=== PATIENT | female | born 1940 | race Caucasian/White ===

== ENCOUNTER → 2017-02-26 | Day surgery (SDC) | payer BC ==
[2017-02-19 16:16] VITALS: Ht 165.1 cm; Wt 90.9 kg
[~2017-02-26] VITALS: Ht 165.1 cm; Wt 90.9 kg
[~2017-02-26] MED LIST: 500ML BSS 0.3ML EPI 1:1000PF IRRIG ONE; ACETAMINOPHEN 325 MG TAB PO PRN; AMVISC PLUS 0.8ML SYRINGE INT OCU ONE; ASPEC81 PO; ATEN-173 PO; ATOR-24 PO; BSS FLUSH ONE; CYAN10005 PO; DEXL60CA4 PO; ENDOCOAT 0.85ML SYRINGE INT OCU ONE; EpHEDrine SULFATE INJ 50 MG/ML AMP IV PRN; EpINEphrine INJ 1MG/ML AMP 1 MG/ML AMP ONE; FENTANYL CITRATE INJ 50 MCG/1 ML 2 ML VIAL ONE; INSDGI SC; LACTATED RINGER'S 1000ML 500 ML IV SCH; LIDOCAINE 4% OP SOLN DROP CHARGE ONE; LIDOCAINE 4% OP SOLN DROP CHARGE OPR SCH; LIDOCAINE HCL 1% MPF 2 ML VIAL ONE; MIDAZOLAM HCL 1 MG/ML 2ML VIAL ONE; MIX: 4ML BSS 1ML EPI 1:1000 PF TOP ONE; MOXIFLOXACIN OPH SOLN PER DROP CHARGE ONE; MULT-1092 PO; NVLG SQ; ONDANSETRON INJ 2 MG/ML 2 ML VIAL IV PRN; POVIDONE-IODINE OP SOLN 30 ML BTL ONE; PROPARACAINE 0.5% OP SOLN PER DROP CHARGE OPR SCH; TOBRAMYCIN/DEXAMETHASONE OPH OINT PER APPLN CHARGE ONE; TROPICAMIDE 1% OP SOLN PER DROP CHARGE OPR SCH; ZNTT/150 PO
--- NOTE | 2017-02-26 06:40 | History & Physical Bridge - [place] ---
H&P Re-Evaluation Bridge Note: I have examined the patient, reviewed the History & Physical and in the interval since the performance of the History & Physical I have noted the following changes of clinical significance: No changes noted
[2017-02-26] MEDS: PHENYLEPHRINE HCL 2.5% OP SOLN PER DROP CHARGE OPR SCH ×3 (06:47→06:54)
[2017-02-26] MEDS: TROPICAMIDE 1% OP SOLN PER DROP CHARGE OPR SCH ×3 (06:47→06:54)
[2017-02-26] MEDS: CYCLOPENTOLATE HCL 1% OP SOLN PER DROP CHARGE OPR SCH ×3 (06:48→06:54)
[2017-02-26] MEDS: MOXIFLOXACIN OPH SOLN PER DROP CHARGE OPR SCH ×3 (06:49→06:55)
--- NOTE | 2017-02-26 07:27 | [facility] Post Operative Brief Note ---
Immediate Operative Summary Operative Date Feb 26, 2017. Pre-Operative Diagnosis Right Eye Cataract Post-Operative Diagnosis same Procedure(s) Performed Right Cataract Phacoemulsification With Intraocular Lens Implant Surgeon Dr. Kathryn Roper Clinical Cytogeneticist Surgeon(s) 0 Estimated Blood Loss 0 Findings right cataract Specimens none Complication(s) None Disposition
[2017-02-26 07:28] VITALS: TEMP 36.2
--- NOTE | 2017-02-26 07:28 | [facility] Operative Report ---
Operative Report Date of Service Feb 26, 2017. Operative Report DATE OF OPERATION: 02/26/17 PREOPERATIVE DIAGNOSIS: Senile nuclear cataract, right eye POSTOPERATIVE DIAGNOSIS: Senile nuclear cataract, right eye PROCEDURE PERFORMED: Phacoemulsification with intraocular lens implantation, right eye SURGEON: Dr. Bryan Roper ANESTHESIA: Topical with 1% intracameral lidocaine and monitored anesthesia care COMPLICATIONS: None DESCRIPTION OF PROCEDURE: After positively identifying the patient both verbally and by wristband in the preoperative area, the right eye was marked as the operative eye. The patient was then brought back to the operating room by the anesthesia and nursing staff where they were given a drop of Lidocaine and betadine into the operative eye. They were then sterilely prepped and draped in the standard fashion typical for ophthalmic surgery. Steri-strips were placed along the upper eyelids to keep the lashes back, and a lid speculum was placed into the operative eye. At this point, a documented time out was performed with members of the ophthalmology, nursing, and anesthesia staffs all agreeing upon the correct patient, correct location for surgery, correct procedure, and correct type and power of intraocular lens to be implanted. The microscope was then swung into position. First, a paracentesis wound was made using a sideport blade. Then, in sequence, 1% preservative-free lidocaine followed by Endocoat viscoelastic was injected into the anterior chamber. Next , the main incision was made with a keratome blade in triplanar fashion. A Malyugin ring was inserted due to poor dilation. A sharp cystotome was introduced into the eye and used to create a tear in the anterior capsule, which was directed into a continuous curvilinear capsulorrhexis using Utrata forceps. Hydrodissection was then performed with BSS on a flat-tip cannula. Next, the phacoemulsification handpiece was introduced into the eye and used to remove the nucleus in a [id number] fashion. This was done without complication and then the irrigation-aspiration handpiece was introduced into the eye and used to remove all remaining cortical and epinuclear material. Amvisc was then injected into the anterior chamber as well as into the capsular bag and using the lens injector system, an MX60 21.5 D lens, serial number [id number], and expiration date 07/2019 was injected into the capsular bag and rotated into the correct position. The Malyugin ring was removed. Next, the irrigation-aspiration handpiece was used to remove all remaining Amvisc. BSS was used to hydrate the main wound, and then BSS was injected into the paracentesis site to reach physiologic pressure and then the main wound was checked and found to be watertight. The patient was given drops of Vigamox and Tobradex ointment into the operative eye, and then the surrounding area was cleaned and dried. A clear plastic shield was placed over the eye and the patient was then sat up and taken from the operating room by the anesthesia staff having tolerated the procedure well and suffering no complications. DISPOSITION: The patient was returned to the recovery room in stable condition. I attest to the content of the Intraoperative Record and any orders documented therein. Any exceptions are noted below.
--- NOTE | 2017-02-26 07:29 | Discharge Instructions-SurgCtr ---
Discharge Instructions Date of Service Feb 26, 2017. Visit Reason for Visit: Cataract Right Eye Discharge Discharge Diagnosis / Problem: right cataract Discharge Goals Goal(s): Decrease discomfort, Improve function Activity Recommendations Activity Limitations: as noted below Anesthesia . Post Anesthesia Instructions: If you have had General Anesthesia or IV Sedation: * Do not drive today. * Resume driving when surgeon permits. * Do not make important decisions or sign legal documents today. * Call surgeon for: 1. Temperature elevations greater than 101 degrees F. 2. Uncontrollable pain. 3. Excessive bleeding. 4. Persistent nausea and vomiting. 5. Medication intolerance (nausea, vomiting or rash). * For nausea and vomiting use only clear liquids such as: tea, soda, bouillon until nausea subsides, then gradually increase diet as tolerated. * If you have any concerns or questions, call your surgeon's office. If physician is unavailable and it is an emergency, call 911 or go to the nearest emergency room. . Instructions / Follow-Up Instructions / Follow-Up ACTIVITY RECOMMENDATIONS: * Light activities. * You may walk outside, read, watch television. * You may notice redness on the white part of the eye and some blurry vision - this is normal. MEDICATIONS: Resume previous medications unless instructed otherwise by your surgeon. Start all eye drops at 9:30 am today: * Eye drops (today): Prednisone - one drop in operative eye every 2 hours while awake Ofloxacin - one drop in operative eye every 2 hours while awake Bromfenac - one drop in operative eye daily SPECIAL CARE INSTRUCTIONS: * Tape plastic shield over eye to sleep at night. Call your doctor at with any concerns or problems. FOLLOW UP VISIT: Follow-up with Dr Roper at [facility] as scheduled. Diet Recommendations Home Diet: no limitations Procedures Procedures Performed: Right Cataract Phacoemulsification With Intraocular Lens Implant Pending Studies Studies pending at discharge: no Medical Emergencies . Who to Call and When: Medical Emergencies: If at any time you feel your situation is an emergency, please call 911 immediately. . Non-Emergent Contact Non-Emergency issues call your: Surgeon . . "Provider Documentation" section prepared by Bryan Roper. .
--- NOTE | 2017-02-26 07:39 | Anesthesia Progress Nt - [facility] ---
Anesthesia Post Op Note Date & Time Feb 26, 2017 at 07:39 Vital Signs Pain Intensity: 0 Vital Signs Past 12 Hours Date Time Temp Pulse Resp B/P (MAP) Pulse Ox O2 Delivery O2 Flow Rate FiO2 02/26/17 07:28 36.2 67 16 138/56 (83) 96 Room Air 02/26/17 06:29 36.4 66 151/73 (99) 94 Room Air Notes Mental Status: alert / awake / arousable, participated in evaluation Pt Amnestic to Procedure: Yes Nausea / Vomiting: adequately controlled Pain: adequately controlled Airway Patency, RR, SpO2: stable & adequate BP & HR: stable & adequate Hydration State: stable & adequate Anesthetic Complications: no major complications apparent
[2017-02-26 07:53] VITALS: BP 146/70; PULSE 62; O2SAT 95
== END | disposition home or self-care (01) ==
LOC: X.SURG 06:07
PROVIDERS: ATTEND Ophthalmology
DX: H25.11 Age-related nuclear cataract, right eye (principal); E78.00 Pure hypercholesterolemia, unspecified; I10 Essential (primary) hypertension; E11.39 Type 2 diabetes mellitus with other diabetic ophthalmic complication; Z87.891 Personal history of nicotine dependence; Z79.4 Long term (current) use of insulin; K21.9 Gastro-esophageal reflux disease without esophagitis; G47.33 Obstructive sleep apnea (adult) (pediatric); E78.5 Hyperlipidemia, unspecified; Z86.711 Personal history of pulmonary embolism

== ENCOUNTER → 2017-03-19 | Day surgery (SDC) | payer BC ==
[2017-03-06 15:24] VITALS: Ht 165.1 cm; Wt 90.9 kg
[~2017-03-19] VITALS: Ht 165.1 cm; Wt 90.9 kg
[~2017-03-19] MED LIST changes: +ATROPINE SULFATE 0.1 MG/ML 5ML SYR IV PRN; +LIDOCAINE 4% OP SOLN DROP CHARGE OPL SCH; -LIDOCAINE 4% OP SOLN DROP CHARGE OPR SCH; -ONDANSETRON INJ 2 MG/ML 2 ML VIAL IV PRN; +PROPARACAINE 0.5% OP SOLN PER DROP CHARGE OPL SCH; -PROPARACAINE 0.5% OP SOLN PER DROP CHARGE OPR SCH; -TROPICAMIDE 1% OP SOLN PER DROP CHARGE OPR SCH
[2017-03-19] MEDS: PHENYLEPHRINE HCL 2.5% OP SOLN PER DROP CHARGE OPL SCH ×3 (06:39→06:49)
[2017-03-19] MEDS: TROPICAMIDE 1% OP SOLN PER DROP CHARGE OPL SCH ×3 (06:40→06:50)
[2017-03-19] MEDS: CYCLOPENTOLATE HCL 1% OP SOLN PER DROP CHARGE OPL SCH ×3 (06:41→06:51)
[2017-03-19] MEDS: MOXIFLOXACIN OPH SOLN PER DROP CHARGE OPL SCH ×3 (06:42→06:52)
--- NOTE | 2017-03-19 07:35 | [facility] Post Operative Brief Note ---
Immediate Operative Summary Operative Date Mar 19, 2017. Pre-Operative Diagnosis Left Eye Cataract Post-Operative Diagnosis Same Procedure(s) Performed Left Cataract Phacoemulsification With Intraocular Lens Implant Surgeon Dr. Roper [facility] Companion Surgeon(s) None Estimated Blood Loss None Findings left cataract Specimens None Complication(s) None Disposition
--- NOTE | 2017-03-19 07:36 | [facility] Operative Report ---
Operative Report Date of Service Mar 19, 2017. Operative Report Phaco with monofocal IOL DATE OF OPERATION: 03/19/17 PREOPERATIVE DIAGNOSIS: Senile nuclear cataract, left eye POSTOPERATIVE DIAGNOSIS: Senile nuclear cataract, left eye PROCEDURE PERFORMED: Phacoemulsification with intraocular lens implantation, left eye SURGEON: Dr. Bryan Roper ANESTHESIA: Topical with 1% intracameral lidocaine and monitored anesthesia care COMPLICATIONS: None DESCRIPTION OF PROCEDURE: After positively identifying the patient both verbally and by wristband in the preoperative area, the left eye was marked as the operative eye. The patient was then brought back to the operating room by the anesthesia and nursing staff where they were given a drop of Lidocaine and betadine into the operative eye. They were then sterilely prepped and draped in the standard fashion typical for ophthalmic surgery. Steri-strips were placed along the upper eyelids to keep the lashes back, and a lid speculum was placed into the operative eye. At this point, a documented time out was performed with members of the ophthalmology, nursing, and anesthesia staffs all agreeing upon the correct patient, correct location for surgery, correct procedure, and correct type and power of intraocular lens to be implanted. The microscope was then swung into position. First, a paracentesis wound was made using a sideport blade. Then, in sequence, 1% preservative-free lidocaine followed by Endocoat viscoelastic was injected into the anterior chamber. Next , the main incision was made with a keratome blade in triplanar fashion. A Malyugin ring was inserted due to poor pupil dilation. A sharp cystotome was introduced into the eye and used to create a tear in the anterior capsule, which was directed into a continuous curvilinear capsulorrhexis using Utrata forceps. Hydrodissection was then performed with BSS on a flat-tip cannula. Next, the phacoemulsification handpiece was introduced into the eye and used to remove the nucleus in a kyntek-hmm-dohuyel fashion. This was done without complication and then the irrigation-aspiration handpiece was introduced into the eye and used to remove all remaining cortical and epinuclear material. Amvisc was then injected into the anterior chamber as well as into the capsular bag and using the lens injector system, an MX60 21.5 D lens, serial number [id number], and expiration date 08/2019 was injected into the capsular bag and rotated into the correct position. The Malyugin ring was removed. Next, the irrigation-aspiration handpiece was used to remove all remaining Amvisc. BSS was used to hydrate the main wound, and then BSS was injected into the paracentesis site to reach physiologic pressure and then the main wound was checked and found to be watertight. The patient was given drops of Vigamox and Tobradex ointment into the operative eye, and then the surrounding area was cleaned and dried. A clear plastic shield was placed over the eye and the patient was then sat up and taken from the operating room by the anesthesia staff having tolerated the procedure well and suffering no complications. DISPOSITION: The patient was returned to the recovery room in stable condition. I attest to the content of the Intraoperative Record and any orders documented therein. Any exceptions are noted below.
[2017-03-19 07:37] VITALS: TEMP 36.6
--- NOTE | 2017-03-19 07:37 | Discharge Instructions-SurgCtr ---
Discharge Instructions Date of Service Mar 19, 2017. Visit Reason for Visit: Cataract Left Eye Discharge Discharge Diagnosis / Problem: left cataract Discharge Goals Goal(s): Decrease discomfort, Improve function Activity Recommendations Activity Limitations: as noted below Anesthesia . Post Anesthesia Instructions: If you have had General Anesthesia or IV Sedation: * Do not drive today. * Resume driving when surgeon permits. * Do not make important decisions or sign legal documents today. * Call surgeon for: 1. Temperature elevations greater than 101 degrees F. 2. Uncontrollable pain. 3. Excessive bleeding. 4. Persistent nausea and vomiting. 5. Medication intolerance (nausea, vomiting or rash). * For nausea and vomiting use only clear liquids such as: tea, soda, bouillon until nausea subsides, then gradually increase diet as tolerated. * If you have any concerns or questions, call your surgeon's office. If physician is unavailable and it is an emergency, call 911 or go to the nearest emergency room. . Instructions / Follow-Up Instructions / Follow-Up ACTIVITY RECOMMENDATIONS: * Light activities. * You may walk outside, read, watch television. * You may notice redness on the white part of the eye and some blurry vision - this is normal. MEDICATIONS: Resume previous medications unless instructed otherwise by your surgeon. Start all eye drops at 9:30 am today: * Eye drops (today): Prednisone - one drop in operative eye every 2 hours while awake Ofloxacin - one drop in operative eye every 2 hours while awake Bromfenac - one drop in operative eye daily SPECIAL CARE INSTRUCTIONS: * Tape plastic shield over eye to sleep at night. Call your doctor at with any concerns or problems. FOLLOW UP VISIT: Follow-up with Dr Roper at [facility] as scheduled. Diet Recommendations Home Diet: no limitations Procedures Procedures Performed: Left Cataract Phacoemulsification With Intraocular Lens Implant Pending Studies Studies pending at discharge: no Medical Emergencies . Who to Call and When: Medical Emergencies: If at any time you feel your situation is an emergency, please call 911 immediately. . Non-Emergent Contact Non-Emergency issues call your: Surgeon . . "Provider Documentation" section prepared by Bryan Roper. .
--- NOTE | 2017-03-19 08:00 | Anesthesia Progress Nt - [facility] ---
Anesthesia Post Op Note Date & Time Mar 19, 2017 at 08:00 Vital Signs Pain Intensity: 0 Vital Signs Past 12 Hours Date Time Temp Pulse Resp B/P (MAP) Pulse Ox O2 Delivery O2 Flow Rate FiO2 03/19/17 07:37 36.6 66 16 137/83 (101) 95 Room Air 03/19/17 06:34 36.3 77 18 140/68 (92) 94 Room Air Notes Mental Status: alert / awake / arousable, participated in evaluation Pt Amnestic to Procedure: Yes Nausea / Vomiting: adequately controlled Pain: adequately controlled Airway Patency, RR, SpO2: stable & adequate BP & HR: stable & adequate Hydration State: stable & adequate Anesthetic Complications: no major complications apparent
[2017-03-19 08:01] VITALS: BP 126/72; PULSE 63; O2SAT 95
== END | disposition home or self-care (01) ==
LOC: X.SURG 06:06
PROVIDERS: ATTEND Ophthalmology
DX: H25.12 Age-related nuclear cataract, left eye (principal); I10 Essential (primary) hypertension; E78.00 Pure hypercholesterolemia, unspecified; E11.3213 Type 2 diabetes mellitus with mild nonproliferative diabetic retinopathy with macular edema, bilateral; Z87.891 Personal history of nicotine dependence; Z79.4 Long term (current) use of insulin; Z79.82 Long term (current) use of aspirin; Z79.899 Other long term (current) drug therapy

== ENCOUNTER 2021-05-24 16:51 | Inpatient (IN) ==
[2021-05-24] MEDS ORDERED: ONDANSETRON INJ 2 MG/ML 2 ML VIAL IV STA ×2 (17:07→19:46)
[2021-05-24] MEDS ORDERED: ALBUTEROL HFA 8 GM INHALER INH ONE (17:07)
[2021-05-24] MEDS ORDERED: BENZONATATE 100 MG CAPSULE PO ONE (17:07)
--- NOTE | 2021-05-24 17:07 | Emergency Department Note ---
Impression & Plan Hypoxia, SOB (shortness of breath), Weakness, Pneumonia, COVID-19 ED Provider Note NAME: BELA HAYES AGE: 80 SEX: F : 1940 ARRIVES VIA: Ambulance INFORMANT: [Patient][ems] ED PROVIDER(S): [Hermes Mojica MD] CHIEF COMPLAINT: Cough, weakness HISTORY OF PRESENT ILLNESS: The patient is an 80-year-old female presents to the ED with cough and weakness. She has no appetite. The patient has felt sick for about 9 days now. She did test positive for COVID-19. Her is also positive. She has been vaccinated against COVID-19. Patient complains mostly of cough, some occasional shortness of breath with exertion. She has no appetite. She has lost her taste and smell. She has some body aches. She has had some nausea and diarrhea. No vomiting. She denies any fever. She was concerned because she is diabetic and she has not been eating, she wanted to make sure she was okay. She presents by ambulance. She does believe her sugars have been reasonable lately. REVIEW OF SYSTEMS: See HPI for pertinent positives and negatives. A total of ten systems were reviewed and were otherwise negative. PMHx/PSHx: See Below SOCIAL HISTORY: See Below. PHYSICAL EXAM: GENERAL: Patient is in no acute distress. HEENT: No acute trauma, normocephalic atraumatic, mucous membranes moist, no nasal congestion, no scleral icterus. NECK: No stridor, no adenopathy, no meningismus, trachea is midline. LUNGS: Some crackles at the left base, no wheezing, breath sounds do seem equal. No obvious respiratory distress. HEART: Without murmurs gallops or rubs, regular rate and rhythm. ABDOMEN: Soft, nontender, bowel sounds positive, no hernias, no peritonitis. EXTREMITIES: No cyanosis or edema, full range of motion of all the joints without pain or difficulty, no signs for acute trauma. NEUROLOGIC: Oriented x 3, no acute motor or sensory deficits, no focal weakness. SKIN: No rash, no jaundice, no diaphoresis. DIFFERENTIAL DIAGNOSIS: Infection, dehydration, metabolic abnormality, COVID-19, hypo/hyperglycemia, electrolyte disturbance, anemia, hypoxia, cardiac sources, intracerebral event, toxicologic issues, stroke, TIA, as well as other pathologies. EMERGENCY DEPARTMENT COURSE/PROCEDURES: ECG: Indication was shortness of breath, weakness. ECG shows a normal sinus rhythm with a rate of 77. 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 There is no ST elevation, no PVCs. QTC is 473. 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 Continuous Cardiac Monitoring: An order was placed for continuous cardiac monitoring. The monitor shows a rate of 77 with normal sinus rhythm. Critical Care Note: I have personally spent 46 minutes of critical care time in the direct management of this patient. This includes bedside care, interpretation of diagnostic studies, and testing, discussion with consultants, patient, and family members, and other required patient management activities. This 46 minutes is in excess of all separately billable procedures. MEDICAL DECISION MAKING: There is no leukocytosis or concerning anemia. There is a normal platelet count. Creatinine is somewhat elevated at 1.61, this is consistent with some deh ydration. No worrisome electrolyte abnormality in need of emergent correction. Lactic acid level was not elevated making sepsis less likely. No concerning liver enzyme elevation. ECG shows a sinus rhythm, no acute ischemia. Cardiac enzyme testing x1 is not consistent with acute cardiac injury. Chest film does show what appears to be left lower lung pneumonia. Chest CT does not show PE, bilateral groundglass opacities were seen consistent with a viral pneumonia. The patient was given IV saline, 1 L in total. She was given IV Zofran, 8 mg in total. She received IV Decadron, oral Tessalon and albuterol via MDI. The patient was hypoxic in the ED at 88%. She was given nasal cannula O2 supplementation. Given the patient's Covid positive findings, her pneumonia findings, her hypoxia, her diabetes history, her COPD history, I do think a hospital stay is warranted. I did speak with the patient and case sealer. The on-call hospitalist was consulted. Past Med/Surg History Medical History Chest pain Diabetes HTN, goal below 140/80 (06/26/13) Hypomagnesemia Family History (Updated 05/25/19 @ 03:43 by Dwayne De Jesus) Other No significant family history Social History Smoking Status: Former smoker Tobacco Type: Cigarettes Hx Alcohol Use: No Preferred Language: Barbadian Feels Safe at Home: Yes Allergies Allergies Allergy/AdvReac Type Severity Reaction Status Date / Time azithromycin Allergy Intermediate FACIAL Verified 05/24/21 17:59 SWELLING AND ITCHING IN COMBINATION WITH HYCODAN homatropine Allergy Intermediate FACIAL Verified 05/24/21 17:59 SWELLING AND ITCHING IN COMBINATION WITH ZITHROMAX hydrocodone Allergy Intermediate FACIAL Verified 05/24/21 17:59 SWELLING &ITCHING-IN COMBINATION W/ZITHROMAX Penicillins Allergy Mild RASH, ITCHY Verified 05/24/21 17:59 metformin AdvReac Intermediate Diarrhea Verified 05/24/21 17:59 Sulfa (Sulfonamide AdvReac Mild SULFA Verified 05/24/21 17:59 Antibiotics) DRUGS-CHANGE COLORS Home Meds Home Medications Medication Instructions Recorded Confirmed atenolol 25 mg tablet 25 mg PO QPM 02/24/19 05/24/21 atorvastatin 40 mg tablet 40 mg PO PM 02/24/19 05/24/21 cyanocobalamin (vitamin B-12) 1,000 mcg PO QAM 02/24/19 05/24/21 1,000 mcg tablet (Vitamin B-12) insulin aspart U-100 100 unit/mL 1 sliding scale dose SUBCUT ACHS 02/24/19 05/24/21 subcutaneous solution (Novolog U-100 Insulin aspart) aspirin 325 mg tablet,delayed 325 mg PO DAILY 10/07/20 05/24/21 release insulin degludec 100 36 unit SUBCUT QAM 10/07/20 05/24/21 unit-liraglutide 3.6 mg/mL(3 mL) subcutaneous pen (Xultophy 100/3.6) ascorbic acid (vitamin C) 1,000 mg 1 g PO DAILY 05/24/21 05/24/21 tablet (Vitamin C) cholecalciferol (vitamin D3) 125 125 mcg PO DAILY 05/24/21 05/24/21 mcg (5,000 unit) tablet (Vitamin D3) fluticasone furoate 200 1 inh INHALATION DIRECTED 05/24/21 05/24/21 mcg-vilanterol 25 mcg/dose inhalation powder (Breo Ellipta) zinc 50 mg tablet 50 mg PO DAILY 05/24/21 05/24/21 Results & Data (ED) Vital Signs Vital Signs - 24 hr 05/24/21 17:13 05/24/21 19:48 05/24/21 19:56 Pulse Rate 77 Pulse Rate [Apical] 83 Respiratory Rate 21 18 Respiratory Depth Normal Blood Pressure 113/64 Blood Pressure Mean 80 Pulse Oximetry 89 L 88 L 95 Oxygen Delivery Method Room Air Room Air Nasal Cannula Oxygen Flow Rate 2 Sepsis Recent Fever Within 48 Hours No Sepsis New/Unexplained Change in Mental Status No Sepsis Action Taken by Nursing No Action Required Home Medications Current Medication List: was personally reviewed by me Laboratory Data Attestation: I reviewed the patient's lab results. Result diagrams: 05/24/21 17:32 05/24/21 17:32 Lab Results 05/24/21 05/24/21 05/24/21 Range/Units 17:32 17:32 17:32 WBC 6.68 (4.8-10.8) K/uL RBC 4.19 L (4.2-5.4) M/uL Hgb 13.0 (12.0-16.0) g/dL Hct 38.3 (37-47) % MCV 91.4 (80-100) fL MCH 31.0 (25-34) pg MCHC 33.9 (32-36) g/dL RDW Std Deviation 44.5 (36.4-46.3) fL RDW Coeff of Sandy 13.3 (11.5-14.5) % Plt Count 167 (130-400) K/uL MPV 11.8 H (7.4-10.4) fL Immature Gran % (Auto) 0.1 % Neut % (Auto) 53.2 % Lymph % (Auto) 34.7 % Jerauld % (Auto) 10.0 % Eos % (Auto) 1.6 % Baso % (Auto) 0.4 % Neut # (Auto) 3.54 (1.4-6.5) K/uL Lymph # (Auto) 2.32 (1.2-3.4) K/uL Jerauld # (Auto) 0.67 H (0.11-0.59) K/uL Eos # (Auto) 0.11 (0-0.5) K/uL Baso # (Auto) 0.03 (0-0.2) K/uL Immature Gran # (Auto) 0.01 (0.00-0.02) K/uL Sodium 136 (136-145) mmol/L Potassium 3.7 (3.5-5.1) mmol/L Chloride 104 (98-107) mmol/L Carbon Dioxide 22 (21-32) mmol/L Anion Gap 10.0 (3-11) BUN 26 H (7-18) mg/dl Creatinine 1.61 H (0.6-1.2) mg/dl Est Cr Clr Drug Dosing 29.2 ml/min Est GFR ( Amer) 34.2 ml/min Est GFR (Non-Af Amer) 29.5 ml/min BUN/Creatinine Ratio 16.1 (10-20) Glucose 105 H (70-99) mg/dl Lactate 0.7 (0.4-2.0) mmol/L Calcium 8.9 (8.5-10.1) mg/dl Magnesium 2.0 (1.8-2.4) mg/dl Total Bilirubin 0.5 (0.2-1) mg/dl AST 21 (15-37) U/L ALT 22 (12-78) U/L Alkaline Phosphatase 71 (45-117) U/L Troponin I < 0.015 (0-0.045) ng/ml Total Protein 7.9 (6.4-8.2) gm/dl Albumin 2.9 L (3.4-5.0) gm/dl Globulin 5.0 H (2.5-4.0) gm/dl Albumin/Globulin Ratio 0.6 L (0.9-2) Procalcitonin (0-0.5) ng/ml 05/24/21 Range/Units 18:06 WBC (4.8-10.8) K/uL RBC (4.2-5.4) M/uL Hgb (12.0-16.0) g/dL Hct (37-47) % MCV (80-100) fL MCH (25-34) pg MCHC (32-36) g/dL RDW Std Deviation (36.4-46.3) fL RDW Coeff of Sandy (11.5-14.5) % Plt Count (130-400) K/uL MPV (7.4-10.4) fL Immature Gran % (Auto) % Neut % (Auto) % Lymph % (Auto) % Jerauld % (Auto) % Eos % (Auto) % Baso % (Auto) % Neut # (Auto) (1.4-6.5) K/uL Lymph # (Auto) (1.2-3.4) K/uL Jerauld # (Auto) (0.11-0.59) K/uL Eos # (Auto) (0-0.5) K/uL Baso # (Auto) (0-0.2) K/uL Immature Gran # (Auto) (0.00-0.02) K/uL Sodium (136-145) mmol/L Potassium (3.5-5.1) mmol/L Chloride (98-107) mmol/L Carbon Dioxide (21-32) mmol/L Anion Gap (3-11) BUN (7-18) mg/dl Creatinine (0.6-1.2) mg/dl Est Cr Clr Drug Dosing ml/min Est GFR ( Amer) ml/min Est GFR (Non-Af Amer) ml/min BUN/Creatinine Ratio (10-20) Glucose (70-99) mg/dl Lactate (0.4-2.0) mmol/L Calcium (8.5-10.1) mg/dl Magnesium (1.8-2.4) mg/dl Total Bilirubin (0.2-1) mg/dl AST (15-37) U/L ALT (12-78) U/L Alkaline Phosphatase (45-117) U/L Troponin I (0-0.045) ng/ml Total Protein (6.4-8.2) gm/dl Albumin (3.4-5.0) gm/dl Globulin (2.5-4.0) gm/dl Albumin/Globulin Ratio (0.9-2) Procalcitonin < 0.05 (0-0.5) ng/ml Administered Medications Discontinued Medications Albuterol (Albuterol Hfa 8 Gm Inhaler) 3 puffs INH NOW ONE Stop: 05/24/21 17:08 Last Admin: 05/24/21 18:00 Dose: 3 puffs Documented by: [id number] Benzonatate (Benzonatate 100 Mg Capsule) 100 mg PO NOW ONE Stop: 05/24/21 17:08 Last Admin: 05/24/21 18:00 Dose: 100 mg Documented by: [id number] Sodium Chloride (Nss) 500 mls @ 999 mls/hr IV .Q31M ADAL Stop: 05/24/21 17:45 Last Infusion: 05/24/21 18:36 Dose: 0 mls/hr Documented by: [id number] Admin: 05/24/21 18:00 Dose: 999 mls/hr Documented by: [id number] Sodium Chloride (Nss 1000ml) 500 mls @ 999 mls/hr IV .Q31M ONE Stop: 05/24/21 19:49 Last Admin: 05/24/21 19:54 Dose: 999 mls/hr Documented by: [id number] Ioversol (Optiray 320 125ml) 118 ml IV ONCE ONE Stop: 05/24/21 19:38 Last Admin: 05/24/21 19:43 Dose: 118 ml Documented by: [id number] Ondansetron HCl (Ondansetron Inj 2 Mg/Ml 2 Ml Vial) 4 mg IV NOW STA Stop: 05/24/21 17:08 Last Admin: 05/24/21 18:00 Dose: 4 mg Documented by: [id number] Ondansetron HCl (Ondansetron Inj 2 Mg/Ml 2 Ml Vial) 4 mg IV NOW STA Stop: 05/24/21 19:47 Last Admin: 05/24/21 19:54 Dose: 4 mg Documented by: [id number] Imaging Data Radiologist's Impression: Chest X-Ray 05/24/21 17:07 SINGLE VIEW CHEST CLINICAL HISTORY: Generalized weakness. FINDINGS: An AP, portable, upright chest radiograph is compared to study dated 05/25/2019 and correlated with chest CT dated 10/07/2020. The cardiomediastinal silhouette is unremarkable noting atherosclerotic calcification of the thoracic aorta. The mitral annulus is densely calcified. Emphysema and chronic interstitial thickening is similar to previous. Airspace consolidation is seen at the left lung base. Suspect trace left pleural effusion. No pneumothorax is seen. The skeletal structures are osteopenic. The bony thorax is grossly intact. IMPRESSION: 1. Emphysema. 2. Airspace consolidation is seen at the left lung base. Correlate clinically for evidence of pneumonia/aspiration pneumonitis. Radiographic follow-up to resolution is recommended. 3. Suspect trace left pleural effusion. ACT 112: Negative or not required by law. Electronically signed by: Hermes Rosas M.D. 05/24/2021 5:50 PM Chest CTA 05/24/21 18:48 CT ANGIOGRAM OF THE CHEST CLINICAL HISTORY: Generalized weakness. Covid. COMPARISON STUDY: Chest CT dated 10/07/2020. Chest x-ray dated 05/24/2021 TECHNIQUE: Following the IV administration of 118 cc of Optiray 320, CT angiogram of the chest was performed from the upper abdomen to the thoracic inlet utilizing the pulmonary embolus protocol. Images are reviewed in the axial, sagittal, and coronal planes. 3-D MIPS images are created and assessed. IV contrast was administered without complication. A dose lowering technique was utilized adhering to the principles of ALARA. CT DOSE: 626.63 mGy.cm FINDINGS: Thyroid: Imaged portions of the thyroid gland are normal in size and attenuation. Thoracic aorta: There is mild atherosclerotic calcification of the thoracic aort a, which is normal in caliber and demonstrates standard 3-vessel arch anatomy. No dissection is seen. Pulmonary vasculature: The pulmonary trunk is normal in caliber. There are no filling defects identified in main, lobar, or segmental pulmonary branches to suggest pulmonary embolus. Heart: The heart is top normal in size and without pericardial effusion. The coronary arteries and mitral annulus are densely calcified. Lungs and pleural spaces: Emphysema is noted. There is mild multifocal groundglass consolidation seen throughout both lungs, most confluent in the anterior left upper lobe. No pleural effusion is identified. The trachea and central airways are clear. Mediastinum: Mildly enlarged mediastinal lymph nodes measure up to 11 mm in short axis. Briana: Mildly enlarged hilar lymph nodes measure up to 11 mm in short axis. Axillae: There is no axillary lymphadenopathy. Upper abdomen: There is a small hiatal hernia. Partially visualized upper abdominal viscera is otherwise grossly unremarkable. Skeletal structures: The skeletal structures are osteopenic. Mild degenerative change is noted in the thoracic spine. A large hemangioma is noted in the body of T4. No lytic or blastic bony lesions are seen. IMPRESSION: 1. There is no evidence of pulmonary embolus in the main, lobar, or segmental pulmonary arteries. 2. Emphysema. 3. Mild multifocal groundglass consolidation is consistent with the reported history of a viral pneumonia. Precautionary CT follow-up in 3 months time is recommended to document resolution and reassess the underlying the lung parenc hyma. 4. Mildly enlarged mediastinal and hilar nodes are likely reactive. 5. Additional findings as above. ACT 112: Negative or not required by law. Electronically signed by: Hermes Rosas M.D. 05/24/2021 8:04 PM Discharge Plan Visit Data Chief Complaint: Illness Stated Complaint: ILLNESS, COVID + ED Provider: Hermes Mojica Discharge Problem: Hypoxia, SOB (shortness of breath), Weakness, Pneumonia, COVID-19 Patient Disposition: Admitted As Inpatient Condition: Fair Forms Stand Alone Forms: [facility] [place] Prescriptions Prescriptions: No Action atorvastatin 40 mg Tablet 40 mg PO PM RF: 0 atenolol 25 mg Tablet 25 mg PO QPM RF: 0 cyanocobalamin (vitamin B-12) [Vitamin B-12] 1,000 mcg Tablet 1,000 mcg PO QAM RF: 0 insulin aspart U-100 [Novolog U-100 Insulin aspart] 100 unit/mL Solution 1 sliding scale dose SUBCUT ACHS RF: 0 aspirin 325 mg Tablet,Delayed Release (Dr/Ec) 325 mg PO DAILY RF: 0 Xultophy 100/3.6 100 unit-3.6 mg /mL (3 mL) insulin pen 36 unit SUBCUT QAM RF: 0 Breo Ellipta 200-25 mcg/dose blister with device 1 inh INHALATION DIRECTED RF: 0 ascorbic acid (vitamin C) [Vitamin C] 1,000 mg Tablet 1 g PO DAILY RF: 0 zinc 50 mg Tablet 50 mg PO DAILY RF: 0 cholecalciferol (vitamin D3) [Vitamin D3] 125 mcg (5,000 unit) Tablet 125 mcg PO DAILY RF: 0 Referrals Referrals: Lima Mcdonough MD [Physician] - Discharge Problem: Pneumonia Qualifiers: Pneumonia type: due to unspecified organism Laterality: bilateral Lung location: unspecified part of lung Qualified Code(s): J18.9 - Pneumonia, unspecified organism
[2021-05-24] MEDS ORDERED: SODIUM CHLORIDE 0.9% 500 ML IV SCH (17:15)
[2021-05-24 17:46] LABS: Basophils # (auto) 0.03 K/uL (0-0.2); Basophils % (auto) 0.4 %; Eosinophils # (auto) 0.11 K/uL (0-0.5); Eosinophils % (auto) 1.6 %; Hematocrit (blood only) 38.3 % (37-47); Immature Granulocytes # (auto) 0.01 K/uL (0.00-0.02); Immature Granulocytes % (auto) 0.1 %; Lymphocytes # (auto) 2.32 K/uL (1.2-3.4); Lymphocytes % (auto) 34.7 %; Mean Corpuscular Hgb Conc 33.9 g/dL (32-36); Mean Corpuscular Volume 91.4 fL (80-100); Mean Platelet Volume 11.8 fL (7.4-10.4); Monocytes # (auto) 0.67 K/uL (0.11-0.59); Neutrophils # (auto) 3.54 K/uL (1.4-6.5); Neutrophils % (auto) 53.2 %; Platelet Count 167 K/uL (130-400); RDW Coefficient of Variation 13.3 % (11.5-14.5); RDW Standard Deviation 44.5 fL (36.4-46.3); Red Blood Count 4.19 M/uL (4.2-5.4); White Blood Count 6.68 K/uL (4.8-10.8)
--- NOTE | 2021-05-24 17:51 | XRay Report ---
SINGLE VIEW CHEST CLINICAL HISTORY: Generalized weakness. FINDINGS: An AP, portable, upright chest radiograph is compared to study dated 05/25/2019 and correla jeff with chest CT dated 10/07/2020. The cardiomediastinal silhouette is unremarkable noting atheroscle rotic calcification of the thoracic aorta. The mitral annulus is densely calcified. Emphysema and chr onic interstitial thickening is similar to previous. Airspace consolidation is seen at the left lung base. Suspect trace left pleural effusion. No pneumothorax is seen. The skeletal structures are osteo penic. The bony thorax is grossly intact. IMPRESSION: 1. Emphysema. 2. Airspace consolidation is seen at the left lung base. Correlate clinically for evidence of pneumon ia/aspiration pneumonitis. Radiographic follow-up to resolution is recommended. 3. Suspect trace left pleural effusion. ACT 112: Negative or not required by law. Electronically signed by: Hermes Rosas M.D. 05/24/2021 5:50 PM
[2021-05-24 18:04] LABS: Alanine Aminotransferase 22 U/L (12-78); Albumin Level 2.9 gm/dl (3.4-5.0); Aspartate Aminotransferase 21 U/L (15-37); BUN Creatinine Ratio 16.1 (10-20); Blood Urea Nitrogen 26 mg/dl (7-18); Calcium 8.9 mg/dl (8.5-10.1); Carbon Dioxide 22 mmol/L (21-32); Chloride 104 mmol/L (98-107); Creatinine Clr Calc Pharmacy 29.2 ml/min; Est GFR (African American) 34.2 ml/min; Est GFR (Non-African American) 29.5 ml/min; Glucose 105 mg/dl (70-99); Potassium 3.7 mmol/L (3.5-5.1); Sodium 136 mmol/L (136-145)
[2021-05-24 18:09] LABS: Albumin Globulin Ratio 0.6 (0.9-2); Alkaline Phosphatase 71 U/L (45-117); Bilirubin,Total 0.5 mg/dl (0.2-1); Total Protein 7.9 gm/dl (6.4-8.2); Troponin I < 0.015 ng/ml (0-0.045)
[2021-05-24] MEDS ORDERED: SODIUM CHLORIDE 0.9% 1000ML 500 ML IV ONE (19:19)
[2021-05-24] MEDS ORDERED: OPTIRAY 320 125ml IV ONE (19:37)
--- NOTE | 2021-05-24 20:06 | CT Scan Report ---
CT ANGIOGRAM OF THE CHEST CLINICAL HISTORY: Generalized weakness. Covid. COMPARISON STUDY: Chest CT dated 10/07/2020. Chest x-ray dated 05/24/2021 TECHNIQUE: Following the IV administration of 118 cc of Optiray 320, CT angiogram of the chest was pe rformed from the upper abdomen to the thoracic inlet utilizing the pulmonary embolus protocol. Images are reviewed in the axial, sagittal, and coronal planes. 3-D MIPS images are created and assessed. I V contrast was administered without complication. A dose lowering technique was utilized adhering to the principles of ALARA. CT DOSE: 626.63 mGy.cm FINDINGS: Thyroid: Imaged portions of the thyroid gland are normal in size and attenuation. Thoracic aorta: There is mild atherosclerotic calcification of the thoracic aorta, which is normal in caliber and demonstrates standard 3-vessel arch anatomy. No dissection is seen. Pulmonary vasculature: The pulmonary trunk is normal in caliber. There are no filling defects identif ied in main, lobar, or segmental pulmonary branches to suggest pulmonary embolus. Heart: The heart is top normal in size and without pericardial effusion. The coronary arteries and mi tral annulus are densely calcified. Lungs and pleural spaces: Emphysema is noted. There is mild multifocal groundglass consolidation seen throughout both lungs, most confluent in the anterior left upper lobe. No pleural effusion is identi fied. The trachea and central airways are clear. Mediastinum: Mildly enlarged mediastinal lymph nodes measure up to 11 mm in short axis. Briana: Mildly enlarged hilar lymph nodes measure up to 11 mm in short axis. Axillae: There is no axillary lymphadenopathy. Upper abdomen: There is a small hiatal hernia. Partially visualized upper abdominal viscera is otherw ise grossly unremarkable. Skeletal structures: The skeletal structures are osteopenic. Mild degenerative change is noted in the thoracic spine. A large hemangioma is noted in the body of T4. No lytic or blastic bony lesions are seen. IMPRESSION: 1. There is no evidence of pulmonary embolus in the main, lobar, or segmental pulmonary arteries. 2. Emphysema. 3. Mild multifocal groundglass consolidation is consistent with the reported history of a viral pneum onia. Precautionary CT follow-up in 3 months time is recommended to document resolution and reassess the underlying the lung parenchyma. 4. Mildly enlarged mediastinal and hilar nodes are likely reactive. 5. Additional findings as above. ACT 112: Negative or not required by law. Electronically signed by: Hermes Rosas M.D. 05/24/2021 8:04 PM
[2021-05-24] MEDS ORDERED: dexAMETHasone**PF** 10 MG/ML VIAL IV ONE (20:09)
[2021-05-24] MEDS ORDERED: POTASSIUM CHLORIDE CRTAB 20 MEQ TABCR PO STA (20:31)
--- NOTE | 2021-05-24 21:23 | History & Physical Report ---
Date of Service May 24, 2021 Assessment & Plan (1) Acute hypoxemic respiratory failure: Plan: Secondary to severe COVID-19 pneumonia With secondary bacterial infection hx COPD ARF on CRI secondary to illness History of PE status post anticoagulation PVD status post surgery DM2 is requiring, well-controlled as of recent hemoglobin A1c of 01 November 2020 past tobacco abuse. Medical telemetry Supplemental O2 Decadron and Remdesivir for severe COVID-19 pneumonia. (Patient hesitant about Remdesivir Rx for now.) Doxycycline Pulmonary consult if without improvement. Baseline UA, monitor creatinine response to IVF Basal insulin adjusted for clear liquid diet for now given patient poor appetite, ISS BG goal 1 10-1 40, carb count coverage, update hemoglobin A1c DVT prophylaxis Heparin subcu Full code Patient requests for her to be given periodic updates. Mr. Chadwick Bennett, contact #[phone]. Text document was generated using [employer] voice recognition software. It may contain grammatical or spelling errors. Kindly contact undersigned for clarification of any documentation item in question. History of Present Illness Chief Complaint: Worsening shortness breath, COVID-19 Primary Care Provider: Paz Daniels MD History obtained from patient, family, and records. Medical history significant for COPD, history PAT, history TIA, PVD status post surgery, history PE status post anticoagulation, DM2 is requiring, CRI (baseline creatinine 1.4), past tobacco abuse. Last confinement May 2013 for noncardiac chest pain. 9 days ago, patient noted cough symptoms later productive of junky yellow sputum with worsening shortness of breath especially on exertion. No appetite. Loss of taste and smell. Some body aches. Transient nausea, diarrhea symptoms. Sick COVID-19 contact at home. Patient completed COVID-19 vaccination. Outpatient COVID-19 test from last week was positive. O2 sats upon arrival at ER 88 on room air. Patient received Decadron and neb treatment at the ER. 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 Allergies Allergy/AdvReac Type Severity Reaction Status Date / Time azithromycin Allergy Intermediate FACIAL Verified 05/24/21 17:59 SWELLING AND ITCHING IN COMBINATION WITH HYCODAN homatropine Allergy Intermediate FACIAL Verified 05/24/21 17:59 SWELLING AND ITCHING IN COMBINATION WITH ZITHROMAX hydrocodone Allergy Intermediate FACIAL Verified 05/24/21 17:59 SWELLING &ITCHING-IN COMBINATION W/ZITHROMAX Penicillins Allergy Mild RASH, ITCHY Verified 05/24/21 17:59 metformin AdvReac Intermediate Diarrhea Verified 05/24/21 17:59 Sulfa (Sulfonamide AdvReac Mild SULFA Verified 05/24/21 17:59 Antibiotics) DRUGS-CHANGE COLORS Home Medications Medication Instructions Recorded Confirmed Type atenolol 25 mg tablet 25 mg PO QPM 02/24/19 05/24/21 History atorvastatin 40 mg tablet 40 mg PO PM 02/24/19 05/24/21 History cyanocobalamin (vitamin B-12) 1,000 mcg PO QAM 02/24/19 05/24/21 History 1,000 mcg tablet (Vitamin B-12) insulin aspart U-100 100 unit/mL 1 sliding scale dose SUBCUT ACHS 02/24/19 05/24/21 History subcutaneous solution (Novolog U-100 Insulin aspart) aspirin 325 mg tablet,delayed 325 mg PO DAILY 10/07/20 05/24/21 History release insulin degludec 100 36 unit SUBCUT QAM 10/07/20 05/24/21 History unit-liraglutide 3.6 mg/mL(3 mL) subcutaneous pen (Xultophy 100/3.6) ascorbic acid (vitamin C) 1,000 mg 1 g PO DAILY 05/24/21 05/24/21 History tablet (Vitamin C) cholecalciferol (vitamin D3) 125 125 mcg PO DAILY 05/24/21 05/24/21 History mcg (5,000 unit) tablet (Vitamin D3) fluticasone furoate 200 1 inh INHALATION DIRECTED 05/24/21 05/24/21 History mcg-vilanterol 25 mcg/dose inhalation powder (Breo Ellipta) zinc 50 mg tablet 50 mg PO DAILY 05/24/21 05/24/21 History Past Med/Surg History Medical History Chest pain Diabetes HTN, goal below 140/80 (06/26/13) Hypomagnesemia Family History (Updated 05/25/19 @ 03:43 by Dwayne De Jesus) Other No significant family history Social History Smoking Status: Former smoker Tobacco Type: Cigarettes Hx Alcohol Use: No Hx Substance Use: No Preferred Language: [place] Communication Ability: Effective Cinder Snapper Required: No Beliefs That Will Affect Care: None and Yazdanism Current Living Situation: Spouse Current Living Situation Comment: at home with in ranch style home Feels Safe at Home: Yes Safety Concerns: Feels Safe At This Time Assistive Devices: Denture - Upper and Glasses Assistive Devices Comment: partial upper dentures Review of Systems Review of Systems: As per HPI, all 10 systems reviewed, all other ROS negative Physical Exam Physical Exam: GENERAL: Slightly uncomfortable, obese, no respiratory distress SKIN: Normal color, warm HEENT: [place] palpebral conjunctivae, no ptosis, dry buccal mucosa, nasal cannula in place NECK : Supple, short neck, no tenderness CHEST : Decreased breath sounds, no tenderness HEART : RRR, no obvious murmurs ABDOMEN: Some distention, nontender EXTREMITIES : Minimal LE swelling, no LE tenderness, no other conspicuous deformities noted NEUROLOGIC : Coherent, no facial asymmetry, no other gross focality Results & Data Results & Data ([facility]) Vital Signs (Past 12 Hours) Vital Signs Pulse Pulse Resp BP Pulse Ox 05/24/21 19:56 83 18 95 05/24/21 19:48 88 L 05/24/21 17:13 77 21 113/64 89 L Laboratory Results Laboratory Results WBC 6.68 K/uL (4.8-10.8) 05/24/21 17:32 RBC 4.19 M/uL (4.2-5.4) L 05/24/21 17:32 Hgb 13.0 g/dL (12.0-16.0) 05/24/21 17:32 Hct 38.3 % (37-47) 05/24/21 17:32 MCV 91.4 fL (80-100) 05/24/21 17:32 MCH 31.0 pg (25-34) 05/24/21 17:32 MCHC 33.9 g/dL (32-36) 05/24/21 17:32 RDW Std Deviation 44.5 fL (36.4-46.3) 05/24/21 17:32 RDW Coeff of Sandy 13.3 % (11.5-14.5) 05/24/21 17:32 Plt Count 167 K/uL (130-400) 05/24/21 17:32 MPV 11.8 fL (7.4-10.4) H 05/24/21 17:32 Immature Gran % (Auto) 0.1 % 05/24/21 17:32 Neut % (Auto) 53.2 % 05/24/21 17:32 Lymph % (Auto) 34.7 % 05/24/21 17:32 Lee % (Auto) 10.0 % 05/24/21 17:32 Eos % (Auto) 1.6 % 05/24/21 17:32 Baso % (Auto) 0.4 % 05/24/21 17:32 Neut # (Auto) 3.54 K/uL (1.4-6.5) 05/24/21 17:32 Lymph # (Auto) 2.32 K/uL (1.2-3.4) 05/24/21 17:32 Lee # (Auto) 0.67 K/uL (0.11-0.59) H 05/24/21 17:32 Eos # (Auto) 0.11 K/uL (0-0.5) 05/24/21 17:32 Baso # (Auto) 0.03 K/uL (0-0.2) 05/24/21 17:32 Immature Gran # (Auto) 0.01 K/uL (0.00-0.02) 05/24/21 17:32 Sodium 136 mmol/L (136-145) 05/24/21 17:32 Potassium 3.7 mmol/L (3.5-5.1) 05/24/21 17:32 Chloride 104 mmol/L (98-107) 05/24/21 17:32 Carbon Dioxide 22 mmol/L (21-32) 05/24/21 17:32 Anion Gap 10.0 (3-11) 05/24/21 17:32 BUN 26 mg/dl (7-18) H 05/24/21 17:32 Creatinine 1.61 mg/dl (0.6-1.2) H 05/24/21 17:32 Est Cr Clr Drug Dosing 29.2 ml/min 05/24/21 17:32 Est GFR ( Amer) 34.2 ml/min 05/24/21 17:32 Est GFR (Non-Af Amer) 29.5 ml/min 05/24/21 17:32 BUN/Creatinine Ratio 16.1 (10-20) 05/24/21 17:32 Glucose 105 mg/dl (70-99) H 05/24/21 17:32 Lactate 0.7 mmol/L (0.4-2.0) 05/24/21 17:32 Calcium 8.9 mg/dl (8.5-10.1) 05/24/21 17:32 Magnesium 2.0 mg/dl (1.8-2.4) 05/24/21 17:32 Total Bilirubin 0.5 mg/dl (0.2-1) 05/24/21 17:32 AST 21 U/L (15-37) 05/24/21 17:32 ALT 22 U/L (12-78) 05/24/21 17:32 Alkaline Phosphatase 71 U/L (45-117) 05/24/21 17:32 Troponin I < 0.015 ng/ml (0-0.045) 05/24/21 17:32 Total Protein 7.9 gm/dl (6.4-8.2) 05/24/21 17:32 Albumin 2.9 gm/dl (3.4-5.0) L 05/24/21 17:32 Globulin 5.0 gm/dl (2.5-4.0) H 05/24/21 17:32 Albumin/Globulin Ratio 0.6 (0.9-2) L 05/24/21 17:32 Procalcitonin < 0.05 ng/ml (0-0.5) 05/24/21 18:06 COVID-19 Eval Order Covid19 at [facility] 05/24/21 20:53 Impressions Chest X-Ray 05/24/21 17:07 SINGLE VIEW CHEST CLINICAL HISTORY: Generalized weakness. FINDINGS: An AP, portable, upright chest radiograph is compared to study dated 05/25/2019 and correlated with chest CT dated 10/07/2020. The cardiomediastinal silhouette is unremarkable noting atherosclerotic calcification of the thoracic aorta. The mitral annulus is densely calcified. Emphysema and chronic interstitial thickening is similar to previous. Airspace consolidation is seen at the left lung base. Suspect trace left pleural effusion. No pneumothorax is seen. The skeletal structures are osteopenic. The bony thorax is grossly intact. IMPRESSION: 1. Emphysema. 2. Airspace consolidation is seen at the left lung base. Correlate clinically for evidence of pneumonia/aspiration pneumonitis. Radiographic follow-up to resolution is recommended. 3. Suspect trace left pleural effusion. ACT 112: Negative or not required by law. Electronically signed by: Hermes Rosas M.D. 05/24/2021 5:50 PM Chest CTA 05/24/21 18:48 CT ANGIOGRAM OF THE CHEST CLINICAL HISTORY: Generalized weakness. Covid. COMPARISON STUDY: Chest CT dated 10/07/2020. Chest x-ray dated 05/24/2021 TECHNIQUE: Following the IV administration of 118 cc of Optiray 320, CT angiogram of the chest was performed from the upper abdomen to the thoracic inlet utilizing the pulmonary embolus protocol. Images are reviewed in the axial, sagittal, and coronal planes. 3-D MIPS images are created and assessed. IV contrast was administered without complication. A dose lowering technique was utilized adhering to the principles of ALARA. CT DOSE: 626.63 mGy.cm FINDINGS: Thyroid: Imaged portions of the thyroid gland are normal in size and atten uation. Thoracic aorta: There is mild atherosclerotic calcification of the thoracic aorta, which is normal in caliber and demonstrates standard 3-vessel arch anatomy. No dissection is seen. Pulmonary vasculature: The pulmonary trunk is normal in caliber. There are no filling defects identified in main, lobar, or segmental pulmonary branches to suggest pulmonary embolus. Heart: The heart is top normal in size and without pericardial effusion. The coronary arteries and mitral annulus are densely calcified. Lungs and pleural spaces: Emphysema is noted. There is mild multifocal groundglass consolidation seen throughout both lungs, most confluent in the anterior left upper lobe. No pleural effusion is identified. The trachea and central airways are clear. Mediastinum: Mildly enlarged mediastinal lymph nodes measure up to 11 mm in short axis. Briana: Mildly enlarged hilar lymph nodes measure up to 11 mm in short axis. Axillae: There is no axillary lymphadenopathy. Upper abdomen: There is a small hiatal hernia. Partially visualized upper abdominal viscera is otherwise grossly unremarkable. Skeletal structures: The skeletal structures are osteopenic. Mild degenerative change is noted in the thoracic spine. A large hemangioma is noted in the body of T4. No lytic or blastic bony lesions are seen. IMPRESSION: 1. There is no evidence of pulmonary embolus in the main, lobar, or segmental pulmonary arteries. 2. Emphysema. 3. Mild multifocal groundglass consolidation is consistent with the reported history of a viral pneumonia. Precautionary CT follow-up in 3 months time is recommended to document resolution and reassess the underlying the lung parenchyma. 4. Mildly enlarged mediastinal and hilar nodes are likely reactive. 5. Additional findings as above. ACT 112: Negative or not required by law. Electronically signed by: Hermes Rosas M.D. 05/24/2021 8:04 PM Diagnostic Findings EKG as per my interpretation : Rate 75, NSR, normal axis, no ischemia
[2021-05-24] MEDS ORDERED: DOXYCYCLINE HYCLATE 100 MG in DEXTROSE 5% 100 ML IV STA (21:32)
[2021-05-25] MEDS ORDERED: GLUCAGON FOR INJ 1 MG VIAL SQ PRN (00:13)
[2021-05-25] MEDS ORDERED: ACETAMINOPHEN 325 MG TAB PO PRN (00:13)
[2021-05-25] MEDS ORDERED: POTASSIUM CHLORIDE 40 MEQ in SODIUM CHLORIDE 0.9% 1000ML 1,000 ML IV ONE (00:13)
[2021-05-25] MEDS ORDERED: DEXTROSE 50% 50 ML SYRINGE IV PRN (00:13)
[2021-05-25] MEDS ORDERED: GLUCOSE 40% GEL 15 GM TUBE PO PRN (00:13)
[2021-05-25] MEDS ORDERED: GLUCOSE 10 TABS/TUBE PO PRN (00:13)
[2021-05-25] MEDS ORDERED: LEVALBUTEROL 1.25MG/0.5ML NEB INH PRN (00:13)
[2021-05-25] MEDS ORDERED: PROMETHAZINE HCL 12.5 MG in SODIUM CHLORIDE 0.9% 50 ML IV PRN (00:13)
[2021-05-25] MEDS ORDERED: CARBOHYDRATES FOR HYPOGLYCEMIA PO PRN (00:13)
[2021-05-25] MEDS ORDERED: IPRATROPIUM BROMIDE NEB SOLN 0.02% 2.5 ML VIAL INH PRN (00:13)
[2021-05-25] MEDS ORDERED: XOPENEX/ATROVENT 1.25mg/0.5MG NEB COMBO NEB PRN (00:13)
[2021-05-25] MEDS: INSULIN ASPART 100 UNITS/ML 3 ML PEN SC SCH ×5 (01:05→21:20)
[2021-05-25] MEDS: HEPARIN SOD 5,000 UNIT/0.5 ML VIAL SQ SCH ×4 (01:18→22:19)
[2021-05-25 06:51] LABS: Basophils # (auto) 0.01 K/uL (0-0.2); Basophils % (auto) 0.2 %; Hematocrit (blood only) 39.6 % (37-47); Hemoglobin 13.4 g/dL (12.0-16.0); Lymphocytes # (auto) 0.98 K/uL (1.2-3.4); Mean Corpuscular Hemoglobin 30.9 pg (25-34); Mean Corpuscular Hgb Conc 33.8 g/dL (32-36); Mean Corpuscular Volume 91.5 fL (80-100); Mean Platelet Volume 11.6 fL (7.4-10.4); Monocytes # (auto) 0.09 K/uL (0.11-0.59); Monocytes % (auto) 2.2 %; Neutrophils % (auto) 73.6 %; Platelet Count 170 K/uL (130-400); RDW Coefficient of Variation 13.4 % (11.5-14.5); RDW Standard Deviation 44.5 fL (36.4-46.3); Red Blood Count 4.33 M/uL (4.2-5.4); White Blood Count 4.08 K/uL (4.8-10.8)
[2021-05-25 07:20] LABS: Estimated Average Glucose 171 mg/dl; Hemoglobin A1C 7.6 % (4.5-5.6)
[2021-05-25 07:33] LABS: BUN Creatinine Ratio 16.8 (10-20); Calcium 8.7 mg/dl (8.5-10.1); Est GFR (African American) 44.2 ml/min; Est GFR (Non-African American) 38.2 ml/min; Potassium 5.5 mmol/L (3.5-5.1)
[2021-05-25] MEDS: CYANOCOBALAMIN 500 MCG TABLET (VITAMIN B-12) PO SCH (08:40)
[2021-05-25] MEDS: dexAMETHasone 6 MG in SYRINGE 0 ML IV SCH (08:41)
[2021-05-25] MEDS: FLUTICASONE/VILANTEROL 200/25MCG 14 PUFFS/INHALER INH SCH (08:41)
[2021-05-25] MEDS: ASPIRIN 325 MG ECTAB PO SCH (08:42)
[2021-05-25] MEDS: DOXYCYCLINE HYCLATE 100 MG CAP PO SCH ×2 (08:42→20:44)
[2021-05-25] MEDS ORDERED: INSULIN GLARGINE SOLOSTAR 100 UNITS/ML 3 ML PEN SC SCH ×3 (09:00)
--- NOTE | 2021-05-25 09:39 | Electrocardiogram Report ---
Test Reason : Blood Pressure : / mmHG Vent. Rate : 077 BPM Atrial Rate : 077 BPM P-R Int : 174 ms QRS Dur : 078 ms QT Int : 418 ms P-R-T Axes : 042 016 055 degrees QTc Int : 473 ms Normal sinus rhythm Low voltage QRS Possible Anterolateral infarct , age undetermined Abnormal ECG When compared with ECG of 25-MAY-2019 03:06, Borderline criteria for Anterior infarct are now Present Non-specific change in ST segment in Lateral leads Nonspecific T wave abnormality now evident in Anterior leads Confirmed by Baltazar Eldridge ([id number]) on 05/25/2021 9:38:53 AM Referred By: REFERRED SELF Confirmed By:Mauri Eldridge
[2021-05-25] MEDS ORDERED: SODIUM CHLORIDE 0.9% 1000ML 1,000 ML IV SCH (12:00)
--- NOTE | 2021-05-25 12:25 | Internal Med Progress Note ---
Date of Service May 25, 2021 Assessment & Plan (1) Acute hypoxemic respiratory failure: Plan: Secondary to severe COVID-19 pneumonia Continue dexamethasone. Patient had been hesitant about remdesivir on admission per H&P. However, may not be helpful at this point due to timeline. Continue oxygen supplementation. Wean as tolerated Incentive spirometry and flutter Procalcitonin is neg. Currently on doxycycline. Will consider dc NIRAJ on CKD 3, Creatinine improving. Down to 1.3 today from 1.61 on admission. Change IV fluids from IV normal saline plus potassium to IV normal saline due to potassium of 5.5 today. Will give a bit more IVF considering NIRAJ and receiving contrast yesterday Stop IV fluids after 1 L History of PE status post anticoagulation PVD status post surgery DM2 is requiring, well-controlled as of recent hemoglobin A1c of 01 November 2020 Insulin as part and glargine per protocol Monitor glycemic control Diet advanced to heart healthy carbohydrate controlled DVT prophylaxis Heparin subcu Full code Patient requests for her to be given periodic updates. Mr. Genao [place], contact #[phone]. Admission and Anticipated Discharge Date Admission Date: May 24, 2021 Subjective 80-year-old woman with history of COPD, PAD, TIA, PVD status post surgery, PEs status post anticoagulation, DM type II, CKD, past tobacco use, completed COVID- 19 vaccinations who presented with worsening cough and shortness of breath for the past 9 days associated with poor appetite, nausea. Being managed for acute hypoxic respiratory failure due to COVID-19 pneumonia. Patient seen and examined today. Still reports cough and shortness of breath. Reports improvement in fatigue. Still has myalgia. Denies any nausea at this time. Denies abdominal pain, vomiting or diarrhea. Denies any chest pain at this time. Review of Systems Constitutional: + fatigue and + anorexia Respiratory: + cough, + dyspnea and + dyspnea on exertion Cardiovascular: + dyspnea and + dyspnea on exertion; no chest pain and no palpitations Gastrointestinal: no nausea, no vomiting and no diarrhea/loose stools Genitourinary: no dysuria, no difficulty urinating and no urinary frequency Neurologic: no dizziness and no headache(s) Psychiatric: no depression and no anxiety Physical Exam Constitutional: + well hydrated; no acute distress Eyes: PERRL, conjunctivae normal, anicteric sclerae ENMT: external ear and nose normal, oropharynx normal Respiratory: Not in respiratory distress, on nasal cannula at 2 L/min, diminished breath sounds bilaterally, no crackles Cardiovascular: RRR. S1-S2 Gastrointestinal (Abdomen): normal bowel sounds, soft, nontender, no hepatosplenomegaly Musculoskeletal: No pedal edema Neurologic: PERRL, EOMI, accommodation nl, no face palsy, no dysarthria Psychiatric: A+Ox3, euthymic affect Results & Data ([facility]) Vital Signs (Past 12 Hours) Vital Signs Temp Pulse Pulse Resp BP Pulse Ox 05/25/21 11:55 36.3 C L 70 17 139/79 90 05/25/21 07:42 36.4 C L 75 16 156/79 H 96 05/25/21 07:40 70 05/25/21 04:01 36.4 C L 68 17 118/65 92 Laboratory Results Abnormal lab results 05/24/21 05/24/21 05/24/21 Range/Units 17:32 17:32 17:32 WBC (4.8-10.8) K/uL RBC 4.19 L (4.2-5.4) M/uL MPV 11.8 H (7.4-10.4) fL Lymph # (Auto) (1.2-3.4) K/uL Moffat # (Auto) 0.67 H (0.11-0.59) K/uL Potassium (3.5-5.1) mmol/L Chloride (98-107) mmol/L BUN 26 H (7-18) mg/dl Creatinine 1.61 H (0.6-1.2) mg/dl Glucose 105 H (70-99) mg/dl POC Glucose (70-99) mg/dl Hemoglobin A1c 7.6 H (4.5-5.6) % Albumin 2.9 L (3.4-5.0) gm/dl Globulin 5.0 H (2.5-4.0) gm/dl Albumin/Globulin Ratio 0.6 L (0.9-2) SARS-CoV-2 (PCR) (Negative) 05/24/21 05/25/21 05/25/21 Range/Units 20:53 01:00 06:33 WBC 4.08 L (4.8-10.8) K/uL RBC (4.2-5.4) M/uL MPV 11.6 H (7.4-10.4) fL Lymph # (Auto) 0.98 L (1.2-3.4) K/uL Moffat # (Auto) 0.09 L (0.11-0.59) K/uL Potassium (3.5-5.1) mmol/L Chloride (98-107) mmol/L BUN (7-18) mg/dl Creatinine (0.6-1.2) mg/dl Glucose (70-99) mg/dl POC Glucose 193 H (70-99) mg/dl Hemoglobin A1c (4.5-5.6) % Albumin (3.4-5.0) gm/dl Globulin (2.5-4.0) gm/dl Albumin/Globulin Ratio (0.9-2) SARS-CoV-2 (PCR) POSITIVE A* (Negative) 05/25/21 05/25/21 05/25/21 Range/Units 06:33 07:40 11:47 WBC (4.8-10.8) K/uL RBC (4.2-5.4) M/uL MPV (7.4-10.4) fL Lymph # (Auto) (1.2-3.4) K/uL Moffat # (Auto) (0.11-0.59) K/uL Potassium 5.5 H D (3.5-5.1) mmol/L Chloride 111 H (98-107) mmol/L BUN 22 H (7-18) mg/dl Creatinine 1.30 H D (0.6-1.2) mg/dl Glucose 184 H (70-99) mg/dl POC Glucose 202 H 206 H (70-99) mg/dl Hemoglobin A1c (4.5-5.6) % Albumin (3.4-5.0) gm/dl Globulin (2.5-4.0) gm/dl Albumin/Globulin Ratio (0.9-2) SARS-CoV-2 (PCR) (Negative)
[2021-05-25] MEDS: ATENOLOL 25 MG TABLET PO SCH (20:43)
[2021-05-25] MEDS: ATORVASTATIN 40 MG TAB PO SCH (20:44)
[2021-05-25] MEDS: BENZONATATE 100 MG CAPSULE PO SCH ×2 (23:31→23:33)
[2021-05-25] MEDS: guaiFENesin SUGAR FREE 200 MG/10 ML UDC PO PRN (23:32)
[2021-05-26 02:23] LABS: Appearance Urine Clear (Clear); Bilirubin Urine Negative (Negative); Blood Urine Negative (Negative); Color Urine Yellow; Glucose Urine UA Negative (Negative); Ketones Urine Negative (Negative); Leukocyte Esterase Urine Negative (Negative); Nitrite Urine Negative (Negative); Protein Urine Negative (Negative); Specific Gravity Urine 1.006 (1.000-1.030); Urobilinogen Urine Negative (Negative); pH Urine 5.5 (4.5-7.5)
[2021-05-26 06:56] LABS: Hematocrit (blood only) 38.4 % (37-47); Mean Corpuscular Hgb Conc 33.9 g/dL (32-36); Mean Corpuscular Volume 91.4 fL (80-100); Mean Platelet Volume 12.3 fL (7.4-10.4); Platelet Count 200 K/uL (130-400); RDW Coefficient of Variation 13.3 % (11.5-14.5); RDW Standard Deviation 44.4 fL (36.4-46.3); White Blood Count 7.32 K/uL (4.8-10.8)
[2021-05-26 07:25] LABS: BUN Creatinine Ratio 19.5 (10-20); C Reactive Protein 2.34 mg/dl (0-0.29); Calcium 8.9 mg/dl (8.5-10.1); Creatinine Clr Calc Pharmacy 36.4 ml/min; Est GFR (African American) 44.7 ml/min; Est GFR (Non-African American) 38.5 ml/min; Potassium 4.8 mmol/L (3.5-5.1)
[2021-05-26 07:40] LABS: D Dimer 1480 ug/L FEU (0-500)
[2021-05-26] MEDS: guaiFENesin SUGAR FREE 200 MG/10 ML UDC PO PRN (08:18)
[2021-05-26] MEDS: ASPIRIN 325 MG ECTAB PO SCH (08:19)
[2021-05-26] MEDS: CYANOCOBALAMIN 500 MCG TABLET (VITAMIN B-12) PO SCH (08:19)
[2021-05-26] MEDS: BENZONATATE 100 MG CAPSULE PO SCH ×3 (08:20→20:51)
[2021-05-26] MEDS: DOXYCYCLINE HYCLATE 100 MG CAP PO SCH (08:20)
[2021-05-26] MEDS: FLUTICASONE/VILANTEROL 200/25MCG 14 PUFFS/INHALER INH SCH (08:20)
[2021-05-26] MEDS: HEPARIN SOD 5,000 UNIT/0.5 ML VIAL SQ SCH ×2 (08:25→17:31)
[2021-05-26] MEDS ORDERED: INSULIN GLARGINE SOLOSTAR 100 UNITS/ML 3 ML PEN SC SCH (09:00)
[2021-05-26] MEDS: INSULIN ASPART 100 UNITS/ML 3 ML PEN SC SCH ×4 (09:36→21:05)
[2021-05-26] MEDS: dexAMETHasone 6 MG in SYRINGE 0 ML IV SCH (09:46)
--- NOTE | 2021-05-26 11:45 | Hospitalist Progress Note ---
Date of Service May 26, 2021 Assessment & Plan (1) Acute hypoxemic respiratory failure: Plan: Secondary to severe COVID-19 pneumonia Continue dexamethasone. Patient had been hesitant about remdesivir on admission per H&P. However, may not be helpful at this point due to timeline. Weaned off oxygen this AM Continue incentive spirometry and flutter Procalcitonin is neg. DC doxycycline NIRAJ on CKD 3, Creatinine improving. Down to 1.29 today from 1.61 on admission. Baseline appears to be 1.1-1.2 based on past labs History of PE status post anticoagulation PVD status post surgery DM2, well-controlled as of recent hemoglobin A1c of 01 November 2020 Insulin aspart and glargine per protocol Poor glycemic control due to dexamethasone. Gave insulin glargine 30U this AM Patient reports she takes 36U daily. Resume home dose. Continue sliding scale DVT prophylaxis Heparin subcu Full code Mr. Chadwick Bennett, contact #[phone]. Admission and Anticipated Discharge Date Admission Date: May 24, 2021 Subjective 80-year-old woman with history of COPD, PAD, TIA, PVD status post surgery, PEs s tatus post anticoagulation, DM type II, CKD, past tobacco use, completed COVID- 19 vaccinations who presented with worsening cough and shortness of breath for the past 9 days associated with poor appetite, nausea. Being managed for acute hypoxic respiratory failure due to COVID-19 pneumonia. Patient seen and examined today. Reports cough and shortness of breath are significantly improved No myalgia at this time. Still some fatigue Appetite improving Weaned off oxygen this morning Review of Systems Constitutional: + fatigue Respiratory: + cough, + dyspnea and + dyspnea on exertion Cardiovascular: + dyspnea and + dyspnea on exertion; no chest pain and no palpitations Gastrointestinal: no nausea, no vomiting and no diarrhea/loose stools Genitourinary: no dysuria, no difficulty urinating and no urinary frequency Neurologic: no dizziness and no headache(s) Psychiatric: no depression and no anxiety Physical Exam Constitutional: + well hydrated; no acute distress Eyes: PERRL, conjunctivae normal, anicteric sclerae ENMT: external ear and nose normal, oropharynx normal Respiratory: Not in respiratory distress, Diminished breath sounds lung bases Cardiovascular: RRR S1 S2 Gastrointestinal (Abdomen): normal bowel sounds, soft, nontender, no hepatosplenomegaly Musculoskeletal: No pedal edema Neurologic: PERRL, EOMI, accommodation nl, no face palsy, no dysarthria Psychiatric: A+Ox3, euthymic affect Results & Data Results & Data ([facility]) Vital Signs (Past 12 Hours) Vital Signs Temp Pulse Pulse Resp BP BP Pulse Ox 05/26/21 07:59 36.4 C L 61 20 148/76 H 96 05/26/21 07:04 58 L 05/26/21 04:09 94 05/26/21 03:38 36.6 C 59 L 20 150/72 H 95 05/26/21 00:07 67 Laboratory Results Abnormal lab results 05/25/21 05/25/21 05/26/21 Range/Units 15:49 20:14 06:08 MPV 12.3 H (7.4-10.4) fL D-Dimer (0-500) ug/L FEU BUN (7-18) mg/dl Creatinine (0.6-1.2) mg/dl Glucose (70-99) mg/dl POC Glucose 276 H 212 H (70-99) mg/dl C-Reactive Protein (0-0.29) mg/dl 05/26/21 05/26/21 05/26/21 Range/Units 06:08 06:08 07:44 MPV (7.4-10.4) fL D-Dimer 1480 H* (0-500) ug/L FEU BUN 25 H (7-18) mg/dl Creatinine 1.29 H (0.6-1.2) mg/dl Glucose 227 H (70-99) mg/dl POC Glucose 212 H (70-99) mg/dl C-Reactive Protein 2.34 H (0-0.29) mg/dl 05/26/21 Range/Units 11:57 MPV (7.4-10.4) fL D-Dimer (0-500) ug/L FEU BUN (7-18) mg/dl Creatinine (0.6-1.2) mg/dl Glucose (70-99) mg/dl POC Glucose 200 H (70-99) mg/dl C-Reactive Protein (0-0.29) mg/dl
[2021-05-26] MEDS: ATORVASTATIN 40 MG TAB PO SCH (20:51)
[2021-05-26] MEDS: ATENOLOL 25 MG TABLET PO SCH (20:51)
[2021-05-26] MEDS ORDERED: ZOLPIDEM TARTRATE 5 MG TAB PO PRN (21:10)
[2021-05-27] MEDS: HEPARIN SOD 5,000 UNIT/0.5 ML VIAL SQ SCH ×2 (00:31→08:22)
[2021-05-27 07:51] LABS: Hematocrit (blood only) 38.9 % (37-47); Hemoglobin 13.2 g/dL (12.0-16.0); Mean Corpuscular Hgb Conc 33.9 g/dL (32-36); Mean Corpuscular Volume 91.3 fL (80-100); Mean Platelet Volume 12.3 fL (7.4-10.4); Platelet Count 225 K/uL (130-400); RDW Coefficient of Variation 13.2 % (11.5-14.5); RDW Standard Deviation 43.7 fL (36.4-46.3); Red Blood Count 4.26 M/uL (4.2-5.4); White Blood Count 7.59 K/uL (4.8-10.8)
[2021-05-27 08:13] LABS: BUN Creatinine Ratio 25.3 (10-20); C Reactive Protein 1.21 mg/dl (0-0.29); Calcium 9.2 mg/dl (8.5-10.1); Creatinine Clr Calc Pharmacy 33.3 ml/min; Est GFR (African American) 40.5 ml/min; Est GFR (Non-African American) 34.9 ml/min; Potassium 4.7 mmol/L (3.5-5.1)
[2021-05-27] MEDS: BENZONATATE 100 MG CAPSULE PO SCH ×2 (08:22→13:05)
[2021-05-27] MEDS: CYANOCOBALAMIN 500 MCG TABLET (VITAMIN B-12) PO SCH (08:23)
[2021-05-27] MEDS: ASPIRIN 325 MG ECTAB PO SCH (08:23)
[2021-05-27] MEDS: guaiFENesin SUGAR FREE 200 MG/10 ML UDC PO PRN (08:24)
[2021-05-27] MEDS: dexAMETHasone 6 MG in SYRINGE 0 ML IV SCH (08:24)
[2021-05-27] MEDS: FLUTICASONE/VILANTEROL 200/25MCG 14 PUFFS/INHALER INH SCH (08:24)
[2021-05-27] MEDS: INSULIN ASPART 100 UNITS/ML 3 ML PEN SC SCH ×2 (08:51→12:54)
[2021-05-27] MEDS ORDERED: INSULIN GLARGINE SOLOSTAR 100 UNITS/ML 3 ML PEN SC SCH (09:00)
[2021-05-27 11:50] VITALS: TEMP 97.3; O2SAT 94
[2021-05-27] MEDS ORDERED: INSULIN ASPART 100 UNITS/ML 3 ML PEN SC ONE (12:05)
--- NOTE | 2021-05-27 12:16 | Discharge Summary ---
Date of Service May 27, 2021 Admission HPI Per Admitting Provider History obtained from patient, family, and records. Medical history significant for COPD, history PAT, history TIA, PVD status post surgery, history PE status post anticoagulation, DM2 is requiring, CRI (baseline creatinine 1.4), past tobacco abuse. Last confinement May 2013 for noncardiac chest pain. 9 days ago, patient noted cough symptoms later productive of junky yellow sputum with worsening shortness of breath especially on exertion. No appetite. Loss of taste and smell. Some body aches. Transient nausea, diarrhea symptoms. Sick COVID-19 contact at home. Patient completed COVID-19 vaccination. Outpatient COVID-19 test from last week was positive. O2 sats upon arrival at ER 88 on room air. Patient received Decadron and neb treatment at the ER. 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 Admission Exam Per Admitting Provider GENERAL: Slightly uncomfortable, obese, no respiratory distress SKIN: Normal color, warm HEENT: [place] palpebral conjunctivae, no ptosis, dry buccal mucosa, nasal cannula in place NECK : Supple, short neck, no tenderness CHEST : Decreased breath sounds, no tenderness HEART : RRR, no obvious murmurs ABDOMEN: Some distention, nontender EXTREMITIES : Minimal LE swelling, no LE tenderness, no other conspicuous deformities noted NEUROLOGIC : Coherent, no facial asymmetry, no other gross focality Principal Diagnosis Acute respiratory failure with hypoxia COVID-19 pneumonia Discharge Exam Constitutional + well hydrated; no acute distress Eyes PERRL, conjunctivae normal, anicteric sclerae ENMT external ear and nose normal, oropharynx normal Respiratory Not in respiratory distress, diminished breaths sounds, no crackles Cardiovascular RRR S1 S2 Gastrointestinal (Abdomen) normal bowel sounds, soft, nontender, no hepatosplenomegaly Musculoskeletal No pedal edema Neurologic PERRL, EOMI, accommodation nl, no face palsy, no dysarthria Psychiatric A+Ox3, euthymic affect Discharge Data Allergies Allergy/AdvReac Type Severity Reaction Status Date / Time azithromycin Allergy Intermediate FACIAL Verified 05/24/21 17:59 SWELLING AND ITCHING IN COMBINATION WITH HYCODAN homatropine Allergy Intermediate FACIAL Verified 10/28/21 17:59 SWELLING AND ITCHING IN COMBINATION WITH ZITHROMAX hydrocodone Allergy Intermediate FACIAL Verified 05/24/21 17:59 SWELLING &ITCHING-IN COMBINATION W/ZITHROMAX Penicillins Allergy Mild RASH, ITCHY Verified 05/24/21 17:59 metformin AdvReac Intermediate Diarrhea Verified 05/24/21 17:59 Sulfa (Sulfonamide AdvReac Mild SULFA Verified 05/24/21 17:59 Antibiotics) DRUGS-CHANGE COLORS Consultations 05/24/21 20:22 ED Decision to Admit Stat Ordered Studies 05/24/21 18:48 CT angio chest PE protocol Stat Thyroid: Imaged portions of the thyroid gland are normal in size and atte nuation. Thoracic aorta: There is mild atherosclerotic calcification of the thoracic aorta, which is normal in caliber and demonstrates standard 3-vessel arch anatomy. No dissection is seen. Pulmonary vasculature: The pulmonary trunk is normal in caliber. There are no filling defects identified in main, lobar, or segmental pulmonary branches to suggest pulmonary embolus. Heart: The heart is top normal in size and without pericardial effusion. The coronary arteries and mitral annulus are densely calcified. Lungs and pleural spaces: Emphysema is noted. There is mild multifocal groundglass consolidation seen throughout both lungs, most confluent in the anterior left upper lobe. No pleural effusion is identified. The trachea and central airways are clear. Mediastinum: Mildly enlarged mediastinal lymph nodes measure up to 11 mm in short axis. Briana: Mildly enlarged hilar lymph nodes measure up to 11 mm in short axis. Axillae: There is no axillary lymphadenopathy. Upper abdomen: There is a small hiatal hernia. Partially visualized upper abdominal viscera is otherwise grossly unremarkable. Skeletal structures: The skeletal structures are osteopenic. Mild degenerative change is noted in the thoracic spine. A large hemangioma is noted in the body of T4. No lytic or blastic bony lesions are seen. IMPRESSION: 1. There is no evidence of pulmonary embolus in the main, lobar, or segmental pulmonary arteries. 2. Emphysema. 3. Mild multifocal groundglass consolidation is consistent with the reported history of a viral pneumonia. Precautionary CT follow-up in 3 months time is rec ommended to document resolution and reassess the underlying the lung parenchyma. 4. Mildly enlarged mediastinal and hilar nodes are likely reactive. 5. Additional findings as above. Hospital Course (1) Acute hypoxemic respiratory failure: Secondary to severe COVID-19 pneumonia Patient was started on dexamethasone Patient had been hesitant about remdesivir on admission per H&P. However, may not be helpful at this point due to timeline. Was requiring oxygen on admission With incentive spirometry, flutter and steroid, patient was weaned off oxgyen 2 step today does not show any oxygen requirement both at rest and with activity Patient symptoms remarkably improved NIRAJ on CKD 3, Creatinine improving. Down to 1.4 today from 1.61 on admission. Baseline appears to be 1.1-1.2 based on past labs History of PE status post anticoagulation PVD status post surgery DM2, well-controlled as of recent hemoglobin A1c of 01 November 2020 Continue home insulin Patient discharged home to follow up with PCP Total Time Total Time Spent Total Time Spent (In Minutes): 45 Total Time Includes: Examination of the Patient, Discharge Planning and Med ication Reconciliation Discharge Plan Discharge Items Patient Disposition: Home - Self-Care Reason For Visit: Cough, shortness of breath Discharge Diagnosis: Acute respiratory failure with hypoxia COVID-19 pneumonia Condition on Discharge: Good Activity: Resume your previous activity Non-emergency contact: Primary Care Provider Call non-emergency contact if: you have any medication questions and your symptoms worsen Follow-up/Referrals: Paz Daniels MD [Primary Care Provider] - Diet: Carb Consistent or DM2 and Heart Healthy Addtl Attending Provider Instructions: Mrs. Sanches Came to the Hospital Complaining of shortness of breath and weakness. You were evaluated and found to have COVID-19 pneumonia. You were started on treatment. Your symptoms improved. You are being dischar ged home. Please ensure follow-up with your primary care doctor It was a pleasure taking care of Pending Studies at Discharge: No Stand-Alone Forms: My [facility] [employer], Smoking Cessation Medications and DC Order Prescriptions: Continued atorvastatin 40 mg Tablet 40 mg PO PM RF: 0 atenolol 25 mg Tablet 25 mg PO QPM RF: 0 cyanocobalamin (vitamin B-12) [Vitamin B-12] 1,000 mcg Tablet 1,000 mcg PO QAM RF: 0 insulin aspart U-100 [Novolog U-100 Insulin aspart] 100 unit/mL Solution 1 sliding scale dose SUBCUT ACHS RF: 0 aspirin 325 mg Tablet,Delayed Release (Dr/Ec) 325 mg PO DAILY RF: 0 Xultophy 100/3.6 100 unit-3.6 mg /mL (3 mL) insulin pen 36 unit SUBCUT QAM RF: 0 Breo Ellipta 200-25 mcg/dose blister with device 1 inh INHALATION DIRECTED RF: 0 ascorbic acid (vitamin C) [Vitamin C] 1,000 mg Tablet 1 g PO DAILY RF: 0 zinc 50 mg Tablet 50 mg PO DAILY RF: 0 cholecalciferol (vitamin D3) [Vitamin D3] 125 mcg (5,000 unit) Tablet 125 mcg PO DAILY RF: 0 Discharge Orders: Discharge Order (Routine); Ordered 05/27/21 Ordered By: Krystin Santo/Other Patient Handouts: A1C, Managing Type 2 Diabetes, Special Foot Care for Diabetes Admission Data Admit Date/Time: 05/24/21 21:25 Attending Provider: Krystin Haney I. Admit Provider: Sotero Paredes Primary Care Provider: Paz Daniels Other Providers: Sotero Paredes Other Interventions: Discharge Summary Assessment (RN) Last Done: 05/27/21 15:33
[2021-05-27 15:34] VITALS: BP 134/70; PULSE 83
== END 2021-05-27 16:51 | disposition home or self-care (01) | DRG 177 ==
LOC: ED 16:51 → 2N 21:25

== ENCOUNTER 2022-02-09 10:22 | Inpatient (IN) ==
[2022-02-09] MEDS ORDERED: SODIUM CHLORIDE 0.9% 1000ML 1,000 ML IV STA (10:40)
[2022-02-09] MEDS ORDERED: SODIUM CHLORIDE 0.9% 1000ML 500 ML IV ONE (10:40)
[2022-02-09 11:00] LABS: Basophils # (auto) 0.07 K/uL (0-0.2); Basophils % (auto) 0.6 %; Eosinophils % (auto) 2.8 %; Hemoglobin 14.1 g/dl (12.0-16.0); Immature Granulocytes # (auto) 0.04 K/uL (0.00-0.02); Immature Granulocytes % (auto) 0.4 %; Mean Corpuscular Hemoglobin 30.7 pg (25.0-34.0); Mean Corpuscular Hgb Conc 32.8 g/dL (32.0-36.0); Mean Corpuscular Volume 93.7 fL (80.0-100.0); Mean Platelet Volume 11.3 fL (9.4-12.3); Monocytes % (auto) 9.2 %; Neutrophils # (auto) 6.95 K/uL (1.4-6.5); Platelet Count 246 K/uL (130-400); RDW Coefficient of Variation 13.2 % (11.5-14.5); RDW Standard Deviation 45.1 fL (36.4-46.3); Red Blood Count 4.59 M/uL (3.93-5.22); White Blood Count 10.86 K/ul (4.8-10.8)
--- NOTE | 2022-02-09 11:13 | XRay Report ---
XR chest 1V portable HISTORY: left chest pain, cough, ?PNA COMPARISON: Chest 05/24/2021. FINDINGS: No pneumothorax. No pleural effusions. The collection was top normal in size. Dense mitral anus calcifications are noted. Mild diffuse interstitial thickening remains unchanged. This is likely chronic. Patchy left base airspace opacities are noted. Mild emphysema. IMPRESSION: Patchy left basilar airspace opacities which likely represents a pneumonia and could be due to aspira tion. 1-2 month chest x-ray follow-up recommended to ensure resolution. ACT 112: Negative or not required by law. Electronically signed by: Angel Luis Ruiz M.D. 02/09/2022 11:12 AM
[2022-02-09 11:24] LABS: Troponin I High Sensitivity 3.3 pg/ml (0-14)
[2022-02-09 11:25] LABS: BUN Creatinine Ratio 21.3 (10-20); Bilirubin,Total 0.5 mg/dl (0.2-1.0); Calcium 9.6 mg/dl (8.5-10.1); Creatinine Clr Calc Pharmacy 29.5 ml/min; Est GFR (Non-African American) 31.9 ml/min; Globulin 4.1 gm/dl (2.5-4.0); Potassium 4.7 mmol/L (3.5-5.1); Total Protein 8.1 gm/dl (6.0-8.3)
--- NOTE | 2022-02-09 12:03 | Emergency Department Note ---
Impression & Plan Pneumonia, Acute left-sided back pain ED Provider Note INFORMANT: Patient ED PROVIDER(S): Miguel Angel Alvarenga MD CHIEF COMPLAINT: Left-sided back pain PLAN: Disposition: Admitted Condition: Good Outpatient prescription management: none Referral: None MEDICAL DECISION MAKING: Patient presented to emergency room because of productive cough and back pain. This was concerning for possible pneumonia. X-ray imaging was performed and did reveal pneumonia. Patient had a leukocytosis on CBC. ECG showed a normal sinus rhythm. No acute ischemic change. Patient was given IV cefepime. Patient's blood pressure was somewhat concerning. She was hydrated. He was also given IV doxycycline. Further management in the hospital was deemed appropriate. [facility] Patient was evaluated in the ER admitted for further management. Triage Nursing notes reviewed and agree them. Vital Signs: reviewed and remarkable for mild hypotension Differential diagnosis: Reactive airway disease, pneumonia, pneumothorax, COPD, CHF, infections, cardiac ischemia, pulmonary embolism, musculoskeletal, gastrointestinal, as well as other pathologies. Diagnostics interpreted by me: ECG: Twelve-lead ECG reveals normal sinus rhythm at 90 bpm. Inferior Q waves version. When compared to prior study. There is no significant change. No ST elevation. No PACs or PVCs. Cardiac Monitoring: Cardiac monitoring ordered by me: The patient was placed on continuous cardiac monitoring and observed. It revealed a normal sinus rhythm at 75 beats per minute without ectopy or evidence of dysrhythmia. Imaging studies: X-ray as above HPI: The patient is a 81 year old female who presents to the Emergency Room with complaints of left upper back pain. This started a few weeks ago and is noted to have worsened over the last 3 hours. The patient also notes the following associated symptoms, cough productive of yellow sputum. The patient has found no relieving factors. Current pain is rated as 6/10. Patient has a history of pneumonia. Notes this feels somewhat similar. No recent sick contacts or travel. Patient denies any leg swelling or calf pain. Does note some shortness of breath. Pt denies LOC, headache, fevers, chills, diaphoresis, visual changes, neck pain, chest pain, nausea, vomiting, abdominal pain, melena, hematochezia, urinary symptoms, numbness, weakness, lymphadenopathy, rash, or other complaints. ROS: See above HPI for pertinent positives & negatives. A total of 10 systems reviewed and were otherwise negative. PAST MEDICAL HISTORY:See Below , pneumonia PAST SURGICAL HISTORY:See Below, FAMILY HISTORY:See Below SOCIAL HISTORY:See Below, quit smoking 50 years ago HOME MEDICATIONS:See Below ALLERGIES:See Below VITALS:See Below PHYSICAL EXAMINATION: GENERAL: Awake, alert, mildly uncomfortable-appearing, in no distress HENT: Normocephalic, atraumatic. Oropharynx unremarkable. EYES: Normal conjunctiva. Sclera non-icteric. NECK: Inspection normal. Non-tender. Supple. No nuchal rigidity. FROM. No masses. RESPIRATORY: Clear to auscultation although mildly diminished in the left base. No wheezes. No rales. Normal respiratory effort. CARDIAC: Normal rate. Normal rhythm. No murmurs. No rubs. Extremities warm and well perfused. Pulses equal. No JVD. GI: Soft, non-distended. No tenderness to palpation. No rebound or guarding. No masses. RECTAL: Deferred. MUSCULOSKELETAL: Atraumatic. Chest examination reveals no tenderness. The back is symmetrical on inspection without obvious abnormality. There is no CVA tenderness to palpation. No joint edema. LOWER EXTREMITIES: Calves are equal size bilaterally and non-tender. No edema. No discoloration. NEURO: Normal sensorium. No sensory or motor deficits noted. SKIN: No rash or jaundice noted. Miguel Angel Alvarenga MD Past Med/Surg History Medical History (Updated 02/10/22 @ 17:36 by Miguel Angel Alvarenga MD) Chest pain COPD (chronic obstructive pulmonary disease) DM II (diabetes mellitus, type II), controlled H/O paroxysmal atrial tachycardia HTN, goal below 140/80 (06/26/13) Hx of pulmonary embolus Hypomagnesemia Surgical History (Updated 02/09/22 @ 14:54 by Ml Holcomb PA-C) Hx of tubal ligation S/P carotid endarterectomy S/P cholecystectomy Family History (Updated 02/09/22 @ 14:54 by Ml Holcomb PA-C) Mother COPD (chronic obstructive pulmonary disease) Father COPD (chronic obstructive pulmonary disease) Heart disease Social History Smoking Status: Former smoker Tobacco Type: Cigarettes Hx Alcohol Use: No Hx Substance Use: No Preferred Language: Pashto Communication Ability: Effective Macerator Operator Required: No Beliefs That Will Affect Care: None Current Living Situation: Spouse Current Living Situation Comment: Feels Safe at Home: Yes Safety Concerns: Feels Safe At This Time Assistive Devices: Denture - Upper and Glasses Allergies Allergies Allergy/AdvReac Type Severity Reaction Status Date / Time azithromycin Allergy Intermediate FACIAL Verified 05/24/21 17:59 SWELLING AND ITCHING IN COMBINATION WITH HYCODAN homatropine Allergy Intermediate FACIAL Verified 05/24/21 17:59 SWELLING AND ITCHING IN COMBINATION WITH ZITHROMAX hydrocodone Allergy Intermediate FACIAL Verified 05/24/21 17:59 SWELLING &ITCHING-IN COMBINATION W/ZITHROMAX Penicillins Allergy Mild RASH, ITCHY Verified 05/24/21 17:59 metformin AdvReac Intermediate Diarrhea Verified 05/24/21 17:59 Sulfa (Sulfonamide AdvReac Mild SULFA Verified 05/24/21 17:59 Antibiotics) DRUGS-CHANGE COLORS Home Meds Home Medications Medication Instructions Recorded Confirmed atorvastatin 40 mg tablet 40 mg PO PM 02/24/19 02/09/22 cyanocobalamin (vitamin B-12) 1,000 mcg PO QAM 02/24/19 02/09/22 1,000 mcg tablet (Vitamin B-12) insulin aspart U-100 100 unit/mL 1 sliding scale dose subcut [facility] 02/24/19 02/09/22 subcutaneous solution (Novolog U-100 Insulin aspart) aspirin 325 mg tablet,delayed 325 mg PO DAILY 10/07/20 02/09/22 release insulin degludec 100 36 unit subcut QA 10/07/20 02/09/22 unit-liraglutide 3.6 mg/mL(3 mL) subcutaneous pen (Xultophy 100/3.6) ascorbic acid (vitamin C) 1,000 mg 1 g PO DAILY 05/24/21 02/09/22 tablet (Vitamin C) fluticasone furoate 200 1 inh inhalation DIRECTED 05/24/21 02/09/22 mcg-vilanterol 25 mcg/dose inhalation powder (Breo Ellipta) zinc 50 mg tablet 50 mg PO DAILY 05/24/21 02/09/22 lisinopril 10 mg tablet 0.5 tab PO DAILY 02/09/22 02/09/22 Results & Data (ED) Vital Signs Vital Signs - 24 hr 07/16/22 10:27 02/09/22 10:50 02/09/22 11:04 Temperature 36.8 C Temperature Source Temporal Artery Scan Pulse Rate 92 H Pulse Rate [Left Apical] 83 88 Pulse Rhythm [Left Apical] Regular Regular Pulse Strength [Left Apical] Normal Normal Respiratory Rate 18 16 20 Respiratory Effort / Characteristics Non-Labored Spontaneous Non-Labored Spontaneous Respiratory Depth Normal Normal Respiratory Pattern Regular Regular Blood Pressure 96/65 L Blood Pressure [Left Arm] 130/70 115/95 Blood Pressure Mean 75 Blood Pressure Mean [Left Arm] 90 101 Blood Pressure Position [Left Arm] Lying Pulse Oximetry 94 95 96 Oxygen Delivery Method Room Air Room Air Room Air Sepsis Recent Fever Within 48 Hours No Sepsis New/Unexplained Change in Mental Status No Sepsis Action Taken by Nursing No Action Required Laboratory Data Result diagrams: 02/10/22 05:51 02/10/22 09:27 Lab Results 02/09/22 02/09/22 02/09/22 Range/Units 10:44 10:44 10:44 WBC 10.86 H (4.8-10.8) K/ul RBC 4.59 (3.93-5.22) M/uL Hgb 14.1 (12.0-16.0) g/dl Hct 43.0 (34.1-44.9) % MCV 93.7 (80.0-100.0) fL MCH 30.7 (25.0-34.0) pg MCHC 32.8 (32.0-36.0) g/dL RDW Std Deviation 45.1 (36.4-46.3) fL RDW Coeff of Asndy 13.2 (11.5-14.5) % Plt Count 246 (130-400) K/uL MPV 11.3 (9.4-12.3) fL Immature Gran % (Auto) 0.4 % Neut % (Auto) 64.0 % Lymph % (Auto) 23.0 % Call[place] % (Auto) 9.2 % Eos % (Auto) 2.8 % Baso % (Auto) 0.6 % Neut # (Auto) 6.95 H (1.4-6.5) K/uL Lymph # (Auto) 2.50 (1.2-3.4) K/uL Call[place] # (Auto) 1.00 H (0.24-0.82) K/uL Eos # (Auto) 0.30 (0-0.50) K/uL Baso # (Auto) 0.07 (0-0.2) K/uL Immature Gran # (Auto) 0.04 H (0.00-0.02) K/uL Sodium 134 L (136-145) mmol/L Potassium 4.7 (3.5-5.1) mmol/L Chloride 101 (98-107) mmol/L Carbon Dioxide 24 (21-32) mmol/L Anion Gap 9 (3-11) BUN 32 H (6-23) mg/dl Creatinine 1.50 H (0.6-1.2) mg/dl Est Cr Clr Drug Dosing 29.5 ml/min Est GFR ( Amer) 37.0 ml/min Est GFR (Non-Af Amer) 31.9 ml/min BUN/Creatinine Ratio 21.3 H (10-20) Glucose 133 H (70-99(Fasting)) mg/dl Lactate Calcium 9.6 (8.5-10.1) mg/dl Total Bilirubin 0.5 (0.2-1.0) mg/dl AST 14 (13-39) U/L ALT 13 (7-52) U/L Alkaline Phosphatase 70 (34-104) U/L Troponin I High Sens 3.3 (0-14) pg/ml Total Protein 8.1 (6.0-8.3) gm/dl Albumin 4.0 (3.4-5.0) gm/dl Globulin 4.1 H (2.5-4.0) gm/dl Albumin/Globulin Ratio 1.0 (0.9-2) Procalcitonin 0.06 (0-0.5) ng/ml SARS-CoV-2 (PCR) (Negative) Influenza Type A (PCR) (Neg) Influenza Type B (PCR) (Neg) RSV (RT-PCR) (Neg) 02/09/22 02/09/22 02/09/22 Range/Units 10:44 14:16 15:06 WBC (4.8-10.8) K/ul RBC (3.93-5.22) M/uL Hgb (12.0-16.0) g/dl Hct (34.1-44.9) % MCV (80.0-100.0) fL MCH (25.0-34.0) pg MCHC (32.0-36.0) g/dL RDW Std Deviation (36.4-46.3) fL RDW Coeff of Sandy (11.5-14.5) % Plt Count (130-400) K/uL MPV (9.4-12.3) fL Immature Gran % (Auto) % Neut % (Auto) % Lymph % (Auto) % Callaway % (Auto) % Eos % (Auto) % Baso % (Auto) % Neut # (Auto) (1.4-6.5) K/uL Lymph # (Auto) (1.2-3.4) K/uL [place] # (Auto) (0.24-0.82) K/uL Eos # (Auto) (0-0.50) K/uL Baso # (Auto) (0-0.2) K/uL Immature Gran # (Auto) (0.00-0.02) K/uL Sodium (136-145) mmol/L Potassium (3.5-5.1) mmol/L Chloride (98-107) mmol/L Carbon Dioxide (21-32) mmol/L Anion Gap (3-11) BUN (6-23) mg/dl Creatinine (0.6-1.2) mg/dl Est Cr Clr Drug Dosing ml/min Est GFR ( Amer) ml/min Est GFR (Non-Af Amer) ml/min BUN/Creatinine Ratio (10-20) Glucose (70-99(Fasting)) mg/dl Lactate Cancelled 0.6 Calcium (8.5-10.1) mg/dl Total Bilirubin (0.2-1.0) mg/dl AST (13-39) U/L ALT (7-52) U/L Alkaline Phosphatase (34-104) U/L Troponin I High Sens (0-14) pg/ml Total Protein (6.0-8.3) gm/dl Albumin (3.4-5.0) gm/dl Globulin (2.5-4.0) gm/dl Albumin/Globulin Ratio (0.9-2) Procalcitonin (0-0.5) ng/ml SARS-CoV-2 (PCR) NEGATIVE (Negative) Influenza Type A (PCR) Negative (Neg) Influenza Type B (PCR) Negative (Neg) RSV (RT-PCR) Negative (Neg) Administered Medications Acetaminophen (Acetaminophen 325 Mg Tab) 650 mg PO Q4H PRN PRN Reason: Moderate Pain Stop: 03/11/22 16:43 Last Admin: 02/10/22 00:06 Dose: 650 mg Documented By: SUJEY Aspirin (Aspirin 325 Mg Ectab) 325 mg PO DAILY ADAL Stop: 03/11/22 16:44 Last Admin: 02/10/22 07:50 Dose: 325 mg Documented By: Admin: 02/09/22 17:49 Dose: 325 mg Documented By: CHARLIE Atorvastatin Calcium (Atorvastatin 40 Mg Tab) 40 mg PO PM DAAL Stop: 03/11/22 20:59 Last Admin: 02/09/22 20:34 Dose: 40 mg Documented By: SUJEY Benzonatate (Benzonatate 100 Mg Capsule) 100 mg PO TID ADAL Stop: 03/11/22 20:59 Last Admin: 02/10/22 13:08 Dose: 100 mg Documented By: Admin: 02/10/22 07:51 Dose: 100 mg Documented By: Admin: 02/09/22 20:33 Dose: 100 mg Documented By: SUJEY Fluticasone/Vilanterol (Fluticasone/Vilanterol 200/25mcg 14 Puffs/Inhaler) 1 puffs INH DAILY ADAL Stop: 03/11/22 16:44 Last Admin: 02/10/22 07:51 Dose: 1 puffs Documented By: Admin: 02/09/22 17:49 Dose: 1 puffs Documented By: CHARLIE Guaifenesin (Guaifenesin 600 Mg Tabcr) 600 mg PO Q12 ADAL Stop: 03/11/22 20:59 Last Admin: 02/10/22 07:52 Dose: 600 mg Documented By: Admin: 02/09/22 20:33 Dose: 600 mg Documented By: SUJEY Heparin Sodium (Porcine) (Heparin Sod 5,000 Unit/0.5 Ml Vial) 5,000 units SQ Q8 ADAL Stop: 03/11/22 21:59 Last Admin: 02/10/22 13:09 Dose: 5,000 units Documented By: Admin: 02/10/22 05:56 Dose: 5,000 units Documented By: Admin: 02/09/22 20:35 Dose: 5,000 units Documented By: SUJEY Doxycycline Hyclate 100 mg/ (Dextrose) 110 mls @ 50 mls/hr IV Q12H ADAL Stop: 02/17/22 02:29 Last Infusion: 02/10/22 17:17 Dose: 0 mls/hr Documented By: Admin: 02/10/22 15:07 Dose: 50 mls/hr Documented By: Infusion: 02/10/22 04:51 Dose: 50 mls/hr Documented By: Admin: 02/10/22 02:27 Dose: 50 mls/hr Documented By: SUJEY Ceftriaxone Sodium 2,000 mg/ (Dextrose) 70 mls @ 100 mls/hr IV DAILY ADAL; Protocol Stop: 02/16/22 17:59 Last Infusion: 02/10/22 09:08 Dose: 0 mls/hr Documented By: Admin: 02/10/22 07:51 Dose: 100 mls/hr Documented By: Infusion: 02/09/22 21:55 Dose: 100 mls/hr Documented By: Admin: 02/09/22 18:48 Dose: 100 mls/hr Documented By: CHARLIE Insulin Aspart (Insulin Aspart Per Unit) 0 units SC ACHS ADAL Stop: 03/11/22 16:43 Last Admin: 02/10/22 17:05 Dose: 6 units Documented By: KEELY Co-signed By: Admin: 02/10/22 11:56 Dose: 13 units Documented By: KEELY Co-signed By: MIGUEL ANGEL Admin: 02/10/22 09:56 Dose: Not Given Documented By: Admin: 02/09/22 20:34 Dose: Not Given Documented By: Admin: 02/09/22 18:18 Dose: 9 units Documented By: CHARLIE Co-signed By: CHERYL Lactobacillus Acidophilus (Advanced Probiotic 1250 Mg Capsule) 2 cap PO DAILY ADAL Stop: 03/12/22 08:59 Last Admin: 02/10/22 07:52 Dose: 2 cap Documented By: CHARLIE Levalbuterol HCl (Levalbuterol Hcl 1.25 Mg/3 Ml Neb) 1.25 mg NEB Q6R ADAL; Protocol Stop: 03/12/22 12:59 Last Admin: 02/10/22 12:14 Dose: 1.25 mg Documented By: VENUS Lisinopril (Lisinopril 5 Mg Tab) 5 mg PO DAILY ADAL Stop: 03/12/22 08:59 Last Admin: 02/10/22 07:52 Dose: 5 mg Documented By: CHARLIE Metoprolol Succinate (Metoprolol Succ 25mg Ext Rel Tab) 12.5 mg PO QAM ADAL Stop: 03/12/22 11:59 Last Admin: 02/10/22 12:34 Dose: 12.5 mg Documented By: KEELY Nitroglycerin (Nitroglycerin Sl 0.4 Mg/Tab Tab) 0.4 mg SL PRN PRN PRN Reason: chest pain Stop: 03/12/22 09:11 Last Admin: 02/10/22 09:34 Dose: 0.4 mg Documented By: CHARLIE Nitroglycerin (Nitroglycerin 2% Ointment 30gm Tube) 0.5 inch EXT Q6H ADAL Stop: 03/12/22 11:44 Last Admin: 02/10/22 17:12 Dose: 0.5 inch Documented By: Admin: 02/10/22 12:06 Dose: 0.5 inch Documented By: KEELY Discontinued Medications Aspirin (Aspirin 81 Mg Chew) Confirm Administered Dose 324 mg .ROUTE .STK-MED ONE Stop: 02/10/22 09:14 Last Admin: 02/10/22 09:35 Dose: 324 mg Documented By: CHARLIE Sodium Chloride (Nss 1000ml) 500 mls @ 999 mls/hr IV .Q31M ONE Stop: 02/09/22 11:10 Last Infusion: 02/09/22 12:03 Dose: 0 mls/hr Documented By: Admin: 02/09/22 10:53 Dose: 999 mls/hr Documented By: JORGE Sodium Chloride (Nss 1000ml) 1,000 mls @ 125 mls/hr IV .Q8H STA Stop: 02/09/22 18:39 Last Infusion: 02/09/22 17:14 Dose: 0 mls/hr Documented By: Admin: 02/09/22 12:03 Dose: 125 mls/hr Documented By: JORGE Cefepime HCl (Maxipime) 2,000 mg in 20 mls @ 5 mls/min IV NOW STA; Protocol Stop: 02/09/22 13:12 Last Admin: 02/09/22 13:44 Dose: 5 mls/min Documented By: JORGE Doxycycline Hyclate 100 mg/ (Dextrose) 110 mls @ 50 mls/hr IV NOW STA Stop: 02/09/22 16:22 Last Infusion: 02/09/22 17:09 Dose: 0 mls/hr Documented By: Admin: 02/09/22 14:29 Dose: 50 mls/hr Documented By: JORGE Sodium Chloride (Nss 1000ml) 1,000 mls @ 125 mls/hr IV .Q8H ADAL Stop: 02/10/22 08:43 Last Infusion: 02/10/22 10:29 Dose: 0 mls/hr Documented By: Admin: 02/10/22 02:27 Dose: 125 mls/hr Documented By: Infusion: 02/10/22 01:23 Dose: 125 mls/hr Documented By: Admin: 02/09/22 17:23 Dose: 125 mls/hr Documented By: CHARLIE Cefepime HCl 1,000 mg/ Syringe 11.3 mls @ 5.5 mls/min IV Q8H ADAL; Protocol Stop: 02/16/22 16:43 Last Admin: 02/09/22 18:26 Dose: Not Given Documented By: CHARLIE Magnesium Sulfate/Dextrose (Magnesium Sulfate / D5w) 1 gm in 100 mls @ 50 mls/h r IV Q2H ADAL Stop: 02/10/22 16:44 Last Admin: 02/10/22 14:41 Dose: 50 mls/hr Documented By: Infusion: 02/10/22 14:40 Dose: 0 mls/hr Documented By: Admin: 02/10/22 12:39 Dose: 50 mls/hr Documented By: Infusion: 02/10/22 12:39 Dose: 0 mls/hr Documented By: Admin: 02/10/22 11:05 Dose: 50 mls/hr Documented By: KEELY Insulin Glargine (Lantus Per Unit Charge) 15 units SQ BID ADAL Stop: 03/11/22 20:59 Last Admin: 02/10/22 09:49 Dose: Not Given Documented By: Admin: 02/09/22 20:35 Dose: Not Given Documented By: SUJEY Insulin Glargine (Lantus Per Unit Charge) 25 units SQ NOW ONE Stop: 02/10/22 14:16 Last Admin: 02/10/22 14:11 Dose: 25 units Documented By: KEELY Co-signed By: ANTHONY Ioversol (Optiray 320 125ml) 76 ml IV ONCE ONE Stop: 02/10/22 10:22 Last Admin: 02/10/22 10:21 Dose: 76 ml Documented By: YARIEL Levalbuterol HCl (Levalbuterol 1.25mg/0.5ml Neb) 1.25 mg NEB Q6R ADAL; Protocol Stop: 03/11/22 16:43 Last Admin: 02/10/22 07:30 Dose: Not Given Documented By: Admin: 02/10/22 01:10 Dose: Not Given Documented By: Admin: 02/09/22 23:12 Dose: Not Given Documented By: Admin: 02/09/22 17:34 Dose: Not Given Documented By: VENUS Levalbuterol HCl (Levalbuterol Hcl 1.25 Mg/3 Ml Neb) Confirm Administered Dose 1.25 mg .ROUTE .STK-MED ONE Stop: 02/09/22 17:24 Last Admin: 02/09/22 17:33 Dose: 1.25 mg Documented By: VENUS Levalbuterol HCl (Levalbuterol Hcl 1.25 Mg/3 Ml Neb) Confirm Administered Dose 1.25 mg .ROUTE .STK-MED ONE Stop: 02/10/22 00:59 Last Admin: 02/10/22 09:35 Dose: Not Given Documented By: CHARLIE Levalbuterol HCl (Levalbuterol Hcl 1.25 Mg/3 Ml Neb) Confirm Administered Dose 1.25 mg .ROUTE .STK-MED ONE Stop: 02/10/22 07:29 Last Admin: 02/10/22 07:28 Dose: 1.25 mg Documented By: VENUS Nitroglycerin (Nitroglycerin Sl 0.4 Mg/Tab Tab) Confirm Administered Dose 0.4 mg .ROUTE .STK-MED ONE Stop: 02/10/22 09:14 Last Admin: 02/10/22 09:36 Dose: Not Given Documented By: CHARLIE Imaging Data Radiologist's Impression: Chest X-Ray 02/09/22 10:42 XR chest 1V portable HISTORY: left chest pain, cough, ?PNA COMPARISON: Chest 05/24/2021. FINDINGS: No pneumothorax. No pleural effusions. The collection was top normal in size. Dense mitral anus calcifications are noted. Mild diffuse interstitial thickening remains unchanged. This is likely chronic. Patchy left base airspace opacities are noted. Mild emphysema. IMPRESSION: Patchy left basilar airspace opacities which likely represents a pneumonia and could be due to aspiration. 1-2 month chest x-ray follow-up recommended to ensure resolution. ACT 112: Negative or not required by law. Electronically signed by: Angel Luis Ruiz M.D. 02/09/2022 11:12 AM Discharge Plan Visit Data Chief Complaint: Back Injury/Pain Stated Complaint: RIGHT SIDE BACK PAIN ED Provider: Miguel Angel Alvarenga Discharge Problem: Pneumonia, Acute left-sided back pain Patient Disposition: Admitted As Inpatient Discharge Instructions Interventions: ED Discharge Assessment Last Done: 02/09/22 15:58
[2022-02-09] MEDS ORDERED: CEFEPIME 2,000 MG/20 ML VIAL IV STA (13:09)
[2022-02-09] MEDS ORDERED: DOXYCYCLINE HYCLATE 100 MG in DEXTROSE 5% 100 ML IV STA (14:11)
--- NOTE | 2022-02-09 14:46 | History & Physical Report ---
Date of Service February 09, 2022 Assessment & Plan (1) Pneumonia: Plan: - Admit to med surg on observation - Sputum culture, mucinex, duonebs QID and Q2H prn, tessalon pearls - Wean O2 prn - Influenza/RSV/COVID negative, patient is vaccinated and boosted against COVID, also actively had COVID infection with pneumonia last May where she was hospitalized here - WBC at time of admission = 10.86 - BCx x 2, follow - Afebrile - Lactic acid pending, Procalcitonin 0.06 - CXR reviewed as above - Continue antibiotic therapy with IV cefepime and doxycycline -Consider repeat CXR if worsening symptoms (2) COPD (chronic obstructive pulmonary disease): Plan: -History of such, as above (3) HTN, goal below 140/80: Plan: - BP currently stable, missed todays lisinopril dosing. Had soft BP when she came to the ER, given IVFs, now improved -May continue lisinopril tomorrow (4) HLD (hyperlipidemia): Plan: - Cont statin (5) H/O paroxysmal atrial tachycardia: Plan: -Last echo from outpatient epic reviewed, from 07/15/2019 showing LVEF of 60 to 64%, normal, no wall motion abnormalities, left ventricular diastolic function mildly abnormal (grade 1), normal pulmonary pressure (6) DM II (diabetes mellitus, type II), controlled: Plan: - We will hold Xitulphy inj, continue on ISS with Accu-Cheks ACHS -Consult glycemic pharmacy -Last A1c = 6.8 on 10/11/2021 DVT PPx: - teds, scds, ambulatory, heparin subcu CODE: DNR/DNI Dispo: From home, likely to remain in the hospital x 1 day on observation, lives at home with her History of Present Illness Primary Care Provider: Paz Daniels MD This is a 81 yo F with PMHx of HTN, HLD, history PAT, history TIA,PVD status post surgery, history of pulmonary embolism 09/2007, carotid stenosis s/p left carotid endarterectomy in 2003, DM2 on insulin, CKD with baseline creatinine 1.4, past tobacco abuse and COPD. Patient notes that she has felt ill for about the last week with complaints of runny nose and congestion. She has been using [id number] Tylenol and Sudafed at home but then today noticed worsening left-sided pain with deep breaths in her chest, as well as coughing and bringing up sputum production. She denies any hemoptysis. She denies any fever, chills or sweats. She admits to newfound worsening shortness of breath with minimal ADLs today. She does not wear any O2 at baseline or anything at night, but does use a Breo Ellipta inhaler daily as instructed. She has tried to use her albuterol inhaler a few times in the past few days as well without symptom relief. She lives at home with her does not have any of these similar symptoms. CXR today reveals a left lower lobe opacity suspicious for pneumonia. WBC = 10 K, Pro-Twin 0.06, lactate 0.6. Allergies Allergy/AdvReac Type Severity Reaction Status Date / Time azithromycin Allergy Intermediate FACIAL Verified 05/24/21 17:59 SWELLING AND ITCHING IN COMBINATION WITH HYCODAN homatropine Allergy Intermediate FACIAL Verified 05/24/21 17:59 SWELLING AND ITCHING IN COMBINATION WITH ZITHROMAX hydrocodone Allergy Intermediate FACIAL Verified 05/24/21 17:59 SWELLING &ITCHING-IN COMBINATION W/ZITHROMAX Penicillins Allergy Mild RASH, ITCHY Verified 05/24/21 17:59 metformin AdvReac Intermediate Diarrhea Verified 05/24/21 17:59 Sulfa (Sulfonamide AdvReac Mild SULFA Verified 05/24/21 17:59 Antibiotics) DRUGS-CHANGE COLORS Home Medications Medication Instructions Recorded Confirmed Type atorvastatin 40 mg tablet 40 mg PO PM 02/24/19 02/09/22 History cyanocobalamin (vitamin B-12) 1,000 mcg PO QAM 02/24/19 02/09/22 History 1,000 mcg tablet (Vitamin B-12) insulin aspart U-100 100 unit/mL 1 sliding scale dose subcut ACHS 02/24/19 02/09/22 History subcutaneous solution (Novolog U-100 Insulin aspart) aspirin 325 mg tablet,delayed 325 mg PO DAILY 10/07/20 02/09/22 History release insulin degludec 100 36 unit subcut QAM 10/07/20 02/09/22 History unit-liraglutide 3.6 mg/mL(3 mL) subcutaneous pen (Xultophy 100/3.6) ascorbic acid (vitamin C) 1,000 mg 1 g PO DAILY 05/24/21 02/09/22 History tablet (Vitamin C) fluticasone furoate 200 1 inh inhalation DIRECTED 05/24/21 02/09/22 History mcg-vilanterol 25 mcg/dose inhalation powder (Breo Ellipta) zinc 50 mg tablet 50 mg PO DAILY 05/24/21 02/09/22 History lisinopril 10 mg tablet 0.5 tab PO DAILY 02/09/22 02/09/22 History Past Med/Surg History Medical History (Updated 02/09/22 @ 14:54 by Ml Holcomb PA-C) Chest pain COPD (chronic obstructive pulmonary disease) DM II (diabetes mellitus, type II), controlled H/O paroxysmal atrial tachycardia HTN, goal below 140/80 (06/26/13) Hx of pulmonary embolus Hypomagnesemia Surgical History (Updated 02/09/22 @ 14:54 by Ml Holcomb PA-C) Hx of tubal ligation S/P carotid endarterectomy S/P cholecystectomy Family History (Updated 02/09/22 @ 14:54 by Ml Holcomb PA-C) Mother COPD (chronic obstructive pulmonary disease) Father COPD (chronic obstructive pulmonary disease) Heart disease Social History Smoking Status: Former smoker Tobacco Type: Cigarettes Hx Alcohol Use: No Hx Substance Use: No Preferred Language: Telugu Communication Ability: Effective Bleach Tester Required: No Beliefs That Will Affect Care: None Current Living Situation: Spouse Current Living Situation Comment: Feels Safe at Home: Yes Safety Concerns: Feels Safe At This Time Assistive Devices: Denture - Upper and Glasses Review of Systems Review of Systems: Constitutional: No fever, sweats or chills Eyes: No diplopia, no worsening or blurred vision ENT: normal hearing, no trouble swallowing, + runny nose and sinus congestion Respiratory: + Cough with sputum, no dyspnea at rest but SOB on exertion, pain with taking deep breaths on the left side/left chest wall Cardiovascular: No chest pain, no substernal pain, no tightness or palpitations Abdomen: No pain, nausea, vomiting, + struggles with intermittent constipation and diarrhea, last bowel movement was 4 to 5 days ago and reports this is her normal Musculoskeletal: No joint pain, calf pain, swelling Neurologic: No weakness, numbness/tingling, or balance problems Psychiatric: No anxiety or depression Skin: No rash or itch Physical Exam Physical Exam: General: awake, alert, no apparent distress, obese with BMI of 33.6 Head: Normocephalic, atraumatic ENT: PERRL, EOMI, no pharyngeal exudate, mucous membranes moist Chest: on room air + coarse crackles in LLL, minimal crackles in the RLL, no expiratory wheezing, no work of breathing with accessory muscles, no other adventitious breath sounds Cardiac: Regular rate and rhythm, no murmur, no JVD, normal peripheral pulses, good capillary refill Abdominal: NABS x 4 quadrants, soft, nondistended, nontender to palpation, no rebound or guarding Extremities: Normal inspection, no peripheral edema or erythema, calfs nontender to palpation Psych: Normal mood and affect Neuro: AAO x 3, strength intact bilaterally and rated 5/5, no motor deficits, speech is clear, no peripheral sensory deficits Results & Data Results & Data ([facility]) Vital Signs (Past 12 Hours) Vital Signs Temp Pulse Pulse Resp BP BP Pulse Ox 02/09/22 14:30 85 20 140/100 96 02/09/22 13:43 83 20 100/79 94 02/09/22 12:03 83 20 164/80 H 93 02/09/22 11:04 88 20 115/95 96 02/09/22 10:50 83 16 130/70 95 02/09/22 10:27 36.8 C 92 H 18 96/65 L 94 O2 Del Method 02/09/22 14:30 Room Air 02/09/22 13:43 Room Air 02/09/22 12:03 Room Air 02/09/22 11:04 Room Air 02/09/22 10:50 Room Air 02/09/22 10:27 Room Air Laboratory Results 02/09/22 10:44 Aerobic Blood Culture - Pending Blood Anaerobic Blood Culture - Pending 02/09/22 10:40 Aerobic Blood Culture - Pending Blood Anaerobic Blood Culture - Pending 02/09/22 02/09/22 02/09/22 15:06 14:16 10:44 WBC RBC Hgb Hct MCV MCH MCHC RDW Std Deviation RDW Coeff of Sandy Plt Count MPV Immature Gran % (Auto) Neut % (Auto) Lymph % (Auto) Walsh % (Auto) Eos % (Auto) Baso % (Auto) Neut # (Auto) Lymph # (Auto) Walsh # (Auto) Eos # (Auto) Baso # (Auto) Immature Gran # (Auto) Sodium Potassium Chloride Carbon Dioxide Anion Gap BUN Creatinine Est Cr Clr Drug Dosing Est GFR ( Amer) Est GFR (Non-Af Amer) BUN/Creatinine Ratio Glucose Lactate 0.6 Cancelled Calcium Total Bilirubin AST ALT Alkaline Phosphatase Troponin I High Sens Total Protein Albumin Globulin Albumin/Globulin Ratio Procalcitonin SARS-CoV-2 (PCR) NEGATIVE Influenza Type A (PCR) Negative Influenza Type B (PCR) Negative RSV (RT-PCR) Negative 02/09/22 02/09/22 02/09/22 10:44 10:44 10:44 WBC 10.86 H RBC 4.59 Hgb 14.1 Hct 43.0 MCV 93.7 MCH 30.7 MCHC 32.8 RDW Std Deviation 45.1 RDW Coeff of Sandy 13.2 Plt Count 246 MPV 11.3 Immature Gran % (Auto) 0.4 Neut % (Auto) 64.0 Lymph % (Auto) 23.0 Walsh % (Auto) 9.2 Eos % (Auto) 2.8 Baso % (Auto) 0.6 Neut # (Auto) 6.95 H Lymph # (Auto) 2.50 Walsh # (Auto) 1.00 H Eos # (Auto) 0.30 Baso # (Auto) 0.07 Immature Gran # (Auto) 0.04 H Sodium 134 L Potassium 4.7 Chloride 101 Carbon Dioxide 24 Anion Gap 9 BUN 32 H Creatinine 1.50 H Est Cr Clr Drug Dosing 29.5 Est GFR ( Amer) 37.0 Est GFR (Non-Af Amer) 31.9 BUN/Creatinine Ratio 21.3 H Glucose 133 H Lactate Calcium 9.6 Total Bilirubin 0.5 AST 14 ALT 13 Alkaline Phosphatase 70 Troponin I High Sens 3.3 Total Protein 8.1 Albumin 4.0 Globulin 4.1 H Albumin/Globulin Ratio 1.0 Procalcitonin 0.06 SARS-CoV-2 (PCR) Influenza Type A (PCR) Influenza Type B (PCR) RSV (RT-PCR) Diagnostic Findings Chest X-Ray 02/09/22 10:42 XR chest 1V portable HISTORY: left chest pain, cough, ?PNA COMPARISON: Chest 05/24/2021. FINDINGS: No pneumothorax. No pleural effusions. The collection was top normal in size. Dense mitral anus calcifications are noted. Mild diffuse interstitial thickening remains unchanged. This is likely chronic. Patchy left base airspace opacities are noted. Mild emphysema. IMPRESSION: Patchy left basilar airspace opacities which likely represents a pneumonia and could be due to aspiration. 1-2 month chest x-ray follow-up recommended to ensure resolution. ACT 112: Negative or not required by law. Electronically signed by: Angel Luis Ruiz M.D. 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 Patient reports having cough with yellowish sputum since last 2 weeks. Patient reports having pneumonia in the past with similar chest pain. With this chest pain patient reports having difficulty taking deep breaths which would trigger her chest pain. Patient quit smoking 50 years ago, denies use of alcohol or recreational drugs. DNR/DNI Labs reviewed, WBC minimally elevated, vitals fairly stable, patient on room air, lactate normal. CXR suggestive of LLL pneumonia, x-ray follow-up in 1 to 2 months to document resolution recommended. IV fluids for 2 bags, IV antibiotics, transition to PO as able. Resume home meds. Upon Exam: GENERAL: Alert and oriented x3. NAD, on RA. HEENT: No pallor, no icterus. Pupils equal, round and reactive to light. Oral mucosa moist. NECK: No JVD, no neck masses. HEART: S1 and S2 heard. Regular rate and rhythm. No murmur, no gallop. RESPIRATORY SYSTEM: Normal AP diameter. No accessory muscle use. No wheezing, Crackles mid and basal x left lung, basal x Rt lung. ABDOMEN: Soft, bowel sounds present, nontender, no distention. CENTRAL NERVOUS SYSTEM: No facial droop. Speech is clear. Obeys simple commands. Moves extremities. EXTREMITIES: No edema, no erythema seen. I have seen and examined the patient and have discussed the case with the provider above. I agree with the assessment and plan as stated. (1) Pneumonia Laterality: bilateral Lung location: unspecified part of lung Pneumonia type: due to unspecified organism Qualified Code(s): J18.9 - Pneumonia, unspecified organism
[2022-02-09 15:23] LABS: Influenza A virus by PCR Negative (Neg); Influenza B virus by PCR Negative (Neg); RSV by PCR Negative (Neg); SARS CoV2 RNA(COVID-19) InHosp NEGATIVE (Negative)
[2022-02-09] MEDS ORDERED: ONDANSETRON INJ 2 MG/ML 2 ML VIAL IV PRN (16:44)
[2022-02-09] MEDS ORDERED: GLUCOSE 40% GEL 15 GM TUBE PO PRN (16:44)
[2022-02-09] MEDS ORDERED: PHARMACY GLYCEMIC MGMT CONSULT PRN (16:44)
[2022-02-09] MEDS ORDERED: CARBOHYDRATES FOR HYPOGLYCEMIA PO PRN (16:44)
[2022-02-09] MEDS ORDERED: CEFEPIME 1,000 MG in SYRINGE 0 ML IV SCH (16:44)
[2022-02-09] MEDS ORDERED: GLUCOSE 10 TAB/TUBE PO PRN (16:44)
[2022-02-09] MEDS ORDERED: DEXTROSE 50% 50 ML SYRINGE IV PRN (16:44)
[2022-02-09] MEDS ORDERED: GLUCAGON FOR INJ 1 MG VIAL SQ PRN (16:44)
[2022-02-09] MEDS ORDERED: LEVALBUTEROL 1.25MG/0.5ML NEB NEB PRN (17:03)
[2022-02-09] MEDS ORDERED: LEVALBUTEROL HCL 1.25 MG/3 ML NEB ONE (17:23)
[2022-02-09] MEDS: SODIUM CHLORIDE 0.9% 1000ML 1,000 ML IV SCH (17:23)
[2022-02-09] MEDS: LEVALBUTEROL 1.25MG/0.5ML NEB NEB SCH ×2 (17:34→23:12)
[2022-02-09] MEDS: ASPIRIN 325 MG ECTAB PO SCH (17:49)
[2022-02-09] MEDS: FLUTICASONE/VILANTEROL 200/25MCG 14 PUFFS/INHALER INH SCH (17:49)
[2022-02-09] MEDS: INSULIN ASPART PER UNIT SC SCH ×2 (18:18→20:34)
[2022-02-09] MEDS: cefTRIAXone SODIUM 2,000 MG in DEXTROSE 5% 50 ML IV SCH (18:48)
[2022-02-09] MEDS: BENZONATATE 100 MG CAPSULE PO SCH (20:33)
[2022-02-09] MEDS: guaiFENesin 600 MG TABCR PO SCH (20:33)
[2022-02-09] MEDS: ATORVASTATIN 40 MG TAB PO SCH (20:34)
[2022-02-09] MEDS: LANTUS PER UNIT CHARGE SQ SCH (20:35)
[2022-02-09] MEDS: HEPARIN SOD 5,000 UNIT/0.5 ML VIAL SQ SCH (20:35)
[2022-02-09] MEDS ORDERED: guaiFENesin 600 MG TABCR PO SCH (21:00)
[2022-02-10] MEDS: ACETAMINOPHEN 325 MG TAB PO PRN ×2 (00:06→23:39)
[2022-02-10] MEDS ORDERED: LEVALBUTEROL HCL 1.25 MG/3 ML NEB ONE ×2 (00:58→07:28)
[2022-02-10] MEDS: LEVALBUTEROL 1.25MG/0.5ML NEB NEB SCH ×2 (01:10→07:30)
[2022-02-10] MEDS: SODIUM CHLORIDE 0.9% 1000ML 1,000 ML IV SCH (02:27)
[2022-02-10] MEDS: DOXYCYCLINE HYCLATE 100 MG in DEXTROSE 5% 100 ML IV SCH ×2 (02:27→15:07)
[2022-02-10] MEDS: HEPARIN SOD 5,000 UNIT/0.5 ML VIAL SQ SCH ×3 (05:56→20:15)
[2022-02-10 07:10] LABS: Hematocrit (blood only) 37.9 % (34.1-44.9); Hemoglobin 12.3 g/dl (12.0-16.0); Mean Corpuscular Hemoglobin 30.7 pg (25.0-34.0); Mean Corpuscular Hgb Conc 32.5 g/dL (32.0-36.0); Mean Corpuscular Volume 94.5 fL (80.0-100.0); Mean Platelet Volume 11.9 fL (9.4-12.3); Platelet Count 209 K/uL (130-400); RDW Coefficient of Variation 13.2 % (11.5-14.5); RDW Standard Deviation 45.4 fL (36.4-46.3); Red Blood Count 4.01 M/uL (3.93-5.22); White Blood Count 8.83 K/ul (4.8-10.8)
[2022-02-10 07:31] LABS: BUN Creatinine Ratio 25.2 (10-20); Calcium 8.7 mg/dl (8.5-10.1); Creatinine Clr Calc Pharmacy 35.8 ml/min; Est GFR (Non-African American) 40.5 ml/min; Potassium 5.1 mmol/L (3.5-5.1)
[2022-02-10] MEDS: ASPIRIN 325 MG ECTAB PO SCH (07:50)
[2022-02-10] MEDS: cefTRIAXone SODIUM 2,000 MG in DEXTROSE 5% 50 ML IV SCH (07:51)
[2022-02-10] MEDS: FLUTICASONE/VILANTEROL 200/25MCG 14 PUFFS/INHALER INH SCH (07:51)
[2022-02-10] MEDS: BENZONATATE 100 MG CAPSULE PO SCH ×3 (07:51→20:16)
[2022-02-10] MEDS: ADVANCED PROBIOTIC 1250 MG CAPSULE PO SCH (07:52)
[2022-02-10] MEDS: guaiFENesin 600 MG TABCR PO SCH ×2 (07:52→20:16)
[2022-02-10] MEDS: lisinopril 5 MG TAB PO SCH (07:52)
[2022-02-10] MEDS ORDERED: ASPIRIN CHEW 324 MG PO STA (09:12)
[2022-02-10] MEDS ORDERED: NITROGLYCERIN SL 0.4 MG/TAB TAB SL PRN (09:12)
[2022-02-10] MEDS ORDERED: ASPIRIN 81 MG CHEW ONE (09:13)
[2022-02-10] MEDS ORDERED: NITROGLYCERIN SL 0.4 MG/TAB TAB ONE (09:13)
[2022-02-10] MEDS: LANTUS PER UNIT CHARGE SQ SCH (09:49)
[2022-02-10] MEDS: INSULIN ASPART PER UNIT SC SCH ×4 (09:56→20:18)
[2022-02-10 10:08] LABS: Albumin Level 3.5 gm/dl (3.4-5.0); BUN Creatinine Ratio 21.4 (10-20); Bilirubin,Total 0.3 mg/dl (0.2-1.0); Calcium 8.4 mg/dl (8.5-10.1); Creatinine Clr Calc Pharmacy 33.6 ml/min; Est GFR (African American) 43.5 ml/min; Est GFR (Non-African American) 37.6 ml/min; Globulin 3.4 gm/dl (2.5-4.0); Magnesium 1.5 mg/dl (1.7-2.4); Phosphorus 2.8 mg/dl (2.5-4.9); Potassium 4.3 mmol/L (3.5-5.1); Total Protein 6.9 gm/dl (6.0-8.3)
[2022-02-10 10:13] LABS: Troponin I High Sensitivity 5.2 pg/ml (0-14)
[2022-02-10] MEDS ORDERED: OPTIRAY 320 125ml IV ONE (10:21)
--- NOTE | 2022-02-10 10:38 | CT Scan Report ---
CT ANGIOGRAM OF THE CHEST CLINICAL HISTORY: Atypical chest pain. Tachycardia. Cough. COMPARISON STUDY: Chest x-ray dated 02/09/2022. Chest CT dated 05/24/2021 and 12/27/2009. TECHNIQUE: Following the IV administration of 76 cc of Optiray 320, CT angiogram of the chest was per formed from the upper abdomen to the thoracic inlet utilizing the pulmonary embolus protocol. Images are reviewed in the axial, sagittal, and coronal planes. 3-D MIPS images are created and assessed. IV contrast was administered without complication. A dose lowering technique was utilized adhering to the principles of ALARA. CT DOSE: 704.62 mGy.cm FINDINGS: Thyroid: Imaged portions of the thyroid gland are normal in size and attenuation. Thoracic aorta: There is atherosclerotic calcification of the thoracic aorta, which is normal in nayeli luli and demonstrates bovine variant arch anatomy. No dissection is seen. Pulmonary vasculature: The pulmonary trunk is normal in caliber. There are no filling defects identif ied in main, lobar, or segmental pulmonary branches to suggest pulmonary embolus. Heart: The heart is normal in size and without pericardial effusion. The coronary arteries and mitral annulus are densely calcified. Lungs and pleural spaces: Emphysematous change is seen at the apices. Dependent airspace consolidatio n is seen at both lung bases, left greater than right. There is trace left pleural effusion. The trac hea and central airways are clear. There is diffuse peribronchial thickening. A 7 mm pulmonary nodule in the lingula seen on image #93 has been present dating back to 2009 and is of doubtful significanc e. Mediastinum: An enlarged subcarinal node measures 2.4 cm in short axis. AP window nodes measure up to 1.3 cm in short axis, and a pretracheal node measures 1.1 cm in short axis Briana: There is bilateral hilar adenopathy. Hilar nodes measure up to 1.3 cm in short axis. Axillae: There is no axillary lymphadenopathy. Upper abdomen: There is a tiny hiatal hernia. A punctate nonobstructing calculus is noted in the uppe r pole of the right kidney. There is trace fluid seen around the pancreatic tail. Skeletal structures: The skeletal structures are osteopenic. Degenerative change is seen in the shoul ders and thoracic spine. A large hemangioma is noted in the body of T4. No lytic or blastic bony lesi ons are seen. IMPRESSION: 1. There is no evidence of pulmonary embolus in the main, lobar, or segmental pulmonary arteries. 2. There is dependent airspace consolidation, left greater than right. The appearance is typical for pneumonia/aspiration pneumonitis. Clinical correlation will be required and radiographic follow-up to resolution is recommended. 3. Some of the consolidation demonstrates a nodular appearance, and a precautionary follow-up chest C T is recommended in 3-4 months time to reassess underlying lung parenchyma. 4. Trace left pleural effusion. 5. Emphysema. 6. There is chronic mediastinal and hilar lymphadenopathy. This has modestly increased from previous, likely on a reactive basis. 7. There is trace nonspecific fluid around the pancreatic tail. Correlate with clinical findings and serum lipase levels for evidence of superimposed pancreatitis. 8. Right-sided nephrolithiasis. ACT 112: Negative or not required by law. Electronically signed by: Hermes Rosas M.D. 02/10/2022 10:36 AM
[2022-02-10] MEDS: MAGNESIUM SULFATE / D5W 1 GM/100 ML BAG IV SCH ×3 (11:05→14:41)
--- NOTE | 2022-02-10 11:36 | Cardiology Consultation ---
Date of Consultation February 10, 2022 Assessment & Plan (1) Chest pain: (2) Acute hypoxemic respiratory failure: (3) Pneumonia: (4) Angina pectoris: Plan Patient is an 81-year-old female whose underlying cardiac history is notable for chronic angina pectoris managed medically now admitted with acute hypoxic respiratory failure/pneumonia possible aspiration. Patient initially with pleuritic discomfort on inspiration. This morning developed symptoms suggestive of angina pectoris relieved by sublingual nitroglycerin. Initial EKGs without acute ST segment changes heart rate is elevated with notable history for recent discontinuation of beta-cristofer in the past 5 months Patient currently asymptomatic pulmonary status improving per Impression: Angina pectoris exacerbated by acute stressors of illness, elevated heart rate, blood pressure Plan: Maintain telemetry as already ordered. Troponins ordered will not anticoagulation unless elevated Restart beta-cristofer with metoprolol succinate 12.5 mg daily first today Add topical nitrates 1/2 inch every 6 hours for blood pressure and antianginal effect Treat underlying respiratory concerns as doing History of Present Illness Reason for Consultation: Chest pressure, pain Requesting Physician: Dr. Rodriguez Attending Physician: Zora Rodriguez MD History of Present Illness Patient is an 81-year-old female with ongoing cardiac issues 1. Atherosclerotic carotid disease, status post left carotid [id number]. 2. Presumed atherosclerotic coronary disease, class 2 angina pectoris, managed medically 3. Past history of pericardial effusion. 4. Prior pulmonary embolus. 5. Hypertension. 6. Low HDL dyslipidemia. 7. Diabetes mellitus, insulin-requiring. 8. Stage 3 chronic kidney disease 9. Chart history ofcontraindication(s) toAceI/Arb 10. Emphysema. History of tobacco abuse. 11. Chronic gastroesophageal reflux 12. Recurrent pneumonia, possible aspiration Patient presents this admission noting having had increasing cough and shortness of breath for approximately 5 to 6 days prior to presentation. Symptoms of pleuritic pain and discomfort on deep inspiration, chest x-ray consistent with pneumonia possible aspiration. This morning after breakfast and medications developed sudden onset chest pressure sensation relieved by [address] scan of the chest done urgently revealed no evidence of pulm thromboemboli Patient time examination comfortable notes no complaints. Notes no significant change in chest pressure pain symptoms does have pleuritic discomfort on deep inspiration different than pain that experienced this morning. Review of records notes discontinuation of beta-cristofer in August 2021 EKG since admission demonstrate elevated heart rate but no dynamic ST segment changes or ST elevation Patient currently afebrile. Heart rate slightly elevated. She denies orthopnea or worsening peripheral edema. Notes no bleeding difficulties. Denies headache or visual change Allergies Allergy/AdvReac Type Severity Reaction Status Date / Time azithromycin Allergy Intermediate FACIAL Verified 05/24/21 17:59 SWELLING AND ITCHING IN COMBINATION WITH HYCODAN homatropine Allergy Intermediate FACIAL Verified 05/24/21 17:59 SWELLING AND ITCHING IN COMBINATION WITH ZITHROMAX hydrocodone Allergy Intermediate FACIAL Verified 05/24/21 17:59 SWELLING &ITCHING-IN COMBINATION W/ZITHROMAX Penicillins Allergy Mild RASH, ITCHY Verified 05/24/21 17:59 metformin AdvReac Intermediate Diarrhea Verified 05/24/21 17:59 Sulfa (Sulfonamide AdvReac Mild SULFA Verified 05/24/21 17:59 Antibiotics) DRUGS-CHANGE COLORS Home Medications Medication Instructions Recorded Confirmed Type atorvastatin 40 mg tablet 40 mg PO PM 02/24/19 02/09/22 History cyanocobalamin (vitamin B-12) 1,000 mcg PO QAM 02/24/19 02/09/22 History 1,000 mcg tablet (Vitamin B-12) insulin aspart U-100 100 unit/mL 1 sliding scale dose subcut ACHS 02/24/19 02/09/22 History subcutaneous solution (Novolog U-100 Insulin aspart) aspirin 325 mg tablet,delayed 325 mg PO DAILY 10/07/20 02/09/22 History release insulin degludec 100 36 unit subcut QAM 10/07/20 02/09/22 History unit-liraglutide 3.6 mg/mL(3 mL) subcutaneous pen (Xultophy 100/3.6) ascorbic acid (vitamin C) 1,000 mg 1 g PO DAILY 05/24/21 02/09/22 History tablet (Vitamin C) fluticasone furoate 200 1 inh inhalation DIRECTED 05/24/21 02/09/22 History mcg-vilanterol 25 mcg/dose inhalation powder (Breo Ellipta) zinc 50 mg tablet 50 mg PO DAILY 05/24/21 02/09/22 History lisinopril 10 mg tablet 0.5 tab PO DAILY 02/09/22 02/09/22 History Patient History Medical History (Updated 02/10/22 @ 11:49 by Jp Mathur MD) Chest pain COPD (chronic obstructive pulmonary disease) DM II (diabetes mellitus, type II), controlled H/O paroxysmal atrial tachycardia HTN, goal below 140/80 (06/26/13) Hx of pulmonary embolus Hypomagnesemia Surgical History (Updated 02/09/22 @ 14:54 by Ml Holcomb PA-C) Hx of tubal ligation S/P carotid endarterectomy S/P cholecystectomy Family History (Updated 02/09/22 @ 14:54 by Ml Holcomb PA-C) Mother COPD (chronic obstructive pulmonary disease) Father COPD (chronic obstructive pulmonary disease) Heart disease Social History Smoking Status: Former smoker Tobacco Type: Cigarettes Hx Alcohol Use: No Hx Substance Use: No Preferred Language: Romansh Communication Ability: Effective [employer] Required: No Beliefs That Will Affect Care: None Current Living Situation: Spouse Current Living Situation Comment: Feels Safe at Home: Yes Safety Concerns: Feels Safe At This Time Assistive Devices: Denture - Upper and Glasses Review of Systems Review of Systems: All systems reviewed & are unremarkable except as noted in HPI & below Physical Exam Constitutional: WD/WN, vitals as above + obese; no acute distress Eyes: PERRL, conjunctivae normal, anicteric sclerae ENMT: external ear and nose normal, oropharynx normal Neck: trachea midline, no thyromegaly Respiratory: Auscultation: + diminished lung sounds (Greatest left base) Cardiovascular: Rate/Rhythm: regular rate and regular rhythm Heart Sounds: normal S1 and normal S2; no gallop and no murmur Palpation: normal PMI Vessels: normal carotid upstroke and radial pulses present; no JVD and no carotid bruit Extremities: no edema Gastrointestinal (Abdomen): normal bowel sounds, soft, nontender, no hepatosplenomegaly Musculoskeletal: no cyanosis or clubbing, extremities motor strength 5/5 Skin: no rashes, warm and dry Neurologic: PERRL, EOMI, accommodation nl, no face palsy, no dysarthria Psychiatric: A+Ox3, euthymic affect Results & Data ([facility]) Vital Signs (Past 12 Hours) Vital Signs Temp Pulse Pulse Resp BP Pulse Ox O2 Del Method 02/10/22 11:12 87 02/10/22 10:30 Room Air 02/10/22 10:28 36.5 C 92 H 16 153/85 H 94 Room Air 02/10/22 07:48 Room Air 02/10/22 09:46 91 H 16 131/75 94 Room Air 02/10/22 07:30 73 16 94 Room Air 02/10/22 07:16 37.0 C 75 16 135/76 94 Room Air Laboratory Results Laboratory Results - last 24 hr 02/09/22 02/09/22 02/09/22 10:44 14:16 15:06 WBC RBC Hgb Hct MCV MCH MCHC RDW Std Deviation RDW Coeff of Sandy Plt Count MPV Sodium Potassium Chloride Carbon Dioxide Anion Gap BUN Creatinine Est Cr Clr Drug Dosing Est GFR ( Amer) Est GFR (Non-Af Amer) BUN/Creatinine Ratio Glucose POC Glucose Estimat Average Glucose Hemoglobin A1c Lactate Cancelled 0.6 Calcium Phosphorus Magnesium Total Bilirubin AST ALT Alkaline Phosphatase Troponin I High Sens Total Protein Albumin Globulin Albumin/Globulin Ratio Nasal Screen MRSA (PCR) SARS-CoV-2 (PCR) NEGATIVE Influenza Type A (PCR) Negative Influenza Type B (PCR) Negative RSV (RT-PCR) Negative 02/09/22 02/09/22 02/09/22 17:05 20:30 Unknown WBC RBC Hgb Hct MCV MCH MCHC RDW Std Deviation RDW Coeff of Sandy Plt Count MPV Sodium Potassium Chloride Carbon Dioxide Anion Gap BUN Creatinine Est Cr Clr Drug Dosing Est GFR ( Amer) Est GFR (Non-Af Amer) BUN/Creatinine Ratio Glucose POC Glucose 157 H 83 Estimat Average Glucose Hemoglobin A1c Lactate Calcium Phosphorus Magnesium Total Bilirubin AST ALT Alkaline Phosphatase Troponin I High Sens Total Protein Albumin Globulin Albumin/Globulin Ratio Nasal Screen MRSA (PCR) Negative SARS-CoV-2 (PCR) Influenza Type A (PCR) Influenza Type B (PCR) RSV (RT-PCR) 02/10/22 02/10/22 02/10/22 05:51 05:51 05:51 WBC 8.83 RBC 4.01 Hgb 12.3 Hct 37.9 MCV 94.5 MCH 30.7 MCHC 32.5 RDW Std Deviation 45.4 RDW Coeff of Sandy 13.2 Plt Count 209 MPV 11.9 Sodium 135 L Potassium 5.1 Chloride 106 Carbon Dioxide 23 Anion Gap 6 BUN 31 H Creatinine 1.23 H Est Cr Clr Drug Dosing 35.8 Est GFR ( Amer) 47.0 Est GFR (Non-Af Amer) 40.5 BUN/Creatinine Ratio 25.2 H Glucose 133 H POC Glucose Estimat Average Glucose Pending Hemoglobin A1c Pending Lactate Calcium 8.7 Phosphorus Magnesium Total Bilirubin AST ALT Alkaline Phosphatase Troponin I High Sens Total Protein Albumin Globulin Albumin/Globulin Ratio Nasal Screen MRSA (PCR) SARS-CoV-2 (PCR) Influenza Type A (PCR) Influenza Type B (PCR) RSV (RT-PCR) 02/10/22 02/10/22 02/10/22 08:03 09:27 09:51 WBC RBC Hgb Hct MCV MCH MCHC RDW Std Deviation RDW Coeff of Sandy Plt Count MPV Sodium 135 L Potassium 4.3 Chloride 106 Carbon Dioxide 21 Anion Gap 8 BUN 28 H Creatinine 1.31 H Est Cr Clr Drug Dosing 33.6 Est GFR ( Amer) 43.5 Est GFR (Non-Af Amer) 37.6 BUN/Creatinine Ratio 21.4 H Glucose 266 H POC Glucose 140 H 270 H Estimat Average Glucose Hemoglobin A1c Lactate Calcium 8.4 L Phosphorus 2.8 Magnesium 1.5 L Total Bilirubin 0.3 AST 13 ALT 12 Alkaline Phosphatase 62 Troponin I High Sens 5.2 Total Protein 6.9 Albumin 3.5 Globulin 3.4 Albumin/Globulin Ratio 1.0 Nasal Screen MRSA (PCR) SARS-CoV-2 (PCR) Influenza Type A (PCR) Influenza Type B (PCR) RSV (RT-PCR) 02/10/22 11:08 WBC RBC Hgb Hct MCV MCH MCHC RDW Std Deviation RDW Coeff of Sandy Plt Count MPV Sodium Potassium Chloride Carbon Dioxide Anion Gap BUN Creatinine Est Cr Clr Drug Dosing Est GFR ( Amer) Est GFR (Non-Af Amer) BUN/Creatinine Ratio Glucose POC Glucose 280 H Estimat Average Glucose Hemoglobin A1c Lactate Calcium Phosphorus Magnesium Total Bilirubin AST ALT Alkaline Phosphatase Troponin I High Sens Total Protein Albumin Globulin Albumin/Globulin Ratio Nasal Screen MRSA (PCR) SARS-CoV-2 (PCR) Influenza Type A (PCR) Influenza Type B (PCR) RSV (RT-PCR) (1) Pneumonia Laterality: bilateral Lung location: unspecified part of lung Pneumonia type: due to unspecified organism Qualified Code(s): J18.9 - Pneumonia, unspecified organism
[2022-02-10] MEDS: NITROGLYCERIN 2% OINTMENT 30GM TUBE EXT SCH ×3 (12:06→23:39)
[2022-02-10] MEDS: LEVALBUTEROL HCL 1.25 MG/3 ML NEB NEB SCH ×2 (12:14→19:15)
[2022-02-10] MEDS: METOPROLOL SUCC 25MG EXT REL TAB PO SCH (12:34)
--- NOTE | 2022-02-10 12:58 | Electrocardiogram Report ---
Test Reason : Blood Pressure : / mmHG Vent. Rate : 100 BPM Atrial Rate : 100 BPM P-R Int : 178 ms QRS Dur : 088 ms QT Int : 358 ms P-R-T Axes : 056 002 013 degrees QTc Int : 461 ms Normal sinus rhythm Low voltage QRS Possible Inferior infarct , age undetermined Nonspecific ST abnormality Abnormal ECG When compared with ECG of 10-FEB-2022 09:02, (unconfirmed) No significant change was found Confirmed by Jim Camacho ([id number]) on 02/10/2022 12:58:08 PM Referred By: REFERRED SELF Confirmed By:Jim Camacho
--- NOTE | 2022-02-10 12:58 | Electrocardiogram Report ---
Test Reason : Blood Pressure : / mmHG Vent. Rate : 106 BPM Atrial Rate : 106 BPM P-R Int : 172 ms QRS Dur : 086 ms QT Int : 346 ms P-R-T Axes : 055 022 036 degrees QTc Int : 459 ms Sinus tachycardia Nonspecific ST abnormality Abnormal ECG When compared with ECG of 24-MAY-2021 17:06, Borderline criteria for Anterior infarct are no longer Present Borderline criteria for Anterolateral infarct are no longer Present ST now depressed in Anterolateral leads Nonspecific T wave abnormality now evident in Inferior leads Nonspecific T wave abnormality no longer evident in Anterior leads Confirmed by Jim Camacho ([id number]) on 02/10/2022 12:57:51 PM Referred By: REFERRED SELF Confirmed By:Jim Camacho
--- NOTE | 2022-02-10 12:59 | Electrocardiogram Report ---
Test Reason : Blood Pressure : / mmHG Vent. Rate : 090 BPM Atrial Rate : 090 BPM P-R Int : 180 ms QRS Dur : 082 ms QT Int : 382 ms P-R-T Axes : 074 -06 003 degrees QTc Int : 467 ms Normal sinus rhythm Inferior infarct (cited on or before 10-FEB-2022) Abnormal ECG When compared with ECG of 10-FEB-2022 09:11, (unconfirmed) No significant change was found Confirmed by Jim Camacho ([id number]) on 02/10/2022 12:58:38 PM Referred By: REFERRED SELF Confirmed By:Jim Camacho
[2022-02-10] MEDS ORDERED: LANTUS PER UNIT CHARGE SQ ONE ×2 (14:00→14:15)
--- NOTE | 2022-02-10 14:05 | Pharmacy Report ---
Pharmacy Glycemic Short Note 2 - Date of Service February 10, 2022 - Glycemic Short BSG Results (Last 24 hours): 02/09/22 02/09/22 02/10/22 17:05 20:30 05:51 Glucose 133 H POC Glucose 157 H 83 02/10/22 02/10/22 02/10/22 08:03 09:27 09:51 Glucose 266 H POC Glucose 140 H 270 H 02/10/22 11:08 Glucose POC Glucose 280 H OUTPATIENT ANTIDIABETIC REGIMEN: * Insulin degludec/liraglutide 36 units in the morning * Novolog sliding scale ASSESSMENT: * Ms Bennett is an 81 y/o F admitted for pneumonia. * BSGs yesterday were 133-157-88 mg/dL. * BSGs today are 140-280 mg/dL. After breakfast, patient had episode of chest pain and vomited. Received no Novolog with breakfast. Refused AM Lantus due to misunderstanding. * Will start with Lantus 25 units (30% reduction from home dose) at lunch then continue weight-based stress of 2 Novolog. Will tighten as appropriate PLAN FOR INPATIENT GLYCEMIC CONTROL: * Basal insulin * Lantus 25 units SQ daily * Bolus insulin * NovoLog per scale ACHS or Q6hrs while NPO * Goal Range: Low 110 mg/dL - High 140 mg/dL * Correction Factor: 25 mg/dL/unit * Nutritional / Prandial insulin per carb ratio of 1 unit per 9 grams CHO consumed
--- NOTE | 2022-02-10 16:34 | Hospitalist Progress Note ---
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 Patient reported having cough with yellowish sputum since last 2 weeks [employer]. Patient reported having pneumonia in the past with similar chest pain. With this chest pain patient reported having difficulty taking deep breaths which would trigger her chest pain. She is being managed for the following: LLL pneumonia Patient came in with complaints of cough and yellowish sputum for 2 weeks [employer] followed by left lower chest pain with deep breathing on the day of arrival. Not septic at presentation. Admitting CXR suggestive of LLL pneumonia. 02/10 CTA chest with airspace consolidation left greater than right suggestive of pneumonia. No evidence of PE. Radiographic follow-up to resolution recommended in 1 to 2 months. Follow-up admitting blood culture, continue with 02/09 Rocephin and 02/09 doxycycline. Patient reports improvement in her cough/sputum/LLL chest pain. Chest heaviness: Patient had an episode of nausea/vomiting followed by chest he aviness 02/10 a.m., tightness/heaviness in nature, 8/10 in intensity, relieved with aspirin and nitro at bedside, EKG at that time without any acute ST or T changes. CTA chest with no evidence of PE. Magnesium was low and repleted. Cardiology consult placed, restarted beta cristofer (of note, beta-cristofer was discontinued around 5 months ago), topical nitrates q6hr. Initial troponin negative, trend troponins. EKG as needed with chest pain. Other chronic medical conditions: COPD, HTN, HLD, paroxysmal atrial tachycardia, DM type II Last echo 07/15/2019 with EF of 60 to 65%. Continue with/resume home meds as and when appropriate. DVT prophylaxis: Heparin subcu CODE STATUS: DNR/DNI Disposition: Likely DC in next 1 to 2 days, pending cardiology eval. Admission and Anticipated Discharge Date Admission Date: February 09, 2022 Subjective Patient seen and examined at bedside for follow-up of LLL pneumonia at admission and chest heaviness on a.m. of 02/10. Patient was lying in bed, on room air, complaining of chest heaviness with no radiation, reported pain as heaviness/tightness with intensity of 8/10, relieved with nitro and aspirin at bedside, blood pressure was elevated to 170/80 with heart rate of 101, EKG with sinus tachycardia, patient had vomited and was nauseous just prior to that, patient upgraded to [facility] with telemetry, cardiology consult placed, discussed with cardiology, troponin trend orders placed, initial troponin negative, follow-up trends, electrolytes sent and repleted as appropriate. Patient denies belly pain or heartburn. Patient reports improving left lower chest pain with breathing that she originally came in with. Patient also reports improving cough. Physical Exam Physical Exam: GENERAL: Alert and oriented x3. NAD, on RA. HEENT: No pallor, no icterus. Pupils equal, round and reactive to light. Oral mucosa moist. NECK: No JVD, no neck masses. HEART: S1 and S2 heard. Tachycardia. No murmur, no gallop. RESPIRATORY SYSTEM: Normal AP diameter. No accessory muscle use. No wheezing, Crackles mid and basal x left lung, basal x Rt lung. Crackles improving. ABDOMEN: Soft, bowel sounds present, nontender, no distention. CENTRAL NERVOUS SYSTEM: No facial droop. Speech is clear. Obeys simple commands. Moves extremities. EXTREMITIES: No edema, no erythema seen. Results & Data Results & Data ([facility]) Vital Signs (Past 12 Hours) Vital Signs Temp Pulse Pulse Resp BP Pulse Ox O2 Del Method 02/10/22 15:53 36.6 C 70 16 131/67 94 Room Air 02/10/22 14:57 80 02/10/22 12:15 89 16 97 Room Air 02/10/22 11:12 87 02/10/22 10:30 Room Air 02/10/22 10:28 36.5 C 92 H 16 153/85 H 94 Room Air 02/10/22 07:48 Room Air 02/10/22 09:46 91 H 16 131/75 94 Room Air 02/10/22 07:30 73 16 94 Room Air 02/10/22 07:16 37.0 C 75 16 135/76 94 Room Air
[2022-02-10] MEDS: ATORVASTATIN 40 MG TAB PO SCH (20:16)
[2022-02-11] MEDS: DOXYCYCLINE HYCLATE 100 MG in DEXTROSE 5% 100 ML IV SCH ×2 (02:49→16:24)
[2022-02-11] MEDS ORDERED: MELATONIN 3 MG TAB PO PRN (03:17)
[2022-02-11] MEDS: NITROGLYCERIN 2% OINTMENT 30GM TUBE EXT SCH ×2 (06:31→12:00)
[2022-02-11] MEDS: HEPARIN SOD 5,000 UNIT/0.5 ML VIAL SQ SCH ×3 (06:31→21:20)
[2022-02-11 07:03] LABS: Hematocrit (blood only) 36.7 % (34.1-44.9); Hemoglobin 12.3 g/dl (12.0-16.0); Mean Corpuscular Hemoglobin 30.5 pg (25.0-34.0); Mean Corpuscular Hgb Conc 33.5 g/dL (32.0-36.0); Mean Corpuscular Volume 91.1 fL (80.0-100.0); Mean Platelet Volume 11.7 fL (9.4-12.3); Platelet Count 218 K/uL (130-400); RDW Coefficient of Variation 13.2 % (11.5-14.5); RDW Standard Deviation 44.2 fL (36.4-46.3); Red Blood Count 4.03 M/uL (3.93-5.22); White Blood Count 9.33 K/ul (4.8-10.8)
[2022-02-11 07:24] LABS: Potassium 5.2 mmol/L (3.5-5.1)
[2022-02-11] MEDS: guaiFENesin 600 MG TABCR PO SCH ×2 (07:31→21:20)
[2022-02-11] MEDS: METOPROLOL SUCC 25MG EXT REL TAB PO SCH (07:32)
[2022-02-11] MEDS: lisinopril 5 MG TAB PO SCH (07:32)
[2022-02-11] MEDS: ASPIRIN 325 MG ECTAB PO SCH (07:33)
[2022-02-11] MEDS: ADVANCED PROBIOTIC 1250 MG CAPSULE PO SCH (07:33)
[2022-02-11] MEDS: BENZONATATE 100 MG CAPSULE PO SCH ×3 (07:33→21:37)
[2022-02-11] MEDS: FLUTICASONE/VILANTEROL 200/25MCG 14 PUFFS/INHALER INH SCH (07:34)
[2022-02-11] MEDS: cefTRIAXone SODIUM 2,000 MG in DEXTROSE 5% 50 ML IV SCH (07:34)
[2022-02-11 07:42] LABS: Estimated Average Glucose 143 mg/dl; Hemoglobin A1C 6.6 % (4.5-5.6)
[2022-02-11 08:09] LABS: BUN Creatinine Ratio 23.2 (10-20); Calcium 8.9 mg/dl (8.5-10.1); Creatinine Clr Calc Pharmacy 35.1 ml/min; Est GFR (African American) 46.1 ml/min; Est GFR (Non-African American) 39.7 ml/min; Magnesium 2.1 mg/dl (1.7-2.4); Phosphorus 3.1 mg/dl (2.5-4.9)
[2022-02-11] MEDS: INSULIN ASPART PER UNIT SC SCH ×4 (08:09→21:22)
[2022-02-11] MEDS: LANTUS PER UNIT CHARGE SQ SCH (08:10)
--- NOTE | 2022-02-11 11:22 | Pharmacy Report ---
Pharmacy Glycemic Short Note 2 - Date of Service February 11, 2022 - Glycemic Short BSG Results (Last 24 hours): 02/10/22 02/10/22 02/10/22 14:07 16:24 20:07 Glucose POC Glucose 212 H 150 H 114 H 02/11/22 02/11/22 06:26 07:43 Glucose 141 H POC Glucose 157 H OUTPATIENT ANTIDIABETIC REGIMEN: * Insulin degludec/liraglutide 36 units in the morning * Novolog sliding scale ASSESSMENT: * BSGs yesterday were 028-588-443-114 mg/dL. Patient's fasting today is 157 mg/dL. * Fasting reasonable so continue Lantus 25 units daily. * BSGs stable - elevated lunchtime BSG secondary to chest pain + Lantus given late. Continue Novolog. BACKGROUND * Ms Bennett is an 81 y/o F admitted for pneumonia. * BSGs yesterday were 133-157-88 mg/dL. * BSGs today are 140-280 mg/dL. After breakfast, patient had episode of chest pain and vomited. Received no Novolog with breakfast. Refused AM Lantus due to misunderstanding. * Will start with Lantus 25 units (30% reduction from home dose) at lunch then continue weight-based stress of 2 Novolog. Will tighten as appropriate PLAN FOR INPATIENT GLYCEMIC CONTROL: * Basal insulin * Lantus 25 units SQ daily * Bolus insulin * NovoLog per scale ACHS or Q6hrs while NPO * Goal Range: Low 110 mg/dL - High 140 mg/dL * Correction Factor: 25 mg/dL/unit * Nutritional / Prandial insulin per carb ratio of 1 unit per 9 grams CHO consumed
--- NOTE | 2022-02-11 11:33 | Cardiology Progress Note ---
Date of Service February 11, 2022 Assessment & Plan (1) Chest pain: (2) Acute hypoxemic respiratory failure: (3) Pneumonia: (4) Angina pectoris: Plan Patient is an 81-year-old female whose underlying cardiac history is notable for chronic angina pectoris managed medically now admitted with acute hypoxic respiratory failure/pneumonia possible aspiration. Patient initially with pleuritic discomfort on inspiration. This morning developed symptoms suggestive of angina pectoris relieved by sublingual nitroglycerin. Initial EKGs without acute ST segment changes heart rate is elevated with notable history for recent discontinuation of beta-cristofer in the past 5 months Patient currently asymptomatic pulmonary status improving per Impression: Angina pectoris exacerbated by acute stressors of illness, elevated heart rate, blood pressure Plan: Maintain telemetry as already ordered. Continue beta-cristofer with metoprolol succinate 12.5 mg daily change topical nitrates to isosorbide mononitrate aspirin change dosing to 182 mg p.o. daily enteric-coated EKG a.m. Treat underlying respiratory concerns as doing Admission and Anticipated Discharge Date Admission Date: February 10, 2022 Subjective Patient was seen and examined, chart, medications, telemetry reviewed. No further chest pain or angina. Still with mildly productive cough, wheeze. No dizziness or lightheadedness. No tachypalpitations. Mild headache with nitrates otherwise no complaints. Good oxygenation on room air Review of Systems Review of Systems: All systems reviewed & are unremarkable except as noted in Subjective Physical Exam Constitutional: WD/WN, vitals as above + obese; no acute distress Eyes: PERRL, conjunctivae normal, anicteric sclerae ENMT: external ear and nose normal, oropharynx normal Neck: trachea midline, no thyromegaly Respiratory: Auscultation: + diminished lung sounds (Greatest left base with wheeze and rhonchi with forced cough) Cardiovascular: Rate/Rhythm: regular rate and regular rhythm Heart Sounds: normal S1 and normal S2; no gallop and no murmur Palpation: normal PMI Vessels: normal carotid upstroke and radial pulses present; no JVD and no carotid bruit Extremities: no edema Gastrointestinal (Abdomen): normal bowel sounds, soft, nontender, no hepatosplenomegaly Musculoskeletal: no cyanosis or clubbing, extremities motor strength 5/5 Skin: no rashes, warm and dry Neurologic: PERRL, EOMI, accommodation nl, no face palsy, no dysarthria Psychiatric: A+Ox3, euthymic affect Results & Data ([facility]) Vital Signs (Past 12 Hours) Vital Signs Temp Pulse Pulse Resp BP Pulse Ox O2 Del Method 02/11/22 07:38 36.7 C 72 20 131/65 94 Room Air 02/11/22 07:15 66 02/11/22 06:56 Room Air 02/11/22 03:02 36.8 C 79 20 136/71 91 Room Air 02/11/22 00:13 36.8 C 87 20 147/72 H 95 Room Air Laboratory Results Laboratory Results - last 24 hr 02/10/22 02/10/22 02/10/22 05:51 12:12 14:07 WBC RBC Hgb Hct MCV MCH MCHC RDW Std Deviation RDW Coeff of Sandy Plt Count MPV Sodium Potassium Chloride Carbon Dioxide Anion Gap BUN Creatinine Est Cr Clr Drug Dosing Est GFR ( Amer) Est GFR (Non-Af Amer) BUN/Creatinine Ratio Glucose POC Glucose 212 H Estimat Average Glucose 143 Hemoglobin A1c 6.6 H Calcium Phosphorus Magnesium Troponin I High Sens 18.1 H D 02/10/22 02/10/22 02/10/22 16:24 18:35 20:07 WBC RBC Hgb Hct MCV MCH MCHC RDW Std Deviation RDW Coeff of Sandy Plt Count MPV Sodium Potassium Chloride Carbon Dioxide Anion Gap BUN Creatinine Est Cr Clr Drug Dosing Est GFR ( Amer) Est GFR (Non-Af Amer) BUN/Creatinine Ratio Glucose POC Glucose 150 H 114 H Estimat Average Glucose Hemoglobin A1c Calcium Phosphorus Magnesium Troponin I High Sens 34.2 H D 02/11/22 02/11/22 02/11/22 00:21 06:26 06:26 WBC 9.33 RBC 4.03 Hgb 12.3 Hct 36.7 MCV 91.1 MCH 30.5 MCHC 33.5 RDW Std Deviation 44.2 RDW Coeff of Sandy 13.2 Plt Count 218 MPV 11.7 Sodium 133 L Potassium 5.2 H D Chloride 104 Carbon Dioxide 22 Anion Gap 7 BUN 29 H Creatinine 1.25 H Est Cr Clr Drug Dosing 35.1 Est GFR ( Amer) 46.1 Est GFR (Non-Af Amer) 39.7 BUN/Creatinine Ratio 23.2 H Glucose 141 H POC Glucose Estimat Average Glucose Hemoglobin A1c Calcium 8.9 Phosphorus 3.1 Magnesium 2.1 Troponin I High Sens 22.7 H D 02/11/22 07:43 WBC RBC Hgb Hct MCV MCH MCHC RDW Std Deviation RDW Coeff of Sandy Plt Count MPV Sodium Potassium Chloride Carbon Dioxide Anion Gap BUN Creatinine Est Cr Clr Drug Dosing Est GFR ( Amer) Est GFR (Non-Af Amer) BUN/Creatinine Ratio Glucose POC Glucose 157 H Estimat Average Glucose Hemoglobin A1c Calcium Phosphorus Magnesium Troponin I High Sens
[2022-02-11] MEDS ORDERED: ASPIRIN 81 MG ECTAB PO SCH (11:45)
[2022-02-11] MEDS: ISOSORBIDE MONO EXTENDED REL 30 MG TABCR PO SCH ×2 (12:24→12:44)
--- NOTE | 2022-02-11 17:44 | Hospitalist Progress Note ---
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 Patient reported having pneumonia in the past with similar chest pain. With this chest pain patient reported having difficulty taking deep breaths which would trigger her chest pain. 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 Not septic at presentation. Admitting CXR suggestive of LLL pneumonia. 02/10 CTA chest with airspace consolidation left greater than right suggestive of pneumonia. No evidence of PE. Radiographic follow-up to resolution recommended in 1 to 2 months. Follow-up admitting blood culture, continue with 02/09 Rocephin and 02/09 doxycycline. Patient reports improvement in her cough/sputum/LLL chest pain. Chest heaviness: Patient had an episode of nausea/vomiting followed by chest he aviness 02/10 a.m., tightness/heaviness in nature, 8/10 in intensity, relieved with aspirin and nitro at bedside, EKG at that time without any acute ST or T changes. CTA chest with no evidence of PE. Cardiology on board, metoprolol succinate 12.5 Mg daily, Imdur, aspirin dose decreased to 162 mg daily Patient with no further chest pain. EKG as needed with chest pain. Other chronic medical conditions: COPD, HTN, HLD, paroxysmal atrial tachycardia, DM type II Last echo 07/15/2019 with EF of 60 to 65%. Continue with/resume home meds as and when appropriate. DVT prophylaxis: Heparin subcu CODE STATUS: DNR/DNI Disposition: Likely DC in next 1 day, pending cardiology clearance. Admission and Anticipated Discharge Date Admission Date: February 10, 2022 Subjective Patient seen and examined at bedside for follow-up of LLL pneumonia at admission and chest heaviness that was new on a.m. of 7/17. Patient sitting up in chair, on room air, NAD, denies any further chest pain since yesterday morning, reports improving cough and LLL pleuritic chest pain. Denies fever. Denies headache or dizziness. Reported mild headache with nitrates. Reports eating okay and bowels at baseline. Follow-up EKG with no acute ST or T changes. Physical Exam Physical Exam: GENERAL: Alert and oriented x3. NAD, on RA. HEENT: No pallor, no icterus. Pupils equal, round and reactive to light. Oral mucosa moist. NECK: No JVD, no neck masses. HEART: S1 and S2 heard. Tachycardia. No murmur, no gallop. RESPIRATORY SYSTEM: Normal AP diameter. No accessory muscle use. No wheezing, Crackles mid and basal x left lung, basal x Rt lung. Crackles improving. ABDOMEN: Soft, bowel sounds present, nontender, no distention. CENTRAL NERVOUS SYSTEM: No facial droop. Speech is clear. Obeys simple commands. Moves extremities. EXTREMITIES: No edema, no erythema seen. Results & Data Results & Data ([facility]) Vital Signs (Past 12 Hours) Vital Signs Temp Pulse Pulse Resp BP Pulse Ox O2 Del Method 02/11/22 16:10 36.8 C 78 16 108/61 91 Room Air 02/11/22 15:37 74 02/11/22 15:32 92 02/11/22 12:15 37.1 C 71 16 109/68 93 Room Air 02/11/22 07:38 36.7 C 72 20 131/65 94 Room Air 02/11/22 07:15 66 02/11/22 06:56 Room Air
[2022-02-11] MEDS: ATORVASTATIN 40 MG TAB PO SCH (21:20)
[2022-02-11] MEDS ORDERED: ZOLPIDEM TARTRATE 5 MG TAB PO PRN (21:30)
[2022-02-12] MEDS: DOXYCYCLINE HYCLATE 100 MG in DEXTROSE 5% 100 ML IV SCH ×2 (01:44→14:03)
[2022-02-12] MEDS: HEPARIN SOD 5,000 UNIT/0.5 ML VIAL SQ SCH ×2 (06:01→14:00)
[2022-02-12 08:03] LABS: BUN Creatinine Ratio 27.8 (10-20); Calcium 9.3 mg/dl (8.5-10.1); Creatinine Clr Calc Pharmacy 33.7 ml/min; Est GFR (African American) 42.7 ml/min; Est GFR (Non-African American) 36.9 ml/min; Magnesium 1.9 mg/dl (1.7-2.4); Potassium 5.6 mmol/L (3.5-5.1)
[2022-02-12] MEDS: METOPROLOL SUCC 25MG EXT REL TAB PO SCH (08:39)
[2022-02-12] MEDS: lisinopril 5 MG TAB PO SCH (08:39)
[2022-02-12] MEDS: ADVANCED PROBIOTIC 1250 MG CAPSULE PO SCH (08:39)
[2022-02-12] MEDS: guaiFENesin 600 MG TABCR PO SCH (08:40)
[2022-02-12] MEDS: FLUTICASONE/VILANTEROL 200/25MCG 14 PUFFS/INHALER INH SCH (08:40)
[2022-02-12] MEDS: LANTUS PER UNIT CHARGE SQ SCH (08:47)
[2022-02-12] MEDS: INSULIN ASPART PER UNIT SC SCH ×2 (08:47→12:15)
[2022-02-12] MEDS: BENZONATATE 100 MG CAPSULE PO SCH ×2 (08:47→13:59)
[2022-02-12] MEDS: cefTRIAXone SODIUM 2,000 MG in DEXTROSE 5% 50 ML IV SCH (09:45)
--- NOTE | 2022-02-12 11:33 | Cardiology Progress Note ---
Date of Service February 12, 2022 Assessment & Plan (1) Chest pain: (2) Acute hypoxemic respiratory failure: (3) Pneumonia: (4) Angina pectoris: Plan Patient is an 81-year-old female whose underlying cardiac history is notable for chronic angina pectoris managed medically now admitted with acute hypoxic respiratory failure/pneumonia possible aspiration. Patient initially with pleuritic discomfort on inspiration. This morning developed symptoms suggestive of angina pectoris relieved by sublingual nitroglycerin. Initial EKGs without acute ST segment changes heart rate is elevated with notable history for recent discontinuation of beta-cristofer in the past 5 months Patient currently asymptomatic pulmonary status improving per Impression: Angina pectoris exacerbated by acute stressors of illness, elevated heart rate, blood pressure Plan: Asymptomatic x48 hours on appropriate medical therapies. EKG today essentially normal stable cardiac status no changes, patient on guideline directed optimal medical regimen including beta-cristofer LAUREN inhibitor statin aspirin and nitrates. will need to hold lisinopril given rising potassium Treat underlying respiratory concerns as doing Admission and Anticipated Discharge Date Admission Date: February 10, 2022 Subjective Patient seen and examined, chart, medications, telemetry reviewed. No arrhythmias on telemetry. No further chest pain or discomfort. Still coughing with moderate amount of sputum production Review of Systems 2 Review of Systems: All systems reviewed & are unremarkable except as noted in Subjective Physical Exam Constitutional: WD/WN, vitals as above + obese; no acute distress Eyes: PERRL, conjunctivae normal, anicteric sclerae ENMT: external ear and nose normal, oropharynx normal Neck: trachea midline, no thyromegaly Respiratory: Auscultation: + diminished lung sounds (Greatest left base with wheeze and rhonchi with forced cough) Cardiovascular: Rate/Rhythm: regular rate and regular rhythm Heart Sounds: normal S1 and normal S2; no gallop and no murmur Palpation: normal PMI Vessels: normal carotid upstroke and radial pulses present; no JVD and no carotid bruit Extremities: no edema Gastrointestinal (Abdomen): normal bowel sounds, soft, nontender, no hepatosp lenomegaly Musculoskeletal: no cyanosis or clubbing, extremities motor strength 5/5 Skin: no rashes, warm and dry Neurologic: PERRL, EOMI, accommodation nl, no face palsy, no dysarthria Psychiatric: A+Ox3, euthymic affect Results & Data ([facility]) Vital Signs (Past 12 Hours) Vital Signs Temp Pulse Resp BP BP Pulse Ox O2 Del Method 02/12/22 08:00 Room Air 02/12/22 07:41 36.8 C 70 18 121/55 L 95 Room Air 02/12/22 05:01 36.7 C 72 18 119/68 92 Room Air 02/12/22 02:01 134/67 02/12/22 00:01 36.8 C 78 18 171/77 H 90 Room Air Laboratory Results Laboratory Results - last 24 hr 02/11/22 02/11/22 02/11/22 11:45 16:38 19:59 Sodium Potassium Chloride Carbon Dioxide Anion Gap BUN Creatinine Est Cr Clr Drug Dosing Est GFR ( Amer) Est GFR (Non-Af Amer) BUN/Creatinine Ratio Glucose POC Glucose 108 H 126 H 166 H Calcium Magnesium 02/12/22 02/12/22 02/12/22 07:12 07:32 11:25 Sodium 132 L Potassium 5.6 H Chloride 103 Carbon Dioxide 24 Anion Gap 5 BUN 37 H Creatinine 1.33 H Est Cr Clr Drug Dosing 33.7 Est GFR ( Amer) 42.7 Est GFR (Non-Af Amer) 36.9 BUN/Creatinine Ratio 27.8 H Glucose 141 H POC Glucose 144 H 194 H Calcium 9.3 Magnesium 1.9
[2022-02-12] MEDS ORDERED: PATIROMER CALCIUM SORBITEX 8.4 GM PACK PO ONE (12:03)
--- NOTE | 2022-02-12 14:17 | Discharge Summary ---
Date of Service February 12, 2022 Admission HPI Per Admitting Provider This is a 81 yo F with PMHx of HTN, HLD, history PAT, history TIA,PVD status post surgery, history of pulmonary embolism 09/2007, carotid stenosis s/p left carotid endarterectomy in 2003, DM2 on insulin, CKD with baseline creatinine 1.4, past tobacco abuse and COPD. Patient notes that she has felt ill for about the last week with complaints of runny nose and congestion. She has been using [id number] Tylenol and Sudafed at home but then today noticed worsening left-sided pain with deep breaths in her chest, as well as coughing and bringing up sputum production. She denies any hemoptysis. She denies any fever, chills or sweats. She admits to [facility] worsening shortness of breath with minimal ADLs today. She does not wear any O2 at baseline or anything at night, but does use a Breo Ellipta inhaler daily as instructed. She has tried to use her albuterol inhaler a few times in the past few days as well without symptom relief. She lives at home with her does not have any of these similar symptoms. CXR today reveals a left lower lobe opacity suspicious for pneumonia. WBC = 10 K, Pro-Twin 0.06, lactate 0.6. Admission Exam Per Admitting Provider General: awake, alert, no apparent distress, obese with BMI of 33.6 Head: Normocephalic, atraumatic ENT: PERRL, EOMI, no pharyngeal exudate, mucous membranes moist Chest: on room air + coarse crackles in LLL, minimal crackles in the RLL, no expiratory wheezing, no work of breathing with accessory muscles, no other adventitious breath sounds Cardiac: Regular rate and rhythm, no murmur, no JVD, normal peripheral pulses, good capillary refill Abdominal: NABS x 4 quadrants, soft, nondistended, nontender to palpation, no rebound or guarding Extremities: Normal inspection, no peripheral edema or erythema, calfs nontender to palpation Psych: Normal mood and affect Neuro: AAO x 3, strength intact bilaterally and rated 5/5, no motor deficits, speech is clear, no peripheral sensory deficits Principal Diagnosis Left lower lobe pneumonia Chest heaviness, rule out ACS Discharge Exam GENERAL: Alert and oriented x3. NAD, on RA. HEENT: No pallor, no icterus. Pupils equal, round and reactive to light. Oral mucosa moist. NECK: No JVD, no neck masses. HEART: S1 and S2 heard. Tachycardia. No murmur, no gallop. RESPIRATORY SYSTEM: Normal AP diameter. No accessory muscle use. No wheezing, b/b crackles improving ABDOMEN: Soft, bowel sounds present, nontender, no distention. CENTRAL NERVOUS SYSTEM: No facial droop. Speech is clear. Obeys simple commands. Moves extremities. EXTREMITIES: No edema, no erythema seen. Discharge Data Allergies Allergy/AdvReac Type Severity Reaction Status Date / Time azithromycin Allergy Intermediate FACIAL Verified 05/24/21 17:59 SWELLING AND ITCHING IN COMBINATION WITH HYCODAN homatropine Allergy Intermediate FACIAL Verified 05/24/21 17:59 SWELLING AND ITCHING IN COMBINATION WITH ZITHROMAX hydrocodone Allergy Intermediate FACIAL Verified 05/24/21 17:59 SWELLING &ITCHING-IN COMBINATION W/ZITHROMAX Penicillins Allergy Mild RASH, ITCHY Verified 05/24/21 17:59 metformin AdvReac Intermediate Diarrhea Verified 05/24/21 17:59 Sulfa (Sulfonamide AdvReac Mild SULFA Verified 05/24/21 17:59 Antibiotics) DRUGS-CHANGE COLORS Consultations 02/09/22 14:58 ED Decision to Admit Stat 02/10/22 09:18 Consult Cardiology Routine Ordered Studies 02/10/22 09:24 CT angio chest PE protocol Routine Hospital Course (1) Angina pectoris: Plan 81-year-old lady with PMH of HTN, HLD, PAD, TIA, PVD status post surgery, PE 09/2007, carotid stenosis status post left carotid endarterectomy in 2003, DM2 on insulin, CKD [baseline creatinine 1.4], tobacco abuse [quit 50 years ago] presented to the ED 02/09 with complaint of left lateral and back chest pain 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 Patient reported having pneumonia in the past with similar chest pain. With this chest pain patient reported having difficulty taking deep breaths which would trigger her chest pain. 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 Not septic at presentation. Admitting CXR suggestive of LLL pneumonia. 02/10 CTA chest with airspace consolidation left greater than right suggestive of pneumonia. No evidence of PE. Radiographic follow-up to resolution recommended in 1 to 2 months. Follow-up admitting blood culture, continue with 02/09 Rocephin and 02/09 doxycycline. Is being discharged on p.o. antibiotic to complete the course. Patient reports improvement in her cough/sputum/LLL chest pain. Chest heaviness: Patient had an episode of nausea/vomiting followed by chest heaviness 02/10 a.m., tightness/heaviness in nature, 8/10 in intensity, relieved with aspirin and nitro at bedside, EKG at that time without any acute ST or T changes. CTA chest with no evidence of PE. Cardiology on board, metoprolol succinate 12.5 Mg daily, Imdur, aspirin dose decreased to 162 mg daily Patient with no further chest pain. EKG has been stable. Other chronic medical conditions: COPD, HTN, HLD, paroxysmal atrial tachycardia, DM type II Last echo 07/15/2019 with EF of 60 to 65%. Continue with/resume home meds as and when appropriate. CODE STATUS: DNR/DNI Patient being discharged home with following instruction at the point of discharge. Follow-up with the primary care physician within a week time. Follow-up with your kidney doctor in a week time. Because your potassium level runs on the higher side, advise to stick with low potassium diet. Your lisinopril has been discontinued upon discharge, you will need to get your blood work BMP done in 3 days upon discharge and have the results forwarded to your primary care physician and kidney doctor. You will need further discussion with your kidney doctor for resuming your lisinopril as an outpatient. For your pneumonia, you will be discharged on oral antibiotics to complete the treatment course. You will need repeat chest x-ray in 6 to 8 weeks to document resolution of his pneumonia. Probiotics will be added. You can take [id number] Tylenol for pain management. For your chest heaviness, cardiology evaluated you. Your cardiac medications have been optimized. Imdur has been added. Metoprolol has been added. Your aspirin has been decreased to 162 mg daily. Lisinopril has been held upon Discharge until further evaluation by your PCP or Nephrology doctor in a week time upon discharge. Take your medications as prescribed. Total Time Total Time Spent Total Time Spent (In Minutes): 35 Discharge Plan Discharge Items Patient Disposition: Home - Self-Care Reason For Visit: PNA Discharge Diagnosis: Left lower lobe pneumonia Chest heaviness, rule out ACS Activity: Resume your previous activity Non-emergency contact: Primary Care Provider Call non-emergency contact if: you have any medication questions, your symptoms worsen, your pain is worsening and your temperature is above 101 Follow-up/Referrals: Paz Daniels MD [Primary Care Provider] - (Date & Time 02/15/2022 11:00 AM Provider Paz Daniels MD Department [facility] ) Diet: Carb Consistent or DM2, Heart Healthy and Low Potassium (2gm) Addtl Attending Provider Instructions: Follow-up with the primary care physician within a week time. Follow-up with your kidney doctor in a week time. Because your potassium level runs on the higher side, advise to stick with low potassium diet. Your lisinopril has been discontinued upon discharge, you will need to get your blood work BMP done in 3 days upon discharge and have the results forwarded to your primary care physician and kidney doctor. You will need further discussion with your kidney doctor for resuming your lisinopril as an outpatient. For your pneumonia, you will be discharged on oral antibiotics to complete the treatment course. You will need repeat chest x-ray in 6 to 8 weeks to document resolution of his pneumonia. Probiotics will be added. You can take [id number] Tylenol for pain management. For your chest heaviness, cardiology evaluated you. Your cardiac medications have been optimized. Imdur has been added. Metoprolol has been added. Your aspirin has been decreased to 162 mg daily. Lisinopril has been held upon Discharge until further evaluation by your PCP or Nephrology doctor in a week time upon discharge. Take your medications as prescribed. Pending Studies at Discharge: Yes (Admitting blood culture final results.) Stand-Alone Forms: My [employer], Smoking Cessation Medications and DC Order Prescriptions: New isosorbide mononitrate 30 mg Tablet Extended Release 24 Hr 30 mg PO QAM Qty: 30 0RF metoprolol succinate 25 mg Tablet Extended Release 24 Hr 12.5 mg PO QAM Qty: 15 0RF nitroglycerin [Nitrostat] 0.4 mg Tablet, Sublingual 0.4 mg sublingual PRN PRN (Reason: chest pain) Qty: 30 0RF Rx Instructions: 1 tab under tongue for chest pain, can use max of 3 tabs for unresolved chest pain, each at 5 minutes difference. Call PCP or ER then. aspirin 81 mg Tablet,Delayed Release (Dr/Ec) 162 mg PO DAILY Qty: 60 0RF Advanced Probiotic 625 mg (10 billion cell) Capsule 2 cap PO DAILY 10 Days Qty: 20 0RF guaifenesin [Mucinex] 600 mg Tablet Extended Release 12hr 600 mg PO Q12 7 Days Qty: 14 0RF cefdinir 300 mg capsule 300 mg PO BID 5 Days Qty: 10 0RF doxycycline hyclate 100 mg tablet 100 mg PO BID 5 Days Qty: 10 0RF Continued atorvastatin 40 mg Tablet 40 mg PO PM cyanocobalamin (vitamin B-12) [Vitamin B-12] 1,000 mcg Tablet 1,000 mcg PO QAM insulin aspart U-100 [Novolog U-100 Insulin aspart] 100 unit/mL Solution 1 sliding scale dose SUBCUT ACHS Xultophy 100/3.6 100 unit-3.6 mg /mL (3 mL) insulin pen 36 unit SUBCUT QAM fluticasone furoate-vilanterol [Breo Ellipta] 200-25 mcg/dose blister with device 1 inh INHALATION DIRECTED ascorbic acid (vitamin C) [Vitamin C] 1,000 mg Tablet 1 g PO DAILY zinc 50 mg Tablet 50 mg PO DAILY Discontinued aspirin 325 mg Tablet,Delayed Release (Dr/Ec) 325 mg PO DAILY lisinopril 10 mg tablet 0.5 tab PO DAILY Discharge Orders: Discharge Order (Routine); Ordered 02/12/22 Ordered By: Zora Santo/Other Patient Handouts: Managing Type 2 Diabetes, Urinary Tract Infections in Women Admission Data Admit Date/Time: 02/10/22 18:35 Attending Provider: Zora Rordiguez Admit Provider: Zora Rodriguez Primary Care Provider: Paz Daniels Other Providers: Zora Rodriguez ; Jp Mathur
--- NOTE | 2022-02-12 17:01 | Electrocardiogram Report ---
Test Reason : Blood Pressure : / mmHG Vent. Rate : 077 BPM Atrial Rate : 077 BPM P-R Int : 176 ms QRS Dur : 082 ms QT Int : 408 ms P-R-T Axes : 071 -02 014 degrees QTc Int : 461 ms Normal sinus rhythm Normal ECG When compared with ECG of 10-FEB-2022 09:45, No significant change was found Confirmed by Jim Camacho ([id number]) on 02/12/2022 5:00:54 PM Referred By: REFERRED SELF Confirmed By:Jim Camacho
--- NOTE | 2022-02-12 17:14 | Electrocardiogram Report ---
Test Reason : Blood Pressure : / mmHG Vent. Rate : 076 BPM Atrial Rate : 076 BPM P-R Int : 182 ms QRS Dur : 084 ms QT Int : 408 ms P-R-T Axes : 065 036 053 degrees QTc Int : 459 ms Normal sinus rhythm Low voltage QRS Borderline ECG When compared with ECG of 11-FEB-2022 14:36, (unconfirmed) Borderline criteria for Inferior infarct are no longer Present Confirmed by Jim Camacho ([id number]) on 02/12/2022 5:14:06 PM Referred By: REFERRED SELF Confirmed By:Jim Camacho
== END 2022-02-12 16:57 | disposition home or self-care (01) | DRG 193 ==
LOC: 3W 10:22 → ED 10:22 → 3W 15:58 → 2W 02-10 10:23

== ENCOUNTER 2022-11-11 11:10 | Observation (INO) ==
--- NOTE | 2022-11-11 11:16 | Emergency Department Note ---
Impression & Plan Chest pain, Hypoxia ED Provider Note NAME: BELA HAYES AGE: 82 SEX: F : 1940 ARRIVES VIA: Ambulance INFORMANT: Patient, ED PROVIDER(S): Sourav Anders MD CHIEF COMPLAINT: Chest pain MEDICAL DECISION MAKING: Patient presents due to concern for chest pains. Patient did have blood work completed lymph and EKG troponin chest x-ray. I did turn off the patient's oxygen and the patient was satting in the mid to high 80s as low as 87%. The patient was relatively asymptomatic. A Xopenex DuoNeb treatment was ordered. The patient has relatively clear breath sounds. The patient's blood work Shows a normal white count H&H and platelet count. Kidney function with creatinine 1.6. Slightly higher than her baseline of 1.2. Troponin is not elevated. Bio fire negative. Patient's EKG shows changes but no obvious STEMI criteria. The patient has no active chest pain. I did speak the on-call hospitalist service Dr. Castillo and the patient was admitted to the medicine service. Critical Care: I have personally spent 35 minutes of critical care time in direct management of this patient. This includes bedside care, interpretation of diagnostic studies, and testing, discussion with consultants, patient, and family members, and other require inpatient management activities. This 35 minutes is in excess of all separately billable procedures. Prior /Outside records reviewed:I did review the patient's discharge summary from January 2022. Patient with a known history of hypertension hyperlipidemia PAT TIA PVD PE carotid stenosis left carotid endarterectomy CKD DM2 history of COPD. Patient was treated for left lower pneumonia at that time Differential diagnosis: Cardiac ischemia, aortic dissection, pulmonary embolism, pneumothorax, pneumonia, pericarditis, myocarditis, esophageal rupture, GERD, cholecystitis, pancreatitis, musculoskeletal, as well as other pathologies. Diagnostics, as interpreted by me: ECG: Normal sinus rhythm, rate of 90 normal intervals normal axis T wave inversion inferiorly no obvious ST elevations. Patient's T wave flattening anterior and lateral leads. New from comparison February 12, 2022. 2 inversion in aVF also new. No obvious ST elevations. Cardiac monitoring: An order was placed for continuous cardiac monitoring. The monitor shows a rate of 92 with sinus rhythm. Patient was placed on pulse oximetry Medical decision rules: None Imaging studies: See below I informally reviewed the patient's chest x-ray. There is some haziness at the left base but no obvious pneumothorax. HPI: Patient presents due to concern for chest pain. Patient states that she developed some chest pressure that was left-sided that occurred during a dental extraction with the oral surgeon. The patient did receive some fentanyl and Versed for the procedure and subsequently received dexamethasone 8 mg nitro as well as additional fentanyl. The patient had resolution of her symptoms and thought it may be lasted 5 minutes in total. The patient does have a prior history of heart disease and does follow with Dr. Mathur. Patient denies any active chest pains or shortness of breath. Patient is a former smoker. No cough or fever. Patient states that this did feel somewhat similar to when she had a prior episode of pneumonia. No leg swelling or calf pain. No history of PE but the patient currently does not take any anticoagulant medication. No fevers or chills PAST MEDICAL HISTORY: See Below PAST SURGICAL HISTORY: See Below SOCIAL HISTORY: See Below HOME MEDICATIONS: See Below ALLERGIES: See Below VITALS: See Below PHYSICAL EXAMINATION: GENERAL: NAD, non-toxic. Nasal cannula in place. EYE EXAM: Normal conjunctiva. PERRL, no anisocoria and EOM's grossly intact w/o pain. Oropharynx: Grossly normal dentition, gauze noted in the left side of the mouth NECK: Supple, no nuchal rigidity, no adenopathy, non-tender. No signs of meningismus. FROM of the neck with good chin to chest and neck extension. No stridor. LUNGS: Clear to auscultation. Normal chest wall mechanics. HEART: NSR, no MRG. ABDOMEN: Abdomen soft, non-tender, no masses, no rebound or guarding. BACK: No CVA TTP. SKIN: No rashes and no bruising. UPPER EXTREMITIES: Upper extremities are grossly normal. LOWER EXTREMITIES: Grossly normal, no edema. Negative Homans' sign bilaterally NEURO EXAM: A&O x3, cranial nerves II-XII grossly intact, normal speech, moves all 4 extremities. Past Med/Surg History Medical History Chest pain COPD (chronic obstructive pulmonary disease) DM II (diabetes mellitus, type II), controlled H/O paroxysmal atrial tachycardia HTN, goal below 140/80 (06/26/13) Hx of pulmonary embolus Hypomagnesemia Surgical History Hx of tubal ligation S/P carotid endarterectomy S/P cholecystectomy Family History Mother COPD (chronic obstructive pulmonary disease) Father COPD (chronic obstructive pulmonary disease) Heart disease Social History Smoking Status: Former smoker Tobacco Type: Cigarettes Second Hand Exposure: Yes; Hx Alcohol Use: No Hx Substance Use: No Preferred Language: Northern Irish Communication Ability: Effective Special Procedures Technologist Required: No Beliefs That Will Affect Care: None marital status: Current Living Situation: Spouse Current Living Situation Comment: Feels Safe at Home: Yes Assistive Devices: None Allergies Allergies Allergy/AdvReac Type Severity Reaction Status Date / Time azithromycin Allergy Intermediate FACIAL Verified 11/11/22 14:31 SWELLING AND ITCHING IN COMBINATION WITH HYCODAN homatropine Allergy Intermediate FACIAL Verified 11/11/22 14:31 SWELLING AND ITCHING IN COMBINATION WITH ZITHROMAX hydrocodone Allergy Intermediate FACIAL Verified 11/11/22 14:31 SWELLING &ITCHING-IN COMBINATION W/ZITHROMAX Penicillins Allergy Mild RASH, ITCHY Verified 11/11/22 14:31 metformin AdvReac Intermediate Diarrhea Verified 11/11/22 14:31 Sulfa (Sulfonamide AdvReac Mild SULFA Verified 11/11/22 14:31 Antibiotics) DRUGS-CHANGE COLORS Home Meds Home Medications Medication Instructions Recorded Confirmed cyanocobalamin (vitamin B-12) 1,000 mcg PO QAM 02/24/19 11/11/22 1,000 mcg tablet (Vitamin B-12) insulin aspart U-100 100 unit/mL 1 sliding scale dose subcut ACHS 02/24/19 11/11/22 subcutaneous solution (Novolog U-100 Insulin aspart) insulin degludec 100 36 unit subcut QAM 10/07/20 11/11/22 unit-liraglutide 3.6 mg/mL(3 mL) subcutaneous pen (Xultophy 100/3.6) ascorbic acid (vitamin C) 1,000 mg 1 g PO DAILY 05/24/21 11/11/22 tablet (Vitamin C) albuterol 90 mcg/actuation aerosol 90 mcg inhalation USEASDIRECTD 11/11/22 11/11/22 inhaler aspirin 81 mg tablet,delayed 81 mg PO DAILY 11/11/22 11/11/22 release cholecalciferol (vitamin D3) 25 25 mcg PO DAILY 11/11/22 11/11/22 mcg (1,000 unit) tablet furosemide 20 mg tablet 20 mg PO [id number] 11/11/22 11/11/22 loratadine 10 mg tablet 10 mg PO DAILY 11/11/22 11/11/22 mecobalamin (vitamin B12) 1,000 1,000 mcg PO DAILY 11/11/22 11/11/22 mcg chewable tablet (B12 Active) metoprolol succinate 25 mg 12.5 mg PO HS 11/11/22 11/11/22 tablet,extended release 24 hr nitroglycerin 0.4 mg sublingual 0.4 mg sublingual UD 11/11/22 11/11/22 tablet rosuvastatin 40 mg tablet 40 mg PO DAILY 11/11/22 11/11/22 Previous Rx's Medication Instructions Recorded nitroglycerin 0.4 mg sublingual 0.4 mg sublingual PRN PRN chest 02/12/22 tablet (Nitrostat) pain #30 tabs Results & Data (ED) Vital Signs Vital Signs - 24 hr 11/11/22 11:19 11/11/22 11:19 11/11/22 11:28 Temperature 36.5 C Temperature Source Oral Pulse Rate 90 91 H Pulse Rate [Apical] 90 Respiratory Rate 18 18 Respiratory Effort / Characteristics Non-Labored Non-Labored Respiratory Depth Normal Normal Respiratory Pattern Regular Regular Blood Pressure 124/65 Blood Pressure [Right Arm] 124/65 Blood Pressure Mean 84 Blood Pressure Mean [Right Arm] 84 Pulse Oximetry 90 91 Oxygen Delivery Method Room Air Room Air Oxygen Flow Rate Sepsis Recent Fever Within 48 Hours No Sepsis New/Unexplained Change in Mental Status No Sepsis Action Taken by Nursing No Action Required 11/11/22 12:34 11/11/22 13:39 11/11/22 14:49 Temperature Temperature Source Pulse Rate Pulse Rate [Apical] 92 H 95 H Respiratory Rate 18 18 Respiratory Effort / Characteristics Non-Labored Spontaneous Non-Labored Respiratory Depth Normal Normal Respiratory Pattern Regular Regular Blood Pressure Blood Pressure [Right Arm] 143/56 H 134/63 Blood Pressure Mean Blood Pressure Mean [Right Arm] 85 86 Pulse Oximetry 96 95 99 Oxygen Delivery Method Room Air Nasal Cannula Nasal Cannula Oxygen Flow Rate 2 2 Sepsis Recent Fever Within 48 Hours Sepsis New/Unexplained Change in Mental Status Sepsis Action Taken by Residential Medications Current Medication List: was personally reviewed by me Laboratory Data Attestation: I reviewed the patient's lab results. 11/11/22 11:32 11/11/22 11:32 Lab Results 11/11/22 11/11/22 11/11/22 Range/Units 11:32 11:32 12:46 WBC 7.39 (4.8-10.8) K/ul RBC 4.39 (4.20-5.40) M/uL Hgb 13.6 (12.0-16.0) g/dl Hct 41.6 (37.0-47.0) % MCV 94.8 (80.0-100.0) fL MCH 31.0 (25.0-34.0) pg MCHC 32.7 (32.0-36.0) g/dL RDW Std Deviation 48.4 H (36.4-46.3) fL RDW Coeff of Sandy 14.0 (11.5-14.5) % Plt Count 184 (130-400) K/uL MPV 12.4 (9.4-12.4) fL Immature Gran % (Auto) 0.4 % Neut % (Auto) 69.4 % Lymph % (Auto) 21.4 % Morrill % (Auto) 4.7 % Eos % (Auto) 3.2 % Baso % (Auto) 0.9 % Neut # (Auto) 5.12 (1.40-6.50) K/uL Lymph # (Auto) 1.58 (1.2-3.4) K/uL Morrill # (Auto) 0.35 (0.11-0.59) K/uL Eos # (Auto) 0.24 (0-0.50) K/uL Baso # (Auto) 0.07 (0-0.2) K/uL Immature Gran # (Auto) 0.03 (0.01-0.20) K/uL Sodium 138 (136-145) mmol/L Potassium 3.7 (3.5-5.1) mmol/L Chloride 103 (98-107) mmol/L Carbon Dioxide 28 (21-32) mmol/L Anion Gap 7 (3-11) BUN 28 H (6-23) mg/dl Creatinine 1.66 H (0.6-1.2) mg/dl Est Cr Clr Drug Dosing Not Reportable Est GFR ( Amer) 32.5 ml/min Est GFR (Non-Af Amer) 28.0 ml/min BUN/Creatinine Ratio 16.9 (10-20) Glucose 207 H (70-99(Fasting)) mg/dl Calcium 10.0 (8.6-10.3) mg/dl Total Bilirubin 0.4 (0.2-1.0) mg/dl AST 16 (13-39) U/L ALT 14 (7-52) U/L Alkaline Phosphatase 58 (34-104) U/L Troponin I High Sens 5.4 (0-14) pg/ml Total Protein 7.3 (6.0-8.3) gm/dl Albumin 3.8 (3.4-5.0) gm/dl Globulin 3.5 (2.5-4.0) gm/dl Albumin/Globulin Ratio 1.1 (0.9-2) Lipase 44 (11-82) U/L Adenovirus (PCR) (NotDetected) B. pertussis DNA (PCR) (NotDetected) B.parapertussis DNA PCR (NotDetected) C. pneumoniae DNA (PCR) (NotDetected) Coronavirus OC43 (PCR) (NotDetected) Coronavirus HKU1 (PCR) (NotDetected) Coronavirus 229E (PCR) (NotDetected) SARS-CoV-2 (PCR) (NotDetected) Coronavirus NL63 (PCR) (NotDetected) Human Metapneumovir PCR (NotDetected) Influenza Type A (PCR) (NotDetected) Influenza Type B (PCR) (NotDetected) M. pneumoniae (PCR) (NotDetected) Parainfluenza 1 (PCR) (NotDetected) Parainfluenza 2 (PCR) (NotDetected) Parainfluenza 3 (PCR) (NotDetected) Parainfluenza 4 (PCR) (NotDetected) RSV (PCR) (NotDetected) Entero/Rhino (PCR) (NotDetected) SARS-CoV-2, RNA, NAAT NEGATIVE (NEGATIVE) 11/11/22 Range/Units 14:45 WBC (4.8-10.8) K/ul RBC (4.20-5.40) M/uL Hgb (12.0-16.0) g/dl Hct (37.0-47.0) % MCV (80.0-100.0) fL MCH (25.0-34.0) pg MCHC (32.0-36.0) g/dL RDW Std Deviation (36.4-46.3) fL RDW Coeff of Sandy (11.5-14.5) % Plt Count (130-400) K/uL MPV (9.4-12.4) fL Immature Gran % (Auto) % Neut % (Auto) % Lymph % (Auto) % Morrill % (Auto) % Eos % (Auto) % Baso % (Auto) % Neut # (Auto) (1.40-6.50) K/uL Lymph # (Auto) (1.2-3.4) K/uL Morrill # (Auto) (0.11-0.59) K/uL Eos # (Auto) (0-0.50) K/uL Baso # (Auto) (0-0.2) K/uL Immature Gran # (Auto) (0.01-0.20) K/uL Sodium (136-145) mmol/L Potassium (3.5-5.1) mmol/L Chloride (98-107) mmol/L Carbon Dioxide (21-32) mmol/L Anion Gap (3-11) BUN (6-23) mg/dl Creatinine (0.6-1.2) mg/dl Est Cr Clr Drug Dosing Est GFR ( Amer) ml/min Est GFR (Non-Af Amer) ml/min BUN/Creatinine Ratio (10-20) Glucose (70-99(Fasting)) mg/dl Calcium (8.6-10.3) mg/dl Total Bilirubin (0.2-1.0) mg/dl AST (13-39) U/L ALT (7-52) U/L Alkaline Phosphatase (34-104) U/L Troponin I High Sens (0-14) pg/ml Total Protein (6.0-8.3) gm/dl Albumin (3.4-5.0) gm/dl Globulin (2.5-4.0) gm/dl Albumin/Globulin Ratio (0.9-2) Lipase (11-82) U/L Adenovirus (PCR) Not Detected (NotDetected) B. pertussis DNA (PCR) Not Detected (NotDetected) B.parapertussis DNA PCR Not Detected (NotDetected) C. pneumoniae DNA (PCR) Not Detected (NotDetected) Coronavirus OC43 (PCR) Not Detected (NotDetected) Coronavirus HKU1 (PCR) Not Detected (NotDetected) Coronavirus 229E (PCR) Not Detected (NotDetected) SARS-CoV-2 (PCR) Not Detected (NotDetected) Coronavirus NL63 (PCR) Not Detected (NotDetected) Human Metapneumovir PCR Not Detected (NotDetected) Influenza Type A (PCR) Not Detected (NotDetected) Influenza Type B (PCR) Not Detected (NotDetected) M. pneumoniae (PCR) Not Detected (NotDetected) Parainfluenza 1 (PCR) Not Detected (NotDetected) Parainfluenza 2 (PCR) Not Detected (NotDetected) Parainfluenza 3 (PCR) Not Detected (NotDetected) Parainfluenza 4 (PCR) Not Detected (NotDetected) RSV (PCR) Not Detected (NotDetected) Entero/Rhino (PCR) Not Detected (NotDetected) SARS-CoV-2, RNA, NAAT (NEGATIVE) Administered Medications Ascorbic Acid (Ascorbic Acid 500 Mg Tab) 1,000 mg PO DAILY [facility] Stop: 12/12/22 08:59 Last Admin: 11/12/22 08:06 Dose: 1,000 mg Documented By: MTM Aspirin (Aspirin 81 Mg Ectab) 81 mg PO DAILY ADAL Stop: 12/12/22 08:59 Last Admin: 11/12/22 08:06 Dose: 81 mg Documented By: MT Cyanocobalamin (Cyanocobalamin (B-12) 500 Mcg Tablet) 1,000 mcg PO QAM ADAL Stop: 12/12/22 08:59 Last Admin: 11/12/22 08:07 Dose: 1,000 mcg Documented By: MTM Furosemide (Furosemide 20 Mg Tab) 20 mg PO [id number] ADAL Stop: 12/12/22 08:59 Last Admin: 11/12/22 08:07 Dose: 20 mg Documented By: BHANU Insulin Aspart (Insulin Aspart Per Unit Charge) 0 units SC ACHS [facility] Stop: 12/11/22 20:59 Last Admin: 11/12/22 08:08 Dose: 6 units Documented By: BHANU Co-signed By: CHELE Admin: 11/11/22 21:21 Dose: 9 units Documented By: MELISSA Co-signed By: NOELLE Insulin Glargine (Lantus Per Unit Charge) 36 units SC QAM ADAL Stop: 12/12/22 08:59 Last Admin: 11/12/22 08:07 Dose: 36 units Documented By: BHANU Co-signed By: CHELE Loratadine (Loratadine 10 Mg Tab) 10 mg PO DAILY [facility] Stop: 12/12/22 08:59 Last Admin: 11/12/22 08:06 Dose: 10 mg Documented By: BHANU Metoprolol Succinate (Metoprolol Succ 25mg Ext Rel Tab) 12.5 mg PO HS [facility] Stop: 12/11/22 20:59 Last Admin: 11/11/22 21:22 Dose: 12.5 mg Documented By: MELISSA Rosuvastatin Calcium (Rosuvastatin Calcium 20 Mg Tab) 40 mg PO DAILY [facility] Stop: 12/12/22 08:59 Last Admin: 11/12/22 08:06 Dose: 40 mg Documented By: BHANU Vitamin D (Cholecalciferol 1,000 Units 25 Mcg Tab) 1,000 units PO DAILY ADAL Stop: 12/12/22 08:59 Last Admin: 11/12/22 08:06 Dose: 1,000 units Documented By: BHANU Discontinued Medications Aspirin (Aspirin Chew 324 Mg) 162 mg PO NOW STA Stop: 11/11/22 11:50 Last Admin: 11/11/22 11:56 Dose: 162 mg Documented By: ML Insulin Aspart (Insulin Aspart Per Unit Charge) 8 units SC NOW STA Stop: 11/11/22 14:56 Last Admin: 11/11/22 15:04 Dose: 8 units Documented By: ISRRAEL Co-signed By: NORMA Levalbuterol HCl (Levalbuterol Hcl 1.25 Mg/3 Ml Neb) 1.25 mg NEB NOW STA; Protocol Stop: 11/11/22 12:14 Last Admin: 11/11/22 12:41 Dose: 1.25 mg Documented By: ML Imaging Data Radiologist's Impression: Chest X-Ray 11/11/22 12:14 XR chest 1V portable CLINICAL HISTORY: Chest pain, nonspecific TECHNIQUE: Single frontal radiograph of the chest was obtained. Comparison: Comparison is made to chest radiograph 02/09/2022 FINDINGS: No lines and tubes are seen. The cardiomediastinal silhouette is normal. Improved airspace opacity is noted in the left lung base, however interstitial thickening remains. No evidence of pleural effusion or pneumothorax. IMPRESSION: Left lung base airspace opacities have improved, however some interstitial type opacity remains. Findings is favored to represent interstitial scarring, less likely atelectasis, pneumonia, and/or aspiration. ACT 112: Negative or not required by law. Electronically signed by: Kolton Guo M.D. 11/11/2022 12:31 PM Discharge Plan Visit Data Chief Complaint: Chest Pain Stated Complaint: CHEST PAIN ED Provider: Sourav Anders Discharge Problem: Chest pain, Hypoxia Patient Disposition: Admitted As Inpatient Discharge Instructions Interventions: ED Discharge Assessment Last Done: 11/11/22 18:08
[2022-11-11] MEDS ORDERED: ASPIRIN CHEW 324 MG PO STA (11:49)
[2022-11-11] MEDS ORDERED: LEVALBUTEROL HCL 1.25 MG/3 ML NEB NEB STA (12:13)
[2022-11-11] MEDS ORDERED: NITROGLYCERIN SL 0.4 MG/TAB TAB SL PRN ×2 (12:14→18:54)
--- NOTE | 2022-11-11 12:33 | XRay Report ---
XR chest 1V portable CLINICAL HISTORY: Chest pain, nonspecific TECHNIQUE: Single frontal radiograph of the chest was obtained. Comparison: Comparison is made to chest radiograph 02/09/2022 FINDINGS: No lines and tubes are seen. The cardiomediastinal silhouette is normal. Improved airspace opacity is noted in the left lung base, however interstitial thickening remains. No evidence of pleural effusio n or pneumothorax. IMPRESSION: Left lung base airspace opacities have improved, however some interstitial type opacity remains. Find ings is favored to represent interstitial scarring, less likely atelectasis, pneumonia, and/or aspira tion. ACT 112: Negative or not required by law. Electronically signed by: Kolton Guo M.D. 11/11/2022 12:31 PM
[2022-11-11 12:44] LABS: Basophils # (auto) 0.07 K/uL (0-0.2); Basophils % (auto) 0.9 %; Eosinophils # (auto) 0.24 K/uL (0-0.50); Eosinophils % (auto) 3.2 %; Hematocrit (blood only) 41.6 % (37.0-47.0); Hemoglobin 13.6 g/dl (12.0-16.0); Immature Granulocytes # (auto) 0.03 K/uL (0.01-0.20); Immature Granulocytes % (auto) 0.4 %; Lymphocytes # (auto) 1.58 K/uL (1.2-3.4); Lymphocytes % (auto) 21.4 %; Mean Corpuscular Hgb Conc 32.7 g/dL (32.0-36.0); Mean Corpuscular Volume 94.8 fL (80.0-100.0); Mean Platelet Volume 12.4 fL (9.4-12.4); Monocytes # (auto) 0.35 K/uL (0.11-0.59); Monocytes % (auto) 4.7 %; Neutrophils # (auto) 5.12 K/uL (1.40-6.50); Neutrophils % (auto) 69.4 %; Platelet Count 184 K/uL (130-400); RDW Standard Deviation 48.4 fL (36.4-46.3); Red Blood Count 4.39 M/uL (4.20-5.40); White Blood Count 7.39 K/ul (4.8-10.8)
[2022-11-11 12:49] LABS: Alanine Aminotransferase 14 U/L (7-52); Albumin Globulin Ratio 1.1 (0.9-2); Albumin Level 3.8 gm/dl (3.4-5.0); Alkaline Phosphatase 58 U/L (34-104); Anion Gap 7 (3-11); Aspartate Aminotransferase 16 U/L (13-39); BUN Creatinine Ratio 16.9 (10-20); Bilirubin,Total 0.4 mg/dl (0.2-1.0); Blood Urea Nitrogen 28 mg/dl (6-23); Carbon Dioxide 28 mmol/L (21-32); Chloride 103 mmol/L (98-107); Est GFR (African American) 32.5 ml/min; Globulin 3.5 gm/dl (2.5-4.0); Glucose 207 mg/dl (70-99(Fasting)); Lipase 44 U/L (11-82); Potassium 3.7 mmol/L (3.5-5.1); Sodium 138 mmol/L (136-145); Total Protein 7.3 gm/dl (6.0-8.3)
[2022-11-11 12:55] LABS: Troponin I High Sensitivity 5.4 pg/ml (0-14)
--- NOTE | 2022-11-11 13:34 | History & Physical Report ---
Date of Service November 11, 2022 Assessment & Plan (1) Angina pectoris: Plan: - Admit to tele for observation for r/o - Trend cardiac biomarkers, initial set was negative, consider cardiology consult - follows with Dr. Mathur as outpatient - Hx of angina pectoris class 2 as per EPIC review. Also with hx of pericardial effusions, prior pulmonary embolus. Hx of left carotid endarterectomy moderate right carotid artery stenosis. - EKG reviewed as above - Check 2 D echo - Last echo was from 06/2019 showing preserved EF - PT/OT consulted - Check lipid panel with am lab - Recently has missed multiple doses of metoprolol, last 3-4 days, on purpose - discussed medication compliance at bedside (2) HTN, goal below 140/80: Plan: - Lisinopril and isosorbide discontinued per cardiology visit as outpatient This was due to htn being controlled but was slightly soft and had mild hypokalemia in the past despite medication adjustments. (3) HLD (hyperlipidemia): Plan: - Rosuvastain 40 mg daily (4) COPD (chronic obstructive pulmonary disease): Plan: - Reports that she was recently placed on Trellegy by pulm but stopped taking this one week ago because she feels it is worsening her breathing by making her cough significantly after using it, and throughout the day. - Follows with Pulm as outpatient and they had reduced trelegy to 100, requested full PFTs and walk test, pt does not wear supplemental O2 at baseline (5) DM II (diabetes mellitus, type II), controlled: Plan: - Last A1c = 6.9 on 09/10/22, no need to repeat - ISS with accuchecks achs - HH/DM diet - pt has not eaten today - give novolog 8 U now with glucose of >200. Missed all insulin today including 36 U QAM. Uses sliding scale at home in addition. (6) Chronic kidney disease (CKD), stage III (moderate): Plan: - Avoid nephrotoxins and renally reduce medications - Cr. 1.66 and BUN 28 upon admission - Follows with nephro as outpatient DVT ppx: - teds, scds CODE: Full code Dispo: From home, likely to remain in the hospital x 1-2 days A total of 77 minutes were spent with greater than 50% of that time face to face with the patient, personally reviewing all current laboratories, imaging studies, past medication reconciliation, outpatient chart review, and discussion with specialists to collaborate care for the patient with attending. Please see attending documentation for corrections and/or additions. History of Present Illness Chief Complaint: chest pain Primary Care Provider: Paz Daniels MD This is an 82 yo F with PMhx of Panlobular emphysema, COPD, history of tobacco use, DM type II on insulin, HTN, chronic diastolic CHF, carotid stenosis s/p left endarterectomy 2003, history of PE, CKD stage III, history of TIA who presents to the ER with acute onset of chest pain which occurred while she was getting her upper left molar extracted at the dentist office. She reports that during the time the dentist was pulling the tooth, she developed a quick substernal chest pain, which was then gone as soon as she could tell him she was having chest pain. Denies any current chest pain. No shortness of breath, lightheadedness, dizziness, palpitations, nausea. She also notes that she has not been taking all of her medications as instructed. She has missed metoprolol completely for the past 3 to 4 days by choice as she wasn't sure if this med was also causing dizziness. As per her lithographic etcher, she was taken off of lisinopril and isosorbide completely during the last visit due to hypotension/dizziness. She was given nitro x 1 and two additional baby aspirin there as she already took her home asa 81 mg this morning. Allergies Allergy/AdvReac Type Severity Reaction Status Date / Time azithromycin Allergy Intermediate FACIAL Verified 11/11/22 14:31 SWELLING AND ITCHING IN COMBINATION WITH HYCODAN homatropine Allergy Intermediate FACIAL Verified 11/11/22 14:31 SWELLING AND ITCHING IN COMBINATION WITH ZITHROMAX hydrocodone Allergy Intermediate FACIAL Verified 11/11/22 14:31 SWELLING &ITCHING-IN COMBINATION W/ZITHROMAX Penicillins Allergy Mild RASH, ITCHY Verified 11/11/22 14:31 metformin AdvReac Intermediate Diarrhea Verified 11/11/22 14:31 Sulfa (Sulfonamide AdvReac Mild SULFA Verified 11/11/22 14:31 Antibiotics) DRUGS-CHANGE COLORS Home Medications Medication Instructions Recorded Confirmed Type cyanocobalamin (vitamin B-12) 1,000 mcg PO QAM 02/24/19 11/11/22 History 1,000 mcg tablet (Vitamin B-12) insulin aspart U-100 100 unit/mL 1 sliding scale dose subcut ACHS 02/24/19 0 11/11/22 History subcutaneous solution (Novolog U-100 Insulin aspart) insulin degludec 100 36 unit subcut QAM 10/07/20 11/11/22 History unit-liraglutide 3.6 mg/mL(3 mL) subcutaneous pen (Xultophy 100/3.6) ascorbic acid (vitamin C) 1,000 mg 1 g PO DAILY 05/24/21 11/11/22 History tablet (Vitamin C) nitroglycerin 0.4 mg sublingual 0.4 mg sublingual PRN PRN chest 02/12/22 11/11/22 Rx tablet (Nitrostat) pain #30 tabs albuterol 90 mcg/actuation aerosol 90 mcg inhalation USEASDIRECTD 11/11/22 11/11/22 History inhaler aspirin 81 mg tablet,delayed 81 mg PO DAILY 11/11/22 11/11/22 History release cholecalciferol (vitamin D3) 25 25 mcg PO DAILY 11/11/22 11/11/22 History mcg (1,000 unit) tablet furosemide 20 mg tablet 20 mg PO 5XWK 11/11/22 11/11/22 History loratadine 10 mg tablet 10 mg PO DAILY 11/11/22 11/11/22 History mecobalamin (vitamin B12) 1,000 1,000 mcg PO DAILY 11/11/22 11/11/22 History mcg chewable tablet (B12 Active) metoprolol succinate 25 mg 12.5 mg PO HS 11/11/22 11/11/22 History tablet,extended release 24 hr nitroglycerin 0.4 mg sublingual 0.4 mg sublingual UD 11/11/22 11/11/22 History tablet rosuvastatin 40 mg tablet 40 mg PO DAILY 11/11/22 11/11/22 History Past Med/Surg History Medical History Chest pain COPD (chronic obstructive pulmonary disease) DM II (diabetes mellitus, type II), controlled H/O paroxysmal atrial tachycardia HTN, goal below 140/80 (06/26/13) Hx of pulmonary embolus Hypomagnesemia Surgical History Hx of tubal ligation S/P carotid endarterectomy S/P cholecystectomy Family History Mother COPD (chronic obstructive pulmonary disease) Father COPD (chronic obstructive pulmonary disease) Heart disease Social History Smoking Status: Former smoker Tobacco Type: Cigarettes Second Hand Exposure: Yes; Hx Alcohol Use: No Hx Substance Use: No Preferred Language: Malay Communication Ability: Effective Manager Crisis Required: No Beliefs That Will Affect Care: None marital status: Current Living Situation: Spouse Current Living Situation Comment: Feels Safe at Home: Yes Assistive Devices: None Review of Systems Review of Systems: Constitutional: No fever, sweats or chills Eyes: No diplopia, no worsening or blurred vision ENT: normal hearing, no trouble swallowing Respiratory: No cough, sputum, dyspnea at rest or on exertion Cardiovascular: No chest pain, tightness or palpitations Abdomen: No pain, nausea, vomiting, diarrhea or constipation Musculoskeletal: No joint pain, calf pain, swelling Neurologic: No weakness, numbness/tingling, or balance problems Psychiatric: No anxiety or depression Skin: No rash or itch Physical Exam Physical Exam: General: awake, alert, no apparent distress, + obese Head: Normocephalic, atraumatic ENT: PERRL, EOMI, no pharyngeal exudate, mucous membranes moist Chest: Clear to auscultation, on room air, no adventitious breath sounds, nonreproducible chest pain Cardiac: Regular rate and rhythm, no murmur, no JVD, normal peripheral pulses, good capillary refill Abdominal: NABS x 4 quadrants, soft, nondistended, nontender to palpation, no rebound or guarding Extremities: Normal inspection, no peripheral edema or erythema, calfs nontender to palpation Psych: Normal mood and affect Neuro: AAO x 3, strength intact bilaterally and rated 5/5, no motor deficits, speech is clear, no peripheral sensory deficits Results & Data Results & Data Vital Signs (Past 12 Hours) Vital Signs Temp Pulse Pulse Resp BP BP Pulse Ox 11/11/22 12:34 96 11/11/22 11:28 91 H 11/11/22 11:19 90 18 124/65 91 11/11/22 11:19 36.5 C 90 18 124/65 90 O2 Del Method 11/11/22 12:34 Room Air 11/11/22 11:28 11/11/22 11:19 Room Air 11/11/22 11:19 Room Air Code Status & VTE Plan Code Status Full code Supervising Physician Co-Signing Physician Notes Patient was seen and examined independently. Chart reviewed. Case discussed with BRYCE
[2022-11-11] MEDS ORDERED: INSULIN ASPART PER UNIT CHARGE SC STA (14:55)
[2022-11-11 17:03] LABS: Adenovirus PCR Not Detected (NotDetected); Bordetella parapertussis PCR Not Detected (NotDetected); Bordetella pertussis PCR Not Detected (NotDetected); Chlamydia pneumoniae PCR Not Detected (NotDetected); Coronavirus 229E PCR Not Detected (NotDetected); Coronavirus CoV-2 (COVID19)PCR Not Detected (NotDetected); Coronavirus HKU1 PCR Not Detected (NotDetected); Coronavirus NL63 PCR Not Detected (NotDetected); Coronavirus OC43PCR Not Detected (NotDetected); Human Metapneumovirus PCR Not Detected (NotDetected); Influenza A PCR Not Detected (NotDetected); Influenza B PCR Not Detected (NotDetected); Mycoplasma pneumoniae PCR Not Detected (NotDetected); Parainfluenza Virus 1 PCR Not Detected (NotDetected); Parainfluenza Virus 2 PCR Not Detected (NotDetected); Parainfluenza Virus 3 PCR Not Detected (NotDetected); Parainfluenza Virus 4 PCR Not Detected (NotDetected); Respiratory Syncytial VirusPCR Not Detected (NotDetected); Rhinovirus/Enterovirus PCR Not Detected (NotDetected)
--- NOTE | 2022-11-11 17:48 | Electrocardiogram Report ---
Test Reason : Blood Pressure : / mmHG Vent. Rate : 090 BPM Atrial Rate : 090 BPM P-R Int : 168 ms QRS Dur : 080 ms QT Int : 396 ms P-R-T Axes : 048 -11 002 degrees QTc Int : 484 ms Poor data quality, interpretation may be adversely affected Normal sinus rhythm Inferior infarct , age undetermined Anterolateral infarct , age undetermined Abnormal ECG Confirmed by Baltazar Eldridge ([id number]) on 11/11/2022 5:48:48 PM Referred By: REFERRED SELF Confirmed By:Mauri Eldridge
[2022-11-11] MEDS ORDERED: ALBUTEROL HFA 8 GM INHALER INH PRN (19:30)
[2022-11-11] MEDS ORDERED: DEXTROSE 50% 50 ML SYRINGE IV PRN (19:45)
[2022-11-11] MEDS ORDERED: GLUCAGON FOR INJ 1 MG VIAL IM PRN (19:45)
[2022-11-11] MEDS ORDERED: GLUCOSE 40% GEL 15 GM TUBE PO PRN (19:45)
[2022-11-11] MEDS ORDERED: CARBOHYDRATES FOR HYPOGLYCEMIA PO PRN (19:45)
[2022-11-11] MEDS ORDERED: GLUCOSE 10 TAB/TUBE PO PRN (19:45)
[2022-11-11] MEDS ORDERED: ACETAMINOPHEN 325 MG TAB PO PRN (19:51)
[2022-11-11] MEDS ORDERED: ONDANSETRON INJ 2 MG/ML 2 ML VIAL IV PRN (19:51)
[2022-11-11] MEDS ORDERED: METOPROLOL SUCC 25MG EXT REL TAB PO SCH (21:00)
[2022-11-11] MEDS: INSULIN ASPART PER UNIT CHARGE SC SCH (21:21)
[2022-11-12] MEDS: INSULIN ASPART PER UNIT CHARGE SC SCH ×2 (08:08→12:13)
[2022-11-12 08:30] LABS: Hematocrit (blood only) 40.6 % (37.0-47.0); Hemoglobin 13.5 g/dl (12.0-16.0); Mean Corpuscular Hemoglobin 30.2 pg (25.0-34.0); Mean Corpuscular Hgb Conc 33.3 g/dL (32.0-36.0); Mean Corpuscular Volume 90.8 fL (80.0-100.0); Mean Platelet Volume 12.1 fL (9.4-12.4); Platelet Count 200 K/uL (130-400); RDW Coefficient of Variation 13.7 % (11.5-14.5); RDW Standard Deviation 45.7 fL (36.4-46.3); Red Blood Count 4.47 M/uL (4.20-5.40); White Blood Count 9.51 K/ul (4.8-10.8)
[2022-11-12 08:33] LABS: BUN Creatinine Ratio 20.6 (10-20); Calcium 9.8 mg/dl (8.6-10.3); Chol HDL Ratio 4.1 (0-5); Creatinine Clr Calc Pharmacy 35.7 ml/min; Est GFR (African American) 45.3 ml/min; Est GFR (Non-African American) 39.1 ml/min; Potassium 3.8 mmol/L (3.5-5.1)
[2022-11-12 08:58] LABS: Estimated Average Glucose 163 mg/dl; Hemoglobin A1C 7.3 % (4.5-5.6)
[2022-11-12] MEDS ORDERED: ROSUVASTATIN CALCIUM 20 MG TAB PO SCH (09:00)
[2022-11-12] MEDS ORDERED: LANTUS PER UNIT CHARGE SC SCH (09:00)
[2022-11-12] MEDS ORDERED: LORATADINE 10 MG TAB PO SCH (09:00)
[2022-11-12] MEDS ORDERED: CHOLECALCIFEROL 1,000 UNITS 25 MCG TAB PO SCH (09:00)
[2022-11-12] MEDS ORDERED: ASPIRIN 81 MG ECTAB PO SCH (09:00)
[2022-11-12] MEDS ORDERED: NON-FORMULARY MEDICATION (Mecobalamin (Vitamin B12) [B12 Active] 1,000 mcg Tablet,Chewable PO SCH (09:00)
[2022-11-12] MEDS ORDERED: ASCORBIC ACID 500 MG TAB PO SCH (09:00)
[2022-11-12] MEDS ORDERED: FUROSEMIDE 20 MG TAB PO SCH (09:00)
[2022-11-12] MEDS ORDERED: CYANOCOBALAMIN (B-12) 500 MCG TABLET PO SCH (09:00)
[2022-11-12] MEDS ORDERED: NON-FORMULARY MEDICATION (Insulin Degludec-Liraglutide [Xultophy 100/3.6] 100 unit-3.6 mg SQ SCH (09:00)
--- NOTE | 2022-11-12 11:31 | Cardiology Consultation ---
Date of Consultation November 12, 2022 Assessment & Plan (1) Angina pectoris: (2) HTN (hypertension): (3) ASCVD (arteriosclerotic cardiovascular disease): Plan 82 year old female with presumed atherosclerotic coronary disease, chronic class 2+ angina pectoris. Patient admitted following an episode of recurrent angina pectoris promptly relieved by one sublingual nitroglycerin as detailed below. Recent medication adjustments, including self discontinuation of metoprolol likely contributing factors. EKG without acute change. High sensitivity troponin negative x 2. Resting echocardiography with preserved LV systolic function without wall motion abnormality. Options of management discussed with patient, requesting conservative management without further evaluation via stress testing or invasive evaluation. RECOMMENDATIONS: Resume metoprolol succinate at 12.5 mg once a day. Resume Imdur at 15 mg/day in the morning Reduce furosemide dosing from 20 mg five days per week to 20 mg three days per week Continue Aspirin, high intensity statin therapy (rosuvastatin 40 mg/day), and PRN sublingual nitroglycerin Outpatient cardiology follow-up in 2-3 weeks and as scheduled with primary solvent mixer (Dr. Mathur) on 02/05/2023 @ 11:30 AM. Supervising Physician Co-Signing Physician Notes Patient seen and examined at bedside. Reports brief episode of chest discomfort yesterday relieved with SL nitro. No recurrence since admission. Denies SOB or palpitations. Recently discontinued isosorbide and metoprolol. PE: VSS. Gen: NAD, AAO x 3. Heart: regular rhythm, Normal S1S2. 1/6 CAMI. Lungs: Clear B/L, non R/R/W. Ext: No edema. A/P: Agree with above PA-C history, physical exam, assessment and plan. No evidence of ACS. Restart beta cristofer and isosorbide as noted above. Outpatient follow up with Dr. Mathur as scheduled. History of Present Illness Reason for Consultation: Chest pain Requesting Physician: Ana Attending Physician: Ana History of Present Illness Ms. Clari Bennett is a pleasant 82 year old female who presented to the [facility] ER from the oral surgeons office after experiencing left sided chest tightness during dental extraction on 11/11/2022 that promptly resolving following administration of one one sublingual nitroglycerin. Patient notes that she was not significantly concerned "however they already called the ambulance." Notes having had chest tightness in the past, last maybe three months ago. Patient with a chart history of CCS Class II angina pectoris chronically. Patient notes recent adjustments in medications due to intermittently feeling as though she was floating. In mid September Imdur 30 mg/day was discontinued. Metoprolol succinated was changed to QHS. Last week patient self discontinued metoprolol due to recurrent floating sensation. Lisinopril also reduced and ultimately discontinued as well. EKG in the ER was without acute change. High sensitivity troponin negative x 2. Resting echocardiography with preserved LV systolic function without wall motion abnormality. Continuous telemetry monitoring initially revealed sinus in the 90's, trending down to the 60's with resumption of metoprolol. No further chest pain. Patient anxious for discharge. Inactive at baseline. No palpitations. No unusual shortness of breath. No orthopnea, PND, or edema. Occasional dizziness with positional change. No syncope. No recent colds. No fevers or chills. No recent travel. No recent injury. No hematuria or dysfunction. Appetite is good. Bowels are regular. No melena or hematochezia. Problem List: Atherosclerotic carotid disease, status post left carotid [id number]. Presumed atherosclerotic coronary disease, class 2 angina pectoris. Past history of pericardial effusion. History of prior pulmonary embolus. Diastolic dysfunction with chronic heart failure Paroxysmal atrial tachycardia Hypertension. Low HDL dyslipidemia. Diabetes mellitus, insulin-requiring. Stage 3 chronic kidney disease Chart history ofcontraindication(s) toAceI/Arb Emphysema. History of tobacco abuse. Chronic gastroesophageal reflux Age-related osteoporosis without current pathological fracture Hx laparoscopic cholecystectomy Allergies Allergy/AdvReac Type Severity Reaction Status Date / Time azithromycin Allergy Intermediate FACIAL Verified 11/11/22 14:31 SWELLING AND ITCHING IN COMBINATION WITH HYCODAN homatropine Allergy Intermediate FACIAL Verified 11/11/22 14:31 SWELLING AND ITCHING IN COMBINATION WITH ZITHROMAX hydrocodone Allergy Intermediate FACIAL Verified 11/11/22 14:31 SWELLING &ITCHING-IN COMBINATION W/ZITHROMAX Penicillins Allergy Mild RASH, ITCHY Verified 11/11/22 14:31 metformin AdvReac Intermediate Diarrhea Verified 11/11/22 14:31 Sulfa (Sulfonamide AdvReac Mild SULFA Verified 11/11/22 14:31 Antibiotics) DRUGS-CHANGE COLORS Home Medications Medication Instructions Recorded Confirmed Type cyanocobalamin (vitamin B-12) 1,000 mcg PO QAM 02/24/19 11/11/22 History 1,000 mcg tablet (Vitamin B-12) insulin aspart U-100 100 unit/mL 1 sliding scale dose subcut ACHS 02/24/19 11/11/22 History subcutaneous solution (Novolog U-100 Insulin aspart) insulin degludec 100 36 unit subcut QAM 10/07/20 11/11/22 History unit-liraglutide 3.6 mg/mL(3 mL) subcutaneous pen (Xultophy 100/3.6) ascorbic acid (vitamin C) 1,000 mg 1 g PO DAILY 05/24/21 11/11/22 History tablet (Vitamin C) nitroglycerin 0.4 mg sublingual 0.4 mg sublingual PRN PRN chest 02/12/22 11/11/22 Rx tablet (Nitrostat) pain #30 tabs albuterol 90 mcg/actuation aerosol 90 mcg inhalation USEASDIRECTD 11/11/22 11/11/22 History inhaler aspirin 81 mg tablet,delayed 81 mg PO DAILY 11/11/22 11/11/22 History release cholecalciferol (vitamin D3) 25 25 mcg PO DAILY 11/11/22 11/11/22 History mcg (1,000 unit) tablet furosemide 20 mg tablet 20 mg PO 5XWK 11/11/22 11/11/22 History loratadine 10 mg tablet 10 mg PO DAILY 11/11/22 11/11/22 History mecobalamin (vitamin B12) 1,000 1,000 mcg PO DAILY 11/11/22 11/11/22 History mcg chewable tablet (B12 Active) metoprolol succinate 25 mg 12.5 mg PO HS 11/11/22 11/11/22 History tablet,extended release 24 hr nitroglycerin 0.4 mg sublingual 0.4 mg sublingual UD 11/11/22 11/11/22 History tablet rosuvastatin 40 mg tablet 40 mg PO DAILY 11/11/22 11/11/22 History isosorbide mononitrate 30 mg 15 mg PO DAILY #20 tabs 11/12/22 Rx tablet,extended release 24 hr Patient History Medical History Chest pain COPD (chronic obstructive pulmonary disease) DM II (diabetes mellitus, type II), controlled H/O paroxysmal atrial tachycardia HTN, goal below 140/80 (06/26/13) Hx of pulmonary embolus Hypomagnesemia Surgical History Hx of tubal ligation S/P carotid endarterectomy S/P cholecystectomy Family History Mother COPD (chronic obstructive pulmonary disease) Father COPD (chronic obstructive pulmonary disease) Heart disease Social History Smoking Status: Former smoker Tobacco Type: Cigarettes Second Hand Exposure: Yes; Hx Alcohol Use: No Hx Substance Use: No Preferred Language: Citizen Of [place] Communication Ability: Effective Field Service Supervisor Required: No Beliefs That Will Affect Care: None marital status: Current Living Situation: Spouse Current Living Situation Comment: Feels Safe at Home: Yes Assistive Devices: None Review of Systems Review of Systems: Complete Review of Systems is as stated above, negative, or noncontributory. Physical Exam Physical Exam: General: A&Ox3. NAD. Significant other at bedside. HENT: Normocephalic. Atraumatic. Eyes: PER. Conjunctiva pink, sclera clear. Neck: Carotid bruits. No JVD. Heart: RRR, 66 bpm. + Systolic murmur. No diastolic murmur. No rub. Lungs: Diminished. Decreased. No wheeze. Abdomen: +BS. Soft. Nontender. No masses or organomegaly. Extremities: No clubbing, cyanosis, or edema. Limited neurological examination is without focal deficits. Pulses: radial=2/4, posterior tibial=2/4. Results & Data Vital Signs (Past 12 Hours) Vital Signs Temp Pulse Pulse Resp BP Pulse Ox O2 Del Method 11/12/22 11:02 36.5 C 66 20 126/69 96 Room Air 11/12/22 07:10 82 11/12/22 04:00 36.7 C 82 18 152/67 H 94 Nasal Cannula O2 Flow Rate 11/12/22 11:02 11/12/22 07:10 11/12/22 04:00 1.5 Laboratory Results Cardiac Enzymes 11/11/22 11/11/22 Range/Units 11:32 20:06 AST 16 (13-39) U/L Troponin I High Sens 5.4 6.7 (0-14) pg/ml Lipids 11/12/22 Range/Units 07:27 Triglycerides 90 (0-150) mg/dl Cholesterol 120 (0-200) mg/dl HDL Cholesterol 29 mg/dl Cholesterol/HDL Ratio 4.1 (0-5) CBC 11/11/22 11/12/22 Range/Units 11:32 07:27 WBC 7.39 9.51 (4.8-10.8) K/ul RBC 4.39 4.47 (4.20-5.40) M/uL Hgb 13.6 13.5 (12.0-16.0) g/dl Hct 41.6 40.6 (37.0-47.0) % Plt Count 184 200 (130-400) K/uL Neut # (Auto) 5.12 (1.40-6.50) K/uL Lymph # (Auto) 1.58 (1.2-3.4) K/uL [place] # (Auto) 0.35 (0.11-0.59) K/uL Eos # (Auto) 0.24 (0-0.50) K/uL Baso # (Auto) 0.07 (0-0.2) K/uL Comprehensive Metabolic Panel 11/11/22 11/12/22 Range/Units 11:32 07:27 Sodium 138 136 (136-145) mmol/L Potassium 3.7 3.8 (3.5-5.1) mmol/L Chloride 103 101 (98-107) mmol/L Carbon Dioxide 28 27 (21-32) mmol/L BUN 28 H 26 H (6-23) mg/dl Creatinine 1.66 H 1.26 H D (0.6-1.2) mg/dl Glucose 207 H 213 H (70-99(Fasting)) mg/dl Calcium 10.0 9.8 (8.6-10.3) mg/dl AST 16 (13-39) U/L ALT 14 (7-52) U/L Alkaline Phosphatase 58 (34-104) U/L Total Protein 7.3 (6.0-8.3) gm/dl Albumin 3.8 (3.4-5.0) gm/dl Intake and Output 11/11/22 11/12/22 11/12/22 22:59 06:59 14:59 Intake Total 120 / 240 120 / 240 Balance 120 / 240 120 / 240 Intake: Oral 120 / 240 120 / 240 Other: # Unmeasured Voids 2 Weight 85.7 kg 84.8 kg Weight Measurement Method Built in [facility] Standing Scale
--- NOTE | 2022-11-12 14:32 | Discharge Summary ---
Date of Service November 12, 2022 Admission HPI Per Admitting Provider This is an 82 yo F with PMhx of Panlobular emphysema, COPD, history of tobacco use, DM type II on insulin, HTN, chronic diastolic CHF, carotid stenosis s/p left endarterectomy 2003, history of PE, CKD stage III, history of TIA who presents to the ER with acute onset of chest pain which occurred while she was getting her upper left molar extracted at the dentist office. She reports that during the time the dentist was pulling the tooth, she developed a quick substernal chest pain, which was then gone as soon as she could tell him she was having chest pain. Denies any current chest pain. No shortness of breath, lightheadedness, dizziness, palpitations, nausea. She also notes that she has not been taking all of her medications as instructed. She has missed metoprolol completely for the past 3 to 4 days by choice as she wasn't sure if this med was also causing dizziness. As per her [place] customs and border officer, she was taken off of lisinopril and isosorbide completely during the last visit due to hypotension/dizziness. She was given nitro x 1 and two additional baby aspirin there as she already took her home asa 81 mg this morning. Admission Exam Per Admitting Provider General: awake, alert, no apparent distress, + obese Head: Normocephalic, atraumatic ENT: PERRL, EOMI, no pharyngeal exudate, mucous membranes moist Chest: Clear to auscultation, on room air, no adventitious breath sounds, nonreproducible chest pain Cardiac: Regular rate and rhythm, no murmur, no JVD, normal peripheral pulses, good capillary refill Abdominal: NABS x 4 quadrants, soft, nondistended, nontender to palpation, no rebound or guarding Extremities: Normal inspection, no peripheral edema or erythema, calfs nontender to palpation Psych: Normal mood and affect Neuro: AAO x 3, strength intact bilaterally and rated 5/5, no motor deficits, speech is clear, no peripheral sensory deficits Principal Diagnosis Chest pain - angina pectoris Discharge Exam General: awake, alert, no apparent distress, + obese Head: Normocephalic, atraumatic ENT: PERRL, EOMI, mucous membranes moist Chest: Clear to auscultation, on room air, no adventitious breath sounds Cardiac: Regular rate and rhythm, no murmur, no JVD, normal peripheral pulses Abdominal: NABS x 4 quadrants, soft, nondistended, nontender to palpation Extremities: Normal inspection, no peripheral edema or erythema Psych: Normal mood and affect Neuro: AAO x 3, strength intact bilaterally and rated 5/5, no motor deficits, speech is clear Discharge Data Allergies Allergy/AdvReac Type Severity Reaction Status Date / Time azithromycin Allergy Intermediate FACIAL Verified 11/11/22 14:31 SWELLING AND ITCHING IN COMBINATION WITH HYCODAN homatropine Allergy Intermediate FACIAL Verified 11/11/22 14:31 SWELLING AND ITCHING IN COMBINATION WITH ZITHROMAX hydrocodone Allergy Intermediate FACIAL Verified 11/11/22 14:31 SWELLING &ITCHING-IN COMBINATION W/ZITHROMAX Penicillins Allergy Mild RASH, ITCHY Verified 11/11/22 14:31 metformin AdvReac Intermediate Diarrhea Verified 11/11/22 14:31 Sulfa (Sulfonamide AdvReac Mild SULFA Verified 11/11/22 14:31 Antibiotics) DRUGS-CHANGE COLORS Consultations 11/11/22 13:05 ED Decision to Admit Stat 11/12/22 09:23 Consult Cardiology Routine Hospital Course (1) Angina pectoris: - Admitted to tele for observation for r/o - Trend cardiac biomarkers, initial set was negative, pt follows with Dr. Mathur as outpatient - Hx of angina pectoris class 2 as per EPIC review. Also with hx of pericardial effusions, prior pulmonary embolus. Hx of left carotid endarterectomy moderate right carotid artery stenosis. - EKG reviewed as above - Check 2 D echo - Last echo was from 06/2019 showing preserved EF - PT/OT consulted - Check lipid panel with am lab - Recently has missed multiple doses of metoprolol, last 3-4 days, on purpose - discussed medication compliance at bedside Discussed w/ cardiology - RECOMMENDATIONS: Resume metoprolol succinate at 12.5 mg once a day. Resume Imdur at 15 mg/day in the morning Reduce furosemide dosing from 20 mg five days per week to 20 mg three days per week Continue Aspirin, high intensity statin therapy (rosuvastatin 40 mg/day), and PRN sublingual nitroglycerin Outpatient cardiology follow-up in 2-3 weeks and as scheduled with primary us customs and border officer (Dr. Mathur) on 02/05/2023 @ 11:30 AM. (2) HTN, goal below 140/80: - Lisinopril and isosorbide discontinued per cardiology visit as outpatient This was due to htn being controlled but was slightly soft and had mild hypo kalemia in the past despite medication adjustments. - medication changes as above (3) HLD (hyperlipidemia): - Rosuvastain 40 mg daily (4) COPD (chronic obstructive pulmonary disease): - Reports that she was recently placed on Trellegy by pulm but stopped taking this one week ago because she feels it is worsening her breathing by making her cough significantly after using it, and throughout the day. - Follows with Pulm as outpatient and they had reduced trelegy to 100, requested full PFTs and walk test, pt does not wear supplemental O2 at baseline (5) DM II (diabetes mellitus, type II), controlled: - Last A1c = 6.9 on 09/10/22, no need to repeat - ISS with accucheckneeta achs (6) Chronic kidney disease (CKD), stage III (moderate): - Avoid nephrotoxins and renally reduce medications - Cr. 1.66 and BUN 28 upon admission - Follows with nephro as outpatient DVT ppx: - teds, scds Total Time Total Time Spent Total Time Spent (In Minutes): 40 Discharge Plan Discharge Items Patient Disposition: Home - Self-Care Reason For Visit: CHEST PAIN Discharge Diagnosis: Chest pain - angina pectoris Activity: Per Instructions section Non-emergency contact: Primary Care Provider and Director Of Online Education Call non-emergency contact if: you have any medication questions and your symptoms worsen Follow-up/Referrals: Deonte Marin [Physician Halftone Operator] - (The cardiology office will call you with an appointment.) Paz Daniels MD [Primary Care Provider] - (Date & Time 11/15/2022 11:00 AM Provider Paz Daniels MD [facility] ) Diet: Carb Consistent or DM2 and Heart Healthy Diet Texture: Easy to Chew Addtl Attending Provider Instructions: Follow-up with your primary care doctor, and [place] customs and border officer. The appointment with your primary care doctor was scheduled for you for 11/15/2022. Continue taking your aspirin, rosuvastatin, metoprolol. Also resume taking Imdur, at a dose of 15 mg (half a tablet), daily. Continue furosemide 20 mg, however at decreased frequency, 3 times a week. Pending Studies at Discharge: No Stand-Alone Forms: My [facility] [employer], Smoking Cessation Medications and DC Order Prescriptions: New isosorbide mononitrate 30 mg tablet extended release 24 hr 15 mg PO DAILY Qty: 20 0RF Continued cyanocobalamin (vitamin B-12) [Vitamin B-12] 1,000 mcg Tablet 1,000 mcg PO QAM insulin aspart U-100 [Novolog U-100 Insulin aspart] 100 unit/mL Solution 1 sliding scale dose SUBCUT ACHS Xultophy 100/3.6 100 unit-3.6 mg /mL (3 mL) insulin pen 36 unit SUBCUT QAM ascorbic acid (vitamin C) [Vitamin C] 1,000 mg Tablet 1 g PO DAILY nitroglycerin [Nitrostat] 0.4 mg Tablet, Sublingual 0.4 mg sublingual PRN PRN (Reason: chest pain) Qty: 30 0RF Rx Instructions: 1 tab under tongue for chest pain, can use max of 3 tabs for unresolved chest pain, each at 5 minutes difference. Call PCP or ER then. furosemide 20 mg tablet 20 mg PO 5XWK Rx Instructions: Pt takes 20mg Friday-Friday only metoprolol succinate 25 mg tablet extended release 24 hr 12.5 mg PO HS albuterol 90 mcg/actuation Aerosol 90 mcg INHALATION USEASDIRECTD aspirin 81 mg tablet,delayed release (DR/EC) 81 mg PO DAILY nitroglycerin 0.4 mg Tablet, Sublingual 0.4 mg sublingual UD Rx Instructions: Take every 5 min for chest pain x 3 doses max. loratadine 10 mg Tablet 10 mg PO DAILY rosuvastatin 40 mg Tablet 40 mg PO DAILY cholecalciferol (vitamin D3) 25 mcg (1,000 unit) Tablet 25 mcg PO DAILY mecobalamin (vitamin B12) [B12 Active] 1,000 mcg Tablet,Chewable 1,000 mcg PO DAILY Discharge Orders: Discharge Order (Routine); Ordered 11/12/22 Ordered By: Isaac Santo/Other Patient Handouts: Managing Type 2 Diabetes Admission Data Admit Date/Time: 11/11/22 16:35 Attending Provider: Isaac Perez Admit Provider: Monster Browning Primary Care Provider: Paz Daniels Other Providers: Monster Browning ; Elijah Lorenzana Other Interventions: Discharge Summary Assessment (RN) Last Done: 11/12/22 14:32
== END 2022-11-12 16:26 | disposition home or self-care (01) ==
LOC: ED 11:10 → 2N 11:10 → SUATTDRO 16:35 → 2N 18:08
DX: Z79.899 Other long term (current) drug therapy; Z87.891 Personal history of nicotine dependence; Z88.8 Allergy status to other drugs, medicaments and biological substances; R07.9 Chest pain, unspecified; Z88.1 Allergy status to other antibiotic agents; E11.22 Type 2 diabetes mellitus with diabetic chronic kidney disease; I12.9 Hypertensive chronic kidney disease with stage 1 through stage 4 chronic kidney disease, or unspecified chronic kidney disease; Z79.82 Long term (current) use of aspirin; E78.5 Hyperlipidemia, unspecified; Z88.2 Allergy status to sulfonamides; J44.9 Chronic obstructive pulmonary disease, unspecified; I20.9 Angina pectoris, unspecified; Z88.0 Allergy status to penicillin; Z79.4 Long term (current) use of insulin; Z88.5 Allergy status to narcotic agent; R09.02 Hypoxemia; N18.30 Chronic kidney disease, stage 3 unspecified

== ENCOUNTER 2023-06-06 14:07 | Inpatient (IN) ==
--- NOTE | 2023-06-06 14:39 | Emergency Department Note ---
Impression & Plan Pneumonia, Chest pain, Leukocytosis, Elevated procalcitonin, Acute hyponatremia, Elevated brain natriuretic peptide (BNP) level, Non-ST elevation IA (NSTEMI) ED Provider Note HISTORY OF PRESENT ILLNESS: Patient is an 82-year-old female presenting with chest pain, vomiting and diarrhea. Patient reports for the last week she has been having intermittent episodes of left-sided chest pain. States the pain occurs when she is up walking around or doing any sort of exertion. She reports that she then has to sit down and it takes "a while" for the pain to subside. Describes it as a pressure sensation and intermittently sharp. Patient does report a previous history of PEs, but states that it was a number of years ago. She is not on anticoagulation. Denies any history of cardiac stents. She states that yesterday she started having nausea, vomiting and multiple episodes of diarrhea. Denies any abdominal pain. Denies any fevers. Denies any recent travel. Denies any recent sick contact exposures. Denies any significant shortness of breath at rest, but does report when she has the chest pain she feels short of breath. Denies any cough. Reports no chest pain at this time, but reports her last episode was when she was getting into the ambulance. She also states for the last 2-3 days she has been having a few episodes of vomiting and diarrhea. Denies any recent travel. On arrival to the ER, patient is chest pain-free ROS: as above PHYSICAL EXAM: Constitutional: Patient appears in no acute distress. HENT: Head: Normocephalic and atraumatic. Eyes: EOMI, PERRL Mouth/Throat: Mucous membranes moist. Neck: Trachea midline. Neck supple. Cardiovascular: Tachycardic with regular rhythm. No murmurs, rubs or gallops. Intact distal pulses. Pulmonary/Chest: No respiratory distress. Breath sounds clear and equal bilaterally. No wheezes or rales. Abdominal: Abdomen soft, no tenderness, rebound or guarding. Musculoskeletal: No edema, tenderness or deformity noted. Skin: Warm and dry. No rash, erythema, pallor or cyanosis Psychiatric: Appropriate mood and affect for situation. Neurological: Alert and keenly responsive. CN II-XII grossly intact, moving all extremities equally and fully. MDM: - Vitals signs showed tachycardia and elevated temperature - History obtained via patient. Patient presents with chest pain, vomiting and diarrhea. Patient reports for the last week she has been having intermittent episodes of left-sided chest pain. She states the pain occurs when she is up walking around or doing any sort of exertion. She denies any history of cardiac stents. She is not on any anticoagulation. Denies any fevers or cough. She reports that she had chest pain while getting into the ambulance earlier today. On arrival to the ER, patient is chest pain-free. - Chronic conditions affecting care: HTN; COPD; DM-2 - Differential diagnoses include, but are not limited to: Acute coronary syndrome; pulmonary embolism; dissection; tension pneumothorax; esophageal rupture; pneumonia - Order placed for continuous cardiac monitoring. At this time, monitor showed rate of 100 bpm with normal sinus rhythm, per my interpretation. - External medical records reviewed. EMS run sheet was reviewed. Patient was vitally stable in route. No medications were given prehospital. - EKG reviewed by myself showed normal sinus rhythm. Rate tachycardic at 102 bpm. QTc 484. No acute ischemic changes - Laboratory workup interpreted by myself showed leukocytosis (WBC 15.76) with left shift; elevated procalcitonin (0.71); hyponatremia (Na 128); elevated anion gap (14); elevated BUN (41); CKD; elevated BNP (241); elevated troponin (14.9); normal lipase - Biofire negative - CXR showed evidence of pneumonia, per my interpretation - Patient given 2g IV cefepime in ER. Given 2L NS - Heart score 6 (History +1 moderately suspicious; EKG +0; Age +2; Risk factors +2; Initial troponin +1), amounting to a moderate score. - Discussed results with patient. Her symptoms are likely secondary to her pneumonia, but her continued chest pain with any sort of exertion and her most recent heart work-up being years ago, will admit for probable none) below. - Discussion was had with school social worker about patient's case and need for admission - Hospitalist consulted for admission - [facility]. ASSESSMENT AND PLAN: Diagnosis: pneumonia; chest pain; leukocytosis; elevated procalcitonin; hyponatremia; elevated BNP; NSTEMI Plan: admit Past Med/Surg History Medical History Chest pain COPD (chronic obstructive pulmonary disease) DM II (diabetes mellitus, type II), controlled H/O paroxysmal atrial tachycardia HTN, goal below 140/80 (06/26/13) Hx of pulmonary embolus Hypomagnesemia Surgical History Hx of tubal ligation S/P carotid endarterectomy S/P cholecystectomy Family History Mother COPD (chronic obstructive pulmonary disease) Father COPD (chronic obstructive pulmonary disease) Heart disease Social History Smoking Status: Former smoker Tobacco Type: Cigarettes Second Hand Exposure: Yes; Hx Alcohol Use: No Hx Substance Use: No Preferred Language: Slovak Communication Ability: Effective Mate Ship Required: No Beliefs That Will Affect Care: None marital status: Current Living Situation: Spouse Current Living Situation Comment: Feels Safe at Home: Yes Assistive Devices: None Allergies Allergies Allergy/AdvReac Type Severity Reaction Status Date / Time azithromycin Allergy Intermediate FACIAL Verified 11/11/22 14:31 SWELLING AND ITCHING IN COMBINATION WITH HYCODAN homatropine Allergy Intermediate FACIAL Verified 11/11/22 14:31 SWELLING AND ITCHING IN COMBINATION WITH ZITHROMAX hydrocodone Allergy Intermediate FACIAL Verified 11/11/22 14:31 SWELLING &ITCHING-IN COMBINATION W/ZITHROMAX Penicillins Allergy Mild RASH, ITCHY Verified 11/11/22 14:31 metformin AdvReac Intermediate Diarrhea Verified 11/11/22 14:31 Sulfa (Sulfonamide AdvReac Mild SULFA Verified 11/11/22 14:31 Antibiotics) DRUGS-CHANGE COLORS Home Meds Home Medications Medication Instructions Recorded Confirmed cyanocobalamin (vitamin B-12) 1,000 mcg PO QAM 02/24/19 06/06/23 1,000 mcg tablet (Vitamin B-12) insulin aspart U-100 100 unit/mL 1 sliding scale dose subcut ACHS 02/24/19 06/06/23 subcutaneous solution (Novolog U-100 Insulin aspart) ascorbic acid (vitamin C) 1,000 mg 1 g PO DAILY 05/24/21 06/06/23 tablet (Vitamin C) albuterol 90 mcg/actuation aerosol 90 mcg inhalation USEASDIRECTD 11/11/22 06/06/23 inhaler aspirin 81 mg tablet,delayed 81 mg PO DAILY 11/11/22 06/06/23 release cholecalciferol (vitamin D3) 25 25 mcg PO DAILY 11/11/22 06/06/23 mcg (1,000 unit) tablet furosemide 20 mg tablet 20 mg PO 5XWK 11/11/22 06/06/23 loratadine 10 mg tablet 10 mg PO DAILY 11/11/22 06/06/23 mecobalamin (vitamin B12) 1,000 1,000 mcg PO DAILY 11/11/22 06/06/23 mcg chewable tablet (B12 Active) metoprolol succinate 25 mg 12.5 mg PO HS 11/11/22 11/11/22 tablet,extended release 24 hr rosuvastatin 40 mg tablet 40 mg PO DAILY 11/11/22 06/06/23 cyclobenzaprine 5 mg tablet 5 mg PO TID PRN muscle spasms 06/06/23 06/06/23 fluticasone furoate 100 1 inh inhalation QAM 06/06/23 06/06/23 mcg-vilanterol 25 mcg/dose inhalation powder (Breo Ellipta) insulin degludec 100 36 unit subcut DAILY 06/06/23 06/06/23 unit-liraglutide 3.6 mg/mL(3 mL) subcutaneous pen (Xultophy 100/3.6) Previous Rx's Medication Instructions Recorded nitroglycerin 0.4 mg sublingual 0.4 mg sublingual PRN PRN chest 02/12/22 tablet (Nitrostat) pain #30 tabs isosorbide mononitrate 30 mg 15 mg (1/2 x 30 mg) PO DAILY #20 11/12/22 tablet,extended release 24 hr tabs Results & Data (ED) Vital Signs Vital Signs - 24 hr 06/06/23 14:21 06/06/23 14:21 06/06/23 14:25 Temperature 37.7 C H Temperature Source Oral Pulse Rate 102 H 102 H Respiratory Rate 22 Blood Pressure 127/57 L Blood Pressure Mean 80 Pulse Oximetry 91 Oxygen Delivery Method Room Air Room Air Sepsis New/Unexplained Change in Mental Status No Sepsis Action Taken by Nursing No Action Required Laboratory Data 06/06/23 14:28 06/06/23 14:28 Lab Results 06/06/23 06/06/23 Range/Units 14:28 16:14 WBC 15.76 H (4.8-10.8) K/ul RBC 4.31 (4.20-5.40) M/uL Hgb 13.1 (12.0-16.0) g/dl Hct 38.3 (37.0-47.0) % MCV 88.9 (80.0-100.0) fL MCH 30.4 (25.0-34.0) pg MCHC 34.2 (32.0-36.0) g/dL RDW Std Deviation 44.7 (36.4-46.3) fL RDW Coeff of Sandy 13.7 (11.5-14.5) % Plt Count 246 (130-400) K/uL MPV 11.6 (9.4-12.4) fL Immature Gran % (Auto) 0.5 % Neut % (Auto) 82.1 % Lymph % (Auto) 8.8 % Pender % (Auto) 8.1 % Eos % (Auto) 0.2 % Baso % (Auto) 0.3 % Neut # (Auto) 12.95 H (1.40-6.50) K/uL Lymph # (Auto) 1.38 (1.20-3.40) K/uL Pender # (Auto) 1.27 H (0.11-0.59) K/uL Eos # (Auto) 0.03 (0.00-0.50) K/uL Baso # (Auto) 0.05 (0.00-0.20) K/uL Immature Gran # (Auto) 0.08 (0.01-0.20) K/uL PT 12.4 H (9.0-12.0) Seconds INR 1.1 (0.9-1.1) Sodium 128 L (136-145) mmol/L Potassium 4.3 (3.5-5.1) mmol/L Chloride 94 L (98-107) mmol/L Carbon Dioxide 20 L (21-32) mmol/L Anion Gap 14 H (3-11) BUN 41 H (6-23) mg/dl Creatinine 1.56 H (0.6-1.2) mg/dl Est Cr Clr Drug Dosing 29.5 ml/min Est GFR ( Amer) 35.0 ml/min Est GFR (Non-Af Amer) 30.2 ml/min BUN/Creatinine Ratio 26.3 H (10-20) Glucose 185 H (70-99(Fasting)) mg/dl Calcium 8.3 L (8.6-10.3) mg/dl Magnesium 1.7 (1.7-2.4) mg/dl Total Bilirubin 0.8 (0.2-1.0) mg/dl AST 31 (13-39) U/L ALT 23 (7-52) U/L Alkaline Phosphatase 82 (34-104) U/L Troponin I High Sens 14.9 H (0-14) pg/ml B-Natriuretic Peptide 241 H (0-100) pg/ml Total Protein 7.9 (6.0-8.3) gm/dl Albumin 3.6 (3.4-5.0) gm/dl Globulin 4.3 H (2.5-4.0) gm/dl Albumin/Globulin Ratio 0.8 L (0.9-2) Lipase 11 (11-82) U/L Procalcitonin 0.71 H (0-0.5) ng/ml Adenovirus (PCR) Not Detected (NotDetected) B. pertussis DNA (PCR) Not Detected (NotDetected) B.parapertussis DNA PCR Not Detected (NotDetected) C. pneumoniae DNA (PCR) Not Detected (NotDetected) Coronavirus OC43 (PCR) Not Detected (NotDetected) Coronavirus HKU1 (PCR) Not Detected (NotDetected) Coronavirus 229E (PCR) Not Detected (NotDetected) SARS-CoV-2 (PCR) Not Detected (NotDetected) Coronavirus NL63 (PCR) Not Detected (NotDetected) Human Metapneumovir PCR Not Detected (NotDetected) Influenza Type A (PCR) Not Detected (NotDetected) Influenza Type B (PCR) Not Detected (NotDetected) M. pneumoniae (PCR) Not Detected (NotDetected) Parainfluenza 1 (PCR) Not Detected (NotDetected) Parainfluenza 2 (PCR) Not Detected (NotDetected) Parainfluenza 3 (PCR) Not Detected (NotDetected) Parainfluenza 4 (PCR) Not Detected (NotDetected) RSV (PCR) Not Detected (NotDetected) Entero/Rhino (PCR) Not Detected (NotDetected) Administered Medications Discontinued Medications Cefepime HCl (Maxipime) 2,000 mg in 20 mls @ 5 mls/min IV NOW STA; Protocol Stop: 06/06/23 17:15 Last Admin: 06/06/23 17:23 Dose: 5 mls/min Documented By: NELIDA Imaging Data Radiologist's Impression: Chest X-Ray 06/06/23 14:25 SINGLE VIEW CHEST CLINICAL HISTORY: Atypical chest pain. FINDINGS: An AP, portable, upright chest radiograph is compared to study dated 11/11/2022 and correlated with chest CT dated 02/10/2022. The the heart is normal in size noting atherosclerotic calcification of the thoracic aorta. Fullness of the netta is consistent with lymphadenopathy when compared to prior chest CT scans. The mitral annulus is densely calcified. Emphysema and chronic interstitial thickening is similar to previous. There is bibasilar airspace consolidation, left greater than right. No large pleural effusion or Pneumothorax is seen. The skeletal structures are osteopenic. The bony thorax is grossly intact. IMPRESSION: 1. Emphysema. 2. There is bibasilar airspace consolidation, left greater than right. Correlate clinically for evidence of pneumonia/aspiration pneumonitis. Radiographic follow-up to resolution is recommended. ACT 112: Negative or not required by law. Electronically signed by: Hermes Rosas M.D. 06/06/2023 3:38 PM Discharge Plan Visit Data Chief Complaint: Illness Stated Complaint: ILLNESS ED Provider: Chiquita Fernando Discharge Problem: Pneumonia, Chest pain, Leukocytosis, Elevated procalcitonin, Acute hyponatremia, Elevated brain natriuretic peptide (BNP) level, Non-ST elevation IA (NSTEMI) Forms Stand Alone Forms: My [employer] Prescriptions Prescriptions: No Action cyanocobalamin (vitamin B-12) [Vitamin B-12] 1,000 mcg Tablet 1,000 mcg PO QAM insulin aspart U-100 [Novolog U-100 Insulin aspart] 100 unit/mL Solution 1 sliding scale dose SUBCUT ACHS ascorbic acid (vitamin C) [Vitamin C] 1,000 mg Tablet 1 g PO DAILY nitroglycerin [Nitrostat] 0.4 mg Tablet, Sublingual 0.4 mg sublingual PRN PRN (Reason: chest pain) Qty: 30 0RF Rx Instructions: 1 tab under tongue for chest pain, can use max of 3 tabs for unresolved chest pain, each at 5 minutes difference. Call PCP or ER then. furosemide 20 mg tablet 20 mg PO 5XWK Rx Instructions: Pt takes 20mg Friday-Friday only metoprolol succinate 25 mg tablet extended release 24 hr 12.5 mg PO HS aspirin 81 mg tablet,delayed release (DR/EC) 81 mg PO DAILY loratadine 10 mg Tablet 10 mg PO DAILY rosuvastatin 40 mg Tablet 40 mg PO DAILY cholecalciferol (vitamin D3) 25 mcg (1,000 unit) Tablet 25 mcg PO DAILY mecobalamin (vitamin B12) [B12 Active] 1,000 mcg Tablet,Chewable 1,000 mcg PO DAILY isosorbide mononitrate 30 mg tablet extended release 24 hr 15 mg PO DAILY Qty: 20 0RF fluticasone furoate-vilanterol [Breo Ellipta] 100-25 mcg/dose blister with device 1 inh INHALATION QAM Xultophy 100/3.6 100 unit-3.6 mg /mL (3 mL) insulin pen 36 unit SUBCUT DAILY Rx Instructions: OR DIRECTED PER TITRATION UP TO 50 UNITS DAILY cyclobenzaprine 5 mg tablet 5 mg PO TID PRN (Reason: muscle spasms) Referrals Referrals: Paz Daniels MD [Primary Care Provider] -
[2023-06-06 15:01] LABS: Basophils # (auto) 0.05 K/uL (0.00-0.20); Basophils % (auto) 0.3 %; Eosinophils # (auto) 0.03 K/uL (0.00-0.50); Eosinophils % (auto) 0.2 %; Hematocrit (blood only) 38.3 % (37.0-47.0); Hemoglobin 13.1 g/dl (12.0-16.0); Immature Granulocytes # (auto) 0.08 K/uL (0.01-0.20); Immature Granulocytes % (auto) 0.5 %; Lymphocytes # (auto) 1.38 K/uL (1.20-3.40); Lymphocytes % (auto) 8.8 %; Mean Corpuscular Hemoglobin 30.4 pg (25.0-34.0); Mean Corpuscular Hgb Conc 34.2 g/dL (32.0-36.0); Mean Corpuscular Volume 88.9 fL (80.0-100.0); Mean Platelet Volume 11.6 fL (9.4-12.4); Monocytes # (auto) 1.27 K/uL (0.11-0.59); Monocytes % (auto) 8.1 %; Neutrophils # (auto) 12.95 K/uL (1.40-6.50); Neutrophils % (auto) 82.1 %; Platelet Count 246 K/uL (130-400); RDW Coefficient of Variation 13.7 % (11.5-14.5); RDW Standard Deviation 44.7 fL (36.4-46.3); Red Blood Count 4.31 M/uL (4.20-5.40); White Blood Count 15.76 K/ul (4.8-10.8)
[2023-06-06 15:08] LABS: Albumin Globulin Ratio 0.8 (0.9-2); Albumin Level 3.6 gm/dl (3.4-5.0); BUN Creatinine Ratio 26.3 (10-20); Bilirubin,Total 0.8 mg/dl (0.2-1.0); Calcium 8.3 mg/dl (8.6-10.3); Creatinine Clr Calc Pharmacy 29.5 ml/min; Est GFR (Non-African American) 30.2 ml/min; Globulin 4.3 gm/dl (2.5-4.0); Magnesium 1.7 mg/dl (1.7-2.4); Potassium 4.3 mmol/L (3.5-5.1); Total Protein 7.9 gm/dl (6.0-8.3)
[2023-06-06 15:14] LABS: INR 1.1 (0.9-1.1); Prothrombin Time 12.4 Seconds (9.0-12.0); Troponin I High Sensitivity 14.9 pg/ml (0-14)
[2023-06-06 15:37] LABS: Adenovirus PCR Not Detected (NotDetected); Bordetella parapertussis PCR Not Detected (NotDetected); Bordetella pertussis PCR Not Detected (NotDetected); Chlamydia pneumoniae PCR Not Detected (NotDetected); Coronavirus 229E PCR Not Detected (NotDetected); Coronavirus CoV-2 (COVID19)PCR Not Detected (NotDetected); Coronavirus HKU1 PCR Not Detected (NotDetected); Coronavirus NL63 PCR Not Detected (NotDetected); Coronavirus OC43PCR Not Detected (NotDetected); Human Metapneumovirus PCR Not Detected (NotDetected); Influenza A PCR Not Detected (NotDetected); Influenza B PCR Not Detected (NotDetected); Mycoplasma pneumoniae PCR Not Detected (NotDetected); Parainfluenza Virus 1 PCR Not Detected (NotDetected); Parainfluenza Virus 2 PCR Not Detected (NotDetected); Parainfluenza Virus 3 PCR Not Detected (NotDetected); Parainfluenza Virus 4 PCR Not Detected (NotDetected); Respiratory Syncytial VirusPCR Not Detected (NotDetected); Rhinovirus/Enterovirus PCR Not Detected (NotDetected)
--- NOTE | 2023-06-06 15:40 | XRay Report ---
SINGLE VIEW CHEST CLINICAL HISTORY: Atypical chest pain. FINDINGS: An AP, portable, upright chest radiograph is compared to study dated 11/11/2022 and correlat ed with chest CT dated 02/10/2022. The the heart is normal in size noting atherosclerotic calcificatio n of the thoracic aorta. Fullness of the netta is consistent with lymphadenopathy when compared to evangelina or chest CT scans. The mitral annulus is densely calcified. Emphysema and chronic interstitial thicke guy is similar to previous. There is bibasilar airspace consolidation, left greater than right. No l arge pleural effusion or Pneumothorax is seen. The skeletal structures are osteopenic. The bony thora x is grossly intact. IMPRESSION: 1. Emphysema. 2. There is bibasilar airspace consolidation, left greater than right. Correlate clinically for evide nce of pneumonia/aspiration pneumonitis. Radiographic follow-up to resolution is recommended. ACT 112: Negative or not required by law. Electronically signed by: Hermes Rosas M.D. 06/06/2023 3:38 PM
[2023-06-06] MEDS ORDERED: CEFEPIME 2,000 MG/20 ML VIAL IV STA (17:12)
[2023-06-06] MEDS ORDERED: SODIUM CHLORIDE 0.9% 2,000 ML IV ONE (17:38)
--- NOTE | 2023-06-06 18:52 | History & Physical Report ---
Date of Service June 06, 2023 Assessment & Plan (1) Pneumonia: (2) COPD (chronic obstructive pulmonary disease): Plan: Admit to [facility] with telemetry Patient presenting from home with reports of worsening chest pain, shortness of breath, cough x 3 days along with nausea, vomiting, diarrhea. In the ED, patient does meet SIRS criteria with mild tachycardia, WBC 15 K. Check lactate. Hemodynamically stable, does not appear septic. CXR showing bibasilar consolidation. Saturating well on room air Bio fire negative Blood cultures ordered (noted after received IV cefepime in ED). Sputum culture. S/p IV cefepime in ED, continue with azithromycin and doxycycline Pulmonary toilet with Mucinex, incentive spirometer, flutter valve History of COPD, no wheezing on exam, continue home inhalers If diarrhea continues, obtain stool studies (3) Chest pain: (4) ASCVD (arteriosclerotic cardiovascular disease): (5) H/O class II angina pectoris: Plan: Likely secondary to pneumonia Initial HS troponin 14.9, EKG without acute ST changes. Continue to trend troponin, if significant elevation or ongoing symptoms, consider echo and/or cardiology evaluation. Remote history of PE in 2007. If patient does not improve with above treatments, consider PE evaluation. (6) Acute hyponatremia: Plan: Na+ 128 Likely hypovolemic hyponatremia in the setting of vomiting and diarrhea S/p 2 L NSS in ED, repeat BMP tonight and order additional IVF as indicated (7) Chronic diastolic CHF (congestive heart failure): Plan: Hold Lasix for now in the setting of hyponatremia, mild dehydration (8) HTN (hypertension): Plan: Chronic, stable Previously on metoprolol and isosorbide. Placed on hold by PCP in October due to concerns of orthostasis. Patient follows with cardiology as an outpatient. Had appointment scheduled today, will need to follow-up discharge. Check orthostatic BPs (9) Chronic kidney disease (CKD), stage III (moderate): Plan: Baseline creatinine mid-high 1s Creatinine 1.5 today Continue monitor renal functions (10) DM II (diabetes mellitus, type II), controlled: Plan: Hgb A1c 6.8 03/2023 Hold home regimen and utilize Lantus and NovoLog per protocol while hospitalized DVT PROPHYLAXIS SQ heparin Patient seen in coloration with Dr. Arvizu. I spent a total of 75 minutes coordinating, documenting, and providing care for this patient excluding time spent in the performance of separately billed services. This included personally reviewing all current laboratories and imaging studies, medication reconciliation, outpatient chart review, and discussion with specialists. History of Present Illness Chief Complaint: Chest pain, shortness of breath, cough Primary Care Provider: Paz Daniels MD 82-year-old female PMH DM type II, CKD stage IV, COPD, remote history of PE s/p Coumadin therapy, chronic diastolic CHF, history of carotid artery disease s/p carotid endarterectomy, class II angina, presumed CAD, HTN, and other problems listed below who presents to the ED for evaluation of chest pain, shortness of breath, cough. History obtained from the patient and review of outpatient PCP and cardiology records. Patient with history of class II angina. Reports increasing left-sided chest pain over the past few days. Symptoms resolved with rest. Patient did not take any sublingual nitroglycerin. Also reports worsening exertional shortness of breath. Has had a nonproductive cough. Also reports associated nausea, vomiting, diarrhea. No abdominal pain. Denies hematemesis, coffee-ground emesis, bright red bleeding per rectum, dark tarry stools. No fevers or chills. Reports lightheadedness and dizziness with standing, no syncopal event. Denies urinary symptoms. In the ED, labs show WBC 15 K, Na+ 128, creatinine 1.5, HS troponin 14.9, procalcitonin 0.7. CXR showing bibasilar consolidation. Patient is hemodynamically stable. She received IV cefepime and IVF. Allergies Allergy/AdvReac Type Severity Reaction Status Date / Time azithromycin Allergy Intermediate FACIAL Verified 11/11/22 14:31 SWELLING AND ITCHING IN COMBINATION WITH HYCODAN homatropine Allergy Intermediate FACIAL Verified 11/11/22 14:31 SWELLING AND ITCHING IN COMBINATION WITH ZITHROMAX hydrocodone Allergy Intermediate FACIAL Verified 11/11/22 14:31 SWELLING &ITCHING-IN COMBINATION W/ZITHROMAX Penicillins Allergy Mild RASH, ITCHY Verified 11/11/22 14:31 metformin AdvReac Intermediate Diarrhea Verified 11/11/22 14:31 Sulfa (Sulfonamide AdvReac Mild SULFA Verified 11/11/22 14:31 Antibiotics) DRUGS-CHANGE COLORS Home Medications Medication Instructions Recorded Confirmed Type cyanocobalamin (vitamin B-12) 1,000 mcg PO QAM 02/24/19 06/06/23 History 1,000 mcg tablet (Vitamin B-12) insulin aspart U-100 100 unit/mL 1 sliding scale dose subcut ACHS 02/24/19 06/06/23 History subcutaneous solution (Novolog U-100 Insulin aspart) ascorbic acid (vitamin C) 1,000 mg 1 g PO DAILY 05/24/21 06/06/23 History tablet (Vitamin C) nitroglycerin 0.4 mg sublingual 0.4 mg sublingual PRN PRN chest 02/12/22 06/06/23 Rx tablet (Nitrostat) pain #30 tabs aspirin 81 mg tablet,delayed 81 mg PO DAILY 11/11/22 06/06/23 History release cholecalciferol (vitamin D3) 25 25 mcg PO DAILY 11/11/22 06/06/23 History mcg (1,000 unit) tablet furosemide 20 mg tablet 20 mg PO MOWEFR 11/11/22 06/06/23 History loratadine 10 mg tablet 10 mg PO DAILY 11/11/22 06/06/23 History rosuvastatin 40 mg tablet 40 mg PO DAILY 11/11/22 06/06/23 History cyclobenzaprine 5 mg tablet 5 mg PO TID PRN muscle spasms 06/06/23 06/06/23 History fluticasone furoate 100 1 inh inhalation QAM 06/06/23 06/06/23 History mcg-vilanterol 25 mcg/dose inhalation powder (Breo Ellipta) insulin degludec 100 36 unit subcut DAILY 06/06/23 06/06/23 History unit-liraglutide 3.6 mg/mL(3 mL) subcutaneous pen (Xultophy 100/3.6) Past Med/Surg History Medical History Chronic diastolic CHF (congestive heart failure) H/O class II angina pectoris COPD (chronic obstructive pulmonary disease) DM II (diabetes mellitus, type II), controlled Hx of pulmonary embolus H/O paroxysmal atrial tachycardia HTN, goal below 140/80 (06/26/13) Surgical History Hx of tubal ligation S/P cholecystectomy S/P carotid endarterectomy Family History Mother COPD (chronic obstructive pulmonary disease) Father COPD (chronic obstructive pulmonary disease) Heart disease Social History Smoking Status: Former smoker Tobacco Type: Cigarettes Second Hand Exposure: Yes; Hx Alcohol Use: No Hx Substance Use: No Preferred Language: E[place] Communication Ability: Effective Audit Manager Required: No Beliefs That Will Affect Care: None marital status: Current Living Situation: Spouse Current Living Situation Comment: Feels Safe at Home: Yes Assistive Devices: None Physical Exam Constitutional: WD/WN, vitals as above no acute distress Eyes: PERRL, conjunctivae normal, anicteric sclerae ENMT: external ear and nose normal, oropharynx normal Respiratory: normal respiratory effort and + cough; no respiratory distress Auscultation: + rales (Right base) Cardiovascular: Rate/Rhythm: regular rate and regular rhythm Vessels: normal peripheral pulses Extremities: no edema Gastrointestinal (Abdomen): normal bowel sounds, soft, nontender, no hepatosplenomegaly Musculoskeletal: no cyanosis or clubbing, extremities motor strength 5/5 Skin: no rashes, warm and dry Neurologic: PERRL, EOMI, accommodation nl, no face palsy, no dysarthria Psychiatric: A+Ox3, euthymic affect Results & Data Results & Data Vital Signs (Past 12 Hours) Vital Signs Temp Pulse Resp BP Pulse Ox O2 Del Method 06/06/23 18:14 97 H 06/06/23 14:25 102 H 06/06/23 14:21 Room Air 06/06/23 14:21 37.7 C H 102 H 22 127/57 L 91 Room Air Laboratory Results Short CBC 06/06/23 Range/Units 14:28 WBC 15.76 H (4.8-10.8) K/ul Hgb 13.1 (12.0-16.0) g/dl Hct 38.3 (37.0-47.0) % Plt Count 246 (130-400) K/uL BMP 06/06/23 14:28 Sodium 128 L Potassium 4.3 Chloride 94 L Carbon Dioxide 20 L BUN 41 H Creatinine 1.56 H Glucose 185 H Calcium 8.3 L Liver Function 06/06/23 Range/Units 14:28 Total Bilirubin 0.8 (0.2-1.0) mg/dl AST 31 (13-39) U/L ALT 23 (7-52) U/L Alkaline Phosphatase 82 (34-104) U/L Albumin 3.6 (3.4-5.0) gm/dl Diagnostic Findings Chest X-Ray 06/06/23 14:25 SINGLE VIEW CHEST CLINICAL HISTORY: Atypical chest pain. FINDINGS: An AP, portable, upright chest radiograph is compared to study dated 11/11/2022 and correlated with chest CT dated 02/10/2022. The the heart is normal in size noting atherosclerotic calcification of the thoracic aorta. Fullness of the netta is consistent with lymphadenopathy when compared to prior chest CT scans. The mitral annulus is densely calcified. Emphysema and chronic interstitial thickening is similar to previous. There is bibasilar airspace consolidation, left greater than right. No large pleural effusion or Pneumothorax is seen. The skeletal structures are osteopenic. The bony thorax is grossly intact. IMPRESSION: 1. Emphysema. 2. There is bibasilar airspace consolidation, left greater than right. Correlate clinically for evidence of pneumonia/aspiration pneumonitis. Radiographic follow-up to resolution is recommended. ACT 112: Negative or not required by law. Electronically signed by: Hermes Rosas M.D. 06/06/2023 3:38 PM Code Status & VTE Plan VTE Prophylaxis Plan VTE Prophylaxis will be ordered: Yes Supervising Physician Co-Signing Physician Notes 82 yo F presents with pneumonia. She was started on IVF and broad spectrum antibiotics. She has also had some discharge and tenderness in her left eye. There is clear drainage of thick material in her left eye limiting her ability to open lashes. Rhonchi was heard throughout all posterior lung herron without wheezing. She was not in any distress with normal respiratory effort and no conversational dyspnea. She was febrile and qualified for defined sepsis, which was likely developing. She reports a cough and was prescribed Robitussin with codeine after letting me know she has previously had no issues with codeine. Labs/meds/imaging reviewed. She does appear hypovolemic. some electrolyte changes possibly 2/2 recent GI losses with vomiting and diarrhea reported. She received 2L IVF in the ER and will continue her on 80cc/hr overnight, holding home Lasix. Cont her on Rocephin/doxycycline as noted above. Will otherwise continue supportive care efforts with guaifenesin, Flonase, cough syrup, antipyretic treatments. 1. Sepsis 2/2 Multifocal pneumonia 2. Hyponatremia 2/2 GI losses 3. Bacterial conjunctivitis-left eye 4. CKD Stage III 5. Diabetes Mellitus II DO Nolberto
[2023-06-06] MEDS ORDERED: ACETAMINOPHEN 325 MG TAB ONE (19:54)
[2023-06-06] MEDS ORDERED: GLUCOSE 10 TAB/TUBE PO PRN (20:41)
[2023-06-06] MEDS ORDERED: DEXTROSE 50% 50 ML SYRINGE IV PRN (20:41)
[2023-06-06] MEDS ORDERED: CARBOHYDRATES FOR HYPOGLYCEMIA PO PRN (20:41)
[2023-06-06] MEDS ORDERED: GLUCAGON FOR INJ 1 MG VIAL SQ PRN (20:41)
[2023-06-06] MEDS ORDERED: GLUCOSE 40% GEL 15 GM TUBE PO PRN (20:41)
[2023-06-06] MEDS ORDERED: cefTRIAXone SODIUM 1,000 MG in DEXTROSE 5 % MINI-B 50 ML IV SCH (20:41)
[2023-06-06] MEDS ORDERED: guaiFENesin/CODEINE 100MG/10MG 5ML UDC PO STA (20:56)
[2023-06-06] MEDS ORDERED: SODIUM CHLORIDE 0.9% 1,000 ML IV SCH (21:00)
[2023-06-06 21:05] LABS: BUN Creatinine Ratio 29.3 (10-20); Calcium 7.8 mg/dl (8.6-10.3); Creatinine Clr Calc Pharmacy 30.6 ml/min; Est GFR (African American) 36.7 ml/min; Est GFR (Non-African American) 31.7 ml/min; Potassium 4.2 mmol/L (3.5-5.1)
[2023-06-06 21:12] LABS: Troponin I High Sensitivity 28.7 pg/ml (0-14)
[2023-06-06] MEDS: DOXYCYCLINE HYCLATE 100 MG in DEXTROSE 5% MINI-B 100 ML IV SCH (21:17)
[2023-06-06] MEDS: INSULIN ASPART PER UNIT CHARGE SC SCH (21:18)
[2023-06-06] MEDS: guaiFENesin 600 MG TABCR PO SCH (21:18)
[2023-06-06] MEDS: TRIMETHOPRIM/POLYMYXIN B OPL SCH (21:19)
[2023-06-06] MEDS: HEPARIN SOD 5,000 UNIT/0.5 ML VIAL SQ SCH (21:19)
[2023-06-06] MEDS ORDERED: INFLUENZA VACCINE HIGH-DOSE (HD-IIV4) PF 65+ 0.7mL SYR IM ONE (21:47)
[2023-06-07] MEDS: cefTRIAXone SODIUM 2,000 MG in DEXTROSE 5 % MINI-B 50 ML IV SCH (02:19)
[2023-06-07] MEDS: HEPARIN SOD 5,000 UNIT/0.5 ML VIAL SQ SCH ×3 (05:19→21:21)
[2023-06-07 07:07] LABS: Hematocrit (blood only) 33.4 % (37.0-47.0); Hemoglobin 11.4 g/dl (12.0-16.0); Mean Corpuscular Hemoglobin 30.3 pg (25.0-34.0); Mean Corpuscular Hgb Conc 34.1 g/dL (32.0-36.0); Mean Corpuscular Volume 88.8 fL (80.0-100.0); Mean Platelet Volume 11.2 fL (9.4-12.4); Platelet Count 212 K/uL (130-400); RDW Coefficient of Variation 13.7 % (11.5-14.5); RDW Standard Deviation 44.8 fL (36.4-46.3); Red Blood Count 3.76 M/uL (4.20-5.40); White Blood Count 12.98 K/ul (4.8-10.8)
[2023-06-07 07:37] LABS: BUN Creatinine Ratio 32.6 (10-20); Calcium 7.3 mg/dl (8.6-10.3); Creatinine Clr Calc Pharmacy 33.7 ml/min; Est GFR (African American) 42.8 ml/min; Potassium 3.9 mmol/L (3.5-5.1)
[2023-06-07] MEDS: LORATADINE 10 MG TAB PO SCH (09:03)
[2023-06-07] MEDS: guaiFENesin 600 MG TABCR PO SCH ×2 (09:03→21:20)
[2023-06-07] MEDS: ASPIRIN 81 MG ECTAB PO SCH (09:03)
[2023-06-07] MEDS: ROSUVASTATIN CALCIUM 20 MG TAB PO SCH (09:03)
[2023-06-07] MEDS: TRIMETHOPRIM/POLYMYXIN B OPL SCH ×4 (09:03→21:21)
[2023-06-07] MEDS: FLUTICASONE/VILANTEROL 100/25MCG 14 PUFFS/INHALER INH SCH (09:04)
[2023-06-07] MEDS: FLUTICASONE PROPIONATE NA SPR 16 GM BTL PRN (09:04)
[2023-06-07] MEDS: DOXYCYCLINE HYCLATE 100 MG in DEXTROSE 5% MINI-B 100 ML IV SCH ×2 (09:05→21:20)
[2023-06-07] MEDS: INSULIN ASPART PER UNIT CHARGE SC SCH ×4 (09:11→21:21)
--- NOTE | 2023-06-07 12:45 | Hospitalist Progress Note ---
Date of Service June 07, 2023 Assessment & Plan (1) Pneumonia: (2) COPD (chronic obstructive pulmonary disease): Plan: Patient presenting from home with reports of worsening chest pain, shortness of breath, cough x 3 days along with nausea, vomiting, diarrhea. In the ED, patient does meet SIRS criteria with mild tachycardia, WBC 15 K. Check lactate. Hemodynamically stable, does not appear septic. CXR showing bibasilar consolidation. Saturating well on room air Bio fire negative Blood cultures ordered (noted after received IV cefepime in ED). Received IV cefepime in ED, Will continue with azithromycin and doxycycline Pulmonary toilet with Mucinex, incentive spirometer, flutter valve History of COPD, no wheezing on exam, continue home inhalers Has been feeling much better with decreasing cough and shortness of breath Saturating normally on room air We will continue current management and do PT and OT evaluation (3) Chest pain: Plan: Denies any more chest pain Cardiac enzymes are unremarkable (4) ASCVD (arteriosclerotic cardiovascular disease): (5) H/O class II angina pectoris: Plan: Likely secondary to pneumonia Initial HS troponin 14.9, EKG without acute ST changes. Continue to trend troponin, if significant elevation or ongoing symptoms, consider echo and/or cardiology evaluation. Remote history of PE in 2007. If patient does not improve with above treatments, consider PE evaluation. No desaturation and denies any more pain (6) Acute hyponatremia: Plan: Na+ 128 Likely hypovolemic hyponatremia in the setting of vomiting and diarrhea S/p 2 L NSS in ED, repeat BMP tonight and order additional IVF as indicated Sodium level has gone up to 131 (7) Chronic diastolic CHF (congestive heart failure): Plan: Hold Lasix for now in the setting of hyponatremia, mild dehydration No signs and or symptoms of fluid overload (8) HTN (hypertension): Plan: Chronic, stable Previously on metoprolol and isosorbide. Placed on hold by PCP in October due to concerns of orthostasis. Patient follows with cardiology as an outpatient. Had appointment scheduled today, will need to follow-up discharge. Check orthostatic BPs (9) Chronic kidney disease (CKD), stage III (moderate): Plan: Baseline creatinine mid-high 1s Creatinine 1.5 today Continue monitor renal functions Kidney function has been improving with creatinine decreased to 1.32 from 1.50 Advised to drink more fluid (10) DM II (diabetes mellitus, type II), controlled: Plan: Hgb A1c 6.8 03/2023 Hold home regimen and utilize Lantus and NovoLog per protocol while hospitalized DVT PROPHYLAXIS SQ heparin Admission and Anticipated Discharge Date Admission Date: June 06, 2023 Subjective 06/07/2023 The patient was seen and examined in medical telemetry unit She has been feeling much better She has cough but denies any shortness of breath at rest No fever and or chills, no nausea and or vomiting Review of Systems Review of Systems: All systems reviewed and are unremarkable except as noted below Physical Exam Physical Exam: Lying in bed comfortably Constitutional: well developed, well nourished and + obese Eyes: PERRL, conjunctivae normal, anicteric sclerae ENMT: external ear and nose normal, oropharynx normal Neck: trachea midline, no thyromegaly Respiratory: + respiratory distress (Minimal distress at rest) Auscultation: + diminished lung sounds and + crackles (Bibasilar crackles) Cardiovascular: Rate/Rhythm: regular rate and regular rhythm; not tachycardic Heart Sounds: normal S1, normal S2 and + murmur Extremities: + edema (Trace edema bilaterally) Gastrointestinal (Abdomen): Inspection/Auscultation: normal bowel sounds; abdomen not distended Percussion/Palpation: abdomen soft; abdomen nontender Musculoskeletal: No acute arthritis involving any joint Neurologic: Alert, awake and oriented x3. No focal sensory or no motor deficit appreciated Lymphatic: no cervical or axillary lymphadenopathy Results & Data Results & Data Vital Signs (Past 12 Hours) Vital Signs Temp Pulse Pulse Resp BP Pulse Ox O2 Del Method 06/07/23 11:57 37.4 C 83 16 110/58 L 93 Nasal Cannula 06/07/23 10:25 Nasal Cannula 06/07/23 07:50 36.6 C 86 16 120/55 L 93 Nasal Cannula 06/07/23 07:28 79 06/07/23 04:27 36.8 C 75 18 99/58 L 95 Nasal Cannula O2 Flow Rate 06/07/23 11:57 2 06/07/23 10:25 2 06/07/23 07:50 1 06/07/23 07:28 06/07/23 04:27 2 Medications Administered Current Inpatient Medications Acetaminophen (Acetaminophen 325 Mg Tab) 650 mg PO Q4H PRN PRN Reason: Pain or Fever Stop: 07/06/23 20:40 Aspirin (Aspirin 81 Mg Ectab) 81 mg PO DAILY ADAL Stop: 07/07/23 08:59 Last Admin: 06/07/23 09:03 Dose: 81 mg Dextrose (Dextrose 50% 50 Ml Syringe) 25 - 50 ml IV UD PRN; Protocol PRN Reason: Hypoglycemia Protocol Stop: 07/06/23 20:40 Fluticasone Propionate (Fluticasone Propionate Na Spr 16 Gm Btl) 2 sprays NA HS PRN PRN Reason: nasal congestion Stop: 07/06/23 20:59 Last Admin: 06/07/23 09:04 Dose: 2 sprays Fluticasone/Vilanterol (Fluticasone/Vilanterol 100/25mcg 14 Puffs/Inhaler) 1 puffs INH QAM ADAL Stop: 07/07/23 08:59 Last Admin: 06/07/23 09:04 Dose: 1 puffs Glucagon (Glucagon For Inj 1 Mg Vial) 1 mg SQ UD PRN; Protocol PRN Reason: Hypoglycemia Protocol Stop: 07/06/23 20:40 Glucose (Glucose 10 Tab/Tube) 4 - 8 tab PO UD PRN; Protocol PRN Reason: Hypoglycemia Treatment Stop: 07/06/23 20:40 Glucose (Glucose 40% Gel 15 Gm Tube) 15 - 30 gm PO UD PRN; Protocol PRN Reason: Hypoglycemia Protocol Stop: 07/06/23 20:40 Guaifenesin (Guaifenesin 600 Mg Tabcr) 600 mg PO Q12 ADAL Stop: 07/06/23 20:59 Last Admin: 06/07/23 09:03 Dose: 600 mg Guaifenesin/Codeine Phosphate (Guaifenesin/Codeine 200mg/20mg 10ml Udc) 10 ml PO Q6H PRN PRN Reason: Cough Stop: 07/06/23 20:44 Last Admin: 06/07/23 02:23 Dose: 10 ml Heparin Sodium (Porcine) (Heparin Sod 5,000 Unit/0.5 Ml Vial) 5,000 units SQ Q8 ADAL Stop: 07/06/23 21:59 Last Admin: 06/07/23 13:16 Dose: 5,000 units Doxycycline Hyclate 100 mg/ (Dextrose) 100 mls @ 50 mls/hr IV Q12H ADAL Stop: 06/13/23 20:59 Last Infusion: 06/07/23 11:06 Dose: Infused Ceftriaxone Sodium 2,000 mg/ (Dextrose) 50 mls @ 100 mls/hr IV Q24H [facility]; Protocol Stop: 06/14/23 01:59 Last Infusion: 06/07/23 03:14 Dose: Infused Insulin Aspart (Insulin Aspart Per Unit Charge) 0 units SC ACHS ADAL Stop: 07/06/23 20:59 Last Admin: 06/07/23 13:15 Dose: 3 units Loratadine (Loratadine 10 Mg Tab) 10 mg PO DAILY [facility] Stop: 07/07/23 08:59 Last Admin: 06/07/23 09:03 Dose: 10 mg Miscellaneous (Carbohydrates For Hypoglycemia ) 15 - 30 gm PO UD PRN PRN Reason: Hypoglycemia Protocol Stop: 07/06/23 20:40 Polymyxin/Trimethoprim Sulfate (Trimethoprim/Polymyxin B) 2 drops OPL QID [facility] Stop: 07/06/23 20:59 Last Admin: 06/07/23 13:12 Dose: 2 drops Rosuvastatin Calcium (Rosuvastatin Calcium 20 Mg Tab) 40 mg PO DAILY [facility] Stop: 07/07/23 08:59 Last Admin: 06/07/23 09:03 Dose: 40 mg
[2023-06-07] MEDS: ACETAMINOPHEN 325 MG TAB PO PRN (15:59)
[2023-06-08] MEDS: cefTRIAXone SODIUM 2,000 MG in DEXTROSE 5 % MINI-B 50 ML IV SCH (02:14)
[2023-06-08] MEDS: HEPARIN SOD 5,000 UNIT/0.5 ML VIAL SQ SCH ×3 (05:31→21:11)
[2023-06-08 06:13] LABS: Basophils # (auto) 0.07 K/uL (0.00-0.20); Basophils % (auto) 0.6 %; Eosinophils # (auto) 0.33 K/uL (0.00-0.50); Eosinophils % (auto) 2.7 %; Hematocrit (blood only) 33.8 % (37.0-47.0); Hemoglobin 11.4 g/dl (12.0-16.0); Immature Granulocytes # (auto) 0.07 K/uL (0.01-0.20); Immature Granulocytes % (auto) 0.6 %; Lymphocytes # (auto) 2.13 K/uL (1.20-3.40); Lymphocytes % (auto) 17.3 %; Mean Corpuscular Hemoglobin 30.1 pg (25.0-34.0); Mean Corpuscular Hgb Conc 33.7 g/dL (32.0-36.0); Mean Corpuscular Volume 89.2 fL (80.0-100.0); Mean Platelet Volume 11.9 fL (9.4-12.4); Monocytes # (auto) 0.73 K/uL (0.11-0.59); Monocytes % (auto) 5.9 %; Neutrophils # (auto) 8.95 K/uL (1.40-6.50); Neutrophils % (auto) 72.9 %; Platelet Count 244 K/uL (130-400); RDW Coefficient of Variation 13.8 % (11.5-14.5); RDW Standard Deviation 45.4 fL (36.4-46.3); Red Blood Count 3.79 M/uL (4.20-5.40); White Blood Count 12.28 K/ul (4.8-10.8)
[2023-06-08 06:31] LABS: BUN Creatinine Ratio 31.8 (10-20); Calcium 7.5 mg/dl (8.6-10.3); Creatinine Clr Calc Pharmacy 40.6 ml/min; Est GFR (African American) 53.4 ml/min; Est GFR (Non-African American) 46.1 ml/min; Magnesium 1.8 mg/dl (1.7-2.4); Phosphorus 2.3 mg/dl (2.5-4.9); Potassium 4.2 mmol/L (3.5-5.1)
[2023-06-08] MEDS: FLUTICASONE PROPIONATE NA SPR 16 GM BTL PRN (08:48)
[2023-06-08] MEDS: LORATADINE 10 MG TAB PO SCH (08:48)
[2023-06-08] MEDS: FLUTICASONE/VILANTEROL 100/25MCG 14 PUFFS/INHALER INH SCH (08:48)
[2023-06-08] MEDS: ASPIRIN 81 MG ECTAB PO SCH (08:48)
[2023-06-08] MEDS: guaiFENesin 600 MG TABCR PO SCH ×2 (08:48→20:56)
[2023-06-08] MEDS: TRIMETHOPRIM/POLYMYXIN B OPL SCH ×4 (08:49→20:57)
[2023-06-08] MEDS: DOXYCYCLINE HYCLATE 100 MG in DEXTROSE 5% MINI-B 100 ML IV SCH ×2 (08:49→20:56)
[2023-06-08] MEDS: ROSUVASTATIN CALCIUM 20 MG TAB PO SCH (08:50)
[2023-06-08] MEDS: INSULIN ASPART PER UNIT CHARGE SC SCH ×4 (08:55→20:57)
--- NOTE | 2023-06-08 14:33 | Hospitalist Progress Note ---
Date of Service June 08, 2023 Assessment & Plan (1) Pneumonia: Plan: Patient presenting from home with reports of worsening chest pain, shortness of breath, cough x 3 days along with nausea, vomiting, diarrhea. In the ED, patient does meet SIRS criteria with mild tachycardia, WBC 15 K. Check lactate. Hemodynamically stable, does not appear septic. CXR showing bibasilar consolidation. Saturating well on room air Bio fire negative Blood cultures ordered (noted after received IV cefepime in ED). Received IV cefepime in ED, Will continue with azithromycin and doxycycline Pulmonary toilet with Mucinex, incentive spirometer, flutter valve History of COPD, no wheezing on exam, continue home inhalers Has been feeling much better with decreasing cough and shortness of breath Saturating normally on room air We will continue current management and do PT and OT evaluation Clinically much better but complains to have some chest pressure on the lower lateral of the left chest We will get a chest x-ray to make sure there is no fluid and/or worsening con solidation We will continue current medications Left eye stickiness And itchiness Has been getting polymyxin B eyedrop Will add antihistamine eyedrops too (2) COPD (chronic obstructive pulmonary disease): Plan: As above (3) Chest pain: Plan: Denies any more chest pain Cardiac enzymes are unremarkable (4) ASCVD (arteriosclerotic cardiovascular disease): (5) H/O class II angina pectoris: Plan: Likely secondary to pneumonia Initial HS troponin 14.9, EKG without acute ST changes. Continue to trend troponin, if significant elevation or ongoing symptoms, consider echo and/or cardiology evaluation. Remote history of PE in 2007. If patient does not improve with above treatments, consider PE evaluation. No desaturation and denies any more pain (6) Acute hyponatremia: Plan: Na+ 128 Likely hypovolemic hyponatremia in the setting of vomiting and diarrhea S/p 2 L NSS in ED, repeat BMP tonight and order additional IVF as indicated Sodium level has gone up to 131 Sodium is a bit better today at 133 (7) Chronic diastolic CHF (congestive heart failure): Plan: Hold Lasix for now in the setting of hyponatremia, mild dehydration No signs and or symptoms of fluid overload Complains to have some heaviness involving the left lower chest wall We will repeat chest x-ray today (8) HTN (hypertension): Plan: Chronic, stable Previously on metoprolol and isosorbide. Placed on hold by PCP in October due to concerns of orthostasis. Patient follows with cardiology as an outpatient. Had appointment scheduled today, will need to follow-up discharge. Check orthostatic BPs (9) Chronic kidney disease (CKD), stage III (moderate): Plan: Baseline creatinine mid-high 1s Creatinine 1.5 today Continue monitor renal functions Kidney function has been improving with creatinine decreased to 1.32 from 1.50 Advised to drink more fluid (10) DM II (diabetes mellitus, type II), controlled: Plan: Hgb A1c 6.8 03/2023 Hold home regimen and utilize Lantus and NovoLog per protocol while hospitalized DVT PROPHYLAXIS SQ heparin Admission and Anticipated Discharge Date Admission Date: June 06, 2023 Subjective 06/07/2023 The patient was seen and examined in medical telemetry unit She has been feeling much better She has cough but denies any shortness of breath at rest No fever and or chills, no nausea and or vomiting 06/08/2023 The patient was seen and examined in medical telemetry unit She has been feeling much better with minimal cough but is still complains to have some pressure over the lower lateral chest wall Also has itchiness in the left eye and stickiness Review of Systems Review of Systems: All systems reviewed and are unremarkable except as noted below Physical Exam Physical Exam: Lying in bed comfortably Constitutional: well developed, well nourished and + obese Eyes: PERRL, conjunctivae normal, anicteric sclerae ENMT: external ear and nose normal, oropharynx normal Neck: trachea midline, no thyromegaly Respiratory: + respiratory distress (Minimal distress at rest) Auscultation: + diminished lung sounds and + crackles (Bibasilar crackles) Cardiovascular: Rate/Rhythm: regular rate and regular rhythm; not tachycardic Heart Sounds: normal S1, normal S2 and + murmur Extremities: + edema (Trace edema bilaterally) Gastrointestinal (Abdomen): Inspection/Auscultation: normal bowel sounds; abdomen not distended Percussion/Palpation: abdomen soft; abdomen nontender Musculoskeletal: No acute arthritis involving any joint Neurologic: normal touch/pain/proprioception and moves all extremities; no focal motor deficits Psychiatric: A+Ox3, euthymic affect Lymphatic: no cervical or axillary lymphadenopathy Results & Data Results & Data Vital Signs (Past 12 Hours) Vital Signs Temp Pulse Pulse Resp BP Pulse Ox Pulse Ox 06/08/23 12:02 96 06/08/23 08:08 06/08/23 07:11 82 06/08/23 07:08 36.8 C 83 20 116/66 95 06/08/23 03:24 37.4 C 80 18 111/61 95 Pulse Ox O2 Del Method O2 Flow Rate O2 Flow Rate O2 Flow Rate 06/08/23 12:02 95 1.5 1.5 06/08/23 08:08 Nasal Cannula 2 06/08/23 07:11 06/08/23 07:08 Nasal Cannula 1.5 06/08/23 03:24 Nasal Cannula 2 Laboratory Results Short CBC 06/08/23 Range/Units 05:19 WBC 12.28 H (4.8-10.8) K/ul Hgb 11.4 L (12.0-16.0) g/dl Hct 33.8 L (37.0-47.0) % Plt Count 244 (130-400) K/uL BMP 06/08/23 05:19 Sodium 133 L Potassium 4.2 Chloride 103 Carbon Dioxide 22 BUN 35 H Creatinine 1.10 Glucose 130 H Calcium 7.5 L Medications Administered Current Inpatient Medications Acetaminophen (Acetaminophen 325 Mg Tab) 650 mg PO Q4H PRN PRN Reason: Pain or Fever Stop: 07/06/23 20:40 Last Admin: 06/07/23 15:59 Dose: 650 mg Aspirin (Aspirin 81 Mg Ectab) 81 mg PO DAILY [facility] Stop: 07/07/23 08:59 Last Admin: 06/08/23 08:48 Dose: 81 mg Dextrose (Dextrose 50% 50 Ml Syringe) 25 - 50 ml IV UD PRN; Protocol PRN Reason: Hypoglycemia Protocol Stop: 07/06/23 20:40 Fluticasone Propionate (Fluticasone Propionate Na Spr 16 Gm Btl) 2 sprays NA HS PRN PRN Reason: nasal congestion Stop: 07/06/23 20:59 Last Admin: 06/08/23 08:48 Dose: 2 sprays Fluticasone/Vilanterol (Fluticasone/Vilanterol 100/25mcg 14 Puffs/Inhaler) 1 puffs INH QAM ADAL Stop: 07/07/23 08:59 Last Admin: 06/08/23 08:48 Dose: 1 puffs Glucagon (Glucagon For Inj 1 Mg Vial) 1 mg SQ UD PRN; Protocol PRN Reason: Hypoglycemia Protocol Stop: 07/06/23 20:40 Glucose (Glucose 10 Tab/Tube) 4 - 8 tab PO UD PRN; Protocol PRN Reason: Hypoglycemia Treatment Stop: 07/06/23 20:40 Glucose (Glucose 40% Gel 15 Gm Tube) 15 - 30 gm PO UD PRN; Protocol PRN Reason: Hypoglycemia Protocol Stop: 07/06/23 20:40 Guaifenesin (Guaifenesin 600 Mg Tabcr) 600 mg PO Q12 ADAL Stop: 07/06/23 20:59 Last Admin: 06/08/23 08:48 Dose: 600 mg Guaifenesin/Codeine Phosphate (Guaifenesin/Codeine 200mg/20mg 10ml Udc) 10 ml PO Q6H PRN PRN Reason: Cough Stop: 07/06/23 20:44 Last Admin: 06/07/23 02:23 Dose: 10 ml Heparin Sodium (Porcine) (Heparin Sod 5,000 Unit/0.5 Ml Vial) 5,000 units SQ Q8 ADAL Stop: 07/06/23 21:59 Last Admin: 06/08/23 13:00 Dose: 5,000 units Doxycycline Hyclate 100 mg/ (Dextrose) 100 mls @ 50 mls/hr IV Q12H [facility] Stop: 06/13/23 20:59 Last Infusion: 06/08/23 10:51 Dose: Infused Ceftriaxone Sodium 2,000 mg/ (Dextrose) 50 mls @ 100 mls/hr IV Q24H [facility]; Protocol Stop: 06/14/23 01:59 Last Infusion: 06/08/23 03:15 Dose: Infused Insulin Aspart (Insulin Aspart Per Unit Charge) 0 units SC ACHS ADAL Stop: 07/06/23 20:59 Last Admin: 06/08/23 13:03 Dose: 6 units Loratadine (Loratadine 10 Mg Tab) 10 mg PO DAILY ADAL Stop: 07/07/23 08:59 Last Admin: 06/08/23 08:48 Dose: 10 mg Miscellaneous (Carbohydrates For Hypoglycemia ) 15 - 30 gm PO UD PRN PRN Reason: Hypoglycemia Protocol Stop: 07/06/23 20:40 Polymyxin/Trimethoprim Sulfate (Trimethoprim/Polymyxin B) 2 drops OPL QID ADAL Stop: 07/06/23 20:59 Last Admin: 06/08/23 13:00 Dose: 2 drops Rosuvastatin Calcium (Rosuvastatin Calcium 20 Mg Tab) 40 mg PO DAILY [facility] Stop: 07/07/23 08:59 Last Admin: 06/08/23 08:50 Dose: 40 mg
--- NOTE | 2023-06-08 15:41 | XRay Report ---
XR chest 1V portable HISTORY: pneumonia COMPARISON: Chest 06/06/2023. FINDINGS: No pneumothorax. There are low lung volumes. The heart remains enlarged. Progressive perihi lar interstitial/vascular thickening consistent with pulmonary edema. Bibasilar densities and emphyse ma again noted. IMPRESSION: 1. Cardiomegaly with mild pulmonary vascular congestion. This has slightly progressed. 2. Low lung volumes and bibasilar densities. This could be due to vascular crowding or a pneumonitis. ACT 112: Negative or not required by law. Electronically signed by: Angel Luis Ruiz M.D. 06/08/2023 3:39 PM
[2023-06-08] MEDS: ACETAMINOPHEN 325 MG TAB PO PRN (19:18)
--- NOTE | 2023-06-08 19:24 | Electrocardiogram Report ---
Test Reason : Blood Pressure : / mmHG Vent. 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
--- NOTE | 2023-06-08 19:52 | Electrocardiogram Report ---
Test Reason : Blood Pressure : / mmHG Vent. 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
[2023-06-08] MEDS: NAPHAZOLIN/PHENIRAMIN OPH SOLN 75 DROPS/5 ML BTL OP SCH (20:57)
[2023-06-09] MEDS: cefTRIAXone SODIUM 2,000 MG in DEXTROSE 5 % MINI-B 50 ML IV SCH (02:24)
[2023-06-09] MEDS: HEPARIN SOD 5,000 UNIT/0.5 ML VIAL SQ SCH ×3 (05:38→21:22)
--- NOTE | 2023-06-09 06:04 | Electrocardiogram Report ---
Test Reason : Blood Pressure : / mmHG Vent. Rate : 081 BPM Atrial Rate : 081 BPM P-R Int : 162 ms QRS Dur : 084 ms QT Int : 418 ms P-R-T Axes : 055 010 035 degrees QTc Int : 485 ms Poor data quality, interpretation may be adversely affected Normal sinus rhythm Normal ECG When compared with ECG of 07-JUN-2023 05:23, (unconfirmed) No significant change was found Confirmed by Magen Quiroz ([id number]) on 06/09/2023 6:03:59 AM Referred By: REFERRED SELF Confirmed By:Magen Quiroz
[2023-06-09] MEDS: INSULIN ASPART PER UNIT CHARGE SC SCH ×4 (08:37→22:34)
[2023-06-09] MEDS: TRIMETHOPRIM/POLYMYXIN B OPL SCH ×4 (08:38→21:21)
[2023-06-09] MEDS: FLUTICASONE/VILANTEROL 100/25MCG 14 PUFFS/INHALER INH SCH (08:38)
[2023-06-09] MEDS: NAPHAZOLIN/PHENIRAMIN OPH SOLN 75 DROPS/5 ML BTL OP SCH ×2 (08:39→21:21)
[2023-06-09] MEDS: ROSUVASTATIN CALCIUM 20 MG TAB PO SCH (08:39)
[2023-06-09] MEDS: ASPIRIN 81 MG ECTAB PO SCH (08:39)
[2023-06-09] MEDS: LORATADINE 10 MG TAB PO SCH (08:39)
[2023-06-09] MEDS: guaiFENesin 600 MG TABCR PO SCH ×2 (08:39→21:20)
[2023-06-09] MEDS ORDERED: FUROSEMIDE INJ 20 MG/2 ML VIAL IV ONE (08:42)
[2023-06-09] MEDS: DOXYCYCLINE HYCLATE 100 MG in DEXTROSE 5% MINI-B 100 ML IV SCH ×2 (08:46→21:20)
--- NOTE | 2023-06-09 17:01 | Hospitalist Progress Note ---
Date of Service June 09, 2023 Assessment & Plan (1) Pneumonia: Plan: Patient presenting from home with reports of worsening chest pain, shortness of breath, cough x 3 days along with nausea, vomiting, diarrhea. In the ED, patient does meet SIRS criteria with mild tachycardia, WBC 15 K. Check lactate. Hemodynamically stable, does not appear septic. CXR showing bibasilar consolidation. Saturating well on room air Bio fire negative Blood cultures ordered (noted after received IV cefepime in ED). Received IV cefepime in ED, Will continue with azithromycin and doxycycline Pulmonary toilet with Mucinex, incentive spirometer, flutter valve History of COPD, no wheezing on exam, continue home inhalers Has been feeling much better with decreasing cough and shortness of breath Saturating normally on room air We will continue current management and do PT and OT evaluation Clinically much better but complains to have some chest pressure on the lower lateral of the left chest We will get a chest x-ray to make sure there is no fluid and/or worsening con solidation Clinically much better and has been requiring 1 L to maintain saturation but later on she was saturating normally on room air We will continue with PT and OT and possible discharge tomorrow Left eye stickiness And itchiness Has been getting polymyxin B eyedrop Will add antihistamine eyedrops too (2) COPD (chronic obstructive pulmonary disease): Plan: As above No exacerbation of COPD (3) Chest pain: Plan: Denies any more chest pain Cardiac enzymes are unremarkable Seems to be musculoskeletal pain (4) ASCVD (arteriosclerotic cardiovascular disease): (5) H/O class II angina pectoris: Plan: Likely secondary to pneumonia Initial HS troponin 14.9, EKG without acute ST changes. Continue to trend troponin, if significant elevation or ongoing symptoms, consider echo and/or cardiology evaluation. Remote history of PE in 2007. If patient does not improve with above treatments, consider PE evaluation. No desaturation and denies any more pain (6) Acute hyponatremia: Plan: Na+ 128 Likely hypovolemic hyponatremia in the setting of vomiting and diarrhea S/p 2 L NSS in ED, repeat BMP tonight and order additional IVF as indicated Sodium level has gone up to 131 Sodium is a bit better today at 133 We will recheck sodium tomorrow (7) Chronic diastolic CHF (congestive heart failure): Plan: Hold Lasix for now in the setting of hyponatremia, mild dehydration No signs and or symptoms of fluid overload Complains to have some heaviness involving the left lower chest wall We will repeat chest x-ray today (8) HTN (hypertension): Plan: Chronic, stable Previously on metoprolol and isosorbide. Placed on hold by PCP in October due to concerns of orthostasis. Patient follows with cardiology as an outpatient. Had appointment scheduled today, will need to follow-up discharge. Check orthostatic BPs (9) Chronic kidney disease (CKD), stage III (moderate): Plan: Baseline creatinine mid-high 1s Creatinine 1.5 today Continue monitor renal functions Kidney function has been improving with creatinine decreased to 1.32 from 1.50 Advised to drink more fluid (10) DM II (diabetes mellitus, type II), controlled: Plan: Hgb A1c 6.8 03/2023 Hold home regimen and utilize Lantus and NovoLog per protocol while hospitalized DVT PROPHYLAXIS SQ heparin Admission and Anticipated Discharge Date Admission Date: June 06, 2023 Subjective 06/07/2023 The patient was seen and examined in medical telemetry unit She has been feeling much better She has cough but denies any shortness of breath at rest No fever and or chills, no nausea and or vomiting 06/08/2023 The patient was seen and examined in medical telemetry unit She has been feeling much better with minimal cough but is still complains to have some pressure over the lower lateral chest wall Also has itchiness in the left eye and stickiness 06/09/2023 The patient was seen and examined in medical telemetry unit She has been feeling much better and the chest pressure at the lower end of the left lateral chest wall has improved Denies any shortness of breath at rest Saturating on 1 L of nasal cannula oxygen Review of Systems Review of Systems: All systems reviewed and are unremarkable except as noted below Physical Exam Physical Exam: Lying in bed comfortably Constitutional: well developed, well nourished and + obese Eyes: PERRL, conjunctivae normal, anicteric sclerae ENMT: external ear and nose normal, oropharynx normal Neck: trachea midline, no thyromegaly Respiratory: + respiratory distress (Minimal distress at rest) Auscultation: + diminished lung sounds and + crackles (Bibasilar crackles) Cardiovascular: Rate/Rhythm: regular rate and regular rhythm; not tachycardic Heart Sounds: normal S1, normal S2 and + murmur Extremities: + edema (Trace edema bilaterally) Gastrointestinal (Abdomen): Inspection/Auscultation: normal bowel sounds; abdomen not distended Percussion/Palpation: abdomen soft; abdomen nontender Neurologic: normal touch/pain/proprioception and moves all extremities; no focal motor deficits Psychiatric: A+Ox3, euthymic affect Lymphatic: no cervical or axillary lymphadenopathy Results & Data Results & Data Vital Signs (Past 12 Hours) Vital Signs Temp Pulse Pulse Pulse Resp BP Pulse Ox 06/09/23 15:59 36.2 C L 78 16 103/61 92 06/09/23 14:01 78 06/09/23 11:30 97 06/09/23 11:06 36.9 C 80 20 110/63 96 06/09/23 07:43 36.7 C 72 20 130/72 96 06/09/23 07:34 06/09/23 05:57 74 O2 Del Method O2 Flow Rate 06/09/23 15:59 Room Air 06/09/23 14:01 06/09/23 11:30 Room Air, Nasal Cannula 1 06/09/23 11:06 Nasal Cannula 1 06/09/23 07:43 Nasal Cannula 1 06/09/23 07:34 Nasal Cannula 1 06/09/23 05:57 Medications Administered Current Inpatient Medications Acetaminophen (Acetaminophen 325 Mg Tab) 650 mg PO Q4H PRN PRN Reason: Pain or Fever Stop: 07/06/23 20:40 Last Admin: 06/08/23 19:18 Dose: 650 mg Aspirin (Aspirin 81 Mg Ectab) 81 mg PO DAILY [facility] Stop: 07/07/23 08:59 Last Admin: 06/09/23 08:39 Dose: 81 mg Dextrose (Dextrose 50% 50 Ml Syringe) 25 - 50 ml IV UD PRN; Protocol PRN Reason: Hypoglycemia Protocol Stop: 07/06/23 20:40 Fluticasone Propionate (Fluticasone Propionate Na Spr 16 Gm Btl) 2 sprays NA HS PRN PRN Reason: nasal congestion Stop: 07/06/23 20:59 Last Admin: 06/08/23 08:48 Dose: 2 sprays Fluticasone/Vilanterol (Fluticasone/Vilanterol 100/25mcg 14 Puffs/Inhaler) 1 puffs INH QAM ADAL Stop: 07/07/23 08:59 Last Admin: 06/09/23 08:38 Dose: 1 puffs Glucagon (Glucagon For Inj 1 Mg Vial) 1 mg SQ UD PRN; Protocol PRN Reason: Hypoglycemia Protocol Stop: 07/06/23 20:40 Glucose (Glucose 10 Tab/Tube) 4 - 8 tab PO UD PRN; Protocol PRN Reason: Hypoglycemia Treatment Stop: 07/06/23 20:40 Glucose (Glucose 40% Gel 15 Gm Tube) 15 - 30 gm PO UD PRN; Protocol PRN Reason: Hypoglycemia Protocol Stop: 07/06/23 20:40 Guaifenesin (Guaifenesin 600 Mg Tabcr) 600 mg PO Q12 ADAL Stop: 07/06/23 20:59 Last Admin: 06/09/23 08:39 Dose: 600 mg Guaifenesin/Codeine Phosphate (Guaifenesin/Codeine 200mg/20mg 10ml Udc) 10 ml PO Q6H PRN PRN Reason: Cough Stop: 07/06/23 20:44 Last Admin: 06/09/23 16:52 Dose: 10 ml Heparin Sodium (Porcine) (Heparin Sod 5,000 Unit/0.5 Ml Vial) 5,000 units SQ Q8 ADAL Stop: 07/06/23 21:59 Last Admin: 06/09/23 13:44 Dose: 5,000 units Doxycycline Hyclate 100 mg/ (Dextrose) 100 mls @ 50 mls/hr IV Q12H [facility] Stop: 06/13/23 20:59 Last Infusion: 06/09/23 10:46 Dose: Infused Ceftriaxone Sodium 2,000 mg/ (Dextrose) 50 mls @ 100 mls/hr IV Q24H [facility]; Protocol Stop: 06/14/23 01:59 Last Infusion: 06/09/23 03:18 Dose: Infused Insulin Aspart (Insulin Aspart Per Unit Charge) 0 units SC ACHS ADAL Stop: 07/06/23 20:59 Last Admin: 06/09/23 12:32 Dose: 6 units Loratadine (Loratadine 10 Mg Tab) 10 mg PO DAILY [facility] Stop: 07/07/23 08:59 Last Admin: 06/09/23 08:39 Dose: 10 mg Miscellaneous (Carbohydrates For Hypoglycemia ) 15 - 30 gm PO UD PRN PRN Reason: Hypoglycemia Protocol Stop: 07/06/23 20:40 Naphazoline HCl/Pheniramine Maleate (Naphazolin/Pheniramin Oph Soln 75 Drops/5 Ml Btl) 2 drops OP BID ADAL Stop: 07/08/23 20:59 Last Admin: 06/09/23 08:39 Dose: 2 drops Polymyxin/Trimethoprim Sulfate (Trimethoprim/Polymyxin B) 2 drops OPL QID ADAL Stop: 07/06/23 20:59 Last Admin: 06/09/23 16:50 Dose: 2 drops Rosuvastatin Calcium (Rosuvastatin Calcium 20 Mg Tab) 40 mg PO DAILY [facility] Stop: 07/07/23 08:59 Last Admin: 06/09/23 08:39 Dose: 40 mg
[2023-06-10] MEDS: cefTRIAXone SODIUM 2,000 MG in DEXTROSE 5 % MINI-B 50 ML IV SCH (01:36)
[2023-06-10] MEDS: HEPARIN SOD 5,000 UNIT/0.5 ML VIAL SQ SCH ×2 (05:57→13:10)
[2023-06-10 06:33] LABS: Basophils # (auto) 0.06 K/uL (0.00-0.20); Basophils % (auto) 0.6 %; Eosinophils # (auto) 0.25 K/uL (0.00-0.50); Eosinophils % (auto) 2.5 %; Hematocrit (blood only) 36.2 % (37.0-47.0); Hemoglobin 11.9 g/dl (12.0-16.0); Immature Granulocytes # (auto) 0.09 K/uL (0.01-0.20); Immature Granulocytes % (auto) 0.9 %; Lymphocytes # (auto) 2.15 K/uL (1.20-3.40); Lymphocytes % (auto) 21.6 %; Mean Corpuscular Hemoglobin 30.2 pg (25.0-34.0); Mean Corpuscular Hgb Conc 32.9 g/dL (32.0-36.0); Mean Corpuscular Volume 91.9 fL (80.0-100.0); Mean Platelet Volume 11.3 fL (9.4-12.4); Monocytes # (auto) 0.66 K/uL (0.11-0.59); Monocytes % (auto) 6.6 %; Neutrophils # (auto) 6.74 K/uL (1.40-6.50); Neutrophils % (auto) 67.8 %; Platelet Count 251 K/uL (130-400); RDW Coefficient of Variation 13.9 % (11.5-14.5); RDW Standard Deviation 47.4 fL (36.4-46.3); Red Blood Count 3.94 M/uL (4.20-5.40); White Blood Count 9.95 K/ul (4.8-10.8)
[2023-06-10 06:54] LABS: BUN Creatinine Ratio 24.8 (10-20); Calcium 7.4 mg/dl (8.6-10.3); Creatinine Clr Calc Pharmacy 44.3 ml/min; Est GFR (African American) 59.2 ml/min; Est GFR (Non-African American) 51.1 ml/min; Potassium 4.2 mmol/L (3.5-5.1)
[2023-06-10 07:40] VITALS: RESP 16
[2023-06-10] MEDS: TRIMETHOPRIM/POLYMYXIN B OPL SCH ×2 (08:09→12:51)
[2023-06-10] MEDS: NAPHAZOLIN/PHENIRAMIN OPH SOLN 75 DROPS/5 ML BTL OP SCH (08:10)
[2023-06-10] MEDS: guaiFENesin 600 MG TABCR PO SCH (08:10)
[2023-06-10] MEDS: FLUTICASONE/VILANTEROL 100/25MCG 14 PUFFS/INHALER INH SCH (08:10)
[2023-06-10] MEDS: LORATADINE 10 MG TAB PO SCH (08:10)
[2023-06-10] MEDS: ROSUVASTATIN CALCIUM 20 MG TAB PO SCH (08:10)
[2023-06-10] MEDS: ASPIRIN 81 MG ECTAB PO SCH (08:10)
[2023-06-10] MEDS: DOXYCYCLINE HYCLATE 100 MG in DEXTROSE 5% MINI-B 100 ML IV SCH (08:15)
[2023-06-10] MEDS: INSULIN ASPART PER UNIT CHARGE SC SCH ×2 (08:40→12:51)
--- NOTE | 2023-06-10 12:13 | Hospitalist Progress Note ---
Date of Service June 10, 2023 Assessment & Plan (1) Pneumonia: Plan: Sepsis POA secondary to pneumonia Patient presenting from home with reports of worsening chest pain, shortness of breath, cough x 3 days along with nausea, vomiting, diarrhea. In the ED, patient does meet SIRS criteria with mild tachycardia, WBC 15 K. Check lactate. Hemodynamically stable, does not appear septic. CXR showing bibasilar consolidation. Saturating well on room air Bio fire negative Blood cultures ordered (noted after received IV cefepime in ED). Received IV cefepime in ED, Will continue with azithromycin and doxycycline Pulmonary toilet with Mucinex, incentive spirometer, flutter valve History of COPD, no wheezing on exam, continue home inhalers Has been feeling much better with decreasing cough and shortness of breath Saturating normally on room air We will continue current management and do PT and OT evaluation Clinically much better but complains to have some chest pressure on the lower lateral of the left chest We will get a chest x-ray to make sure there is no fluid and/or worsening consolidation Denies any cough and no shortness of breath and saturating normally on room air Has had PT evaluation and recommended home Will be discharged home this afternoon Acute on chronic diastolic heart failure Chest ray showed mild congestive change received a small dose of intravenous Lasix Has been feeling much better without any shortness of breath at rest and saturating normally on room air Ambulating without any difficulties and will be discharged home this afternoon Left eye stickiness And itchiness Has been getting polymyxin B eyedrop Will add antihistamine eyedrops too (2) COPD (chronic obstructive pulmonary disease): Plan: As above No exacerbation of COPD (3) Chest pain: Plan: Denies any more chest pain Cardiac enzymes are unremarkable Seems to be musculoskeletal pain (4) ASCVD (arteriosclerotic cardiovascular disease): (5) H/O class II angina pectoris: Plan: Likely secondary to pneumonia Initial HS troponin 14.9, EKG without acute ST changes. Continue to trend troponin, if significant elevation or ongoing symptoms, consider echo and/or cardiology evaluation. Remote history of PE in 2007. If patient does not improve with above treatments, consider PE evaluation. No desaturation and denies any more pain (6) Acute hyponatremia: Plan: Na+ 128 Likely hypovolemic hyponatremia in the setting of vomiting and diarrhea S/p 2 L NSS in ED, repeat BMP tonight and order additional IVF as indicated Sodium level has gone up to 131 Sodium is a bit better today at 133 We will recheck sodium tomorrow-sodium remains minimally low at 132 with normal creatinine (7) Chronic diastolic CHF (congestive heart failure): Plan: Hold Lasix for now in the setting of hyponatremia, mild dehydration No signs and or symptoms of fluid overload Complains to have some heaviness involving the left lower chest wall We will repeat chest x-ray today Shows mild congestion likely secondary to acute on chronic diastolic heart failure and received an intravenous dose of Lasix to resolve the issue We will continue with outpatient Lasix on discharge (8) HTN (hypertension): Plan: Chronic, stable Previously on metoprolol and isosorbide. Placed on hold by PCP in October due to concerns of orthostasis. Patient follows with cardiology as an outpatient. Had appointment scheduled today, will need to follow-up discharge. Check orthostatic BPs (9) Chronic kidney disease (CKD), stage III (moderate): Plan: Baseline creatinine mid-high 1s Creatinine 1.5 today Continue monitor renal functions Kidney function has been improving with creatinine decreased to 1.32 from 1.50 Advised to drink more fluid (10) DM II (diabetes mellitus, type II), controlled: Plan: Hgb A1c 6.8 03/2023 Hold home regimen and utilize Lantus and NovoLog per protocol while hospitalized DVT PROPHYLAXIS SQ heparin Will be discharged home this afternoon Admission and Anticipated Discharge Date Admission Date: June 06, 2023 Subjective 06/07/2023 The patient was seen and examined in medical telemetry unit She has been feeling much better She has cough but denies any shortness of breath at rest No fever and or chills, no nausea and or vomiting 06/08/2023 The patient was seen and examined in medical telemetry unit She has been feeling much better with minimal cough but is still complains to have some pressure over the lower lateral chest wall Also has itchiness in the left eye and stickiness 06/09/2023 The patient was seen and examined in medical telemetry unit She has been feeling much better and the chest pressure at the lower end of the left lateral chest wall has improved Denies any shortness of breath at rest Saturating on 1 L of nasal cannula oxygen 06/10/2023 The patient was seen and examined in medical telemetry unit She has been feeling much better and the discomfort in the lower left lateral chest wall is almost gone Has been ambulating in the room without any difficulties Denies any other symptoms and she will be discharged home this afternoon Review of Systems Review of Systems: All systems reviewed and are unremarkable except as noted below Respiratory: No shortness of breath and/or cough at rest Physical Exam Physical Exam: Lying in bed comfortably Constitutional: well developed, well nourished and + obese Eyes: PERRL, conjunctivae normal, anicteric sclerae ENMT: external ear and nose normal, oropharynx normal Neck: trachea midline, no thyromegaly Respiratory: + respiratory distress (Minimal distress at rest) Auscultation: + diminished lung sounds and + crackles (Bibasilar crackles) Cardiovascular: Rate/Rhythm: regular rate and regular rhythm; not tachycardic Heart Sounds: normal S1, normal S2 and + murmur Extremities: + edema (Trace edema bilaterally) Gastrointestinal (Abdomen): Inspection/Auscultation: normal bowel sounds; abdomen not distended Percussion/Palpation: abdomen soft; abdomen nontender Musculoskeletal: No acute arthritis involving any of the joint Neurologic: normal touch/pain/proprioception and moves all extremities; no focal motor deficits Psychiatric: A+Ox3, euthymic affect Lymphatic: no cervical or axillary lymphadenopathy Results & Data Results & Data Vital Signs (Past 12 Hours) Vital Signs Temp Pulse Pulse Resp BP Pulse Ox O2 Del Method 06/10/23 07:39 36.6 C 76 16 122/59 L 90 Room Air 06/10/23 07:11 Room Air 06/10/23 06:01 78 06/10/23 04:46 37.2 C 84 18 117/67 91 Room Air Laboratory Results Short CBC 06/10/23 Range/Units 05:32 WBC 9.95 (4.8-10.8) K/ul Hgb 11.9 L (12.0-16.0) g/dl Hct 36.2 L (37.0-47.0) % Plt Count 251 (130-400) K/uL BMP 06/10/23 05:32 Sodium 132 L Potassium 4.2 Chloride 100 Carbon Dioxide 23 BUN 25 H Creatinine 1.01 Glucose 171 H Calcium 7.4 L Medications Administered Current Inpatient Medications Acetaminophen (Acetaminophen 325 Mg Tab) 650 mg PO Q4H PRN PRN Reason: Pain or Fever Stop: 07/06/23 20:40 Last Admin: 06/08/23 19:18 Dose: 650 mg Aspirin (Aspirin 81 Mg Ectab) 81 mg PO DAILY ADAL Stop: 07/07/23 08:59 Last Admin: 06/10/23 08:10 Dose: 81 mg Dextrose (Dextrose 50% 50 Ml Syringe) 25 - 50 ml IV UD PRN; Protocol PRN Reason: Hypoglycemia Protocol Stop: 07/06/23 20:40 Fluticasone Propionate (Fluticasone Propionate Na Spr 16 Gm Btl) 2 sprays NA HS PRN PRN Reason: nasal congestion Stop: 07/06/23 20:59 Last Admin: 06/08/23 08:48 Dose: 2 sprays Fluticasone/Vilanterol (Fluticasone/Vilanterol 100/25mcg 14 Puffs/Inhaler) 1 puffs INH QAM ADAL Stop: 07/07/23 08:59 Last Admin: 06/10/23 08:10 Dose: 1 puffs Glucagon (Glucagon For Inj 1 Mg Vial) 1 mg SQ UD PRN; Protocol PRN Reason: Hypoglycemia Protocol Stop: 07/06/23 20:40 Glucose (Glucose 10 Tab/Tube) 4 - 8 tab PO UD PRN; Protocol PRN Reason: Hypoglycemia Treatment Stop: 07/06/23 20:40 Glucose (Glucose 40% Gel 15 Gm Tube) 15 - 30 gm PO UD PRN; Protocol PRN Reason: Hypoglycemia Protocol Stop: 07/06/23 20:40 Guaifenesin (Guaifenesin 600 Mg Tabcr) 600 mg PO Q12 ADAL Stop: 07/06/23 20:59 Last Admin: 06/10/23 08:10 Dose: 600 mg Guaifenesin/Codeine Phosphate (Guaifenesin/Codeine 200mg/20mg 10ml Udc) 10 ml PO Q6H PRN PRN Reason: Cough Stop: 07/06/23 20:44 Last Admin: 06/09/23 16:52 Dose: 10 ml Heparin Sodium (Porcine) (Heparin Sod 5,000 Unit/0.5 Ml Vial) 5,000 units SQ Q8 ADAL Stop: 07/06/23 21:59 Last Admin: 06/10/23 05:57 Dose: 5,000 units Doxycycline Hyclate 100 mg/ (Dextrose) 100 mls @ 50 mls/hr IV Q12H ADAL Stop: 06/13/23 20:59 Last Infusion: 06/10/23 10:15 Dose: Infused Ceftriaxone Sodium 2,000 mg/ (Dextrose) 50 mls @ 100 mls/hr IV Q24H [facility]; Protocol Stop: 06/14/23 01:59 Last Infusion: 06/10/23 02:10 Dose: Infused Insulin Aspart (Insulin Aspart Per Unit Charge) 0 units SC ACHS ADAL Stop: 07/06/23 20:59 Last Admin: 06/10/23 08:40 Dose: 6 units Loratadine (Loratadine 10 Mg Tab) 10 mg PO DAILY ADAL Stop: 07/07/23 08:59 Last Admin: 06/10/23 08:10 Dose: 10 mg Miscellaneous (Carbohydrates For Hypoglycemia ) 15 - 30 gm PO UD PRN PRN Reason: Hypoglycemia Protocol Stop: 07/06/23 20:40 Naphazoline HCl/Pheniramine Maleate (Naphazolin/Pheniramin Oph Soln 75 Drops/5 Ml Btl) 2 drops OP BID [facility] Stop: 07/08/23 20:59 Last Admin: 06/10/23 08:10 Dose: 2 drops Polymyxin/Trimethoprim Sulfate (Trimethoprim/Polymyxin B) 2 drops OPL QID [facility] Stop: 07/06/23 20:59 Last Admin: 06/10/23 08:09 Dose: 2 drops Rosuvastatin Calcium (Rosuvastatin Calcium 20 Mg Tab) 40 mg PO DAILY [facility] Stop: 07/07/23 08:59 Last Admin: 06/10/23 08:10 Dose: 40 mg
[2023-06-10 12:24] VITALS: TEMP 98.2; O2SAT 95
[2023-06-10 14:03] VITALS: BP 122/59; PULSE 80
--- OUTSIDE RECORDS SUMMARY | 2023-06-10 14:24 | External Medical Summary | Summary of Care ---
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 [address] [place] [address] Paz Daniels MD [address] [place] [address] Health Maintenance Allergies Active Allergy Reactions Severity Noted Date Comments Amlodipine Edema Other 08/26/2017 Metformin 03/28/2016 diarrhea Penicillins Itching,Rash 04/07/2017 Sulfa Antibiotics Unknown 08/31/2007 Azithromycin 03/28/2016 documented as of this encounter (statuses as of 05/14/2023) Medications Medication Sig Dispensed Refills Start Date End Date Status VITAMIN B-12 CR 1000 MCG PO TBCR take on daily 0 08/11/2007 Active Biotin 5000 MCG Capsule Take 1 Capsule by mouth in the morning. 0 04/29/2018 Active Glucose Blood (FREESTYLE PRECISION MARTIN TEST) STRP Use to test blood sugars up to twice daily with freestyle jasmine 100 Strip 11 08/20/2018 Active Bisacodyl 5 MG Oral Tablet Delayed Release Take 1 Tablet by mouth daily as needed for Constipation. Do not use for more than one week. Do not cut, crush or chew-taking 4d/wk 40 Tab 1 08/25/2020 Active Loratadine 10 MG Oral Tablet Take 1 Tablet by mouth daily as needed. 0 Active FreeStyle Jasmine 14 Day Sensor Use as directed. 2 Each 11/24/2020 Active Aspirin 81 MG Oral Tablet Delayed Release Take 2 Tablets by mouth in the morning. 0 Active Advanced Probiotic 10 Oral Capsule Take 1 Capsule by mouth in the morning. 0 Active Vitamin C 1000 MG Oral Tablet Take 1 Tablet by mouth in the morning. 0 Active NovoLOG FlexPen 100 UNIT/ML Subcutaneous Solution Pen-injector (insulin aspart) Follow chart - Inject subcu 10 units before breakfast, 10 units before lunch, 13 units before supper plus CF 1:16 for BG > 140 up to 40 units/day 45 mL 1 04/17/2022 Active Ipratropium-Albuterol 20-100 MCG/ACT Inhalation Aerosol Solution 0 Active Nitroglycerin 0.4 MG Sublingual Tablet Sublingual (Nitrostat)Indication s:Chronic chest pain Place 1 Tablet under the tongue as needed for Pain, Chest. 25 Tablet 11 07/31/2022 Active Vitamin D 25 MCG (1000 UT) Oral Tablet Take by mouth. 0 Active Furosemide 20 MG Oral Tablet (Lasix)Indications:Ch ronic kidney disease with symptom management only, stage 3 (moderate) (HCC),Bilateral leg edema TAKE 1 TABLET BY MOUTH 3 DAYS PER WEEK. WATCH FOR INCREASED LEG EDEMA 65 Tablet 3 11/13/2022 Active Meclizine HCl 25 MG Oral Tablet (Antivert)Indications :Dizziness,Vertigo Take 1 Tablet by mouth 3 times a day as needed for Dizziness. 30 Tablet 1 11/15/2022 Active Xultophy 100-3.6 UNIT-MG/ML Subcutaneous Solution Pen-injector (Insulin Degludec-Liraglutide) Indications:Type 2 diabetes mellitus with stage 3 chronic kidney disease, with long-term current use of insulin, unspecified whether stage 3a or 3b CKD (HCC) Inject 36 units once daily or as directed per titration up to 50 units daily 15 mL 11/19/2022 Active Pen Schofield 5/16" 31G X 8 MMIndications:Type 2 diabetes mellitus with stage 3b chronic kidney disease, with long-term current use of insulin (HCC) Use as directed. Use to inject Xultophy and Novolog 5 times daily as directed 500 Each 3 01/29/2023 Active FreeStyle Precision Martin Test In Vitro Strip (Glucose Blood)Indications:Typ e 2 diabetes mellitus with stage 3b chronic kidney disease, with long-term current use of insulin ([facility]) Use to test blood sugar 4 times a day and as needed for low blood sugar. E11.9 100 Strip 1 03/13/2023 Active Cyclobenzaprine HCl 5 MG Oral Tablet (Flexeril) Take 1 Tablet by mouth 3 times a day as needed for Muscle spasms. 30 Tablet 1 04/07/2023 Active Rosuvastatin Calcium 40 MG Oral Tablet (Crestor)Indications: Dyslipidemia, goal LDL below 70 Take 1 Tablet by mouth in the morning. 90 Tablet 3 04/21/2023 Active Fluticasone Furoate-Vilanterol 100-25 MCG/ACT Inhalation Aerosol Powder Breath Activated (BREO ellipta) Inhale 1 Puff by mouth in the morning. 60 Each 11 05/10/2023 Active Hospital, Clinic, or Other Facility Administered Medication Ordered Dose Route Frequency Start Date End Date Status Albuterol Sulfate (Proventil) (5 MG/ML) 0.5% *conc* inhalation solution 2.5 mgIndications:COPD, group D, by GOLD 2017 classification ([facility]) 2.5 mg NEBULIZER PRN 09/13/2022 09/13/2023 Acti ve Albuterol Sulfate (Proventil) (2.5 MG/3ML) 0.083% inhalation solution 2.5 mgIndications:COPD, group D, by GOLD 2017 classification ([facility]) 2.5 mg NEBULIZER PRN 09/13/2022 09/13/2023 Acti ve documented as of this encounter (statuses as of 05/14/2023) Active Problems Problem Noted Date Chronic kidney disease, stage 4 (severe) 04/07/2023 Overview: Per CKD protocol Type 2 diabetes mellitus wit h stage 4 chronic kidney disease, with long-term current use of insulin 04/07/2023 Overview: Per CKD protocol Hypertensive kidney disease with chronic kidney disease stage IV 04/07/2023 Overview: Per CKD protocol Hyperkalemia 02/17/2022 Diastolic dysfunction with chronic heart failure 08/29/2021 Hereditary corneal dystrophy 08/08/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, group D, by GOLD 2017 classificati on 10/04/2019 Overview: Per COPD GOLD Classification TIA (transient ischemic attack) 08/12/19 20 Open angle with borderline findings, 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 [address]--t sope--gr 2 IH History of tobacco use 03/28/2016 Overview: 1.5 ppd x 17 year, quit 1974 Asymptomatic bilateral carotid artery st enosis 03/28/2016 Dyslipidemia, goal LDL below 70 03/28/20 16 Gastroesophageal reflux disease without esophagitis 03/28/2016 Overview: on dexilant--has fu DrCase>> EGD 07/07/13-gastritis, bx CG-mod, neg HP;UGI 05/11--mild eso dysmotility, gastritis(nl amylase,lipase,lft, hb 13.7) Hx laparoscopic cholecystectomy 01/05/20 10 Overview: 12/2009 --for chr cs Age-related osteoporosis without current pathological fracture 05/18/2008 Overview: 05/1290-QI-xcxhot-ct drug holiday -rpt 2 yrs>>>05/14--2/-2.2-inc at LS, unchg hip- rpt 2 yrs dexa 02/05--L-M Risk--DrKrystian dc fosamax and rec fu 2 yrs History of pulmonary embolus (PE) 2007 Overview: In 2007----Rt sub seg- was on coumadin x 8 mths per pt Chronic chest pain 08/31/2007 Overview: 06/28/16-neg lexiscan, ef 70% Paroxysmal atrial tachycardia 08/31/2007 Idiopathic pericardial effusion 08/18/19 Overview: 10/02-cxr px-given levaquin, D Dimer+ Ct chest +PE--right subsegmental pulmonary embolus-was on coumadin x 8 mths dc in 04/2008>initially diagnosed with a pericardial effusion. It was determined to be idiopathic and responded to steroids. In the interim since she was readmitted for CP and SOB. PE was ruled out, as was [place] by stress testing. S/P carotid endarterectomy 07/30/2004 Overview: Left carotid endarterectomy with patch by Dr. Bryson 06/27/04; doppler 2010--lt 50-69%, Rt <50%>>>same 04/12 Carotid doppler done 03/18/06 with [facility] documented as of this encounter (statuses as of 05/14/2023) Resolved Problems Problem Noted Date Resolved Date Type 2 diabetes mellitus wit h stage 3b chronic kidney disease, with long-term current use of insulin 09/10/2021 023 Overview: Per CKD protocol Chronic kidney disease, stage 3b 09/10/2021 04/10/2023 Overview: Per CKD protocol Chronic kidney disease, stage 3a 01/09/2021 09/12/2021 Overview: Per CKD protocol Type 2 diabetes mellitus wit h stage 3a chronic kidney disease, with long-term current use of insulin 12/05/2020 022 Overview: Per CKD protocol Hypertensive kidney disease with stage 3b chronic kidney disease 06/05/2020 04/10/2023 Overview: Per CKD protocol Hypertensive kidney disease with chronic kidney disease stage III 10/06/2018 06/08/2020 Overview: Per CKD protocol HTN, goal below 130/80 01/02/2018 3 Venous stasis 10/07/2017 10/05/2018 Pap smear for cervical cancer screening 04/29/20 16 04/29/2018 Overview: Neg 08/2008; 09/2010 Chronic kidney disease with symptom management only, stage 3 (moderate) 04/29/2016 06/08/2020 Panlobular emphysema 03/28/2016 08/29/2021 Overview: On CT 2007 Lichen sclerosus et atrophicus of the vulva 07/201504/07/2017 Postmenopausal atrophic vaginitis 03/28/2016 04/07/2017 Heart failure, etiology unknown 05/25/2009 01/24/2014 Overview: Per Heart Failure Taxonomy Protocol. Dementia in conditions class ified elsewhere without behavioral disturbance 10/23/2007 03/28/2016 Diarrhea 10/23/2007 03/28/2016 Abdominal pain, generalized 10/23/200707/2015 [facility] current use of anticoagulant therapy 0 09/23/2007 03/28/2016 Overview: ICD-10 update of inactive term Anticoagulation management encounter 09/23/2007 03/28/2016 Shortness of breath 09/14/2007 09/01/2008 Overview: Resolved per Duplicate Protocol #2. Orthostatic hypotension 08/31/2007 03/28/20 16 Pleural effusion 08/31/2007 03/28/2016 Bacteremia 08/18/2007 03/28/2016 Dysuria 08/18/2007 03/28/2016 DM type 2, not at goal 08/18/2007 6 Type 2 diabetes mellitus wit h stage 3 chronic kidney disease, with long-term current use of insulin 08/11/2007 021 Anemia 08/11/2007 04/29/2016 Heart failure, etiology unknown 08/11/2007 05/25/2009 Overview: Per Heart Failure Taxonomy Protocol. Shortness of breath 08/11/2007 03/28/2016 Cough 08/11/2007 04/29/2016 documented as of this encounter (statuses as of 05/14/2023) Immunizations Name Administration Dates Next Due COVID-19 mRNA, LNP-s, No Pre serve, 2-Dose Series (Moderna) 09/27/2020,08/30/2020 COVID-19, mRNA, LNP-s, PF, B ooster, 100mcg/0.5mg (Moderna) 09/03/2021 Pneumococcal Conjugate Vacc, 13 Valent (Prevnar) 12/30/2016,08/21/2015 Pneumococcal Polysaccharide PPV23 (Pneumovax) 08/21/2015,07/28/2005,05/31/2005 SEASONAL INFLUENZA, PF, 6 M & Above, IM , (FLULAVAL or FLUZONE) 05/26/2019,06/03/2018,05/13/2017 Season Influenza, Quad, PF, Adjuvanted, 65+ Yrs, IM (FLUAD) 05/23/2020 Seasonal Influenza, QUAD, wi th Preserv, 6 mons & Above, 0.5 mL, IM 05/20/2016,05/23/2015,07/20/2014,05/18,03/28/2012,08/07/2011,05/03/2003 ,06/29/2002 Seasonal Influenza, Quadriva lent Hd (Fluzone Hd) 04/09/2022,05/01/2021 Seasonal Influenza, Quadriva lent, No Preserve, IM 05/20/2016,05/23/2015 Seasonal Influenza, Split, I IV3, With Preserve, Inj 05/18/2013,03/28/2012,08/07/2011 TD - Tetanus/Diptheria (ADULT) 11/22/2003 TD, Preservative Free 11/22/2003 TDAP (age 10 and older)(Boostrix) 10/15/2016 Varicella Zoster Vaccine (Adult) 03/28/2012 Zoster Vaccine Recombinant (Shingrix) 03/26/2020 ,03/21/2020 documented as of this encounter Social History Tobacco Use Types Packs/Day Years Used Date Smoking Tobacco: Former Cigarettes 1.5 17 Q uit: 07/28/1974 Passive Smoke Exposure: Past Smokeless Tobacco: Never Alcohol Use Standard Drinks/Week Comments Yes 0 (1 standard drink = 0.6 oz pur e alcohol) rare Food Insecurity Answer Date Recorded Within the past 12 months, y ou worried that your food would run out before you got money to buy more. Never true 2019 Within the past 12 months, t he food you bought just didn't last and you didn't have money to get more. Never true 2019 Sex Assigned at Date Recorded Female 2019 1:[address] Job Start Date Occupation Industry Not on file Not on file Not on file documented as of this encounter Miscellaneous Notes * Telephone Encounter - Cathleen Lundy LPN - 05/14/2023 12:46 PM EDT Care Gaps Comprehensive Care Outreach Last Office/Telemedicine Visit: 04/07/2023 (in office), Visit date not found (telemedicine) Next Office Visit: 07/15/2023 Hemoglobin AIC Results: Lab Results Component Value Date/Time HEMOGLOBIN A1C - [facility] 6.8 (H) 04/04/2023 02:26 PM HEMOGLOBIN A1C - [facility] 6.9 (H) 09/10/2022 01:32 PM HEMOGLOBIN A1C - [facility] 7.1 (H) 07/15/2022 01:30 PM HEMOGLOBIN A1C - [facility] 7.2 (H) 07/04/2020 09:19 AM HEMOGLOBIN A1C - [facility] 8.4 (H) 08/24/2019 10:22 AM HEMOGLOBIN A1C - [facility] 7.6 (H) 04/12/2019 01:19 PM Reviewed Health Maintenance below: Health Maintenance Topic Date Due Zoster Vaccines (2 of 2) 05/21/2020 Depression Screening 03/06/2021 *ADVANCE DIRECTIVE NOT ON FILE Never done DIABETES-EYE EXAM 08/24/2022 Influenza Vaccine (FLU shot) (1) 03/28/2023 COVID-19 Vaccine (4 - 2023-24 season) 2023 Phosphate 07/15/2023 Hgb 07/15/2023 Eye will make appt Lab ordered Care Gap Outreach Action Taken: Spoke to patient documented in this encounter Plan of Treatment Upcoming Encounters Date Type Specialty Care Team Description 06/02/2023 Nurse Only Rheumatology Pf, Nurse Rheum [address] [place] [address] 06/06/2023 Office Visit Cardiology Deonte Marin PA-C [address] [place] [address] 07/15/2023 Office Visit Family Medicine Paz Daniels MD [address] [place] [address] Scheduled Orders Name Type Priority Associated Diagnoses Orde r Schedule CBC Lab Routine Chronic kidney disease, unspecified CKD stage Expected: 05/14/2023, Expires: 05/14/2024 Health Maintenance Due Date Last Done Comments Zoster Vaccines (2 of 2) 05/21/2020 020, 03/21/2020, 03/28/2012 Depression Screening 03/06/2021 03/06/2020 *ADVANCE DIRECTIVE NOT ON FILE 03/16/2022 DIABETES-EYE EXAM 08/24/2022 08/24/2021, , 03/09/2019, Additional history exists COVID-19 Vaccine ( season) 2023 09/03/2021, 09/27/2020, 08/30/2020 Influenza Vaccine (FLU shot) (#1) 2023 04/09/2022, 05/01/2021, 05/23/2020, Additional history exists Hgb 07/15/2023 07/15/2022, 11/0 02/2021, 07/04/2020, Additional history exists Phosphate 07/15/2023 07/15/2022, 10/27, 07/04/2020, Additional history exists Albumin/Creatinine Ratio 09/12/2023 023, 06/11/2021, 05/23/2020, Additional history exists Nephrology Referral 09/12/2023 09/12/2022 GFR 10/03/2023 04/04/2023, 05/0 12/2022, 09/10/2022, Additional history exists HbA1c 10/03/2023 04/04/2023, 08/28, 07/15/2022, Additional history exists Diabetic Foot Exam 01/08/2024 01/07/2023, 0 10/10/2021, 09/04/2020, Additional history exists PTH 04/04/2024 04/04/2023, 08/28, 06/04/2021, Additional history exists O2 ASSESSMENT COMPLETED IN PAST YEAR FOR COPD 04/07/2024 04/07/2023 DXA Scan 05/21/2024 05/21/2022, 04/28, 05/18/2018, Additional history exists DTaP,Tdap,and Td Vaccines (2 - Td or Tdap) 10/15/2026 10/15/2016, 11/22/2003, 11/22/2003 Pneumococcal Vaccine: 65+ Years Completed 12/30/2016, 08/21/2015, 08/21/2015, Additional history exists Alpha-1 Antitrypsin Completed 11/14/2020 VITAMIN D LEVEL ONCE IN A LIFETIME-USE SMARTSET# [id number] Completed 11/30/2022, 05/25/2022, 08/27/2021, Additional history exists GARDASIL-HPV IMMUNIZATION SERIES Aged Out No longer eligible based on patient's age to complete this topic Hepatitis B Aged Out No longer eligi ble based on patient's age to complete this topic MENINGOCOCCAL (MENACTRA/MENVEO) Aged Out No longer eligible based on patient's age to complete this topic documented as of this encounter Medical Devices Not on filedocumented as of this encounter Visit Diagnoses Diagnosis Chronic kidney disease, unspecified CKD stage- Primary documented in this encounter Care Teams Continuous 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
--- OUTSIDE RECORDS SUMMARY | 2023-06-10 14:24 | External Medical Summary | Summary of Care ---
Author Name Unknown Organization [facility] Address [address] [place] [address] Phone [phone] Care Team Providers Care Barrel Ribs Solderer Name Role Phone Paz Daniels MD Primary Care Provid er Reason for Visit * Reason Onset Date Comments Medication Refill 05/06/2023 Encounter Details Date Type Department Care Team Description 05/06/2023 Telephone Pulmonary Medicine, [facility] [address] [facility] [place] [address] Nicolas Alarcon [facility] [address] [id number] Medication Refill Allergies Active Allergy Reactions Severity Noted Date Comments Amlodipine Edema Other 08/26/2017 Metformin 03/28/2016 diarrhea Penicillins Itching,Rash 04/07/2017 Sulfa Antibiotics Unknown 08/31/2007 Azithromycin 03/28/2016 documented as of this encounter (statuses as of 05/12/2023) Medications Medication Sig Dispensed Refills Start Date [...] as needed for Pain, Chest. 25 Tablet 07/31/2022 Active Vitamin D 25 MCG (1000 [...] units daily 15 mL 11/19/2022 Active Pen Colwell 5/16" 31G X 8 MMIndications:Type 2 diabetes [...] disease, with long-term current use of insulin ([facility]) Use to test blood sugar [...] mgIndications:COPD, group D, by GOLD 2017 classification ([facility]) 2.5 mg NEBULIZER PRN 09/13/2022 09/13/2023 Acti ve Albuterol Sulfate (Proventil) (2.5 MG/3ML) 0.083% inhalation solution 2.5 mgIndications:COPD, group D, by GOLD 2017 classification ([facility]) 2.5 mg NEBULIZER PRN 09/13/2022 09/13/2023 Acti ve documented as of this encounter (statuses as of 05/12/2023) Active Problems Problem Noted Date Chronic kidney [...] 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 Upon chart review, medication is listed as as of 04/03/23 . Please advise if you wish to continue this therapy for the patient. Thank You, Susi Jones CPhT Machine Cloth Measurer II [facility] (Formerly [facility]) 05/06/2023, 10:36 AM documented in this encounter Plan of Treatment Upcoming Encounters Date Type Specialty Care Team Description 06/02/2023 Nurse Only Rheumatology Pf, Nurse Rheum [address] [place] [address] 06/06/2023 Office Visit Cardiology Deonte Marin PA-C [address] [place] [address] 07/15/2023 Office Visit Family Medicine Paz Daniels MD [address] [place] [address] Health Maintenance Due Date Last Done Comments [...] 07/04/2020, Additional history exists Phosphate 07/15/2023 07/15/2022, 04/2 , 07/04/2020, Additional history exists Albumin/Creatinine Ratio 09/12/2023 [...] D LEVEL ONCE IN A LIFETIME-USE SMARTSET# [id number] Completed 11/30/2022, 05/25/2022, 08/27/2021, Additional history exists [...] Not on filedocumented as of this encounter Care Teams Barrel Ribs Solderer Relationship Specialty Start Date End Date Paz Daniels MD [address] [place] [address] PCP - General Family Medicine 11/27/20 documented as of this encounter
--- OUTSIDE RECORDS SUMMARY | 2023-06-10 14:24 | External Medical Summary | Summary of Care ---
Author Name Unknown Organization [facility] Address [address] [place] [address] Phone [phone] Care Team Providers Care Ethanol Quality Leader Name Role Phone Paz Daniels MD Primary Care Provid er Reason for Visit * Reason Onset Date Comments Medication Administration prolia Medication Administration 06/02/2023 Prolia * Precert (Within 30 days (routine)) - Closed Specialty Diagnoses / Procedures Referred By Contac t Referred To Contact Diagnoses Age-related osteoporosis without current pathological fracture Procedures [place] DENOSUMAB INJECTION Mayte Bradley PA-C [address] [place] [address] Mayte Bradley PA-C [address] [place] [address] Referral ID Status Reason Start Date Expiration Date V isits Requested Visits Authorized [id number] Closed Precert 10/27/2022 10/26/2023 2 2 Encounter Details Date Type Department Care Team (Late st Contact Info) Description 06/02/2023 10:30 AM EST Nurse Only Rheumatology [facility] [address] [place] [address] Pf, Nurse Rheum [facility] [place] [address] Medication Administration (prolia); Medica... Allergies Active Allergy Reactions Criticality Noted Date Comments Amlodipine Edema Other 08/26/2017 Metformin 03/28/2016 diarrhea Penicillins Itching,Rash 04/07/2017 Sulfa Antibiotics Unknown 08/31/2007 Azithromycin 03/28/2016 documented as of this encounter (statuses as of 06/02/2023) Medications Medication Sig Dispensed Refills Start Date End Date Status VITAMIN B-12 CR 1000 MCG PO TBCR take on daily 0 08/11/2007 Active Biotin 5000 MCG Capsule Take 1 Capsule by mouth in the morning. 0 04/29/2018 Active Glucose Blood (FREESTYLE PRECISION MARTIN TEST) STRP Use to test blood sugars up to twice daily with freestyle bernabe 100 Strip 11 08/20/2018 Active Bisacodyl 5 MG Oral Tablet Delayed Release Take 1 Tablet by mouth daily as needed for Constipation. Do not use for more than one week. Do not cut, crush or chew-taking 4d/wk 40 Tab 1 08/25/2020 Active Loratadine 10 MG Oral Tablet Take 1 Tablet by mouth daily as needed. 0 Active FreeStyle Bernabe 14 Day Sensor Use as directed. 2 [...] 140 up to 40 units/day 45 mL 04/17/2022 Active Ipratropium-Albuterol 20-100 MCG/ACT Inhalation Aerosol [...] unspecified whether stage 3a or 3b CKD ([facility]) Inject 36 units once daily or as directed per titration up to 50 units daily 15 mL 11 11/19/2022 Active Pen [place] 5/16" 31G X 8 MMIndications:Type 2 diabetes mellitus with stage 3b chronic kidney disease, with long-term current use of insulin ([facility]) Use as directed. Use to inject Xultophy and Novolog 5 times daily as directed 500 Each 3 01/29/2023 Active FreeStyle Precision Martin Test In Vitro Strip (Glucose Blood)Indications:Typ e 2 diabetes mellitus with stage 3b chronic kidney disease, with long-term current use of insulin ([facility]) Use to test blood sugar 4 times [...] D, by GOLD 2017 classification ([facility]) 2.5 mg NEBULIZER PRN 09/13/2022 09/13/2023 Acti ve Albuterol Sulfate (Proventil) (2.5 MG/3ML) 0.083% inhalation solution 2.5 mgIndications:COPD, group D, by GOLD 2017 classification ([facility]) 2.5 mg NEBULIZER PRN 09/13/2022 09/13/2023 Acti ve Denosumab (Prolia) subcut inj 60 mgIndications:Senile osteoporosis 60 mg SC ONCE 06/02/2023 06/02/2023 Ended documented as of this encounter (statuses as of 06/02/2023) Active Problems Problem Noted Date Diagnosed Date Chronic kidney disease, stage 4 (severe) 023 Overview: Per CKD protocol Type 2 diabetes mellitus wit h stage 4 chronic kidney disease, with long-term current use of insulin 04/07/2023 Overview: Per CKD protocol Hypertensive kidney disease with chronic kidney disease stage IV 04/07/2023 Overview: Per CKD protocol Hyperkalemia 02/17/2022 Diastolic dysfunction with chronic heart failure 08/29/2021 Hereditary corneal dystrophy 08/08/2020 COPD, group D, by GOLD 2017 classification 10/03 Overview: Per COPD GOLD Classification TIA (transient ischemic attack) 08/12/2019 Open angle with borderline findings, high risk, bilateral 04/30/2019 Low tension glaucoma 04/30/2019 Recurrent UTI (urinary tract infection) 04/09/20 18 Overview: 01/16/18;03/26/18,05/14,10/13--st keflex Abnormal TSH 01/16/2018 ACEI/ARB contraindicated 04/07/2017 Overview: Hi K Diabetes mellitus with background retinopathy H/O mammogram 04/29/2016 Overview: Neg 2008;,03/07;04/08,05/09;05/30/14; 05/03/16;10/12-entirely fat Hyperplastic polyp of ascending colon 04/29/2016 Overview: 01/12/2014--2mm cecal P- 5mm sig P, 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 [address]--i sope--gr 2 IH History of tobacco use 03/28/2016 Overview: 1.5 ppd x 17 year, quit 1974 Asymptomatic bilateral carotid artery stenosis 0 03/28/2016 Dyslipidemia, goal LDL below 70 03/28/2016 Gastroesophageal reflux disease without esophagi tis 03/28/2016 Overview: on dexilant--has fu DrCase>> EGD 07/07/13-gastritis, bx CG-mod, neg HP;UGI 05/11--mild eso dysmotility, gastritis(nl amylase,lipase,lft, hb 13.7) Hx laparoscopic cholecystectomy 01/04/2010 Overview: 12/2009 --for chr cs Age-related osteoporosis wit hout current pathological fracture 05/18/2008 Overview: 05/1284-AY-zefxkm-ct drug holiday -rpt 2 yrs>>>05/14--2/-2.2-inc at [place], unchg hip- rpt 2 yrs dexa 02/05--L-M Risk--DrKrystian dc fosamax and rec fu 2 yrs History of pulmonary embolus (PE) 09/23/2007 Overview: In 2007----Rt sub seg- was on coumadin x 8 mths per pt Chronic chest pain 08/31/2007 Overview: 06/28/16-neg lexiscan, ef 70% Paroxysmal atrial tachycardia 08/31/2007 Idiopathic pericardial effusion 08/18/2007 Overview: 10/02-cxr px-given levaquin, D Dimer+ Ct [...] <50%>>>same 04/12 Carotid doppler done 03/18/06 with [facility] documented as of this encounter (statuses as of 06/02/2023) Resolved Problems Problem Noted Date Diagnosed Date Resolved Date Type 2 diabetes mellitus wit h stage 3b chronic kidney disease, with long-term current use of insulin 09/10/2021 04/10/2023 Overview: Per CKD protocol Chronic kidney disease, stage 3b 09/10/2021 04/10/2023 Overview: Per CKD protocol Chronic kidney disease, stage 3a 01/09/2021 09/12/2021 Overview: Per CKD protocol Type 2 diabetes mellitus wit h stage 3a chronic kidney disease, with long-term current use of insulin 12/05/2020 09/12/2021 Overview: Per CKD protocol Hypertensive kidney disease with stage 3b chronic kidney disease 06/05/2020 04/10/2023 Overview: Per CKD protocol Hypertensive kidney disease with chronic kidney disease stage III 10/06/2018 06/08/2020 Overview: Per CKD protocol HTN, goal below 130/80 01/02/201804/07 Venous stasis 10/07/2017 10/05/2018 Pap smear for cervical cancer screening 04/29/2016 04/29/2018 Overview: Neg 08/2008; 09/2010 Chronic kidney disease with symptom management only, stage 3 (moderate) 04/29/201605/28 Panlobular emphysema 03/28/2016 022 Overview: On CT 2007 Lichen sclerosus et atrophicus of the vulva 03/28/2016 04/07/2017 Postmenopausal atrophic vaginitis 03/28/2016 04/07/2017 Heart failure, etiology unknown 05/25/2009 01/24/2014 Overview: Per Heart Failure Taxonomy Protocol. Dementia in conditions class ified elsewhere without behavioral disturbance 10/23/2007 6 Diarrhea 10/23/2007 03/28/2016 Abdominal pain, generalized 10/23/2007 03/28/2016 long-term current use of ant icoagulant therapy 09/23/2007 03/28/2016 Overview: ICD-10 update of inactive term Anticoagulation management encounter 09/23/2007 03/28/2016 Shortness of breath 09/14/2007 09/01/19 09 Overview: Resolved per Duplicate Protocol #2. Orthostatic hypotension 08/31/2007 0907/2015 Pleural effusion 08/31/2007 03/28/2016 Bacteremia 08/18/2007 03/28/2016 Dysuria 08/18/2007 03/28/2016 DM type 2, not at goal 08/18/200703/28 Type 2 diabetes mellitus wit h stage 3 chronic kidney disease, with long-term current use of insulin 08/11/2007 12/07/2020 Anemia 08/11/2007 04/29/2016 Heart failure, etiology unknown 08/11/2007 05/25/2009 Overview: Per Heart Failure Taxonomy Protocol. Shortness of breath 08/11/2007 03/28/20 16 Cough 08/11/2007 04/29/2016 documented as of this encounter (statuses as of 06/02/2023) Immunizations Name Administration Dates Next Due COVID-19 [...] Passive Smoke Exposure: Past Smokeless Tobacco: Never Tobacco Cessation:Counseling Given: Not Answered Alcohol Use Standard Drinks/Week Comments Yes 0 (1 standard drink = 0.6 oz pur e alcohol) rare PHQ-2 Answer Date Recorded PHQ-2 Score 1 03/06/2020 Hunger Vital Sign Answer Date Recorded Worried About Running Out of Food in the Last Ye ar Never true 2019 Ran Out of Food in the Last Year Never true 2019 Sex and Gender Information Value Date Recorded Sex Assigned at Female 2019 1:42 PM EST Gender Identity Female 2019 1:42 PM EST Sexual Orientation Straight 2019 1: 42 PM EST Job Start Date Occupation Industry Not on file Not on file Not on file documented as of this encounter Last Filed Vital Signs Vital Sign Reading Time Taken Comments Blood Pressure - - Pulse - - Temperature 37.2 C (98.9 F) 06/02/2023 10:[address] Respiratory Rate - - Oxygen Saturation - - Inhaled Oxygen Concentration - - Weight - - Height - - Body Mass Index - - documented in this encounter Progress Notes * Val Chauhan LPN - 06/02/2023 11:03 AM EST Clari Bennett presents today for administration of Prolia. She understands the benefits and risks of this treatment. An educational pamphlet was given to the patient. Prolia 60 mg was administered subcutaneously. The patient tolerated the procedure without problems. She will return in 6 months for the next injection and evaluation. Val Chauhan LPN documented in this encounter Plan of Treatment Upcoming Encounters Date Type Department Care Team (Late st Contact Info) Description 06/06/2023 8:30 AM EST Office Visit Cardiology, [facility] [address] [place] [address] Deonte Marin PA-C [address] [place] [address] 07/15/2023 1:00 PM EST Office Visit [facility] [address] [place] [address] Paz Daniels MD [address] [place] [address] 12/05/2023 9:00 AM EDT Office Visit Rheumatology [address] [place] [address] Anthony Lindsey CRNP [facility] [employer] [address] Health Maintenance Due Date Last Done Comments Hepatitis B (1 of 3 - Risk 3-dose series) 1998 Zoster Vaccines (3 of 3) 05/21/2020 020, 03/21/2020, 03/28/2012 Depression Screening 03/06/2021 03/06/2020 *ADVANCE DIRECTIVE NOT ON FILE 03/16/2022 COVID-19 Vaccine ( season) 2023 09/03/2021, 09/27/2020, [...] 04/04/2023, 08/28, 07/15/2022, Additional history exists Diabetic Eye Exam 10/22/2023 10/21/2022, , 02/04/2020, Additional history exists Diabetic Foot Exam 01/08/2024 [...] D LEVEL ONCE IN A LIFETIME-USE SMARTSET# 18867 Completed 11/30/2022, 05/25/2022, 08/27/2021, Additional history exists GARDASIL-HPV IMMUNIZATION SERIES Aged Out No longer eligible based on patient's age to complete this topic MENINGOCOCCAL (MENACTRA/MENVEO) Aged Out No longer eligible based on patient's age to complete this topic documented as of this encounter Medical Devices Not on filedocumented as of this encounter Visit Diagnoses Diagnosis Senile osteoporosis- Primary documented in this encounter Administered Medications Inactive Administered Medications - up to 3 most recent administrations Medication Order MAR Action Action Date Dose Rate Site Denosumab (Prolia) subcut inj 60 mg 60 mg, Subcutaneous, ONCE, On Fri06/02/23 at 1115, For 1 dose Given 06/02/2023 11:03 AM EST 60 mg Arm Right Upper documented in this encounter Care Teams Ethanol Quality Leader Relationship Specialty Start Date End Date Paz Daniels MD [address] [place] [address] PCP - General Family Medicine 11/27/20 documented as of this encounter
--- OUTSIDE RECORDS SUMMARY | 2023-06-10 14:25 | External Medical Summary ---
Author Name Unknown Address Unknown Organization K01:[facility] [place] - [address] [facility] [address] Laboratory Report Ordering Provider Test Date Status WENDY GLEZ 04/04/2023 14:26:57 Final Observation Date Value Abnormality Reference (Units ) Status Parathyrin.intact [Mass/volume] in Serum or Plasma 04/04/2023 14:26:57 45 15-65 (pg/mL) Final Performing Location [facility] [place] - [address] [facility] [address]
--- OUTSIDE RECORDS SUMMARY | 2023-06-10 14:25 | External Medical Summary ---
Author Name Unknown Address Unknown Organization K09:[facility] [place] [address] Laboratory Report Ordering Provider Test Date Status WENDY GLEZ 04/04/2023 14:26:57 Final Observation Date Value Abnormality Reference (Units ) Status BUN 04/04/2023 14:26:57 36 Above high normal 6-20 (mg/dL) Final Creatinine 04/04/2023 14:26:57 1.7 Above high normal 0.5-1.0 (mg/dL) Final Glomerular filtration rate/1.73 sq M.predicted [Volume Rate/Area] in Serum, Plasma or Blood by Creatinine-based formula (CKD-EPI) 04/04/2023 14:26:57 29 Below low normal >=60 (mL/min) Final eGFR is calculated based on the CKD-EPI 2020 equation SODIUM 04/04/2023 14:26:57 139 135-146 (m mol/L) Final Potassium 04/04/2023 14:26:57 4.8 3.5-5.1 (m mol/L) Final Cl 04/04/2023 14:26:57 100 98-107 (mm ol/L) Final CO2 04/04/2023 14:26:57 26 22-32 (mmo l/L) Final Anion gap 04/04/2023 14:26:57 13 7-15 (mmol /L) Final Glucose 04/04/2023 14:26:57 83 70-120 (mg /dL) Final Calcium 04/04/2023 14:26:57 10.3 Above high normal 8. 4-10.2 (mg/dL) Final Performing Location [facility] [place] [address]
--- OUTSIDE RECORDS SUMMARY | 2023-06-10 14:25 | External Medical Summary | Summary of Care ---
Author Name Unknown Organization [facility] Address [address] [place] [address] Phone [phone] Care Team Providers Care Connie Scratcher Name Role Phone Paz Daniels MD Primary Care Provid er Reason for Referral * Precert (Within 10 days (routine)) - Pending Review Specialty Diagnoses / Procedures Referred By Contac t Referred To Contact Cardiac Studies Diagnoses Syncope and collapse Diastolic dysfunction with chronic heart failure (HCC) Procedures ECHO, COMPLETE (2D), TRANS-THORACIC Sher Cortez MD [address] [place] [address] Referral ID Status Reason Start Date Expiration Date Visits Requested Visits Authorized [id number] Pending Review Precert 04/07/2023 999 999 Reason for Visit * Reason Comments Acute Pt fell about a week ago due to passing out. Pt has pain with inhaling and right shoulder has pain. Encounter Details Date Type Department Care Team Description 04/07/2023 Office Visit [facility] [address] [place] [address] Sher Cortez MD [address] [place] [address] Syncope and collapse*; Diastolic dysfunction with chronic heart failure (HCC); Hypotension, unspecified hypotension type; Dizziness; Asymptomatic bilateral carotid artery stenosis; S/P carotid endarterectomy; Type 2 diabetes mellitus with stage 3b chronic kidney disease, with long-term current use of insulin (HCC) Allergies Active Allergy Reactions Severity Noted Date Comments Amlodipine Edema Other 08/26/2017 Metformin 03/28/2016 diarrhea Penicillins Itching,Rash 04/07/2017 Sulfa Antibiotics Unknown 08/31/2007 Azithromycin 03/28/2016 documented as of this encounter (statuses as of 04/07/2023) Medications Medication Sig Dispensed Refills Start Date [...] Day Sensor Use as directed. 2 Each 11 11/24/2020 Active Aspirin 81 MG Oral Tablet Delayed Release Take 2 Tablets by mouth in the morning. 0 Active Advanced Probiotic 10 Oral Capsule Take 1 Capsule by mouth in the morning. 0 Active Vitamin C 1000 MG Oral Tablet Take 1 Tablet by mouth in the morning. 0 Active Rosuvastatin Calcium 40 MG Oral Tablet (Crestor) Take by mouth 1 Tablet in the morning. 90 Tablet 3 04/02/2022 Active NovoLOG FlexPen 100 UNIT/ML Subcutaneous Solution [...] with symptom management only, stage 3 (moderate) ([facility]),Bilateral leg edema TAKE 1 TABLET BY MOUTH [...] unspecified whether stage 3a or 3b CKD ([facility]) Inject 36 units once daily or as directed per titration up to 50 units daily 15 mL 11 11/19/2022 Active [place] 5/16" 31G X 8 MMIndications:Type 2 diabetes mellitus with stage 3b chronic kidney disease, with long-term current use of insulin ([facility]) Use as directed. Use to inject Xultophy and Novolog 5 times daily as directed 500 Each 3 01/29/2023 Active FreeStyle Precision Martin Test In Vitro Strip (Glucose Blood)Indications:Typ e 2 diabetes mellitus with stage 3b chronic kidney disease, with long-term current use of insulin ([facility]) Use to test blood sugar 4 times a day and as needed for low blood sugar. E11.9 100 Strip 1 03/13/2023 Active Cyclobenzaprine HCl 5 MG Oral Tablet (Flexeril) Take 1 Tablet by mouth 3 times a day as needed for Muscle spasms. 30 Tablet 1 04/07/2023 Active Hospital, Clinic, or Other Facility Administered Medication Ordered Dose Route Frequency Start Date End Date Status Albuterol Sulfate (Proventil) (5 MG/ML) 0.5% *conc* inhalation solution 2.5 mgIndications:COPD, group D, by GOLD 2017 classification ([facility]) 2.5 mg NEBULIZER PRN 09/13/2022 09/13/2023 Acti ve Albuterol Sulfate (Proventil) (2.5 MG/3ML) 0.083% inhalation solution 2.5 mgIndications:COPD, group D, by GOLD 2017 classification ([facility]) 2.5 mg NEBULIZER PRN 09/13/2022 09/13/2023 Acti ve documented as of this encounter (statuses as of 04/07/2023) Active Problems Problem Noted Date Hyperkalemia 02/17/2022 Type 2 diabetes mellitus wit h stage 3b chronic kidney disease, with long-term current use of insulin 09/10/2021 Overview: Per CKD protocol Chronic kidney disease, stage 3b 022 Overview: Per CKD protocol Diastolic dysfunction with chronic heart failure 08/29/2021 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 08 Overview: 10/02-cxr px-given levaquin, D Dimer+ Ct [...] <50%>>>same 04/12 Carotid doppler done 03/18/06 with [facility] documented as of this encounter (statuses as of 04/07/2023) Resolved Problems Problem Noted Date Resolved Date Chronic kidney disease, stage 3a 01/09/2021 09/12/2021 [...] Diarrhea 10/23/2007 03/28/2016 Abdominal pain, generalized 10/23/200707/2015 longterm current use of anticoagulant therapy 0 09/23/2007 [...] as of this encounter (statuses as of 04/07/2023) Immunizations Name Administration Dates Next Due COVID-19 mRNA, LNP-s, No Pre serve, 2-Dose Series (Moderna) 09/27/2020,08/30/2020 COVID-19, mRNA, LNP-s, PF, B ooster, 100mcg/0.5mg (Moderna) 09/03/2021 Pneumococcal Conjugate Vacc, 13 Valent (Prevnar) 12/30/2016,08/21/2015 Pneumococcal Polysaccharide PPV23 (Pneumovax) 08/21/2015,07/28/2005,05/31/2005 Season Influenza, Quad, PF, Adjuvanted, 65+ Yrs, IM (FLUAD) 05/23/2020 Seasonal Influenza, PF, 6 mo ns & Above, IM , (Flulaval) 05/26/2019,06/03/2018,05/13/2017 Seasonal Influenza, QUAD, wi th Preserv, 6 [...] Sign Reading Time Taken Comments Blood Pressure 102/60 04/07/2023 2:55 PM EDT Pulse 80 04/07/2023 2:55 PM EDT Temperature 35.6 C (96 F) 04/07/2023 2:55 PM EDT Respiratory Rate 20 04/07/2023 2:55 PM EDT Oxygen Saturation 97% 04/07/2023 2:55 PM EDT Inhaled Oxygen Concentration - - Weight 83.3 kg (183 lb 11.2 oz) 04/07/2023 2:55 PM EDT Height - - Body Mass Index 31.53 01/03/2023 11:34 AM EDT documented in this encounter Progress Notes * Sher Cortez MD - 04/07/2023 3:24 PM EDT Subjective Clari Bennett is a 82 year old female. Chief Complaint Patient presents with Acute Pt fell about a week ago due to passing out. Pt has pain with inhaling and right shoulder has pain. HPI: Here for whole body pain from recent fall, syncope episode at home one week ago Not witnessed , next to her And she passed out but woke up right after she fell down Has rt upper back , neck pain, rib pain but does not think she has any fracture Didn't hit her head Does not know how it happened , but admits that she does not drink enough water Known CKD, type 2 DM insulin dependent and CHF diastolic and carotid a stenosis with lt carotid a surgery hx Last 2D echo in 2019 Last carotid a doppler this Apr Taking lasix 20 mg for CHF, stable , no leg swelling Noticed low BP nowadays Gets mild dizziness occ too Denies SOB, chest , palpitation, fever, sick feeling Hx of PE , not smoking currently Take tylenol for her aches, which helps Can't take NSAIDs due to CKD PMH: Patient Active Problem List Diagnosis Code S/P carotid endarterectomy Z98.890 Idiopathic pericardial effusion I31.39 Chronic chest pain R07.9, G89.29 Paroxysmal atrial tachycardia (HCC) I47.1 History of pulmonary embolus (PE) Z86.711 Age-related osteoporosis without current pathological fracture M81.0 Hx laparoscopic cholecystectomy Z90.49 History of tobacco use Z87.891 Asymptomatic bilateral carotid artery stenosis I65.23 Dyslipidemia, goal LDL below 70 E78.5 Gastroesophageal reflux disease without esophagitis K21.9 H/O mammogram Z92.89 Hyperplastic polyp of ascending colon K63.5 ACEI/ARB contraindicated Z53.09 Diabetes mellitus with background retinopathy ([facility]) E11.3299 Abnormal TSH R79.89 Recurrent UTI (urinary tract infection) N39.0 TIA (transient ischemic attack) G45.9 COPD, group D, by GOLD 2017 classification ([facility]) J44.9 Hypertensive kidney disease with stage 3b chronic kidney disease I12.9, N18.32 Diastolic dysfunction with chronic heart failure ([facility]) I50.32 Type 2 diabetes mellitus with stage 3b chronic kidney disease, with long-term current use of insulin ([facility]) E11.22, N18.32, Z79.4 Chronic kidney disease, stage 3b ([facility]) N18.32 Hyperkalemia E87.5 Open angle with borderline findings, high risk, 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 Do not cut, crush or chew-taking 4d/wk 40 Tab 1 FreeStyle Jasmine 14 Day Sensor Use as directed. 2 Each 11 Aspirin 81 MG Oral Tablet Delayed Release Take 2 Tablets by mouth in the morning. Vitamin C 1000 MG Oral Tablet Take 1 Tablet by mouth in the morning. Rosuvastatin Calcium 40 MG Oral Tablet (Crestor) Take by mouth 1 Tablet in the morning. 90 Tablet 3 NovoLOG FlexPen 100 UNIT/ML Subcutaneous Solution Pen-injector (insulin aspart) Follow chart - Inject subcu 10 units before breakfast, 10 units before lunch, 13 units before supper plus CF 1:16 for BG > 140 up to 40 units/day 45 mL 1 Nitroglycerin 0.4 MG Sublingual Tablet Sublingual (Nitrostat) Place 1 Tablet under the tongue as needed for Pain, Chest. 25 Tablet 11 Vitamin D 25 MCG (1000 UT) Oral Tablet Take by mouth. Furosemide 20 MG Oral Tablet (Lasix) TAKE 1 TABLET BY MOUTH 3 DAYS PER WEEK. WATCH FOR INCREASED LEG EDEMA 65 Tablet 3 Xultophy 100-3.6 UNIT-MG/ML Subcutaneous Solution Pen-injector (Insulin Degludec-Liraglutide) Inject 36 units once daily or as directed per titration up to 50 units daily 15 mL 11 [place] 5/16" 31G X 8 MM Use as directed. Use to inject Xultophy and Novolog 5 times daily as directed 500 Each 3 FreeStyle Precision Martin Test In Vitro Strip (Glucose Blood) Use to test blood sugar 4 times a day and as needed for low blood sugar. E11.9 100 Strip 1 Cyclobenzaprine HCl 5 MG Oral Tablet (Flexeril) Take 1 Tablet by mouth 3 times a day as needed for Muscle spasms. 30 Tablet 1 VITAMIN B-12 CR 1000 MCG PO TBCR take on daily (Patient not taking: Reported on 04/07/2023) Biotin 5000 MCG Capsule Take 1 Capsule by mouth in the morning. (Patient not taking: Reported on 04/07/2023) Loratadine 10 MG Oral Tablet Take 1 Tablet by mouth daily as needed. Advanced Probiotic 10 Oral Capsule Take 1 Capsule by mouth in the morning. (Patient not taking: Reported on 04/04/2023) Ipratropium-Albuterol 20-100 MCG/ACT Inhalation Aerosol Solution Meclizine HCl 25 MG Oral Tablet (Antivert) Take 1 Tablet by mouth 3 times a day as needed for Dizziness. 30 Tablet 1 Current Facility-Administered Medications Medication Dose Route Frequency Provider Last Rate Last Admin Albuterol Sulfate (Proventil) (5 MG/ML) 0.5% *conc* inhalation solution 2.5 mg 2.5 mg Nebulizer RICARDO Barroso Albuterol Sulfate (Proventil) (2.5 MG/3ML) 0.083% inhalation solution 2.5 mg 2.5 mg Nebulizer PRRICARDO Chou 2.5 mg at 12/19/22 0950 Past Medical History: Diagnosis Date COPD (chronic obstructive pulmonary disease) (HCC) DM type 2, not at goal (HCC) 08/18/2007 Emphysema, unspecified (HCC) GERD (gastroesophageal reflux disease) Other acute pericarditis 08/18/2007 Paroxysmal atrial tachycardia ([facility]) 08/31/2007 Pleural effusion 08/31/2007 Pulmonary embolism ([facility]) Pulmonary embolus ([facility]) 09/23/2007 Past Surgical History: Procedure Laterality Date CATARACT SURGERY,COMPLEX Bilateral 02/2017 [facility] LAPAROSCOPY, CHOLECYSTECTOMY WITH CHOLANGIOGRAPHY 12/29/09 Laparoscopic cholecystectomy, cholangiogram 12/29/[address] Bryson at [facility] LIGATE/CUT OVIDUCT(S) Tubal Ligation,Non Laparoscopic THROMBOENDARECTOMY W/PATCH,NECK INCISION Left 06/27/2004 Left carotid endarterectomy with patch 06/27/[address] Bryson Review of patient's allergies indicates: Allergen Reactions Amlodipine Edema Other Metformin diarrhea Penicillins Itching and Rash Sulfa Antibiotics Unknown Zithromax [Azithromycin] Family History Problem Relation Age of Onset COPD Mother in her 60s Heart disease Father in his early 70s COPD Father No Known Problems Sister Other (Unknown) Brother Other (Unknown) Brother Other (Unknown) Brother Other (Unknown) Brother Other (Unknown) Brother Family Status Relation Status Mo Fa Sis Alive Bro Bro Bro Alive Bro Alive Gladys Alive Son Alive Son Alive Son Alive Son Alive Bro Alive Social History Socioeconomic History Marital status: Spouse name: Not on file Number of children: 4 Years of education: Not on file Highest education level: Not on file Occupational History Not on file Tobacco Use Smoking status: Former Packs/day: 1.50 Years: 17.00 Pack years: 25.50 Types: Cigarettes Quit date: 07/28/1974 Years since quittin.7 Passive exposure: Past Smokeless tobacco: Never Vaping Use Vaping Use: Never used Substance and Sexual Activity Alcohol use: Yes Comment: rare Drug use: No Sexual activity: Not Currently Partners: Male Other Topics Concern Service Not Asked Blood Transfusions Not Asked Caffeine Concern Not Asked Occupational Exposure Not Asked Hobby Hazards Not Asked Sleep Concern Not Asked Stress Concern Not Asked Weight Concern Not Asked Special Diet Not Asked Back Care Not Asked Exercise Not Asked Bike Helmet Not Asked Seat Belt Yes Self-Exams Not Asked Social History Narrative Lives with family Retired No pets No mold Social Determinants of Health Financial Resource Strain: Not on file Food Insecurity: Not on file Transportation Needs: Not on file Physical Activity: Not on file Stress: Not on file Social Connections: Not on file Intimate Partner Violence: Not on file Housing Stability: Not on file Review of Systems Constitutional: Positive for fatigue. Negative for activity change, appetite change, chills, diaphoresis, fever and unexpected weight change. HENT: Negative for congestion and hearing loss. Eyes: Negative for visual disturbance. Respiratory: Negative for cough, chest tightness, shortness of breath and wheezing. Cardiovascular: Negative for chest pain, palpitations and leg swelling. Gastrointestinal: Negative for abdominal distention, abdominal pain, nausea and vomiting. Endocrine: Negative. Genitourinary: Negative for dysuria. Musculoskeletal: Negative for gait problem. Skin: Negative for color change and pallor. Neurological: Positive for dizziness, syncope (once first time last week) and light-headedness. Negative for tremors, facial asymmetry, speech difficulty, weakness and headaches. Psychiatric/Behavioral: Negative for agitation and behavioral problems. The patient is nervous/anxious. Objective BP 102/60 | Pulse 80 | Temp 35.6 C (96 F) (Infrared ) | Resp 20 | Wt 83.3 kg (183 lb 11.2 oz) |SpO2 97% | BMI 31.53 kg/m | BSA 1.94 m Physical Exam Constitutional: General: She is not in acute distress. Appearance: Normal appearance. She is not ill-appearing, toxic-appearing or diaphoretic. HENT: Head: Normocephalic and atraumatic. Nose: Nose normal. Eyes: Extraocular Movements: Extraocular movements intact. Conjunctiva/sclera: Conjunctivae normal. Pupils: Pupils are equal, round, and reactive to light. Neck: Vascular: No carotid bruit. Cardiovascular: Rate and Rhythm: Normal rate and regular rhythm. Pulses: Normal pulses. Heart sounds: Normal heart sounds. Pulmonary: Effort: Pulmonary effort is normal. No respiratory distress. Breath sounds: Normal breath sounds. No stridor. No wheezing, rhonchi or rales. Chest: Chest wall: No tenderness. Musculoskeletal: Right lower leg: No edema. Left lower leg: No edema. Neurological: General: No focal deficit present. Mental Status: She is alert and oriented to person, place, and time. Cranial Nerves: No cranial nerve deficit. Motor: No weakness. Gait: Gait normal. Psychiatric: Behavior: Behavior normal. ASSESSMENT/PLAN: Syncope and collapse (Primary) - ECHO, COMPLETE (2D), TRANS-THORACIC; Future; Expected date: 04/07/2023 Diastolic dysfunction with chronic heart failure (HCC) - ECHO, COMPLETE (2D), TRANS-THORACIC; Future; Expected date: 04/07/2023 Hypotension, unspecified hypotension type Dizziness Asymptomatic bilateral carotid artery stenosis S/P carotid endarterectomy Type 2 diabetes mellitus with stage 3b chronic kidney disease, with long-term current use of insulin (HCC) Other orders - Cyclobenzaprine HCl 5 MG Oral Tablet (Flexeril); Take 1 Tablet by mouth 3 times a day as needed for Muscle spasms. Check-out note: Schedule 2D echo Encouraged hydration F/u 2D echo Check BP when she feels dizziness Flexeril prn for pain Tylenol prn Sher Cortez MD documented in this encounter Nursing Notes * Kimberly Prieto LPN - 04/07/2023 2:51 PM EDT Chief Complaint Patient presents with Acute Pt fell about a week ago due to passing out. Pt has pain with inhaling and right shoulder has pain. documented in this encounter Plan of Treatment Upcoming Encounters Date Type Specialty Care Team Description 04/11/2023 Cardiac Studies Cardiac Studies 06/02/2023 Nurse Only Rheumatology Pf, Nurse Rheum [address] [facility], [place] [address] 06/06/2023 Office Visit Cardiology Deonte Marin PA-C [address] [place] [id number] 07/15/2023 Office Visit [facility] [address] [id number] Scheduled Orders Name Type Priority Associated Diagnoses Orde r Schedule ECHO, COMPLETE (2D), TRANS-THORACIC Echocardiology Routine Syncope and collapse Diastolic dysfunction with chronic heart failure (HCC) Expected: 04/07/2023, Expires: 05/07/2025 Health Maintenance Due Date Last Done Comments Zoster Vaccines (3 of 3) 05/21/2020 020, 03/21/2020, 03/28/2012 Depression Screening 03/06/2021 03/06/2020 COVID-19 Vaccine (4 - Moderna series) 10/29/2021 09/03/2021, 09/27/2020, 08/30/2020 *ADVANCE DIRECTIVE NOT ON FILE 03/16/2022 DIABETES-EYE EXAM 08/24/2022 08/24/2021, , 03/09/2019, Additional history exists Influenza Vaccine (FLU shot) (#1) 2023 04/09/2022, 05/01/2021, 05/23/2020, Additional history exists CKD HGB USE SMARTSET 39871 07/15/202307/15, 06/04/2021, 07/04/2020, Additional history exists CKD PHOS USE SMARTSET 10681 07/15/202306/27, 11/14/2020, 07/04/2020, Additional history exists Albumin/Creatinine Ratio 09/12/202309/12/2 023, 06/11/2021, 05/23/2020, Additional history exists GFR 10/03/2023 04/04/2023, 05/0 12/2022, 09/10/2022, Additional history exists HbA1c 10/03/2023 04/04/2023, 08/28, 07/15/2022, Additional history exists Diabetic Foot Exam 01/08/2024 01/07/2023, 0 10/10/2021, 09/04/2020, Additional history exists O2 ASSESSMENT COMPLETED IN PAST YEAR FOR COPD 04/04/2024 04/04/2023 DXA Scan 05/21/2024 05/21/2022, 04/28, 05/18/2018, Additional history exists DTaP,Tdap,and Td Vaccines (2 - Td or Tdap) 10/15/2026 10/15/2016, 11/22/2003, 11/22/2003 Pneumococcal Vaccine: 65+ Years Completed 12/30/2016, 08/21/2015, 08/21/2015, Additional history exists Alpha-1 Antitrypsin Completed 11/14/2020 VITAMIN D LEVEL ONCE IN A LIFETIME-USE SMARTSET# [id number] Completed 11/30/2022, 05/25/2022, 08/27/2021, Additional history exists [...] as of this encounter Visit Diagnoses Diagnosis Syncope and collapse- Primary Diastolic dysfunction with chronic heart failure (HCC) Hypotension, unspecified hypotension type Dizziness Dizziness and giddiness Asymptomatic bilateral carotid artery stenosis Occlusion and stenosis of multiple and bilateral precerebral arteries without mention of cerebral infarction S/P carotid endarterectomy Other postprocedural status Type 2 diabetes mellitus with stage 3b chronic kidney disease, with long-term current use of insulin (HCC) documented in this encounter Care Teams Connie Scratcher Relationship Specialty Start Date End Date Paz Daniels MD [address] [place] [address] PCP - General Family Medicine 11/27/20 documented as of this encounter
--- OUTSIDE RECORDS SUMMARY | 2023-06-10 14:25 | External Medical Summary | Summary of Care ---
Author Name Unknown Organization [facility] Address [address] [place] [address] Phone [phone] Care Team Providers Care Road Design Engineer Name Role Phone Paz Daniels MD Primary Care Provid er Reason for Visit * Reason Comments Re-Check 6 month return Encounter Details Date Type Department Care Team Description 01/07/2023 Office Visit [facility] [address] [place] [address] Paz Daniels MD [address] [place] [address] Type 2 diabetes mellitus with stage 3 chronic kidney disease, with long-term current use of insulin, unspecified whether stage 3a or 3b CKD ([facility])*; Diabetes mellitus with background retinopathy ([facility]); Type 2 diabetes mellitus with stage 3b chronic kidney disease, with long-term current use of insulin ([facility]); Dyslipidemia, goal LDL below 70; Hyperkalemia; COPD, group D, by GOLD 2017 classification ([facility]); Idiopathic pericardial effusion; Paroxysmal atrial tachycardia ([facility]); Asymptomatic bilateral carotid artery stenosis; HTN, goal below 130/80; TIA (transient ischemic attack); Diastolic dysfunction with chronic heart failure ([facility]); Gastroesophageal reflux disease without esophagitis; History of pulmonary embolus (PE) Allergies Active Allergy Reactions Severity Noted Date Comments Amlodipine Edema Other 08/26/2017 Metformin 03/28/2016 diarrhea Penicillins Itching,Rash 04/07/2017 Sulfa Antibiotics Unknown 08/31/2007 Azithromycin 03/28/2016 documented as of this encounter (statuses as of 01/07/2023) Medications Medication Sig Dispensed Refills Start Date End Date Status VITAMIN B-12 CR 1000 MCG PO TBCR take on daily 0 08/11/2007 Activ e Biotin 5000 MCG Capsule Take 1 Capsule by mouth in the morning. 0 04/29/2018 Active Glucose Blood (FREESTYLE PRECISION REJI TEST) STRP Use to test blood sugars [...] as directed. 2 Each 11 11/24/2020 Active Pen Welton 5/16" 31G X 8 MMIndications:Type 2 diabetes mellitus with stage 3b chronic kidney disease, with long-term current use of insulin (HCC) Use as directed. Use to inject Xultophy and Novolog 5 times daily as directed 1000 Each 11 09/26/2021 Active Aspirin 81 MG Oral Tablet Delayed [...] 40 units/day 45 mL 1 04/17/2022 Active Ipratropium-Albuter ol 20-100 MCG/ACT Inhalation Aerosol Solution 0 Active Nitroglycerin 0.4 MG Sublingual Tablet Sublingual (Nitrostat)Indicati ons:Chronic chest pain Place 1 Tablet under the tongue as needed for Pain, Chest. 25 Tablet 11 07/31/2022 Active Vitamin D 25 MCG (1000 UT) Oral Tablet Take by mouth. 0 Active Furosemide 20 MG Oral Tablet (Lasix)Indications: Chronic kidney disease with symptom management only, stage 3 (moderate) ([facility]),Bilateral leg edema TAKE 1 TABLET BY MOUTH 3 DAYS PER WEEK. WATCH FOR INCREASED LEG EDEMA 65 Tablet 3 11/13/2022 Active Meclizine HCl 25 MG Oral Tablet (Antivert)Indicatio ns:Dizziness,Vertig o Take 1 Tablet by mouth 3 times a day as needed for Dizziness. 30 Tablet 1 11/15/2022 Active Xultophy 100-3.6 UNIT-MG/ML Subcutaneous Solution Pen-injector (Insulin Degludec-Liraglutid e)Indications:Type 2 diabetes mellitus with stage 3 chronic kidney disease, with long-term current use of insulin, unspecified whether stage 3a or 3b CKD ([facility]) Inject 36 units once daily or as directed per titration up to 50 units daily 15 mL 11 11/19/2022 Active Fluticasone Furoate-Vilanterol 100-25 MCG/ACT Inhalation Aerosol Powder Breath Activated (BREO ellipta) Inhale 1 Puff by mouth in the morning. 180 Blister Dosing Unit 0 01/03/2023 04/03/2023 Active Hospital, Clinic, or Other Facility Administered Medication Ordered Dose Route Frequency Start Date End Date Status Albuterol Sulfate (Proventil) (5 MG/ML) 0.5% *conc* inhalation solution 2.5 mgIndications:COPD, group D, by GOLD 2017 classification ([facility]) 2.5 mg NEBULIZER PRN 09/13/2022 09/13/2023 Acti ve Albuterol Sulfate (Proventil) (2.5 MG/3ML) 0.083% inhalation solution 2.5 mgIndications:COPD, group D, by GOLD 2017 classification ([facility]) 2.5 mg NEBULIZER PRN 09/13/2022 09/13/2023 Acti ve documented as of this encounter (statuses as of 01/07/2023) Active Problems Problem Noted Date Hyperkalemia 02/17/2022 [...] 04/09/2018 Overview: 01/16/18;03/26/18,05/14,10/13--st keflex Abnormal TSH 01/16/2018 HTN, goal below 130/80 01/02/2018 ACEI/ARB contraindicated 04/07/2017 Overview: Hi K Diabetes mellitus with background retino scout 04/07/2017 H/O mammogram 04/29/2016 Overview: Neg 2008;,03/07;04/08,05/09;05/30/14; 05/03/16;10/12-entirely fat Hyperplastic polyp of ascending colon Overview: 01/12/2014--2mm cecal P- 5mm sig P, 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 [id number]--i sope--gr 2 IH History of tobacco use [...] osteoporosis without current pathological fracture 05/18/2008 Overview: 05/1289-TH-iqlvuw-ct drug holiday -rpt 2 yrs>>>05/14--2/-2.2-inc at [place], [...] <50%>>>same 04/12 Carotid doppler done 03/18/06 with [facility] documented as of this encounter (statuses as of 01/07/2023) Resolved Problems Problem Noted Date Resolved Date Chronic kidney disease, stage 3a 01/09/2021 09/12/2021 Overview: Per CKD protocol Type 2 diabetes mellitus wit h stage 3a chronic kidney disease, with long-term current use of insulin 12/05/2020 022 Overview: Per CKD protocol Hypertensive kidney disease with chronic kidney disease stage III 10/06/2018 06/08/2020 Overview: Per CKD protocol Venous stasis 10/07/2017 10/05/2018 Pap smear for [...] Diarrhea 10/23/2007 03/28/2016 Abdominal pain, generalized 10/23/200707/2015 meterman current use of anticoagulant therapy 0 09/23/2007 [...] as of this encounter (statuses as of 01/07/2023) Immunizations Name Administration Dates Next Due COVID-19 mRNA, LNP-s, No Pre serve, 2-Dose Series (Moderna) 09/27/2020,08/30/2020 Covid-19 Mrna, Lnp-s, No Pre serve, Booster (Moderna) 09/03/2021 Pneumococcal Conjugate Vacc, 13 Valent (Prevnar) 12/30/2016,08/21/2015 Pneumococcal Polysaccharide PPV23 (Pneumovax) 08/21/2015,07/28/2005,05/31/2005 Seasonal Influenza, QUAD, wi th Preserv, 6 mons & Above, 0.5 mL, IM 05/20/2016,05/23/2015,07/20/2014,05/18,03/28/2012,08/07/2011,05/03/2003 ,06/29/2002 Seasonal Influenza, Quadriva lent Hd (Fluzone Hd) 04/09/2022,05/01/2021 Seasonal Influenza, Quadriva lent, No Preserve, 6 Mons & Above, IM 05/26/2019,06/03/2018,05/13/2017 Seasonal Influenza, Quadriva lent, No Preserve, Adjuvanted, 65+ Yrs, IM 05/23/2020 Seasonal Influenza, Quadriva lent, No Preserve, IM [...] Former Cigarettes 1.5 17 Q uit: 07/28/1974 Smokeless Tobacco: Never Tobacco Cessation:Counseling Given: Not [...] Sign Reading Time Taken Comments Blood Pressure 104/64 01/07/2023 12:54 PM EDT Pulse 87 01/07/2023 12:54 PM EDT Temperature 36.5 C (97.7 F) 01/07/2023 12:54 PM E DT Respiratory Rate 18 01/07/2023 12:54 PM EDT Oxygen Saturation - - Inhaled Oxygen Concentration - - Weight 83.5 kg (184 lb) 01/07/2023 12:54 PM EDT Height - - Body Mass Index 31.58 01/03/2023 11:34 AM EDT documented in this encounter Patient Instructions * Patient Instructions* Jonna John LPN - 01/07/2023 12:57 PM EDT Diabetes: Keeping Feet Healthy Inspect your feet every day for signs of a problem. Diabetes can damage nerves in your feet and cause neuropathy. This condition makes it hard for you to feel injuries or sore spots. Diabetes can also change blood flow, making it harder for small problems, like a blister, to heal properly. In fact, minor injuries can quickly become serious infections that send you to the hospital. Practice self-care to protect your feet and keep them healthy. Take Special Care Inspect your feet daily for problems such as redness, blisters, cracks, dry skin, or numbness. Use a mirror to see the bottoms of your feet. Or, ask for help. Manage your diabetes. Monitor and control your blood sugar. Take all your medications as prescribed. Avoid walking barefoot, even indoors. Wash your feet with warm water and mild soap. Dry well, especially between toes. Dont treat corns or calluses yourself. Talk to your doctor or licensed massage therapist (a doctor who specializes in foot care) if you need assistance trimming your toenails. Use moisturizing cream or lotion if you have dry skin, but dont use it between toes. Dont use heating pads on your feet. If you have neuropathy, you could get a burn and not feel it. Stop smoking. Smoking restricts blood flow and can make it harder for wounds to heal. Have Regular Checkups Foot problems can develop quickly. So be sure to follow your healthcare teams schedule for regular checkups. During office visits, take off your shoes and socks as soon as you get in the exam room. Ask your healthcare provider to examine your feet for problems. This will make it easier to find and treat small skin irritations before they get worse. Regular checkups can also help keep track of the blood flow and feeling in your feet. If you have neuropathy, you may need to have checkups more often. Wear Proper Footwear Wearing proper footwear is very important. If areas of your feet have been damaged by too much pressure, your healthcare provider may recommend changing your footwear. In some cases, avoiding high heels or tight work boots may be all thats needed. Or, your healthcare provider may recommend special shoes or custom inserts. These help protect your feet and keep existing irritations from getting worse. If you need special footwear, ask your healthcare provider if you qualify for [facility] diabetic shoe program. Make Sure Shoes and Socks Fit Any pair of shoes--new or old--should feel comfortable as soon as you put them on. There shouldnt be any rubbing when you walk. Wear the right shoe for any activity. For instance, a running shoe is designed to keep your feet injury-free while jogging. Buy shoes at the end of the day, when your feet are larger. Make sure they provide support without feeling too loose. Make sure your socks fit, t oo. Wear soft, seamless, well-padded socks for activity. Cotton or microfiber socks are best to help to absorb sweat. To protect your feet, avoid shoes that are open-toed or open-heeled. If you have questions about what kinds of shoes and socks are best, talk to your healthcare team. Get Regular Exercise Regular exercise improves blood flow in your feet. It also increases foot strength and flexibility.Gentle exercises, like walking or riding a stationary bicycle, are best. You can also do special foot exercises. Just be sure to talk with your healthcare provider before starting any exercise program. Also mention if any exercise causes pain, redness, or other signs of foot problems. Note: If you have any kind of break in the skin of your foot or ankle, keep the area clean. Then call your doctor--especially if the area doesnt appear to be healing. [phone] [employer], [address] [place] [address], [place] [address]. All rights reserved. This information is not intended as a substitute for professional medical care. Always follow your healthcare professional's instructions. documented in this encounter Progress Notes * Paz Daniels MD - 01/07/2023 1:03 PM EDT ASSESSMENT / PLAN: Clari Bennett is a 82 year old female with PMHx panlobular emphysema COPD / h/o tobaccos use / T2DM on insulin since 2008 / retinopathy / HTN / class 2 angina / HFpEF / h/o PE / osteoporosis / carotid stenosis status post left end arterectomy 2003 / CKD3 a/bcomplicated by hyperkalemia - here for 6 month recheck Vertigo Flare up is resolved panlobular emphysema COPD Asymptomatic cont inhalers, follows with pulm h/o tobaccos use T2DM on insulin since 2008 Cont statin Cont xultophy, novolog as directed HTN / class 2 angina / HFpEF Well controlled, cont lasix / baby asa Follows with cardiology Osteoporosis Follows with [facility], cont prolia injections CKD3 a/bcomplicated by hyperkalemia Follows with Nephro - LAUREN I dc'd recently due to adequate bp control and worsening GFR Type 2 diabetes mellitus with stage 3 chronic kidney disease, with long-term current use of insulin, unspecified whether stage 3a or 3b CKD (HCC) (Primary) - DIABETES FOOT EXAM - HEMOGLOBIN A1C; Future; Expected date: 04/09/2023 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 with stage 3b chronic kidney disease, with long-term current use of insulin (HCC) Dyslipidemia, goal LDL below 70 Hyperkalemia COPD, group D, by GOLD 2017 classification (HCC) Idiopathic pericardial effusion Paroxysmal atrial tachycardia (HCC) Asymptomatic bilateral carotid artery stenosis HTN, goal below 130/80 TIA (transient ischemic attack) Diastolic dysfunction with chronic heart failure (HCC) Gastroesophageal reflux disease without esophagitis History of pulmonary embolus (PE) Follow Up: Return in about 6 months (around 07/09/2023) for Labs 2-5 Days Before Next Visit. | For:Labs 2-5 Days Before Next Visit If needed, prefers contact by: Ok to leave message on phone: SUBJECTIVE: Nursing Notes: Jonna John LPN 01/07/23 1258 Signed 6 month return Chief Complaint Patient presents with Re-Check 6 month return HPI: Clari Bennett is a 82 year old female. Here for recheck. She is feeling well, orders salads at [facility] daily. Last labs show stable kidney dysfunction, elevated glucose 177, low normal Vitd D Latest Reference Range & Units 11/30/22 12:11 Sodium 135 - 146 mmol/L 138 Potassium 3.5 - 5.1 mmol/L 4.5 Chloride 98 - 107 mmol/L 96 (L) CO2 22 - 32 mmol/L 31 BUN 6 - 20 mg/dL 36 (H) Creatinine 0.5 - 1.0 mg/dL 1.7 (H) Estimated Glomerular Filtration Rate >=60 mL/min 29 (L) Anion Gap 7 - 15 mmol/L 11 Glucose 70 - 120 mg/dL 177 (H) Calcium 8.4 - 10.2 mg/dL 9.8 25-Hydroxy Vitamin D >19 ng/mL 29 25-HYDROXY VITAMIN D Rpt (L): Data is abnormally low (H): Data is abnormally high Rpt: View report in Results Review for more information Reviewed sources 1-rheum - 11/26/22 - [facility] clinic - cont Prolia injections q 6 mo. Dexa showed osteoporosis in 2019 -Was on fosamax -on drug holiday since 2011, then referred to [facility]. 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 Reduced lisinopril to 5mg daily. 4- Pulm - 01/03/23 - no COPD on PFT - resume Breo inhaler, STEFFI Nails. RTC 1 year Patient Active Problem List Diagnosis Code S/P carotid endarterectomy Z98.890 Idiopathic pericardial effusion I31.39 Chronic chest pain R07.9, G89.29 Paroxysmal atrial tachycardia ([facility]) I47.1 History of pulmonary embolus (PE) Z86.711 Age-related osteoporosis without current pathological fracture M81.0 Hx laparoscopic cholecystectomy Z90.49 History of tobacco use Z87.891 Asymptomatic bilateral carotid artery stenosis I65.23 Dyslipidemia, goal LDL below 70 E78.5 Gastroesophageal reflux disease without esophagitis K21.9 H/O mammogram Z92.89 Hyperplastic polyp of ascending colon K63.5 ACEI/ARB contraindicated Z53.09 Diabetes mellitus with background retinopathy ([facility]) E11.3299 HTN, goal below 130/80 I10 Abnormal TSH R79.89 Recurrent UTI (urinary tract infection) N39.0 TIA (transient ischemic attack) G45.9 COPD, group D, by GOLD 2017 classification ([facility]) J44.9 Hypertensive kidney disease with stage 3b chronic kidney disease I12.9, N18.32 Diastolic dysfunction with chronic heart failure ([facility]) I50.32 Type 2 diabetes mellitus with stage 3b chronic kidney disease, with long- term current use of insulin ([facility]) E11.22, N18.32, Z79.4 Chronic kidney disease, stage 3b ([facility]) N18.32 Hyperkalemia E87.5 Open angle with borderline findings, high risk, 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 Loratadine 10 MG Oral Tablet Take 1 Tablet by mouth daily as needed. Aspirin 81 MG Oral Tablet Delayed Release Take 2 Tablets by mouth in the morning. Advanced Probiotic 10 Oral Capsule Take 1 Capsule by mouth in the morning. Vitamin C [...] up to 40 units/day 45 mL 1 Ipratropium-Albuterol 20-100 MCG/ACT Inhalation Aerosol Solution Nitroglycerin 0.4 MG Sublingual Tablet Sublingual (Nitrostat) [...] to 50 units daily 15 mL 11 Glucose Blood (FREESTYLE PRECISION REJI TEST) STRP Use to test blood sugars up to twice daily with freestyle jasmine 100 Strip 11 Bisacodyl 5 MG Oral Tablet Delayed Release Take 1 Tablet by mouth daily as needed for Constipation. Do not use for more than one week. Do not cut, crush or chew-taking 4d/wk 40 Tab 1 FreeStyle Jasmine 14 Day Sensor Use as directed. 2 Each 11 Pen Welton 5/16" 31G X 8 MM Use as directed. Use to inject Xultophy and Novolog 5 times daily as directed 1000 Each 11 Meclizine HCl 25 MG Oral Tablet (Antivert) Take 1 Tablet by mouth 3 times a day as needed for Dizziness. 30 Tablet 1 Fluticasone Furoate-Vilanterol 100-25 MCG/ACT Inhalation Aerosol Powder Breath Activated (BREO ellipta) Inhale 1 Puff by mouth in the morning. 180 Blister Dosing Unit 0 Current Facility-Administered Medications Medication Dose Route Frequency Provider Last Rate Last Admin Albuterol Sulfate (Proventil) (5 MG/ML) 0.5% *conc* inhalation solution 2.5 mg 2.5 mg NebulizerPRN RICARDO Cantrell Albuterol Sulfate (Proventil) (2.5 MG/3ML) 0.083% inhalation solution 2.5 mg 2.5 mg Nebulizer PRN RICARDO Cantrell 2.5 mg at 12/19/22 0950 OBJECTIVE: BP 104/64 | Pulse 87 | Temp 36.5 C (97.7 F) (Tympanic) | Resp 18 | Wt 83.5 kg (184 lb) | BMI 31.58 kg/m | BSA 1.94 m Vitals reviewed and is normotensive afebrile and not tachycardic General: No acute distress. Neuro: Alert Pleasant & interactive. Respiratory: Good inspiratory effort, no labored breathing. CTAB CV: RRR no M R G Abd: soft nontender normoactive bs no hsm Neck: no cervical or clavicular LAD B/l HEENT: Conjunctivae appear clear. No swelling noted face or lips. Skin: No rash visible on exposed skin areas, normal coloration & appears dry. Psych: Normal affect. Fluent speech. Total time: I spent a total of 40-54 minutes (exact time 41 mins) on the date of service in preparation, delivery, and documentation of the care provided to Clari Bennett excluding any time spent in the performance of separately billed services. Paz Daniels MD [address] [address] Patient Instructions Diabetes: Keeping Feet Healthy Inspect your feet every day for signs of a problem. Diabetes can damage nerves in your feet and cause neuropathy. This condition makes it hard for you to feel injuries or sore spots. Diabetes can also change blood flow, making it harder for small problems, like a blister, to heal properly. In fact, minor injuries can quickly become serious infections that send you to the hospital. Practice self-care to protect your feet and keep them healthy. Take Special Care Inspect your feet daily for problems such as redness, blisters, cracks, dry skin, or numbness. Use a mirror to see the bottoms of your feet. Or, ask for help. Manage your diabetes. Monitor and control your blood sugar. Take all your medications as prescribed. Avoid walking barefoot, even indoors. Wash your feet with warm water and mild soap. Dry well, especially between toes. Dont treat corns or calluses yourself. Talk to your doctor or licensed massage therapist (a doctor who specializes in foot care) if you need assistance trimming your toenails. Use moisturizing cream or lotion if you have dry skin, but dont use it between toes. Dont use heating pads on your feet. If you have neuropathy, you could get a burn and not feel it. Stop smoking. Smoking restricts blood flow and can make it harder for wounds to heal. Have Regular Checkups Foot problems can develop quickly. So be sure to follow your healthcare teams schedule for regular checkups. During office visits, take off your shoes and socks as soon as you get in the exam room. Ask your healthcare provider to examine your feet for problems. This will make it easier to find and treat small skin irritations before they get worse. Regular checkups can also help keep track of the blood flow and feeling in your feet. If you have neuropathy, you may need to have checkups more often. Wear Proper Footwear Wearing proper footwear is very important. If areas of your feet have been damaged by too much pressure, your healthcare provider may recommend changing your footwear. In some cases, avoiding high heels or tight work boots may be all thats needed. Or, your healthcare provider may recommend special shoes or custom inserts. These help protect your feet and keep existing irritations from getting worse. If you need special footwear, ask your healthcare provider if you qualify for [facility] diabetic shoe program. Make Sure Shoes and Socks Fit Any pair of shoes--new or old--should feel comfortable as soon as you put them on. There shouldnt be any rubbing when you walk. Wear the right shoe for any activity. For instance, a running shoe is designed to keep your feet injury-free while jogging. Buy shoes at the end of the day, when your feet are larger. Make sure they provide support without feeling too loose. Make sure your socks fit, t oo. Wear soft, seamless, well-padded socks for activity. Cotton or microfiber socks are best to help to absorb sweat. To protect your feet, avoid shoes that are open-toed or open-heeled. If you have questions about what kinds of shoes and socks are best, talk to your healthcare team. Get Regular Exercise Regular exercise improves blood flow in your feet. It also increases foot strength and flexibility.Gentle exercises, like walking or riding a stationary bicycle, are best. You can also do special foot exercises. Just be sure to talk with your healthcare provider before starting any exercise program. Also mention if any exercise causes pain, redness, or other signs of foot problems. Note: If you have any kind of break in the skin of your foot or ankle, keep the area clean. Then call your doctor--especially if the area doesnt appear to be healing. [phone] [employer], [address] [place] [address], [place] [address]. All rights reserved. This information is not intended as a substitute for professional medical care. Always follow your healthcare professional's instructions. * Jonna John LPN - 01/07/2023 12:57 PM EDT DM Foot Exam completed today. Provider aware. Jonna John LPN Socks and Shoes Removed for Annual Diabetic Foot Screening RIGHT FOOT: No Reddened, Cracking, Or Open Areas Noted. RIGHT Dorsalis Pedis Pulse: Palpable RIGHT Posterior Tibial Pulse: Palpable RIGHT Monofilament:Patient reports feeling monofilament pressure on plantar surface of foot LEFT FOOT: No Reddened, Cracking or Open Areas Noted. LEFT Dorsalis Pedis Pulse: Palpable LEFT Posterior Tibial Pulse: Palpable LEFT Monofilament:Patient reports feeling monofilament pressure on plantar surface of foot Do you need diabetic shoes: N/A documented in this encounter Nursing Notes * Jonna John LPN - 01/07/2023 12:50 PM EDT 6 month return documented in this encounter Plan of Treatment Upcoming Encounters Date Type Specialty Care Team Description 02/05/2023 Office Visit Cardiology Jp Mathur MD [address] [place] [id number] 04/04/2023 Office Visit Nephrology Carolina Degroot PA-C [address] [place] [address] 06/02/2023 Nurse Only Rheumatology Pf, Nurse Rheum [address] [place] [address] 07/15/2023 Office Visit Family Medicine Paz Daniels MD [address] [place] [address] Scheduled Orders Name Type Priority Associated Diagnoses Orde r Schedule HEMOGLOBIN A1C Lab Routine Type 2 diabetes mellitus with stage 3 chronic kidney disease, with long-term current use of insulin, unspecified whether stage 3a or 3b CKD (HCC) Expected: 04/09/2023 (Approximate), Expires: 02/07/2024 Health Maintenance Due Date Last Done Comments Zoster Vaccines (3 of 3) 05/21/2020 020, 03/21/2020, 03/28/2012 Depression Screening, Annual for Pts 12 and Over 03/06/2021 03/06/2020 COVID-19 Vaccine (4 - Moderna series) 10/29/2021 09/03/2021, 09/27/2020, 08/30/2020 *ADVANCE DIRECTIVE NOT ON FILE 03/16/2022 DIABETES-EYE EXAM 08/24/2022 08/24/2021, , 03/09/2019, Additional history exists HbA1c 03/10/2023 09/10/2022, 06/27, 10/11/2021, Additional history exists GFR 06/02/2023 11/30/2022, 08/28, 05/25/2022, Additional history exists CKD HGB USE SMARTSET 71190 07/15/202307/15, 06/04/2021, 07/04/2020, Additional history exists CKD PHOS USE SMARTSET 17384 07/15/202306/27, 11/14/2020, 07/04/2020, Additional history exists Albumin/Creatinine Ratio 09/12/2023 023, 06/11/2021, 05/23/2020, Additional history exists O2 ASSESSMENT COMPLETED IN PAST YEAR FOR COPD 01/04/2024 01/03/2023 DIABETES-FOOT EXAM 01/08/2024 01/07/2023, 0 10/10/2021, 09/04/2020, Additional history exists DXA Scan 05/21/2024 05/21/2022, 04/28, 05/18/2018, Additional history exists DTaP,Tdap,and Td Vaccines (2 - Td or Tdap) 10/15/2026 10/15/2016, 11/22/2003, 11/22/2003 Pneumococcal Vaccine: 65+ Years Completed 12/30/2016, 08/21/2015, 08/21/2015, Additional history exists Alpha-1 Antitrypsin Completed 11/14/2020 Influenza Vaccine (FLU shot) Completed , 05/01/2021, 05/23/2020, Additional history exists VITAMIN D LEVEL ONCE IN A LIFETIME-USE SMARTSET# 42345 Completed 11/30/2022, 05/25/2022, 08/27/2021, Additional history exists [...] as of this encounter Visit Diagnoses Diagnosis Type 2 diabetes mellitus with stage 3 chronic kidney disease, with long-term current use of insulin, unspecified whether stage 3a or 3b CKD (HCC)- Primary 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 with stage 3b chronic kidney disease, with long-term current use of insulin (HCC) Dyslipidemia, goal LDL below 70 Other and unspecified hyperlipidemia Hyperkalemia Hyperpotassemia COPD, group D, by GOLD 2017 classification (HCC) Idiopathic pericardial effusion Paroxysmal atrial tachycardia (HCC) Paroxysmal supraventricular tachycardia Asymptomatic bilateral carotid artery stenosis Occlusion and stenosis of multiple and bilateral precerebral arteries without mention of cerebral infarction HTN, goal below 130/80 Unspecified essential hypertension TIA (transient ischemic attack) Unspecified transient cerebral ischemia Diastolic dysfunction with chronic heart failure (HCC) Gastroesophageal reflux disease without esophagitis Esophageal reflux History of pulmonary embolus (PE) Personal history of pulmonary embolism documented in this encounter Care Teams Road Design Engineer Relationship Specialty Start Date End Date Paz Daniels MD [address] [place] [address] PCP - General Family Medicine 11/27/20 documented as of this encounter
--- OUTSIDE RECORDS SUMMARY | 2023-06-10 14:25 | External Medical Summary | Summary of Care ---
Author Name Unknown Organization [facility] Address [address] [place] [address] Phone [phone] Care Team Providers Care Upper Doubler Name Role Phone Paz Daniels MD Primary Care Provid er Reason for Visit * Reason Onset Date Comments Med Request 03/12/2023 Encounter Details Date Type Department Care Team Description 03/12/2023 Telephone [facility] [address] [place] [address] Paz Daniels MD [address] [place] [address] Med Request Allergies Active Allergy Reactions Severity Noted Date Comments Amlodipine Edema Other 08/26/2017 Metformin 03/28/2016 diarrhea Penicillins Itching,Rash 04/07/2017 Sulfa Antibiotics Unknown 08/31/2007 Azithromycin 03/28/2016 documented as of this encounter (statuses as of 03/13/2023) Medications Medication Sig Dispensed Refills Start Date [...] Blister Dosing Unit 0 01/03/2023 04/03/2023 Active Pen [place] 5/16" 31G X 8 MMIndications:Type 2 diabetes mellitus with stage 3b chronic kidney disease, with long-term current use of insulin (HCC) Use as directed. Use to inject Xultophy and Novolog 5 times daily as directed 500 Each 3 01/29/2023 Active FreeStyle Precision Martin Test In Vitro Strip (Glucose Blood)Indications:T ype 2 diabetes mellitus with stage 3b chronic kidney disease, with long-term current use of insulin (HCC) Use to test blood sugar 4 times a day and as needed for low blood sugar. E11.9 100 Strip 1 03/13/2023 Active Hospital, Clinic, or Other Facility Administered Medication Ordered Dose Route Frequency Start Date End Date Status Albuterol Sulfate (Proventil) (5 MG/ML) 0.5% *conc* inhalation solution 2.5 mgIndications:COPD, group D, by GOLD 2017 classification (HCC) 2.5 mg NEBULIZER PRN 09/13/2022 09/13/2023 Acti ve Albuterol Sulfate (Proventil) (2.5 MG/3ML) 0.083% inhalation solution 2.5 mgIndications:COPD, group D, by GOLD 2017 classification (HCC) 2.5 mg NEBULIZER PRN 09/13/2022 09/13/2023 Acti ve documented as of this encounter (statuses as of 03/13/2023) Active Problems Problem Noted Date Hyperkalemia 02/17/2022 [...] 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 The company that supplies the other insulin supplies can not supply these. Please advise documented in this encounter Plan of Treatment Upcoming Encounters Date Type Specialty Care Team Description 04/04/2023 Office Visit Nephrology Carolina Degroot PA-C [address] [place] [address] 06/02/2023 Nurse Only Rheumatology Pf, Nurse [id number] [place] [address] 06/06/2023 Office Visit Cardiology Deonte Marin PA-C [address] [place] [address] 07/15/2023 Office Visit Family Medicine Paz Daniels MD [address] [place] [address] Health Maintenance Due Date Last Done Comments Zoster Vaccines (3 of 3) 05/21/2020 020, 03/21/2020, 03/28/2012 Depression Screening, Annual for Pts 12 and Over 03/06/2021 03/06/2020 COVID-19 Vaccine (4 - Moderna series) 10/29/2021 09/03/2021, 09/27/2020, 08/30/2020 *ADVANCE DIRECTIVE NOT ON FILE 03/16/2022 DIABETES-EYE EXAM 08/24/2022 08/24/2021, , 03/09/2019, Additional history exists HbA1c 03/10/2023 09/10/2022, 06/27, 10/11/2021, Additional history exists Influenza Vaccine (FLU shot) (#1) 2023 04/09/2022, 05/01/2021, 05/23/2020, Additional history exists GFR 06/02/2023 11/30/2022, 08/28, 05/25/2022, Additional history exists CKD HGB USE SMARTSET 81572 07/15/202307/15, 06/04/2021, 07/04/2020, Additional history exists CKD PHOS USE SMARTSET 97162 07/15/202306/27, 11/14/2020, 07/04/2020, Additional history exists Albumin/Creatinine [...] D LEVEL ONCE IN A LIFETIME-USE SMARTSET# 48280 Completed 11/30/2022, 05/25/2022, 08/27/2021, Additional history exists [...] Diagnosis Type 2 diabetes mellitus with stage 3b chronic kidney disease, with long-term current use of insulin (HCC)- Primary documented in this encounter Care Teams Upper Doubler Relationship Specialty Start Date End Date Paz Daniels MD [address] [place] [address] PCP - General Family Medicine 11/27/20 documented as of this encounter
--- OUTSIDE RECORDS SUMMARY | 2023-06-10 14:25 | External Medical Summary | Summary of Care ---
Author Name Unknown Organization [facility] Address [address] [place] [address] Phone [phone] Care Team Providers Care Fugitive Investigator Name Role Phone Paz Daniels MD Primary Care Provid er Reason for Visit * Reason Onset Date Comments Advice 11/13/2022 Encounter Details Date Type Department Care Team Description 11/13/2022 Telephone Cardiology, [facility] [address] [place] [address] Jp Mathur MD [address] [facility] [place] [address] Advice Allergies Active Allergy Reactions Severity Noted Date Comments Amlodipine Edema Other 08/26/2017 Metformin 03/28/2016 diarrhea Penicillins Itching,Rash 04/07/2017 Sulfa Antibiotics Unknown 08/31/2007 Azithromycin 03/28/2016 documented as of this encounter (statuses as of 03/12/2023) Medications Medication Sig Dispensed Refills Start Date [...] with symptom management only, stage 3 (moderate) ([facility]),Bilateral leg edema TAKE 1 TABLET BY MOUTH 3 DAYS PER WEEK. WATCH FOR INCREASED LEG EDEMA 65 Tablet 3 11/13/2022 Active Hospital, Clinic, or Other Facility Administered Medication Ordered Dose Route Frequency Start Date End Date Status Albuterol Sulfate (Proventil) (5 MG/ML) 0.5% *conc* inhalation solution 2.5 mgIndications:COPD, group D, by GOLD 2017 classification ([facility]) 2.5 mg NEBULIZER PRN 09/13/2022 09/13/2023 Acti ve Albuterol Sulfate (Proventil) (2.5 MG/3ML) 0.083% inhalation solution 2.5 mgIndications:COPD, group D, by GOLD 2017 classification ([facility]) 2.5 mg NEBULIZER PRN 09/13/2022 09/13/2023 Acti ve documented as of this encounter (statuses as of 03/12/2023) Active Problems Problem Noted Date Hyperkalemia 02/17/2022 [...] 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 [address]--i sope--gr 2 IH History of tobacco use 03/28/2016 Overview: 1.5 ppd x 17 year, quit 1975 Asymptomatic bilateral carotid artery st enosis 03/28/2016 Dyslipidemia, goal LDL below 70 09/01/20 16 Gastroesophageal reflux disease without esophagitis 03/28/2016 Overview: on dexilant--has fu DrCase>> EGD 07/07/13-gastritis, bx CG-mod, neg HP;UGI 05/11--mild eso dysmotility, gastritis(nl amylase,lipase,lft, hb 13.7) Hx laparoscopic cholecystectomy 01/05/20 10 Overview: 12/2009 --for chr cs Age-related osteoporosis without current pathological fracture 05/18/2008 Overview: 05/1221-WE-xczeon-ct drug holiday -rpt 2 yrs>>>05/14--2/-2.2-inc at LS, [...] <50%>>>same 04/12 Carotid doppler done 03/18/06 with [facility] documented as of this encounter (statuses as of 03/12/2023) Resolved Problems Problem Noted Date Resolved Date [...] Diarrhea 10/23/2007 03/28/2016 Abdominal pain, generalized 10/23/200707/2015 [facility] current use of anticoagulant therapy 0 09/23/2007 [...] as of this encounter (statuses as of 03/12/2023) Immunizations Name Administration Dates Next Due COVID-19 [...] encounter Miscellaneous Notes * Telephone Encounter - CHICO Finnegan - 11/14/2022 9:37 AM EDT Spoke with pt. Pt is scheduled 11/19/22 for US. * Telephone Encounter - Gissel Whipple CMA - 11/13/2022 4:[address] [facility] records. Vascular US appointment was for carotid duplex, which she did not have done during hospital admission. She had an echo and didn't realize her scheduled appointment was for a different test. Please reach out to patient to reschedule Carotid Duplex. She has an appointment with Dr. Mathur on 12/09/22. * Telephone Encounter - CHICO Ling - 11/13/2022 11:37 AM EDT Patient calling concerning her vascular ultrasound scheduled for 11/19/2022. Patient states she recently had a vascular ultrasound done during her recent hospitalization. Patients is asking if the scheduled test for 11/19/2022 can be canceled. Please advise patient At [phone]. documented in this encounter Plan of Treatment Upcoming Encounters Date Type Specialty Care Team Description 04/04/2023 Office Visit Nephrology Carolina Degroot PA-C [address] [place] [address] 06/02/2023 Nurse Only Rheumatology Pf, Nurse Rhe[facility] [address] [facility] [place] [address] 06/06/2023 Office Visit Cardiology Deonte Marin PA-C [address] [place] [address] 07/15/2023 Office Visit Family Medicine Paz Daniels MD [address] [place] [address] Health Maintenance Due Date Last [...] Additional history exists CKD HGB USE SMARTSET 47598 07/15/202307/15, 06/04/2021, 07/04/2020, Additional history exists CKD PHOS USE SMARTSET 88657 07/15/202306/27, 11/14/2020, 07/04/2020, Additional history exists Albumin/Creatinine [...] D LEVEL ONCE IN A LIFETIME-USE SMARTSET# 21612 Completed 11/30/2022, 05/25/2022, 08/27/2021, Additional history exists [...] filedocumented as of this encounter Care Teams Fugitive Investigator Relationship Specialty Start Date End Date [facility]az Daniels [facility] [address] [facility] [id number] PCP - General Family Medicine 11/27/20 documented as of this encounter
--- OUTSIDE RECORDS SUMMARY | 2023-06-10 14:25 | External Medical Summary | Summary of Care ---
Author Name Unknown Organization [facility] Address [address] [place] [address] Phone [phone] Care Team Providers Care Post Hole Digger Name Role Phone Balta Daniels MD Primary Care Provid er Reason for Visit * Reason Onset Date Comments Medication Refill 01/29/2023 Encounter Details Date Type Department Care Team Description 01/29/2023 Refill [facility] [address] [place] [address] Balta Daniels MD [address] [place] [address] Type 2 diabetes mellitus with stage 3b chronic kidney disease, with long-term current use of insulin ([facility]) Allergies Active Allergy Reactions Severity Noted Date Comments Amlodipine Edema Other 08/26/2017 Metformin 03/28/2016 diarrhea Penicillins Itching,Rash 04/07/2017 Sulfa Antibiotics Unknown 08/31/2007 Azithromycin 03/28/2016 documented as of this encounter (statuses as of 01/29/2023) Medications Medication Sig Dispensed Refills Start Date [...] 40 units/day 45 mL 1 04/17/2022 Active Ipratropium-Albute rol 20-100 MCG/ACT Inhalation Aerosol Solution 0 Active Nitroglycerin 0.4 MG Sublingual Tablet Sublingual (Nitrostat)Indicat ions:Chronic chest pain Place 1 Tablet under the tongue as needed for Pain, Chest. 25 Tablet 11 07/31/2022 Active Vitamin D 25 MCG (1000 UT) Oral Tablet Take by mouth. 0 Active Furosemide 20 MG Oral Tablet (Lasix)Indications :Chronic kidney disease with symptom management only, stage 3 (moderate) (HCC),Bilateral leg edema TAKE 1 TABLET BY MOUTH 3 DAYS PER WEEK. WATCH FOR INCREASED LEG EDEMA 65 Tablet 3 11/13/2022 Active Meclizine HCl 25 MG Oral Tablet (Antivert)Indicati ons:Dizziness,Vert igo Take 1 Tablet by mouth 3 times a day as needed for Dizziness. 30 Tablet 1 11/15/2022 Active Xultophy 100-3.6 UNIT-MG/ML Subcutaneous Solution Pen-injector (Insulin Degludec-Liragluti de)Indications:Typ e 2 diabetes mellitus with stage 3 chronic [...] morning. 180 Blister Dosing Unit 0 01/03/2023 3 Active Pen Wallace 5/16" 31G X 8 MMIndications:Type 2 diabetes mellitus with stage 3b chronic kidney disease, with long-term current use of insulin (HCC) Use as directed. Use to inject Xultophy and Novolog 5 times daily as directed 500 Each 3 01/29/2023 Active Pen Wallace 5/16" 31G X 8 MMIndications:Type 2 diabetes mellitus with stage 3b chronic kidney disease, with long-term current use of insulin (HCC) Use as directed. Use to inject Xultophy and Novolog 5 times daily as directed 1000 Each 11 09/26/2021 3 Discontinue d(Refill) Hospital, Clinic, or Other Facility Administered Medication Ordered Dose Route Frequency Start Date End Date Status Albuterol Sulfate (Proventil) (5 MG/ML) 0.5% *conc* inhalation solution 2.5 mgIndications:COPD, group D, by GOLD 2017 classification ([facility]) 2.5 mg NEBULIZER PRN 09/13/2022 09/13/2023 Acti ve Albuterol Sulfate (Proventil) (2.5 MG/3ML) 0.083% inhalation solution 2.5 mgIndications:COPD, group D, by GOLD 2017 classification ([facility]) 2.5 mg NEBULIZER PRN 09/13/2022 09/13/2023 Acti ve documented as of this encounter (statuses as of 01/29/2023) Active Problems Problem Noted Date Hyperkalemia 02/17/2022 [...] 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 Use to inject Xultophy and Novolog 5 times daily as directed Authorizing Provider: BALTA DANIELS Ordering User: HOMERO CORDERO * Telephone Encounter - Nataliia Whitley CPhT - 01/29/2023 10:54 AM EDT Did you pend patient's preferred pharmacy and medication before forwarding?yes Pharmacy: [facility] [id number]- [place] Pending Prescriptions: Disp Refills Pen Wallace 12/10" 31G X 8 MM 1000 E*11 Sig: Use as directed. Use to inject Xultophy and Novolog 5 times daily as directed Last Visit: 01/07/2023 (in office), Visit date not found (telemedicine) Next Visit: 07/15/2023 If no future appointments scheduled, and last appointment is greater than a year ago, please schedule patient for a follow-up appointment Last date the medication was ordered: 09/26/2021 Is this request for a controlled substance?No Urine Drug Screen:No results found for this or any previous visit. Patient Phone Numbers mobile [phone] Labs: Lab Results Component Value Date/Time CREAT 1.7 (H) 11/30/2022 12:11 PM CREAT 1.3 (H) 07/04/2020 09:19 AM POTASSIUM 4.5 11/30/2022 12:11 PM POTASSIUM 4.8 07/04/2020 09:19 AM TSH 3.44 07/09/2019 02:25 PM LDLCALC 04/12/2019 01:19 PM Uninterpretable, recommend direct LDL cholesterol testing. LDLDIRECT 78 07/04/2020 09:19 AM LDLDIRECT 89 10/05/2018 10:30 AM ALT 23 07/04/2020 09:19 AM HGBA1C 6.9 (H) 09/10/2022 01:32 PM HGBA1C 7.2 (H) 07/04/2020 09:19 AM documented in this encounter Plan of Treatment Upcoming Encounters Date Type Specialty Care Team Description 04/04/2023 Office Visit Nephrology Carolina Degroot PA-C [address] [facility] [place] [address] 06/02/2023 Nurse Only Rheumatology Pf, Nurse Rheum [address] [facility], [place] [address] 06/06/2023 Office Visit Cardiology Deonte Marin PA-C [address] [place] [address] 07/15/2023 Office Visit Family Medicine Balta Daniels MD [address] [place] [address] Health Maintenance Due Date Last [...] Additional history exists CKD HGB USE SMARTSET 00321 07/15/202307/15, 06/04/2021, 07/04/2020, Additional history exists CKD PHOS USE SMARTSET 36603 07/15/202306/27, 11/14/2020, 07/04/2020, Additional history exists Albumin/Creatinine [...] D LEVEL ONCE IN A LIFETIME-USE SMARTSET# 36552 Completed 11/30/2022, 05/25/2022, 08/27/2021, Additional history exists [...] (HCC) documented in this encounter Care Teams Post Hole Digger Relationship Specialty Start Date End Date Balta Daniels MD [address] [place] [facility] [place] [facility] [place] [address] PCP - General Family Medicine 11/27/20 documented as of this encounter
--- OUTSIDE RECORDS SUMMARY | 2023-06-10 14:25 | External Medical Summary | Summary of Care ---
Author Name Unknown Organization [facility] Address [address] [place] [address] Phone [phone] Care Team Providers Care Booking Prizer Name Role Phone Paz Daniels MD Primary Care Provid er Reason for Visit * Reason Onset Date Comments Medication Refill 04/21/2023 Encounter Details Date Type Department Care Team Description 04/21/2023 Refill Cardiology, [facility] [address] [place] [address] Mikey Queen MD [address] [place] [address] Dyslipidemia, goal LDL below 70* Allergies Active Allergy Reactions Severity Noted Date Comments Amlodipine Edema Other 08/26/2017 Metformin 03/28/2016 diarrhea Penicillins Itching,Rash 04/07/2017 Sulfa Antibiotics Unknown 08/31/2007 Azithromycin 03/28/2016 documented as of this encounter (statuses as of 04/21/2023) Medications Medication Sig Dispensed Refills Start Date [...] daily 15 mL 11 11/19/2022 Active Pen [place] 5/16" 31G X 8 MMIndications:Type 2 diabetes mellitus with stage 3b chronic kidney disease, with long-term current use of insulin (HCC) Use as directed. Use to inject Xultophy and Novolog 5 times daily as directed 500 Each 3 01/29/2023 Active FreeStyle Precision Martin Test In Vitro Strip (Glucose Blood)Indications: Type 2 diabetes mellitus with stage 3b chronic kidney disease, with long-term current use of insulin ([facility]) Use to test blood sugar 4 times a day and as needed for low blood sugar. E11.9 100 Strip 1 03/13/2023 Active Cyclobenzaprine HCl 5 MG Oral Tablet (Flexeril) Take 1 Tablet by mouth 3 times a day as needed for Muscle spasms. 30 Tablet 1 04/07/2023 Active Rosuvastatin Calcium 40 MG Oral Tablet (Crestor)Indicatio ns:Dyslipidemia, goal LDL below 70 Take 1 Tablet by mouth in the morning. 90 Tablet 3 04/21/2023 Active Rosuvastatin Calcium 40 MG Oral Tablet (Crestor) Take by mouth 1 Tablet in the morning. 90 Tablet 3 04/02/2022 04/21/2023 Discontinue d(Refill) Hospital, Clinic, or Other Facility Administered Medication Ordered Dose Route Frequency Start Date End Date Status Albuterol Sulfate (Proventil) (5 MG/ML) 0.5% *conc* inhalation solution 2.5 mgIndications:COPD, group D, by GOLD 2017 classification ([facility]) 2.5 mg NEBULIZER PRN 09/13/2022 09/13/2023 Acti ve Albuterol Sulfate (Proventil) (2.5 MG/3ML) 0.083% inhalation solution 2.5 mgIndications:COPD, group D, by GOLD 2017 classification ([facility]) 2.5 mg NEBULIZER PRN 09/13/2022 09/13/2023 Acti ve documented as of this encounter (statuses as of 04/21/2023) Active Problems Problem Noted Date Chronic kidney [...] 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 [address]--d sope--gr 2 IH History of tobacco use [...] osteoporosis without current pathological fracture 05/18/2008 Overview: 10/55-IB-kmjysa-ct drug holiday -rpt 2 yrs>>>05/14--2/-2.2-inc at [place], unchg hip- rpt 2 yrs dexa 02/05--L-M Risk--DrAyselvin dc fosamax and rec fu 2 yrs [...] <50%>>>same 04/12 Carotid doppler done 03/18/06 with [facility] documented as of this encounter (statuses as of 04/21/2023) Resolved Problems Problem Noted Date Resolved Date [...] Diarrhea 10/23/2007 03/28/2016 Abdominal pain, generalized 10/23/200707/2015 [facility] current use of anticoagulant therapy 0 09/23/2007 [...] as of this encounter (statuses as of 04/21/2023) Immunizations Name Administration Dates Next Due COVID-19 [...] encounter Miscellaneous Notes * Telephone Encounter - Mikey Queen MD - 04/21/2023 3:39 PM EDTSigned Prescriptions: Disp Refills Rosuvastatin Calcium 40 MG Oral Tablet (Cr*90 Tab*3 Sig: Take 1 Tablet by mouth in the morning. Authorizing Provider: MIKEY QUEEN * Telephone Encounter - BRAD Herrera - 04/21/2023 3:06 PM EDTPending Prescriptions: Disp Refills Rosuvastatin Calcium 40 MG Oral Tablet (Cr*90 Tab*3 Sig: Take 1 Tablet by mouth in the morning. * Telephone Encounter - BAL Wells - 04/21/2023 11:25 AM EDT Did you pend patient's preferred pharmacy and medication before forwarding?yes Pharmacy: [id number] [id number] [place] Pending Prescriptions: Disp Refills Rosuvastatin Calcium 40 MG Oral Tablet (C*90 Tab*3 Sig: Take 1 Tablet by mouth in the morning. Last Visit: 07/31/2022 (in office), Visit date not found (telemedicine) Next Visit: 06/06/2023 If no future appointments scheduled, and last appointment is greater than a year ago, please schedule patient for a follow-up appointment Last date the medication was ordered: 04/02/22 Is this request for a controlled substance?No Urine Drug Screen:No results found for this or any previous visit. Patient Phone Numbers Labs: Lab Results Component Value Date/Time CREAT 1.7 (H) 04/04/2023 02:26 PM CREAT 1.3 (H) 07/04/2020 09:19 AM POTASSIUM 4.8 04/04/2023 02:26 PM POTASSIUM 4.8 07/04/2020 09:19 AM TSH 3.44 07/09/2019 02:25 PM LDLCALC 04/12/2019 01:19 PM Uninterpretable, recommend direct LDL cholesterol testing. LDLDIRECT 78 07/04/2020 09:19 AM LDLDIRECT 89 10/05/2018 10:30 AM ALT 23 07/04/2020 09:19 AM HGBA1C 6.8 (H) 04/04/2023 02:26 PM HGBA1C 7.2 (H) 07/04/2020 09:19 AM documented in this encounter Plan of Treatment Upcoming Encounters Date Type Specialty Care Team Description 06/02/2023 Nurse Only Rheumatology Pf, Nurse Rheum [facility] [place] [address] 06/06/2023 Office Visit Cardiology Deonte Marin PA-C [address] [place] [address] 07/15/2023 Office Visit Family Medicine Paz Daniels MD [address] [place] [address] Health Maintenance Due Date Last Done Comments [...] D LEVEL ONCE IN A LIFETIME-USE SMARTSET# [id number] Completed 11/30/2022, 05/25/2022, 08/27/2021, Additional history exists [...] as of this encounter Visit Diagnoses Diagnosis Dyslipidemia, goal LDL below 70- Primary Other and unspecified hyperlipidemia documented in this encounter Care Teams Booking Prizer Relationship Specialty Start Date End Date Paz Daniels MD [address] [place] [address] PCP - General Family Medicine 11/27/20 documented as of this encounter
--- OUTSIDE RECORDS SUMMARY | 2023-06-10 14:25 | External Medical Summary | Summary of Care ---
Author Name Unknown Organization [facility] Address [address] [place] [address] Phone [phone] Care Team Providers Care Auto Rental Supervisor Name Role Phone Paz Daniels MD Primary Care Provid er Reason for Visit * Reason Comments Outpatient Testing Encounter Details Date Type Department Care Team Description 04/04/2023 Laboratory Laboratory [facility] [address] [place] [address] [facility] [address] [place] [address] Chronic kidney disease, stage 3b ([facility]); Type 2 diabetes mellitus with stage 3 chronic kidney disease, with long-term current use of insulin, unspecified whether stage 3a or 3b CKD ([facility]); Kidney disease, chronic, stage IV (GFR 15-29 ml/min) ([facility]) Allergies Active Allergy Reactions Severity Noted Date Comments Amlodipine Edema Other 08/26/2017 Metformin 03/28/2016 diarrhea Penicillins Itching,Rash 04/07/2017 Sulfa Antibiotics Unknown 08/31/2007 Azithromycin 03/28/2016 documented as of this encounter (statuses as of 04/04/2023) Medications Medication Sig Dispensed Refills Start Date [...] units daily 15 mL 11/19/2022 Active Pen [place] 5/16" 31G X 8 MMIndications:Type 2 diabetes mellitus with stage 3b chronic kidney disease, with long-term current use of insulin ([facility]) Use as directed. Use to inject Xultophy [...] as of this encounter (statuses as of 04/04/2023) Active Problems Problem Noted Date Hyperkalemia 02/17/2022 [...] 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 [address]--t sope--gr 2 IH History of tobacco use [...] osteoporosis without current pathological fracture 05/18/2008 Overview: 05/1257-[place]-rckagm-ct drug holiday -rpt 2 yrs>>>05/14--2/-2.2-inc at [place], unchg hip- rpt 2 yrs dexa 7/12--L-M Risk--DrAyoub dc fosamax and rec fu 2 [...] <50%>>>same 04/12 Carotid doppler done 03/18/06 with [facility] documented as of this encounter (statuses as of 04/04/2023) Resolved Problems Problem Noted Date Resolved Date [...] Diarrhea 10/23/2007 03/28/2016 Abdominal pain, generalized 10/23/200707/2015 long-term current use of anticoagulant therapy 0 09/23/2007 [...] as of this encounter (statuses as of 04/04/2023) Immunizations Name Administration Dates Next Due COVID-19 [...] on file documented as of this encounter Plan of Treatment Upcoming Encounters Date Type Specialty Care Team Description 06/02/2023 Nurse Only [facility]ology Pf[facility] [address] [facility] [place] [address] 06/06/2023 Office Visit Cardiology Deonte Marin PA-C [address] [place] [address] 07/15/2023 Office Visit Family Medicine Paz Daniels MD [address] [facility] [phone] Pending Results Name Type Priority Associated Diagnoses Date /Time BASIC METABOLIC PANEL Lab Routine Chronic kidney disease, stage 3b (HCC) 04/04/2023 2:26 PM EDT PTH Lab Routine Chronic kidney disease, stage 3b (HCC) 04/04/2023 2:26 PM EDT HEMOGLOBIN A1C Lab Routine Type 2 diabetes mellitus with stage 3 chronic kidney disease, with long-term current use of insulin, unspecified whether stage 3a or 3b CKD (HCC) 04/04/2023 2:26 PM EDT Health Maintenance Due Date Last Done Comments [...] Additional history exists CKD HGB USE SMARTSET 63079 07/15/202307/15, 06/04/2021, 07/04/2020, Additional history exists CKD PHOS USE SMARTSET 73361 07/15/202306/27, 11/14/2020, 07/04/2020, Additional history exists Albumin/Creatinine Ratio 09/12/2023 023, 06/11/2021, 05/23/2020, Additional history exists O2 ASSESSMENT COMPLETED IN PAST YEAR FOR COPD 01/04/2024 01/03/2023 Diabetic Foot Exam 01/08/2024 01/07/2023, 0 10/10/2021, 09/04/2020, Additional history exists DXA Scan 05/21/2024 05/21/2022, 04/28, 05/18/2018, Additional history exists DTaP,Tdap,and Td Vaccines (2 - Td or Tdap) 10/15/2026 10/15/2016, 11/22/2003, 11/22/2003 Pneumococcal Vaccine: 65+ Years Completed 12/30/2016, 08/21/2015, 08/21/2015, Additional history exists Alpha-1 Antitrypsin Completed 11/14/2020 VITAMIN D LEVEL ONCE IN A LIFETIME-USE SMARTSET# [id number] Completed 11/30/2022, 05/25/2022, 08/27/2021, Additional history exists [...] encounter Visit Diagnoses Diagnosis Chronic kidney disease, stage 3b (HCC) Type 2 diabetes mellitus with stage 3 chronic kidney disease, with long-term current use of insulin, unspecified whether stage 3a or 3b CKD (HCC) Kidney disease, chronic, stage IV (GFR 15-29 ml/min) (HCC) Chronic kidney disease, Stage IV (severe) documented in this encounter Care Teams Auto Rental Supervisor Relationship Specialty Start Date End Date Paz Daniels MD [address] [place] [address] PCP - General Family Medicine 11/27/20 documented as of this encounter
--- OUTSIDE RECORDS SUMMARY | 2023-06-10 14:25 | External Medical Summary ---
Author Name Unknown Address Unknown Organization K01:[facility] [place] - [address] [facility] [address] [facility] [address] Laboratory Report Ordering Provider Test Date Status FLORA GIFFORD 04/04/2023 14:26:57 Final Observation Date Value Abnormality Reference (Units ) Status HbA1C 04/04/2023 14:26:57 6.8 Above high normal 4. 0-5.6 (%) Final The use of HbA1c to monitor glycemic status is based on normal hemoglobin and HbA composition. This test should not be used in patients with abnormal hemoglobin that affects the half life of the red blood cell or the in vivo glycation rates. Glucose, estimated average 04/04/2023 14:26:57 148 Above high normal <126 (mg/dL) Luke cheng Performing Location [facility] [place] [facility] [address] [facility] [address]
--- OUTSIDE RECORDS SUMMARY | 2023-06-10 14:25 | External Medical Summary | Summary of Care ---
Author Name Unknown Organization [facility] Address [address] [place] [address] Phone [phone] Care Team Providers Care Ostrich Farm Worker Name Role Phone Paz Daniels MD Primary Care Provid er Reason for Visit * Reason Comments Chronic Kidney Disease (CKD) Encounter Details Date Type Department Care Team Description 04/04/2023 Office Visit Nephrology, Zofia Villarreal [address] [facility] [place] [address] ZemaCarolina zapata PA-C [address] [facility] [place] [address] Kidney disease, chronic, stage IV (GFR 15-29 ml/min) ([facility])* Allergies Active Allergy Reactions Severity Noted Date [...] daily 15 mL 11 11/19/2022 Active Pen Argenta 516" 31G X 8 MMIndications:Type 2 diabetes mellitus with stage 3b chronic kidney disease, with long-term current use of insulin (HCC) Use as directed. Use to inject Xultophy and Novolog 5 times daily as directed 500 Each 3 01/29/2023 Active ClearView™ AudioStyle Precision Martin Test In Vitro Strip (Glucose [...] 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 0 09/23/2007 [...] Sign Reading Time Taken Comments Blood Pressure 120/65 04/04/2023 1:51 PM EDT Pulse 86 04/04/2023 1:51 PM EDT Temperature 36.6 C (97.8 F) 04/04/2023 1:51 PM ED T Respiratory Rate 18 04/04/2023 1:51 PM EDT Oxygen Saturation 95% 04/04/2023 1:51 PM EDT Inhaled Oxygen Concentration - - Weight 81.6 kg (180 lb) 04/04/2023 1:51 PM EDT Height - - Body Mass Index 30.9 01/03/2023 11:34 AM EDT documented in this encounter Progress Notes * Carolina Degroot PA-C - 04/04/2023 2:00 PM EDT NEPHROLOGY CLINIC NOTE Nephrology, [address] [place] [address] Patient Name: Clari Bennett Patient Active Problem List Diagnosis Code S/P [...] contraindicated Z53.09 Diabetes mellitus with background retinopathy (HCC) E11.3299 HTN, goal below 130/80 I10 Abnormal TSH R79.89 Recurrent UTI (urinary tract infection) N39.0 TIA (transient ischemic attack) G45.9 COPD, group D, by GOLD 2017 classification ([facility]) J44.9 Hypertensive kidney disease with stage 3b chronic kidney disease I12.9, N18.32 Diastolic dysfunction with chronic heart failure ([facility]) I50.32 Type 2 diabetes mellitus with stage 3b chronic kidney disease, with long-term current use of insulin ([facility]) E11.22, N18.32, Z79.4 Chronic kidney disease, stage 3b ([facility]) N18.32 Hyperkalemia E87.5 Open angle with borderline findings, high risk, 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 Diabetes since about 2008 on insulin, hyperlipidemia, hypertension, HFpEF and class 2 angina, pulmonary embolus September,, carotid stenosis status post left end arterectomy 2003, osteoporosis, GERD, reformed tobacco abuse quit 1974. Her baseline renal function shows creatinine 1.0-1.2 from April 2016 through July,; mild issues with hyperkalemia with potassium in the 5.3-5.4 range on 2/3 checks in this timeframe. Note no documented history of cardiac or coronary disease. She has however followed with Cardiologyafter presenting in June, with substernal pressure nausea when ambulating postprandially. She had been on lisinopril initially. She was switched to Cozaar in an effort to improve potassium but this did not change values. Admitted [facility] 02/12- w/ PNA and chest pain. Stopped Lisinopril with d/c due to elevated potassium lvls at the time of admission Covid Apr /May 2021 hospitalized Frequent constipation >> OTC laxatives though push to diarrhea; uses tea occasionally and prune juice. Enjoys going out to lunch most days w/ her ; not ritu active. They live independently. Her runs the [employer]. No salt substitutes. In the past had many uti. Drinks at least : 4-5 glasses ~24 oz water daily. Home blood pressure checks: yes-validated NSAID use: No- Herbals/supplements: (No longer with Vit D due to lvls) History of stones: No Family history of CKD or ESRD: No Today 04/04/23 Denies any recent hospitalizations, procedures or infections. Pt with albuminuria, CKD 3b/4 and ongoing hypotension in 2022. In September was advised to stop nitratestop lisinopril and move long acting metoprolol dose to evening rather than morning. All Bp med have now since been discontinued Patient reports recent fall at home after being dizzy with standing. She contributed this to fatigue and having to take care of who has been ill lately Reports eating regular meals and is still drinking approx 24 oz of water daily. REVIEW OF SYSTEMS General: No fatigue, No change in weight Head: No significant headache Respiratory: No cough,No wheezing, No shortness of breath Cardiovascular:No chest pain, No palpitations, and No syncope +Fall 3 wks ago Gastrointestinal: No nausea, vomiting, diarrhea No blood in stools No abdominal pain Urinary: No dysuira, No hematuria. No flank pain Musculoskeletal: No edema Skin: No itching All other systems were reviewed and were negative. Current Outpatient Medications Medication Sig Dispense Refill Bisacodyl 5 MG Oral Tablet Delayed Release Take 1 Tablet by mouth daily as needed for Constipation.Do not use for more than one week. Do not cut, crush or chew-taking 4d/wk 40 Tab 1 Loratadine 10 MG Oral Tablet Take 1 [...] FOR INCREASED LEG EDEMA 65 Tablet 3 Meclizine HCl 25 MG Oral Tablet (Antivert) Take 1 Tablet by mouth 3 times a day as needed for Dizziness. 30 Tablet 1 Xultophy 100-3.6 UNIT-MG/ML Subcutaneous Solution Pen-injector (Insulin Degludec-Liraglutide) Inject 36 units once daily or as directed per titration up to 50 units daily 15 mL 11 VITAMIN B-12 CR 1000 MCG PO TBCR take on daily Biotin 5000 MCG Capsule Take 1 Capsule by mouth in the morning. Glucose Blood (FREESTYLE PRECISION [place] TEST) STRP Use to test blood sugars up to twice daily with freestyle bernabe 100 Strip 11 FreeStyle Bernabe 14 Day Sensor Use as directed. 2 Each 11 Advanced Probiotic 10 Oral Capsule Take 1 Capsule by mouth in the morning. (Patient not taking: Reported on 04/04/2023) Pen Argenta 5/16" 31G X 8 MM Use as directed. Use to inject Xultophy and Novolog 5 times daily as directed 500 Each 3 FreeStyle Precision Martin Test In Vitro Strip (Glucose Blood) Use to test blood sugar 4 times a day and as needed for low blood sugar. E11.9 100 Strip 1 Current Facility-Administered Medications Medication Dose Route Frequency Provider Last Rate Last Admin Albuterol Sulfate (Proventil) (5 MG/ML) 0.5% *conc* inhalation solution 2.5 mg 2.5 mg Nebulizer RICARDO Barroso Albuterol Sulfate (Proventil) (2.5 MG/3ML) 0.083% inhalation solution 2.5 mg 2.5 mg Nebulizer RICARDO Ricci 2.5 mg at 12/19/22 0950 PHYSICAL EXAMINATION Last 4 BP Readings: BP Readings from Last 4 Encounters: 04/04/23 120/65 01/07/23 104/64 01/03/23 122/62 11/15/22 82/66 Last 3 Weights: Wt Readings from Last 3 Encounters: 04/04/23 81.6 kg (180 lb) 01/07/23 83.5 kg (184 lb) 01/03/23 83.5 kg (184 lb) BP 120/65 (BP Site: Right Arm, BP Position: Sitting, BP Cuff Size: Regular) | Pulse 86 | Temp 36.6 C (97.8 F) | Resp 18 | Wt 81.6 kg (180 lb) | SpO2 95% | BMI 30.90 kg/m | BSA 1.92 m Wt Readings from Last 1 Encounters: 04/04/23 81.6 kg (180 lb) General appearance: alert, no apparent distress. Ambulatory without assistance HEAD: Normocephalic, No masses, lesions, tenderness Respiratory: clear to auscultation, no rhonchi, no wheezes, and no crackles Heart: regular rate and regular rhythm Abdomen: abdomen soft, non-tender, and no CVA tenderness EXTREMITIES: No edema, No cyanosis or clubbing Skin: skin color, texture, turgor are normal NEURO: alert & oriented x 3 with fluent speech, no focal motor/sensory deficits No tremor Patient is a reliable historian of events LABS: Latest Reference Range & Units 02/14/22 14:26 02/28/22 10:26 05/25/22 12:19 07/15/22 13:30 09/10/22 13:32 11/30/22 12:11 Sodium 135 - 146 mmol/L 135 139 140 138 138 Potassium 3.5 - 5.1 mmol/L 5.6 (H) 4.4 4.3 4.5 4.5 Chloride 98 - 107 mmol/L 101 101 101 101 96 (L) CO2 22 - 32 mmol/L 23 25 29 27 31 BUN 6 - 20 mg/dL 41 (H) 33 (H) 38 (H) 35 (H) 36 (H) Creatinine 0.5 - 1.0 mg/dL 1.5 (H) 1.6 (H) 1.6 (H) 1.7 (H) 1.7 (H) Estimated Glomerular Filtration Rate >=60 mL/min 35 (L) 32 (L) 32 (L) 29 (L) 29 (L) Anion Gap 7 - 15 mmol/L 11 13 10 10 11 Glucose 70 - 120 mg/dL 91 131 (H) 47 (L) 89 177 (H) Calcium 8.4 - 10.2 mg/dL 10.1 9.7 9.4 9.8 8.8 9.8 (H): Data is abnormally high (L): Data is abnormally low Latest Reference Range & Units 11/14/20 10:11 06/11/21 11:16 09/12/22 13:34 Albumin / Creatinine Ratio, Urine <30 mg/g Creat 44 (H) 56 (H) ALBUMIN / CREATININE RATIO, URINE Rpt ! Rpt ! Protein/ Creatinine Ratio, Urine <150 mg/g 365 (H) (H): Data is abnormally high !: Data is abnormal Rpt: View report in Results Review for more information IMAGING: FAWAD 01/08/2021 2:38 pmUS RENAL HISTORY h/o UTI; microhematuria TECHNIQUE Cine and static sonographic images were obtained. COMPARISON Prior examination dated September 23, 2016 FINDINGS Right Kidney: Normal size and echotexture. The right kidney measures 9.9 cmx5.0 cmx4.1 cm. No significant collecting system dilatation or stones evident. Hyperechoic region within the midpole of the right kidney measuring 13 x 8 x 13 mm, previously 14 x 6 x 13 mm. Left Kidney: Normal size and echotexture. The left kidney measures 10.5 cmx5.3 cmx4.5 cm. No significant collecting system dilatation or stones evident. Bladder: Normal for degree of distension. Aorta/IVC: Visualized portions normal in caliber. IMPRESSION IMPRESSION Hyperechoic region within the midpole of the right kidney, visually similar to prior from September 23, 2016. Differential includes a small angiomyolipoma or cortical scar. ASSESSMENT/PLAN: The patient's most recent labs (from 3 months ago) were reviewed and the assessment/plan is as follows: Progression to ckd 4 from 3b with mild albuminuria attributed from advanced age, diabetes and vascular disease. Hx of hyperkalemia but with stable chemistries in the last year. BP now controlled without use of medications. Volume status is good Kidney disease, chronic, stage IV (GFR 15-29 ml/min) ([facility]) (Primary) - BASIC METABOLIC PANEL; Future; Expected date: 04/04/2023 Repeat labs today No to medications BP well controlled without use of meds Avoid medicines like aleve, advil, ibuprofen, aspirin more than 81 mg daily and other NSAIDS which are not good for kidney patients. Take only tylenol (acetaminophen) up to 2000 mg daily as needed for pain or as directed by your primary care provider. Reviewed previous status of kidney function and goals of care. All questions were answered. Check-out note: 4-5 months with Lani To lab AKIKO McclellanC Nephrology, [address] [place] [address] documented in this encounter Nursing Notes * Elisa Recinos RN - 04/04/2023 1:53 PM EDT Follow up visit today. No recent illness or hospital stays. Denies any swelling and none noted. documented in this encounter Plan of Treatment Upcoming Encounters Date Type Specialty Care Team Description 06/02/2023 Nurse Only Rheumatology Pf, Nurse Rheum [address] [facility] [place] [address] 06/06/2023 Office Visit Cardiology Deonte Marin PA-C [address] [place] [address] 07/15/2023 Office Visit Family Medicine Paz Daniels MD [address] [place] [address] Health Maintenance Due Date Last Done Comments [...] Additional history exists CKD HGB USE SMARTSET 34947 07/15/202307/15, 06/04/2021, 07/04/2020, Additional history exists CKD PHOS USE SMARTSET 41155 07/15/202306/27, 11/14/2020, 07/04/2020, Additional history exists Albumin/Creatinine [...] D LEVEL ONCE IN A LIFETIME-USE SMARTSET# [id number] Completed 11/30/2022, 05/25/2022, 08/27/2021, Additional history exists [...] as of this encounter Visit Diagnoses Diagnosis Kidney disease, chronic, stage IV (GFR 15-29 ml/min) (HCC)- Primary Chronic kidney disease, Stage IV (severe) documented in this encounter Care Teams [employer]ich [employer] Worker Relationship Specialty Start Date End Date Paz Daniels [facility] [address] [facility] [place] [address] PCP - General Family Medicine 11/27/20 documented as of this encounter
--- OUTSIDE RECORDS SUMMARY | 2023-06-10 14:25 | External Medical Summary | Summary of Care ---
Author Name Unknown Organization [facility] Address [address] [place] [address] Phone [phone] Care Team Providers Care Public Health Specialist Name Role Phone Paz Daniels MD Primary Care Provid er Reason for Visit * Reason Comments Chronic Kidney Disease (CKD) Encounter Details Date Type Department Care Team Description 04/04/2023 Office Visit Nephrology, Zofia Villarreal [address] [facility] [place] [address] ZemaCarolina zapata PA-C [address] [facility] [place] [address] Kidney disease, chronic, stage IV (GFR 15-29 ml/min) ([facility])* Allergies Active Allergy Reactions Severity Noted Date [...] daily 15 mL 11 11/19/2022 Active Pen Kilgore 516" 31G X 8 MMIndications:Type 2 diabetes mellitus with stage 3b chronic kidney disease, with long-term current use of insulin (HCC) Use as directed. Use to inject Xultophy and Novolog 5 times daily as directed 500 Each 3 01/29/2023 Active Mobile IronStyle Precision Martin Test In Vitro Strip (Glucose [...] 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 0 09/23/2007 [...] 2:00 PM EDT NEPHROLOGY CLINIC NOTE Nephrology, [address] [place] [address] Patient Name: Clari Bennett Patient Active Problem [...] COPD, group D, by GOLD 2017 classification ([facility]) J44.9 Hypertensive kidney disease with stage 3b chronic kidney disease I12.9, N18.32 Diastolic dysfunction with chronic heart failure ([facility]) I50.32 Type 2 diabetes mellitus with stage 3b chronic kidney disease, with long-term current use of insulin ([facility]) E11.22, N18.32, Z79.4 Chronic kidney disease, stage 3b ([facility]) N18.32 Hyperkalemia E87.5 Open angle with borderline [...] but this did not change values. Admitted [facility] 02/12- w/ PNA and chest pain. Stopped Lisinopril with d/c due to elevated potassium lvls at the time of admission Covid Apr /May 2021 hospitalized Frequent constipation >> OTC laxatives though push to diarrhea; uses tea occasionally and prune juice. Enjoys going out to lunch most days w/ her ; not ritu active. They live independently. Her runs the [employer]. No salt substitutes. In the past had [...] (Patient not taking: Reported on 04/04/2023) Pen Kilgore 5/16" 31G X 8 MM Use as [...] disease, chronic, stage IV (GFR 15-29 ml/min) ([facility]) (Primary) - BASIC METABOLIC PANEL; Future; Expected [...] with Lani To lab AKIKO McclellanC Nephrology, [address] [place] [address] documented in this encounter Nursing Notes * Elisa Recinos RN - 04/04/2023 1:53 PM EDT Follow up visit today. No recent illness or hospital stays. Denies any swelling and none noted. documented in this encounter Plan of Treatment Upcoming Encounters Date Type Specialty Care Team Description 06/02/2023 Nurse Only Rheumatology Pf, Nurse Rheum [address] [facility] [place] [address] 06/06/2023 Office Visit Cardiology Deonte Marin PA-C [address] [place] [address] 07/15/2023 Office Visit Family Medicine Paz Daniels MD [address] [place] [address] Health Maintenance Due Date Last Done Comments [...] Additional history exists CKD HGB USE SMARTSET 87371 07/15/202307/15, 06/04/2021, 07/04/2020, Additional history exists CKD PHOS USE SMARTSET 25211 07/15/202306/27, 11/14/2020, 07/04/2020, Additional history exists Albumin/Creatinine [...] D LEVEL ONCE IN A LIFETIME-USE SMARTSET# [id number] Completed 11/30/2022, 05/25/2022, 08/27/2021, Additional history exists [...] (severe) documented in this encounter Care Teams Public Health Specialist Relationship Specialty Start Date End Date Paz Daniels MD [address] [facility] [place] [address] PCP - General Family Medicine 11/27/20 documented as of this encounter
--- OUTSIDE RECORDS SUMMARY | 2023-06-10 14:26 | External Medical Summary | Summary of Care ---
Author Name Unknown Organization [facility] Address [address] [place] [address] Phone [phone] Care Team Providers Care Charge Histotechnologist Name Role Phone Paz Daniels MD Primary Care Provid er Reason for Visit * Reason Comments Follow Up COPD Encounter Details Date Type Department Care Team Description 01/03/2023 Office Visit Pulmonary Medicine, [facility] [address] [facility] [place] [address] Nicolas Alarcon MD [address] [facility] [id number] Moderate persistent asthma without complication* Allergies Active Allergy Reactions Severity Noted Date Comments Amlodipine Edema Other 08/26/2017 Metformin 03/28/2016 diarrhea Penicillins Itching,Rash 04/07/2017 Sulfa Antibiotics Unknown 08/31/2007 Azithromycin 03/28/2016 documented as of this encounter (statuses as of 01/03/2023) Medications Medication Sig Dispensed Refills Start Date [...] directed. 2 Each 11 11/24/2020 Active Pen Buffalo 5/16" 31G X 8 MMIndications:Type 2 diabetes [...] Blister Dosing Unit 0 01/03/2023 3 Active Fluticasone-Umecli din-Vilant 100-62.5-25 MCG/ACT Aerosol Powder Breath Activated (Trelegy Ellipta) Inhale 1 Puff by mouth in the morning. 60 Blister Dosing Unit 3 09/13/2022 3 Discontinue d(Medicatio n/Dose Changed) Hospital, Clinic, or Other Facility Administered Medication Ordered Dose Route Frequency Start Date End Date Status Albuterol Sulfate (Proventil) (5 MG/ML) 0.5% *conc* inhalation solution 2.5 mgIndications:COPD, group D, by GOLD 2017 classification ([facility]) 2.5 mg NEBULIZER PRN 09/13/2022 09/13/2023 Acti ve Albuterol Sulfate (Proventil) (2.5 MG/3ML) 0.083% inhalation solution 2.5 mgIndications:COPD, group D, by GOLD 2017 classification ([facility]) 2.5 mg NEBULIZER PRN 09/13/2022 09/13/2023 Acti ve documented as of this encounter (statuses as of 01/03/2023) Active Problems Problem Noted Date Hyperkalemia 02/17/2022 [...] 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 0 09/23/2007 [...] as of this encounter (statuses as of 01/03/2023) Immunizations Name Administration Dates Next Due COVID-19 [...] Sign Reading Time Taken Comments Blood Pressure 122/62 01/03/2023 11:34 AM EDT Pulse 64 01/03/2023 11:34 AM EDT Temperature 36.2 C (97.1 F) 01/03/2023 11:34 AM E DT Respiratory Rate 16 01/03/2023 11:34 AM EDT Oxygen Saturation 95% 01/03/2023 11:34 AM EDT Inhaled Oxygen Concentration - - Weight 83.5 kg (184 lb) 01/03/2023 11:34 AM EDT Height 162.6 cm (5' 4") 01/03/2023 11:34 AM EDT Body Mass Index 31.58 01/03/2023 11:34 AM EDT documented in this encounter Progress Notes * Nicolas Alarcon MD - 01/03/2023 12:02 PM EDT 01/03/2023 Pulmonary Medicine, [address] [id number] Clari Waynehart 1940 female 82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 Other significant PMH DM, CKD, dyslipidemia, pericardial effusion, p. Atrial tachycardia, hypertension, diastolic dysfunction, history of PE, presenting for follow-up pulmonary medicine evaluation. Patient describes occasional dryness of mouth with cough triggered by trilogy, wants to switch backto Breo which she was tolerating better. Denies productive cough, wheezing. Improving exercise tolerance. She is a former smoker-- 1.5 ppd, ages [age] She confirms history of hay fever/seasonal allergies. Loratadine prn. She confirms acid reflux. Taking nothing at this time. Weight has been stable, currently 184 lbs. Physical examination significant for class 3 throat, adequate air entry, scattered rhonchi, regularcardiac rhythm, no dullness, Nonlateralizing Neuro examination. PFT data was reviewed. No evidence of COPD noted. Positive bronchodilator response noted. Breo inhaler will be resumed. Trelegy will be discontinued. Patient was advised to maintain physically active lifestyle. Pulmonary clinic follow-up recommended in 1 year. Assessment Reactive airway disease PFT showed no evidence of COPD. Significant positive bronchodilator response, continue with Breo History of covid 19 a. Clinically recovered Shortness of breath a. May be multifactorial- undelrying lung disease vs cardiac disease vs obesity (Body mass index is31.58 kg/m.) Follow Up: Return in about 1 year (around 01/04/2024) for Clinic Visit. | For: Clinic Visit | Check-out note: Hx of COPD, Now Nl PFT Mild Gas Transfer Defect C/w Breo (After Complete Current trelegy) Plan: Breo to continue Discontinue Trelegy Maintain Physical Activity F/u in 1 year Nicolas Alarcon MD Subjective CC: Chief Complaint Patient presents with Follow Up COPD HPI: Nursing Notes: Linda Martel LPN 01/03/23 1155 Signed Chief Complaint Patient presents with Follow Up COPD Interm History/Respiratory Symptoms Cough: both dry and productive-yellow Hemoptysis: no Sinus Symptoms: PND Hospitalizations: no ED Trips: no Triggers: exertion Nocturnal: occ wheeze CPAP/BiPAP/O2: no Mmrc Cat Question 01/03/2023 11:40 AM EDT - Filed by Linda Martel LPN When do you become breathless? (0) I only get breathless with strenuous exercise How frequently do you cough? (3) Do you have phlegm in your chest? (3) Is your chest tight? (2) How breathless do you become when walking up a hill or steps? (4) How limited are you doing activities at home? (3) How confident are you leaving home with your lung condition? (0) - I am confident leaving my home despite my condition How soundly do you sleep? (0) - I sleep soundly How much energy do you have? (3) Total MMRC Score (range: 0 - 4) 0 Total CAT Score (range: 0 - 40) 18 ROS: No reported history of Hemoptysis, Hematemesis, Melena No reported history of Dysuria, Hematuria, Flank Pain No reported history of chronic headache, seizures No reported history of Fall or trauma . No reported history of recent change in weight or appetite. Past Medical History: Diagnosis Date COPD (chronic obstructive pulmonary disease) (HCC) DM type 2, not at goal (HCC) 08/18/2007 Emphysema, unspecified (HCC) GERD (gastroesophageal reflux disease) Other acute pericarditis 08/18/2007 Paroxysmal atrial tachycardia (HCC) 08/31/2007 Pleural effusion 08/31/2007 Pulmonary embolism (HCC) Pulmonary embolus (HCC) 09/23/2007 Past Surgical History: Procedure Laterality Date CATARACT SURGERY,COMPLEX Bilateral 02/2017 [facility] LAPAROSCOPY, CHOLECYSTECTOMY WITH CHOLANGIOGRAPHY 12/29/09 Laparoscopic cholecystectomy, cholangiogram 12/29/[address] Bryson at [facility] LIGATE/CUT OVIDUCT(S) Tubal Ligation,Non Laparoscopic THROMBOENDARECTOMY W/PATCH,NECK INCISION Left 06/27/2004 Left carotid endarterectomy with patch 06/27/[address] Bryson Social History Socioeconomic History Marital status: Number of children: 4 Tobacco Use Smoking status: Former Packs/day: 1.50 Years: 17.00 Pack years: 25.50 Types: Cigarettes Quit date: 07/28/1974 Years since quittin.4 Smokeless tobacco: Never Vaping Use Vaping Use: Never used Substance and Sexual Activity Alcohol use: Yes Comment: rare Drug use: No Sexual activity: Not Currently Partners: Male Other Topics Concern Seat Belt Yes Social History Narrative Lives with family Retired No pets No mold Family History Problem Relation Age of Onset COPD Mother in her 60s Heart disease Father in his early 70s COPD Father No Known Problems Sister Other (Unknown) Brother Other (Unknown) Brother Other (Unknown) Brother Other (Unknown) Brother Other (Unknown) Brother Current Outpatient Medications Medication Sig Dispense Refill VITAMIN B-12 CR 1000 MCG PO TBCR take on daily Biotin 5000 MCG Capsule Take 1 Capsule by mouth in the morning. Glucose Blood (FREESTYLE PRECISION REJI TEST) STRP [...] 1 Tablet by mouth daily as needed. FreeStyle Jasmine 14 Day Sensor Use as directed. 2 Each 11 Pen Buffalo 5/16" 31G X 8 MM Use as directed. Use to inject Xultophy and Novolog 5 times daily as directed 1000 Each 11 Aspirin 81 MG Oral Tablet [...] to 50 units daily 15 mL 11 Fluticasone Furoate-Vilanterol 100-25 MCG/ACT Inhalation Aerosol Powder [...] solution 2.5 mg 2.5 mg Nebulizer PRN Jerica LechugaRICARDO 2.5 mg at 12/19/22 0950 Review of patient's allergies indicates: Allergen Reactions Amlodipine Edema Other Metformin diarrhea Penicillins Itching and Rash Sulfa Antibiotics Unknown Zithromax [Azithromycin] Objective Filed Vitals: 01/03/23 1134 BP: 122/62 Pulse: 64 Resp: 16 Temp: 36.2 C (97.1 F) TempSrc: Tympanic SpO2: 95% Weight: 83.5 kg (184 lb) Height: 1.626 m (5' 4") Exam: Const: No signs of acute distress present. Head/Face: Normal on inspection. Eyes: Conjunctivae clear. Pupils equal round and reactive to light. ENMT: Oropharynx: No erythema, exudate or masses. Posterior pharynx is normal. Neck: Supple and symmetric. Resp: Respiratory examination as outlined above CV: Rate is regular. Rhythm is regular. No heart murmur appreciated. Extremities: No edema of the lower limbs bilaterally. Abdomen: Positive bowel sounds. Palpation of the abdomen reveals softness, but no distension or tenderness. No palpable hepatosplenomegaly. Musculo: Walks with a normal gait. Skin: Skin is warm and dry. Neuro: Coordination normal. No involuntary movement. Psych: Patient's attitude is cooperative. Mood is normal. Affect is normal. Tests reviewed with the patient: Available Radiologic data was reviewed by me in PACS. The images were shown to the patient and findings were discussed with the patient. documented in this encounter Nursing Notes * Linda Martel LPN - 01/03/2023 11:37 AM EDT Chief Complaint Patient presents with Follow Up COPD Interm History/Respiratory Symptoms Cough: both dry and productive-yellow Hemoptysis: no Sinus Symptoms: PND Hospitalizations: no ED Trips: no Triggers: exertion Nocturnal: occ wheeze CPAP/BiPAP/O2: no Mmrc Cat Question 01/03/2023 11:40 AM EDT - Filed by Linda Martel LPN When do you become breathless? (0) I only get breathless with strenuous exercise How frequently do you cough? (3) Do you have phlegm in your chest? (3) Is your chest tight? (2) How breathless do you become when walking up a hill or steps? (4) How limited are you doing activities at home? (3) How confident are you leaving home with your lung condition? (0) - I am confident leaving my home despite my condition How soundly do you sleep? (0) - I sleep soundly How much energy do you have? (3) Total MMRC Score (range: 0 - 4) 0 Total CAT Score (range: 0 - 40) 18 documented in this encounter Plan of Treatment Upcoming Encounters Date Type Specialty Care Team Description 01/07/2023 Office Visit Family Medicine Paz Daniels MD [address] [place] [address] 02/05/2023 Office Visit Cardiology Jp Mathur MD [address] [facility] [place] [address] 04/04/2023 Office Visit Nephrology Carolina Degroot PA-Laura [address] [place] [address] 06/02/2023 Nurse Only Rheumatology Pf, Nurse Rheum [address] [place] [address] Health Maintenance Due Date Last Done Comments Zoster Vaccines (3 of 3) 05/21/2020 020, 03/21/2020, 03/28/2012 Depression Screening, Annual for Pts 12 and Over 03/06/2021 03/06/2020 COVID-19 Vaccine (4 - Moderna series) 10/29/2021 09/03/2021, 09/27/2020, 08/30/2020 *ADVANCE DIRECTIVE NOT ON FILE 03/16/2022 DIABETES-EYE EXAM 08/24/2022 08/24/2021, , 03/09/2019, Additional history exists DIABETES-FOOT EXAM 10/10/2022 10/10/2021, 0 09/04/2020, 2019, Additional history exists HbA1c 03/10/2023 09/10/2022, 06/27, 10/11/2021, Additional history exists GFR 06/02/2023 11/30/2022, 08/28, 05/25/2022, Additional history exists CKD HGB USE SMARTSET 75875 07/15/202307/15, 06/04/2021, 07/04/2020, Additional history exists CKD PHOS USE SMARTSET 19871 07/15/202306/27, 11/14/2020, 07/04/2020, Additional history exists Albumin/Creatinine Ratio 09/12/2023 023, 06/11/2021, 05/23/2020, Additional history exists O2 ASSESSMENT COMPLETED IN PAST YEAR FOR COPD 11/16/2023 11/15/2022 DXA Scan 05/21/2024 05/21/2022, 04/28, 05/18/2018, Additional history exists DTaP,Tdap,and Td Vaccines (2 - Td or Tdap) 10/15/2026 10/15/2016, 11/22/2003, 11/22/2003 Pneumococcal Vaccine: 65+ Years Completed 12/30/2016, 08/21/2015, 08/21/2015, Additional history exists Alpha-1 Antitrypsin Completed 11/14/2020 Influenza Vaccine (FLU shot) Completed , 05/01/2021, 05/23/2020, Additional history exists VITAMIN D LEVEL ONCE IN A LIFETIME-USE SMARTSET# 16457 Completed 11/30/2022, 05/25/2022, 08/27/2021, Additional history exists [...] as of this encounter Visit Diagnoses Diagnosis Moderate persistent asthma without complication- Primary Unspecified asthma documented in this encounter Care Teams Charge Histotechnologist Relationship Specialty Start Date End Date Paz Daniels MD [address] [place] [address] PCP - General Family Medicine 11/27/20 documented as of this encounter
--- OUTSIDE RECORDS SUMMARY | 2023-06-10 14:26 | External Medical Summary | Summary of Care ---
Author Name Unknown Organization [facility] Address [address] [place] [address] Phone [phone] Care Team Providers Care [employer]ision Millwright Name Role Phone Paz Daniels MD Primary Care Provid er Reason for Visit * Reason Comments Pulmonary Function Test Encounter Details Date Type Department Care Team Description 12/19/2022 PulmDiagnostic Pulmonary Function Lab, [facility] [address] [place] [address] [place], Pft [address] [place] [address] COPD, group D, by GOLD 2017 classification ([facility])* Allergies Active Allergy Reactions Severity Noted Date Comments Amlodipine Edema Other 08/26/2017 Metformin 03/28/2016 diarrhea Penicillins Itching,Rash 04/07/2017 Sulfa Antibiotics Unknown 08/31/2007 Azithromycin 03/28/2016 documented as of this encounter (statuses as of 12/19/2022) Medications Medication Sig Dispensed Refills Start Date [...] directed. 2 Each 11 11/24/2020 Active Pen Union 5/16" 31G X 8 MMIndications:Type 2 diabetes [...] Oral Tablet Take by mouth. 0 Active Fluticasone-Umecli din-Vilant 100-62.5-25 MCG/ACT Aerosol Powder Breath Activated (Trelegy Ellipta) Inhale 1 Puff by mouth in the morning. 60 Blister Dosing Unit 3 09/13/2022 Active Additional Information Patient not taking.Reported on 12/19/2022 Furosemide 20 MG Oral Tablet (Lasix)Indications :Chronic [...] unspecified whether stage 3a or 3b CKD ([facility]) Inject 36 units once daily or as directed per titration up to 50 units daily 15 mL 11 11/19/2022 Active Hospital, Clinic, or Other Facility Administered Medication Ordered Dose Route Frequency Start Date End Date Status Albuterol Sulfate (Proventil) (5 MG/ML) 0.5% *conc* inhalation solution 2.5 mgIndications:COPD, group D, by GOLD 2017 classification ([facility]) 2.5 mg NEBULIZER PRN 09/13/2022 09/13/2023 Acti ve Albuterol Sulfate (Proventil) (2.5 MG/3ML) 0.083% inhalation solution 2.5 mgIndications:COPD, group D, by GOLD 2017 classification ([facility]) 2.5 mg NEBULIZER PRN 09/13/2022 09/13/2023 Acti ve documented as of this encounter (statuses as of 12/19/2022) Active Problems Problem Noted Date Hyperkalemia 02/17/2022 [...] 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 [address]--y sope--gr 2 IH History of tobacco use [...] osteoporosis without current pathological fracture 05/18/2008 Overview: 05/1276-RP-kreqrc-ct drug holiday -rpt 2 yrs>>>05/14--2/-2.2-inc at LS, unchg hip- rpt 2 yrs dexa 02/05--L-M Risk--Perfecto dc fosamax and rec fu 2 yrs [...] <50%>>>same 04/12 Carotid doppler done 03/18/06 with [facility] documented as of this encounter (statuses as of 12/19/2022) Resolved Problems Problem Noted Date Resolved Date [...] 10/23/2007 03/28/2016 Abdominal pain, generalized 10/23/200707/2015 intermediate current use of anticoagulant therapy 0 09/23/2007 [...] as of this encounter (statuses as of 12/19/2022) Immunizations Name Administration Dates Next Due COVID-19 [...] on file documented as of this encounter Progress Notes * Ysabel Naranjo, IT PROGRAM MANAGER - 12/19/2022 10:12 AM EDT PATIENT COMPLETED 6 MINUTE WALK ON ROOM AIR AND REPORTS SOME SOB. documented in this encounter Plan of Treatment Upcoming Encounters Date Type Specialty Care Team Description 01/01/2023 Office Visit Pulmonary Nicolas Alarcon MD [address] [facility] [place] [id number] 01/07/2023 Office Visit Family Medicine Paz Daniels MD [address] [facility] [place] [address] 02/05/2023 Office Visit Cardiology Jp Mathur MD [address] [place] [address] 04/04/2023 Office Visit Nephrology Carolina Degroot PA-Laura [address] [place] [address] 06/02/2023 Nurse Only Rheumatology Pf, Nurse Rheum [address] [facility] [place] [address] Pending Results Name Type Priority Associated Diagnoses Date /Time DIFFUSION CAPACITY (DLCO) Procedures Routine COPD, group D, by GOLD 2017 classification ([facility]) 12/19/2022 9:33 AM EDT LUNG VOLUMES (PLETHYSMOGRAPHY) Procedures Routine COPD, group D, by GOLD 2017 classification ([facility]) 12/19/2022 9:33 AM EDT SPIROMETRY B/A BRONCHODILATOR Procedures Routine COPD, group D, by GOLD 2017 classification ([facility]) 12/19/2022 9:33 AM EDT Health Maintenance Due Date Last Done Comments Zoster Vaccines (3 of 3) 05/21/2020 020, 03/21/2020, 03/28/2012 Depression Screening, Annual for Pts 12 and Over 03/06/2021 03/06/2020 COVID-19 Vaccine (4 - Booster for Moderna series) 10/29/2021 09/03/2021, 09/27/2020, 08/30/2020 *ADVANCE DIRECTIVE NOT ON FILE 03/16/2022 DIABETES-EYE EXAM 08/24/2022 08/24/2021, , 03/09/2019, Additional history exists DIABETES-FOOT EXAM 10/10/2022 10/10/2021, 0 09/04/2020, 2019, Additional history exists HbA1c 03/10/2023 09/10/2022, 06/27, 10/11/2021, Additional history exists GFR 06/02/2023 11/30/2022, 08/28, 05/25/2022, Additional history exists CKD HGB USE SMARTSET 11932 07/15/202307/15, 06/04/2021, 07/04/2020, Additional history exists CKD PHOS USE SMARTSET 48178 07/15/202306/27, 11/14/2020, 07/04/2020, Additional history exists Albumin/Creatinine [...] D LEVEL ONCE IN A LIFETIME-USE SMARTSET# [id number] Completed 11/30/2022, 05/25/2022, 08/27/2021, Additional history exists [...] Not on filedocumented as of this encounter Procedures Procedure Name Priority Date/Time Associated Diagnosis Comments DIFFUSION CAPACITY (DLCO) Routine 12/19/2022 9:33 AM EDT COPD, group D, by GOLD 2017 classification ([facility]) LUNG VOLUMES (PLETHYSMOGRAPHY) Routine 12/19/2022 9:33 AM EDT COPD, group D, by GOLD 2017 classification ([facility]) SPIROMETRY B/A BRONCHODILATOR Routine 12/19/2022 9:33 AM EDT COPD, group D, by GOLD 2017 classification ([facility]) documented in this encounter Visit Diagnoses Diagnosis COPD, group D, by GOLD 2017 classification ([facility])- Primary documented in this encounter Administered Medications Active Administered Medications - up to 3 most recent administrations Medication Order MAR Action Action Date Dose Rate Site Albuterol Sulfate (Proventil) (2.5 MG/3ML) 0.083% inhalation solution 2.5 mg 2.5 mg, Nebulizer, PRN Other, ONCE FOR PFT, Starting on 09/13/22 at 1431, Until 09/13/23 at 1430, For 365 days Given 12/19/2022 9:50 AM EDT 2.5 mg documented in this encounter Care Teams [employer] Relationship Specialty Start Date End Date Paz Daniels MD [address] [place] [address] PCP - General Family Medicine 11/27/20 documented as of this encounter
--- NOTE | 2023-06-11 13:21 | Discharge Summary ---
Date of Service June 11, 2023 Admission HPI Per Admitting Provider 82-year-old female PMH DM type II, CKD stage IV, COPD, remote history of PE s/p Coumadin therapy, chronic diastolic CHF, history of carotid artery disease s/p carotid endarterectomy, class II angina, presumed CAD, HTN, and other problems listed below who presents to the ED for evaluation of chest pain, shortness of breath, cough. History obtained from the patient and review of outpatient PCP and cardiology records. Patient with history of class II angina. Reports increasing left-sided chest pain over the past few days. Symptoms resolved with rest. Patient did not take any sublingual nitroglycerin. Also reports worsening exertional shortness of breath. Has had a nonproductive cough. Also reports associated nausea, vomiting, diarrhea. No abdominal pain. Denies hematemesis, coffee-ground emesis, bright red bleeding per rectum, dark tarry stools. No fevers or chills. Reports lightheadedness and dizziness with standing, no syncopal event. Denies urinary symptoms. In the ED, labs show WBC 15 K, Na+ 128, creatinine 1.5, HS troponin 14.9, procalcitonin 0.7. CXR showing bibasilar consolidation. Patient is hemodynamically stable. She received IV cefepime and IVF. Admission Exam Per Admitting Provider Constitutional: WD/WN, vitals as above no acute distress Eyes: PERRL, conjunctivae normal, anicteric sclerae ENMT: external ear and nose normal, oropharynx normal Respiratory: normal respiratory effort and + cough; no respiratory distress Auscultation: + rales (Right base) Cardiovascular: Rate/Rhythm: regular rate and regular rhythm Vessels: normal peripheral pulses Extremities: no edema Gastrointestinal (Abdomen): normal bowel sounds, soft, nontender, no hepatosplenomegaly Musculoskeletal: no cyanosis or clubbing, extremities motor strength 5/5 Skin: no rashes, warm and dry Neurologic: PERRL, EOMI, accommodation nl, no face palsy, no dysarthria Psychiatric: A+Ox3, euthymic affect Principal Diagnosis Bibasilar pneumonia, COPD without exacerbation, acute hyponatremia, acute on chronic diastolic heart failure Discharge Exam Lying in bed comfortably Constitutional well developed, well nourished and + obese Eyes PERRL, conjunctivae normal, anicteric sclerae ENMT external ear and nose normal, oropharynx normal Neck trachea midline, no thyromegaly Respiratory + respiratory distress (Minimal distress at rest) Auscultation: + diminished lung sounds and + crackles (Bibasilar crackles) Cardiovascular Rate/Rhythm: regular rate and regular rhythm; not tachycardic Heart Sounds: normal S1, normal S2 and + murmur Extremities: + edema (Trace edema bilaterally) Gastrointestinal (Abdomen) Inspection/Auscultation: normal bowel sounds; abdomen not distended Percussion/Palpation: abdomen soft; abdomen nontender Neurologic normal touch/pain/proprioception and moves all extremities; no focal motor deficits Psychiatric A+Ox3, euthymic affect Lymphatic no cervical or axillary lymphadenopathy Discharge Data Allergies Allergy/AdvReac Type Severity Reaction Status Date / Time azithromycin Allergy Intermediate FACIAL Verified 11/11/22 14:31 SWELLING AND ITCHING IN COMBINATION WITH HYCODAN homatropine Allergy Intermediate FACIAL Verified 11/11/22 14:31 SWELLING AND ITCHING IN COMBINATION WITH ZITHROMAX hydrocodone Allergy Intermediate FACIAL Verified 11/11/22 14:31 SWELLING &ITCHING-IN COMBINATION W/ZITHROMAX Penicillins Allergy Mild RASH, ITCHY Verified 11/11/22 14:31 metformin AdvReac Intermediate Diarrhea Verified 11/11/22 14:31 Sulfa (Sulfonamide AdvReac Mild SULFA Verified 11/11/22 14:31 Antibiotics) DRUGS-CHANGE COLORS Consultations 06/06/23 17:16 ED Decision to Admit Stat Hospital Course (1) Pneumonia: Sepsis POA secondary to pneumonia Patient presenting from home with reports of worsening chest pain, shortness of breath, cough x 3 days along with nausea, vomiting, diarrhea. In the ED, patient does meet SIRS criteria with mild tachycardia, WBC 15 K. Check lactate. Hemodynamically stable, does not appear septic. CXR showing bibasilar consolidation. Saturating well on room air Bio fire negative Blood cultures ordered (noted after received IV cefepime in ED). Received IV cefepime in ED, Will continue with azithromycin and doxycycline Pulmonary toilet with Mucinex, incentive spirometer, flutter valve History of COPD, no wheezing on exam, continue home inhalers Has been feeling much better with decreasing cough and shortness of breath Saturating normally on room air We will continue current management and do PT and OT evaluation Clinically much better but complains to have some chest pressure on the lower lateral of the left chest We will get a chest x-ray to make sure there is no fluid and/or worsening consolidation Denies any cough and no shortness of breath and saturating normally on room air Has had PT evaluation and recommended home Will be discharged home this afternoon Acute on chronic diastolic heart failure Chest ray showed mild congestive change received a small dose of intravenous Lasix Has been feeling much better without any shortness of breath at rest and saturating normally on room air Ambulating without any difficulties and will be discharged home this afternoon Left eye stickiness And itchiness Has been getting polymyxin B eyedrop Will add antihistamine eyedrops too (2) COPD (chronic obstructive pulmonary disease): As above No exacerbation of COPD (3) Chest pain: Denies any more chest pain Cardiac enzymes are unremarkable Seems to be musculoskeletal pain (4) ASCVD (arteriosclerotic cardiovascular disease): (5) H/O class II angina pectoris: Likely secondary to pneumonia Initial HS troponin 14.9, EKG without acute ST changes. Continue to trend troponin, if significant elevation or ongoing symptoms, consider echo and/or cardiology evaluation. Remote history of PE in 2007. If patient does not improve with above treatments, consider PE evaluation. No desaturation and denies any more pain (6) Acute hyponatremia: Na+ 128 Likely hypovolemic hyponatremia in the setting of vomiting and diarrhea S/p 2 L NSS in ED, repeat BMP tonight and order additional IVF as indicated Sodium level has gone up to 131 Sodium is a bit better today at 133 We will recheck sodium tomorrow-sodium remains minimally low at 132 with normal creatinine (7) Chronic diastolic CHF (congestive heart failure): Hold Lasix for now in the setting of hyponatremia, mild dehydration No signs and or symptoms of fluid overload Complains to have some heaviness involving the left lower chest wall We will repeat chest x-ray today Shows mild congestion likely secondary to acute on chronic diastolic heart failure and received an intravenous dose of Lasix to resolve the issue We will continue with outpatient Lasix on discharge (8) HTN (hypertension): Chronic, stable Previously on metoprolol and isosorbide. Placed on hold by PCP in October due to concerns of orthostasis. Patient follows with cardiology as an outpatient. Had appointment scheduled today, will need to follow-up discharge. Check orthostatic BPs (9) Chronic kidney disease (CKD), stage III (moderate): Baseline creatinine mid-high 1s Creatinine 1.5 today Continue monitor renal functions Kidney function has been improving with creatinine decreased to 1.32 from 1.50 Advised to drink more fluid (10) DM II (diabetes mellitus, type II), controlled: Hgb A1c 6.8 03/2023 Hold home regimen and utilize Lantus and NovoLog per protocol while hospitalized DVT PROPHYLAXIS SQ heparin Will be discharged home this afternoon Total Time Total Time Spent Total Time Spent (In Minutes): 35 minutes Discharge Plan Discharge Items Patient Disposition: Home - Self-Care Reason For Visit: PNEUMONIA, CHEST PAIN Discharge Diagnosis: Bibasilar pneumonia, COPD without exacerbation, acute hyponatremia, acute on chronic diastolic heart failur Condition on Discharge: Fair Activity: Resume your previous activity Non-emergency contact: Primary Care Provider Call non-emergency contact if: you have any medication questions and your symptoms worsen Follow-up/Referrals: Paz Daniels MD [Primary Care Provider] - (Date & Time 06/16/2023 11:00 AM Provider Paz Daniels MD Department [facility] ) Diet: Carb Consistent or DM2 and Heart Healthy Addtl Attending Provider Instructions: Please take precautions to avoid falls Please finish the course of antibiotic as advised Take your medications as advised Please keep appointments with your healthcare provider You can try [id number] cough medicine and also probiotics Pending Studies at Discharge: No Stand-Alone Forms: My [facility] babberly, Smoking Cessation Medications and DC Order Prescriptions: New polymyxin B sulf-trimethoprim 10,000 unit- 1 mg/mL Drops 2 drp OPL QID Qty: 1 0RF doxycycline hyclate 100 mg capsule 100 mg PO BID 3 Days Qty: 6 0RF cefdinir 300 mg capsule 300 mg PO BID Qty: 6 0RF Continued cyanocobalamin (vitamin B-12) [Vitamin B-12] 1,000 mcg Tablet 1,000 mcg PO QAM insulin aspart U-100 [Novolog U-100 Insulin aspart] 100 unit/mL Solution 1 sliding scale dose SUBCUT ACHS ascorbic acid (vitamin C) [Vitamin C] 1,000 mg Tablet 1 g PO DAILY nitroglycerin [Nitrostat] 0.4 mg Tablet, Sublingual 0.4 mg sublingual PRN PRN (Reason: chest pain) Qty: 30 0RF Rx Instructions: 1 tab under tongue for chest pain, can use max of 3 tabs for unresolved chest pain, each at 5 minutes difference. Call PCP or ER then. furosemide 20 mg tablet 20 mg PO Rx Instructions: Pt takes 20mg Friday-Friday only aspirin 81 mg tablet,delayed release (DR/EC) 81 mg PO DAILY loratadine 10 mg Tablet 10 mg PO DAILY rosuvastatin 40 mg Tablet 40 mg PO DAILY cholecalciferol (vitamin D3) 25 mcg (1,000 unit) Tablet 25 mcg PO DAILY fluticasone furoate-vilanterol [Breo Ellipta] 100-25 mcg/dose blister with device 1 inh INHALATION QAM Xultophy 100/3.6 100 unit-3.6 mg /mL (3 mL) insulin pen 36 unit SUBCUT DAILY Rx Instructions: OR DIRECTED PER TITRATION UP TO 50 UNITS DAILY cyclobenzaprine 5 mg tablet 5 mg PO TID PRN (Reason: muscle spasms) Discharge Orders: Discharge Order (Routine); Ordered 06/10/23 Ordered By: Joanna Santo/Other Patient Handouts: Heart Failure Flare Up Signs, Heart Failure: Tracking Your Weight, ED Conjunctivitis, Nonspecific Admission Data Admit Date/Time: 06/06/23 20:28 Attending Provider: Joanna Salcido Admit Provider: Ana Arvizu Primary Care Provider: Paz Daniels Other Providers: Ana Arvizu Other Interventions: Discharge Summary Assessment (RN) Last Done: 06/10/23 14:02
== END 2023-06-10 15:05 | disposition home or self-care (01) | DRG 871 ==
LOC: ED 14:07 → 2W 20:00 → SUATTDRO 20:28 → 2W 20:28
DX: Z79.51 Long term (current) use of inhaled steroids; Z87.891 Personal history of nicotine dependence; I50.33 Acute on chronic diastolic (congestive) heart failure; Z23 Encounter for immunization; Z88.2 Allergy status to sulfonamides; E87.1 Hypo-osmolality and hyponatremia; Z86.711 Personal history of pulmonary embolism; H10.89 Other conjunctivitis; E11.22 Type 2 diabetes mellitus with diabetic chronic kidney disease; Z88.1 Allergy status to other antibiotic agents; J44.0 Chronic obstructive pulmonary disease with (acute) lower respiratory infection; Z11.52 Encounter for screening for COVID-19; Z88.0 Allergy status to penicillin; A41.9 Sepsis, unspecified organism; I25.119 Atherosclerotic heart disease of native coronary artery with unspecified angina pectoris; Z79.4 Long term (current) use of insulin; E86.1 Hypovolemia; N18.30 Chronic kidney disease, stage 3 unspecified; J18.9 Pneumonia, unspecified organism; E86.0 Dehydration; Z79.82 Long term (current) use of aspirin